=== PATIENT | male | born 1960 ===

== ENCOUNTER 2018-04-07 08:14 | Inpatient (IN) | payer OTHER ==
--- NOTE | 2018-04-07 08:30 | Emergency Department Report ---
ED CPR HPI - General Chief Complaint: Cardiac Arrest/CPR Stated Complaint: CARDIAC Time Seen by Provider: 04/07/18 08:14 Source: family, EMS Mode of arrival: Stretcher Limitations: Altered Mental Status, Other (clinical situation) - History of Present Illness Initial Comments: History per family and EMS: per ems, EMS was called for complaint of chest pain and decreased responsiveness. Patient was found to have a blood sugar of 40 on scene and was given oral glucose and D50. Patient was then transported to the hospital in route to the hospital patient became unresponsive And vomiting. EMS states that the patient went unresponsive approximately 30 seconds from hospital. patient was given asa on scene. See code note. Per , patient complained of chest pressure this morning and states that the patient was less responsive than usual. states patient is a diabetic and has not eaten since yesterday. MD Complaint: stopped breathing Place: home Bystander CPR Performed: No AED Applied by Bystander/Throw Out Clerk: No Shock Advised: No Initial Findings in the Field: lethargic ROSC in the Field: No Associated Injuries: No Associated Symptoms: chest pain. denies: abdominal pain, back pain, shortness of breath, headache, dizziness/weakness, sweating, palpitations, trauma Treatments Prior to Arrival: BMV, chest compressions - Related Data Home Medications Medication Instructions Recorded Confirmed Last Taken Ascorbic Acid [Vitamin C with Matilde 500 mg PO BID 04/07/18 04/07/18 Unknown Hips] Ferrous Sulfate [Iron] 325 mg PO PC 04/07/18 04/07/18 Unknown Lisinopril [Zestril] 5 mg PO QDAY 04/07/18 04/07/18 Unknown glipiZIDE [Glipizide] 5 mg PO BID 04/07/18 04/07/18 Unknown metFORMIN [Glucophage] 500 mg PO BID 04/07/18 04/07/18 Unknown Allergies Allergy/AdvReac Type Severity Reaction Status Date / Time No Known Allergies Allergy Unverified 04/07/18 08:27 ED Review of Systems ROS: Stated complaint: CARDIAC Other details as noted in HPI Comment: Unobtainable due to pts medical conditions ED Past Medical Hx - Past Medical History Previous Medical History?: Yes Hx Hypertension: Yes Hx Diabetes: Yes - Surgical History Past Surgical History?: No - Family History Family history: no significant - Social History Smoking Status: Unknown if ever smoked Substance Use Type: None - Medications Home Medications: Home Medications Medication Instructions Recorded Confirmed Last Taken Type Ascorbic Acid [Vitamin C with Matilde 500 mg PO BID 04/07/18 04/07/18 Unknown History Hips] Ferrous Sulfate [Iron] 325 mg PO PC 04/07/18 04/07/18 Unknown History Lisinopril [Zestril] 5 mg PO QDAY 04/07/18 04/07/18 Unknown History glipiZIDE [Glipizide] 5 mg PO BID 04/07/18 04/07/18 Unknown History metFORMIN [Glucophage] 500 mg PO BID 04/07/18 04/07/18 Unknown History ED Physical Exam - General Limitations: Altered Mental Status, Other (medical situation) General appearance: obtunded - Head Head exam: Present: atraumatic, normocephalic - Eye Eye exam: Present: normal appearance, PERRL Pupils: Present: normal accommodation - ENT ENT exam: Present: mucous membranes dry - Neck Neck exam: Present: normal inspection - Respiratory Respiratory exam: Present: other (no respiratory activity noted initially. Patient was intubated immediately) - Cardiovascular Cardiovascular Exam: Present: other (no cardiac activity initially) - Rectal Rectal exam: Present: deferred - Extremities Exam Extremities exam: Present: other (large open wound noted on left foot. with discharge and odor/) - Neurological Exam Neurological exam: Present: altered - Skin Skin exam: Present: warm, dry, other (open wound on left foot. ) ED Course Vital Signs 04/07/18 04/07/18 04/07/18 08:12 08:16 08:29 Temperature Pulse Rate 71 Respiratory Rate Blood Pressure O2 Sat by Pulse 43 L 100 100 Oximetry 04/07/18 04/07/18 04/07/18 08:30 08:46 09:03 Temperature Pulse Rate 122 H 106 H Respiratory 23 22 Rate Blood Pressure 143/71 O2 Sat by Pulse 100 100 100 Oximetry 04/07/18 04/07/18 04/07/18 09:04 09:06 09:08 Temperature Pulse Rate 106 H 106 H 107 H Respiratory 23 22 22 Rate Blood Pressure 87/48 O2 Sat by Pulse 100 100 100 Oximetry 04/07/18 04/07/18 04/07/18 09:15 09:29 09:30 Temperature 98.6 F Pulse Rate 105 H 96 H Respiratory 22 17 Rate Blood Pressure 91/49 77/40 O2 Sat by Pulse 97 Oximetry 04/07/18 04/07/18 04/07/18 09:40 09:50 10:00 Temperature Pulse Rate 96 H 99 H 102 H Respiratory 19 19 16 Rate Blood Pressure 87/48 92/52 92/54 O2 Sat by Pulse 96 95 96 Oximetry 04/07/18 04/07/18 04/07/18 10:15 10:30 10:45 Temperature Pulse Rate 111 H 112 H 114 H Respiratory 15 27 H 23 Rate Blood Pressure 105/61 102/61 96/66 O2 Sat by Pulse 97 95 95 Oximetry 04/07/18 04/07/18 04/07/18 11:14 11:16 11:30 Temperature Pulse Rate 117 H 118 H 114 H Respiratory 37 H 31 H 24 Rate Blood Pressure 96/66 96/66 90/46 O2 Sat by Pulse 94 100 94 Oximetry 04/07/18 04/07/18 04/07/18 11:45 12:00 12:15 Temperature Pulse Rate 108 H 111 H 109 H Respiratory 24 34 H 41 H Rate Blood Pressure 92/46 87/45 82/46 O2 Sat by Pulse 94 96 96 Oximetry 04/07/18 04/07/18 04/07/18 12:29 12:30 13:00 Temperature Pulse Rate 116 H 111 H 114 H Respiratory 40 H 26 H Rate Blood Pressure 82/46 97/41 O2 Sat by Pulse 94 96 93 Oximetry 04/07/18 04/07/18 04/07/18 13:16 13:30 13:46 Temperature Pulse Rate 114 H 114 H 115 H Respiratory 37 H 32 H 32 H Rate Blood Pressure 91/44 91/42 103/48 O2 Sat by Pulse 90 97 93 Oximetry 04/07/18 04/07/18 04/07/18 14:00 14:10 14:16 Temperature Pulse Rate 115 H 110 H 115 H Respiratory 28 H 17 28 H Rate Blood Pressure 96/55 113/52 O2 Sat by Pulse 92 95 93 Oximetry 04/07/18 04/07/18 04/07/18 14:30 14:45 15:00 Temperature Pulse Rate 108 H 99 H 97 H Respiratory 24 24 19 Rate Blood Pressure 90/44 81/46 92/40 O2 Sat by Pulse 91 92 93 Oximetry 04/07/18 04/07/18 04/07/18 15:16 15:30 15:45 Temperature Pulse Rate 102 H 97 H 96 H Respiratory 24 23 25 H Rate Blood Pressure 95/40 98/52 94/50 O2 Sat by Pulse 95 96 95 Oximetry 04/07/18 16:00 Temperature Pulse Rate 94 H Respiratory 23 Rate Blood Pressure 95/50 O2 Sat by Pulse 97 Oximetry - Reevaluation(s) Reevaluation #1: Patient arrived via EMS. Patient was more awake prior to arrival. Patient went unresponsive in route to hospital. Patient noted to be in full arrest. Code ran consistent with ACLS protocol and guidelines. Patient was intubated and given one dose of epi. Patient's pulse returned. See code note 04/07/18 08:11 Reevaluation #2: Discussed this case and status with family member. is at bedside. 04/07/18 08:27 Reevaluation #3: Patient becoming hypotensive. We will decrease propofol rate and give patient a bolus of saline. We will monitor pressure. If blood pressure resistant to saline bolus, we will start a drip 04/07/18 09:05 Blood pressure is better after saline bolus. Patient resting comfortably. We' ll continue to monitor patient 04/07/18 11:32 Blood pressure is improving. Versed drip pending. Patient is still on propofol drip and currently on 2 mics of norepinephrine. Patient awake and following commands when propofol stopped 04/07/18 12:56 Reevaluation #4: Discussed plan of care with family. Family agrees with plan of care. Discussed all results with family member. Family at bedside 04/07/18 13:04 Reevaluation #5: CPAP trial with patient for possible extubation. However patient became hypoxic during the trial. Patient will remain intubated. Patient also continues to be hypotensive with a low map. Will place central line for better IV access. See procedure note. Discussed plan of care with family and family agrees 04/07/18 14:56 - Consultations Consultation #1: Hospitalist consulted for admission. Hospitalist to admit patient. Hospitalist , Dr silva to assume care 04/07/18 12:05 - Central Line Placement Right IJ Consent Obtained: verbal consent, written consent, emergent situation Time Out Performed: Yes Patient Placed on Monitor/Pulse Ox: Yes Prep: mask, gown, gloves Central Line Prep: Chlorhexidine scrub, sterile drapes applied Local Anesthesia Used: Lidocaine 1% Ultrasound Used for Placement: Yes Central Line Lumen Inserted: triple Bloods Obtained for Lab: Yes Central Line Position: good blood return, all ports aspirated, flus, sutured in place with 2-0 Dressing Applied: Tegaderm Post Procedure X-Ray: tip of catheter in good p Patient Tolerated Procedure: well Complications: none - Intubation Time Out Performed: Yes Sedative: none Laryngoscope: fiberoptic video scope Size: 4 Assist Device Used: fiberoptic device ET Tube Size: 7.5 Tube Secured Depth (cm): 24 Tube Secured Location: lips Tube Placement Confirmation: visualized tube passing t, equal breath sounds bilat, no breath sounds over epi, confirmation by capnometr Patient Tolerated Procedure: well Intubation Complications: none ED Medical Decision Making - Lab Data Result diagrams: 04/07/18 08:15 04/07/18 08:15 - EKG Data -: EKG Interpreted by Me EKG shows normal: sinus rhythm, axis, intervals, QRS complexes, ST-T waves Rate: tachycardia - Radiology Data Radiology results: image reviewed interpreted by me: et tube in good placement. post cvl film: no pneumo. line in place. CT scan of head IV contrast: History: AMS. Findings: Ventricles are normal in size and midline in location. Mild cortical atrophy. Focal area of low attenuation right basal ganglia measuring 4 mm in diameter suggesting chronic lacunar infarct. No evidence of acute ischemia. No hemorrhage or mass. No extra-axial fluid collection. Normal visualized sinuses and mastoid air cells. Impression: Chronic lacunar infarct right basal ganglia. No acute intracranial abnormality. Transcribed By: PTP Dictated By: LEAH WOLFF MD Electronically Authenticated By: LEAH WOLFF MD Signed Date/Time: 04/07/18 1117 cta - no pe./ EXAM: XR CHEST 1V AP HISTORY: confirm central line placement COMPARISON: None. TECHNIQUE: Single frontal view of the chest FINDINGS: Endotracheal tube with tip in the midtrachea. Right central venous catheter with tip in the upper superior vena cava, just below the brachiocephalic junction. The cardiomediastinal silhouette is normal in appearance. Patchy airspace opacities throughout the right lung. Patchy opacity at the left lower lobe. No acute bony or soft tissue abnormality. IMPRESSION: Right central venous catheter with tip in the upper superior vena cava, just below the brachiocephalic junction. Patchy airspace opacities throughout the right lung and at the left lower lobe. Transcribed By: JADE Dictated By: VESTA CARRANZA MD Electronically Authenticated By: VESTA CARRANZA MD Signed Date/Time: 04/07/18 1630 - Medical Decision Making Patient is 57 y/o male that presented to the emergency room with cardiac arrest after initial complaints to EMS of chest pain. Patient was found by EMS to be hypoglycemic and given D50. Patient interested in route to the hospital. Code ran and patient successfully resuscitated. Patient was intubated. Patient found to be septic. Found to have bilateral pneumonia and infected foot ulcer. Patient also found to have lactic acidosis. Head CT negative and CTA negative for PE. Patient was started on pressors for hypotension after saline boluses. Sedation was also changed due to hypotension. He continues to the hospitalist service for further evaluation and treatment. Patient to be admitted into the ICU. - Differential Diagnosis cardiac arrest. Hypoglycemia. Sepsis. Septic shock. Hypotension. pna Critical Care Time: Yes Critical care attestation.: If time is entered above; I have spent that time in minutes in the direct care of this critically ill patient, excluding procedure time. Critical Care Time: 75 minutes for cc time. ED Disposition Clinical Impression: Cardiac arrest, Hypoglycemia, Foot infection, Lactic acidosis, Septic shock Foot ulcer, left Qualifiers: Non-pressure ulcer stage: unspecified non-pressure ulcer stage Qualified Code(s ): L97.529 - Non-pressure chronic ulcer of other part of left foot with unspecified severity Sepsis Qualifiers: Sepsis type: sepsis due to unspecified organism Qualified Code(s): A41.9 - Sepsis, unspecified organism Bilateral pneumonia Qualifiers: Pneumonia type: due to unspecified organism Lung location: unspecified part of lung Qualified Code(s): J18.9 - Pneumonia, unspecified organism Anemia Qualifiers: Anemia type: unspecified type Qualified Code(s): D64.9 - Anemia, unspecified Disposition: OP ADMIT IP TO THIS HOSP Is pt being admited?: Yes Does the pt Need Aspirin: No Condition: Critical Time of Disposition: 12:01
[2018-04-07] MEDS ORDERED: DIPRIVAN 10 MG/ML 1,000 MG/100 ML BOTTLE IV ONE (08:34)
[2018-04-07] MEDS ORDERED: ARTIFICIAL TEARS OPHTH OINT OU PRN (08:48)
[2018-04-07] MEDS ORDERED: VASELINE LIP THERAPY TP PRN (08:48)
[2018-04-07] MEDS ORDERED: NACL 0.9% 1000 ML 1,000 ML IV ONE ×4 (08:50→13:05)
[2018-04-07] MEDS ORDERED: NACL 0.9% 500 ML IV SCH (09:00)
[2018-04-07] MEDS ORDERED: DIPRIVAN 10 MG/ML 1,000 MG/100 ML BOTTLE IV SCH (09:00)
[2018-04-07 09:01] LABS: Hematocrit 22.4 % (35.5-45.6); Hemoglobin 7.2 gm/dl (11.8-15.2); Mean Corpuscular HGB Conc 32 % (32-34); Mean Corpuscular Hemoglobin 25 pg (28-32); Mean Corpuscular Volume 78 fl (84-94); Platelet Count 453 K/mm3 (140-440); Red Blood Count 2.89 M/mm3 (3.65-5.03)
[2018-04-07 09:20] LABS: Alanine Aminotransferase 43 units/L (7-56); Albumin 2.4 g/dL (3.9-5); BUN/Creatinine Ratio 15; Blood Urea Nitrogen 21 mg/dL (9-20); Calcium 8.2 mg/dL (8.4-10.2); Hemolysis Index 1
[2018-04-07 09:23] LABS: Creatine Kinase MB < 1.0 ng/mL (0.0-4.0)
--- NOTE | 2018-04-07 09:32 | XRay Report ---
Single view chest: History: ET tube placement. Findings: Normal cardiomediastinal silhouette. Trachea is midline. Tip of endotracheal tube in normal position. No consolidation no pleural effusion or pneumothorax. Impression: No acute cardiopulmonary findings.
[2018-04-07] MEDS ORDERED: ZOSYN/NS 3.375GM/50ML 3.375 GM/50 ML BAG IV ONE (09:43)
[2018-04-07 09:47] LABS: Bilirubin,Urine NEG (Negative); Blood,Urine NEG (Negative); Color,Urine Yellow (Yellow); Mucus,Urine FEW /HPF; Sperm,Urine 3+ /HPF (NP); Urobilinogen,Urine < 2.0 mg/dL (<2.0)
[2018-04-07 09:54] LABS: Amphetamine Screen,Urine PRESUMPTIVE NEGATIVE; Benzodiazepines Screen,Urine PRESUMPTIVE NEGATIVE; Cannabinoid Screen,Urine PRESUMPTIVE NEGATIVE; Cocaine Screen,Urine PRESUMPTIVE NEGATIVE; Methadone Screen,Urine PRESUMPTIVE NEGATIVE; Opiate Screen,Urine PRESUMPTIVE NEGATIVE
[2018-04-07] MEDS ORDERED: VANCOMYCIN/NS 1 GM/250 ML 1 GM/250 ML BAG IV SCH (10:00)
[2018-04-07] MEDS ORDERED: VANCOMYCIN 1,500 MG in NACL 0.9% 500 ML 500 ML IV ONE (10:15)
[2018-04-07 10:36] LABS: Basophils % (Manual) 0 % (0.0-1.8); Eosinophils % (Manual) 0 % (0.0-4.3); Total Cells Counted 100
[2018-04-07 10:37] LABS: RBC Morphology Normal
[2018-04-07] MEDS ORDERED: ATIVAN ONE ×4 (10:39→10:47)
--- NOTE | 2018-04-07 11:35 | Cat Scan Report ---
CT scan of head IV contrast: History: AMS. Findings: Ventricles are normal in size and midline in location. Mild cortical atrophy. Focal area of low attenuation right basal ganglia measuring 4 mm in diameter suggesting chronic lacunar infarct. No evidence of acute ischemia. No hemorrhage or mass. No extra-axial fluid collection. Normal visualized sinuses and mastoid air cells. Impression: Chronic lacunar infarct right basal ganglia. No acute intracranial abnormality.
--- NOTE | 2018-04-07 11:38 | Cat Scan Report ---
CTA chest: History: Elevated d-dimer. Findings: Tip of endotracheal tube in normal position. No evidence of aortic aneurysm or pulmonary embolism. Airspace opacities in right lower lobe. Pleural thickening or minimal consolidation left lower lobe paravertebral region. Scattered airspace opacities left lower lobe. Impression: No evidence of pulmonary embolism. Bibasilar airspace opacities probably related to bilateral pneumonia or pulmonary edema.
[2018-04-07] MEDS ORDERED: ADRENALIN 8 MG in NACL 0.9% 250ML 242 ML IV ONE (11:58)
[2018-04-07] MEDS ORDERED: LEVOPHED DRIP 4 MG/NS 250 ML 4 MG/250 ML BAG IV ONE ×2 (12:04→20:14)
[2018-04-07] MEDS ORDERED: LEVOPHED DRIP 4 MG/NS 250 ML 4 MG/250 ML BAG IV SCH (12:15)
[2018-04-07] MEDS ORDERED: MIDAZOLAM 100 MG in NACL 0.9% 80 ML IV SCH (13:00)
[2018-04-07 14:05] LABS: Creatine Kinase MB 2.5 ng/mL (0.0-4.0)
[2018-04-07] MEDS ORDERED: SUBLIMAZE IV ONE (15:05)
[2018-04-07] MEDS: fentaNYL DRIP Premix 2,000 MCG/100 ML BAG IV SCH (15:56)
[2018-04-07] MEDS ORDERED: SODIUM CHLORIDE FLUSH SYRINGE 10 ML IV PRN (16:08)
[2018-04-07] MEDS ORDERED: ZOFRAN IV PRN (16:08)
--- NOTE | 2018-04-07 16:08 | History and Physical Report ---
History of Present Illness Date of examination: 04/07/18 Date of admission: 04/07/18 Chief complaint: CC Decreased responsiveness and Low BG 1 hour prior to arrival. History of present illness: History of Present Illness: 57 y/o male with pmh of T2DM and HTN complained of chest pain.EMS was called.EMS found him with BG of 40 and decreased responsiveness.D50w was given.Enroute to the hospital .Enroute to the hospital patient became unresponsive and also vomited once.ASLS was initiated and patient brought into the ER with BMV and chest compressions.Patient intubated in ED by Dr Pendleton for airway protection.Return of spontaneous circulation and BP came back.NOfever or chills.No recent travel. Past Medical History Previous Medical History?: Yes Hx Hypertension: Yes Hx Diabetes: Yes--poorly controlled per Surgical History Past Surgical History?: No Family History Family history: no significant Social History Smoking Status: Unknown if ever smoked Substance Use Type: None Medications Home Medications: Home Medications Medication Instructions Recorded Confirmed Last Taken Type Ascorbic Acid [Vitamin C with Matilde 500 mg PO BID 04/07/18 04/07/18 Unknown History Hips] Ferrous Sulfate [Iron] 325 mg PO PC 04/07/18 04/07/18 Unknown History Lisinopril [Zestril] 5 mg PO QDAY 04/07/18 04/07/18 Unknown History glipiZIDE [Glipizide] 5 mg PO BID 04/07/18 04/07/18 Unknown History metFORMIN [Glucophage] 500 mg PO BID 04/07/18 04/07/18 Unknown History Review of Systems ROS: Stated complaint: CARDIAC Other details as noted in HPI Medications and Allergies Allergies Allergy/AdvReac Type Severity Reaction Status Date / Time No Known Allergies Allergy Unverified 04/07/18 08:27 Home Medications Medication Instructions Recorded Confirmed Last Taken Type Ascorbic Acid [Vitamin C with Matilde 500 mg PO BID 04/07/18 04/07/18 Unknown History Hips] Ferrous Sulfate [Iron] 325 mg PO PC 04/07/18 04/07/18 Unknown History Lisinopril [Zestril] 5 mg PO QDAY 04/07/18 04/07/18 Unknown History glipiZIDE [Glipizide] 5 mg PO BID 04/07/18 04/07/18 Unknown History metFORMIN [Glucophage] 500 mg PO BID 04/07/18 04/07/18 Unknown History Active Meds: Active Medications Hydrophilic Ointment (Vaseline Lip Therapy) 1 applic TP Q2HR PRN PRN Reason: Dry Lips Propofol (Diprivan 10 Mg/Ml) 1,000 mg in 100 mls @ 2.177 mls/hr IV TITR JODY; Protocol Last Titration: 04/07/18 13:29 Dose: 0 mcg/kg/min, 0 mls/hr Norepinephrine (Levophed Drip 4 Mg/Ns 250 Ml) 4 mg in 250 mls @ 7.5 mls/hr IV TITR JODY; Protocol Last Titration: 04/07/18 15:39 Dose: 10 mcg/min, 37.5 mls/hr Midazolam HCl 100 mg/ Sodium (Chloride) 100 mls @ 2 mls/hr IV TITR JODY; Protocol Last Titration: 04/07/18 14:52 Dose: 5 mg/hr, 5 mls/hr Fentanyl Citrate (Fentanyl Drip Premix) 2,000 mcg in 100 mls @ 3.629 mls/hr IV TITR JODY; Protocol Last Admin: 04/07/18 15:56 Dose: 1 mcg/kg/hr, 3.629 mls/hr Multi-Ingred Cream/Lotion/Oil/Oint (Artificial Tears Ophth Oint) 1 applic OU Q4HR PRN PRN Reason: Dry Eye(s) Sodium Chloride (Nacl 0.9% 500 Ml) 1 ml IV DIRECT JODY Exam - Constitutional Vitals: Temp Pulse Resp BP Pulse Ox 98.6 F 110 H 17 91/42 95 04/07/18 09:29 04/07/18 14:10 04/07/18 14:10 04/07/18 13:30 04/07/18 14:10 General appearance: Present: mild distress, well-nourished - EENT Eyes: Present: PERRL ENT: hearing intact, clear oral mucosa - Neck Neck: Present: supple, normal ROM - Respiratory Respiratory effort: normal Respiratory: bilateral: CTA - Cardiovascular Heart rate: 80 Rhythm: regular Heart Sounds: Present: S1 & S2. Absent: rub, click - Extremities Extremities: no ischemia, pulses intact, pulses symmetrical, No edema Peripheral Pulses: within normal limits - Abdominal General gastrointestinal: Present: soft, non-tender, non-distended, normal bowel sounds Male genitourinary: Present: normal - Integumentary Integumentary: Present: clear, warm, dry - Musculoskeletal Musculoskeletal: generalized weakness - Psychiatric Psychiatric: intact judgment & insight, other (Intubated and sedated) - Neurologic Neurologic: moves all extremities - Allied Health Allied health notes reviewed: nursing, case management Results - Labs CBC & Chem 7: 04/07/18 08:15 04/07/18 08:15 Labs: Laboratory Last Values WBC 23.9 K/mm3 (4.5-11.0) H 04/07/18 08:15 RBC 2.89 M/mm3 (3.65-5.03) L 04/07/18 08:15 Hgb 7.2 gm/dl (11.8-15.2) L 04/07/18 08:15 Hct 22.4 % (35.5-45.6) L 04/07/18 08:15 MCV 78 fl (84-94) L 04/07/18 08:15 MCH 25 pg (28-32) L 04/07/18 08:15 MCHC 32 % (32-34) 04/07/18 08:15 RDW 13.0 % (13.2-15.2) L 04/07/18 08:15 Plt Count 453 K/mm3 (140-440) H 04/07/18 08:15 Add Manual Diff Complete 04/07/18 08:15 Total Counted 100 04/07/18 08:15 Seg Neuts % (Manual) 84.0 % (40.0-70.0) H 04/07/18 08:15 Band Neutrophils % 0 % 04/07/18 08:15 Lymphocytes % (Manual) 8.0 % (13.4-35.0) L 04/07/18 08:15 Reactive Lymphs % (Man) 0 % 04/07/18 08:15 Monocytes % (Manual) 8.0 % (0.0-7.3) H 04/07/18 08:15 Eosinophils % (Manual) 0 % (0.0-4.3) 04/07/18 08:15 Basophils % (Manual) 0 % (0.0-1.8) 04/07/18 08:15 Metamyelocytes % 0 % 04/07/18 08:15 Myelocytes % 0 % 04/07/18 08:15 Promyelocytes % 0 % 04/07/18 08:15 Blast Cells % 0 % 04/07/18 08:15 Nucleated RBC % Not Reportable 04/07/18 08:15 Seg Neutrophils # Man 20.1 K/mm3 (1.8-7.7) H 04/07/18 08:15 Band Neutrophils # 0.0 K/mm3 04/07/18 08:15 Lymphocytes # (Manual) 1.9 K/mm3 (1.2-5.4) 04/07/18 08:15 Abs React Lymphs (Man) 0.0 K/mm3 04/07/18 08:15 Monocytes # (Manual) 1.9 K/mm3 (0.0-0.8) H 04/07/18 08:15 Eosinophils # (Manual) 0.0 K/mm3 (0.0-0.4) 04/07/18 08:15 Basophils # (Manual) 0.0 K/mm3 (0.0-0.1) 04/07/18 08:15 Metamyelocytes # 0.0 K/mm3 04/07/18 08:15 Myelocytes # 0.0 K/mm3 04/07/18 08:15 Promyelocytes # 0.0 K/mm3 04/07/18 08:15 Blast Cells # 0.0 K/mm3 04/07/18 08:15 WBC Morphology Not Reportable 04/07/18 08:15 Hypersegmented Neuts Not Reportable 04/07/18 08:15 Hyposegmented Neuts Not Reportable 04/07/18 08:15 Hypogranular Neuts Not Reportable 04/07/18 08:15 Smudge Cells Not Reportable 04/07/18 08:15 Toxic Granulation Not Reportable 04/07/18 08:15 Toxic Vacuolation Not Reportable 04/07/18 08:15 Dohle Bodies Not Reportable 04/07/18 08:15 Pelger-Huet Anomaly Not Reportable 04/07/18 08:15 Matt Rods Not Reportable 04/07/18 08:15 Platelet Estimate Appears normal 04/07/18 08:15 Clumped Platelets Not Reportable 04/07/18 08:15 Plt Clumps, EDTA Not Reportable 04/07/18 08:15 Large Platelets Not Reportable 04/07/18 08:15 Giant Platelets Not Reportable 04/07/18 08:15 Platelet Satelliting Not Reportable 04/07/18 08:15 Plt Morphology Comment Not Reportable 04/07/18 08:15 RBC Morphology Normal 04/07/18 08:15 Dimorphic RBCs Not Reportable 04/07/18 08:15 Polychromasia Not Reportable 04/07/18 08:15 Hypochromasia Not Reportable 04/07/18 08:15 Poikilocytosis Not Reportable 04/07/18 08:15 Anisocytosis Not Reportable 04/07/18 08:15 Microcytosis Not Reportable 04/07/18 08:15 Macrocytosis Not Reportable 04/07/18 08:15 Spherocytes Not Reportable 04/07/18 08:15 Pappenheimer Bodies Not Reportable 04/07/18 08:15 Sickle Cells Not Reportable 04/07/18 08:15 Target Cells Not Reportable 04/07/18 08:15 Tear Drop Cells Not Reportable 04/07/18 08:15 Ovalocytes Not Reportable 04/07/18 08:15 Helmet Cells Not Reportable 04/07/18 08:15 [place] Bodies Not Reportable 04/07/18 08:15 [place] Rings Not Reportable 04/07/18 08:15 Matthias Cells Not Reportable 04/07/18 08:15 Bite Cells Not Reportable 04/07/18 08:15 Crenated Cell Not Reportable 04/07/18 08:15 Elliptocytes Not Reportable 04/07/18 08:15 Acanthocytes (Spur) Not Reportable 04/07/18 08:15 Rouleaux Not Reportable 04/07/18 08:15 Hemoglobin C Crystals Not Reportable 04/07/18 08:15 Schistocytes Not Reportable 04/07/18 08:15 Malaria parasites Not Reportable 04/07/18 08:15 [place] Bodies Not Reportable 04/07/18 08:15 Hem Pathologist Commnt No 04/07/18 08:15 D-Dimer 933.08 ng/mlDDU (0-234) H 04/07/18 08:15 VBG pH 7.231 (7.320-7.420) L 04/07/18 13:25 Sodium 127 mmol/L (137-145) L 04/07/18 08:15 Potassium 4.3 mmol/L (3.6-5.0) 04/07/18 08:15 Chloride 90.7 mmol/L (98-107) L 04/07/18 08:15 Carbon Dioxide 21 mmol/L (22-30) L 04/07/18 08:15 Anion Gap 20 mmol/L 04/07/18 08:15 BUN 21 mg/dL (9-20) H 04/07/18 08:15 Creatinine 1.4 mg/dL (0.8-1.5) 04/07/18 08:15 Estimated GFR 52 ml/min 04/07/18 08:15 BUN/Creatinine Ratio 15 % 04/07/18 08:15 Glucose 191 mg/dL (75-100) H 04/07/18 08:15 POC Glucose 225 (70-105) H 04/07/18 08:11 Lactic Acid 4.50 mmol/L (0.7-2.0) H* 04/07/18 12:27 Calcium 8.2 mg/dL (8.4-10.2) L 04/07/18 08:15 Total Bilirubin 0.60 mg/dL (0.1-1.2) 04/07/18 08:15 AST 36 units/L (5-40) 04/07/18 08:15 ALT 43 units/L (7-56) 04/07/18 08:15 Alkaline Phosphatase 287 units/L (35-129) H 04/07/18 08:15 Total Creatine Kinase 83 units/L (55-170) 04/07/18 13:25 CK-MB (CK-2) 2.5 ng/mL (0.0-4.0) 04/07/18 13:25 CK-MB (CK-2) Rel Index 3.0 (0-4) 04/07/18 13:25 Troponin T 0.025 ng/mL (0.00-0.029) 04/07/18 13:25 Total Protein 7.6 g/dL (6.3-8.2) 04/07/18 08:15 Albumin 2.4 g/dL (3.9-5) L 04/07/18 08:15 Albumin/Globulin Ratio 0.5 % 04/07/18 08:15 Urine Color Yellow (Yellow) 04/07/18 08:52 Urine Turbidity Clear (Clear) 04/07/18 08:52 Urine pH 8.0 (5.0-7.0) H 04/07/18 08:52 Ur Specific [place] 1.009 (1.003-1.030) 04/07/18 08:52 Urine Protein 100 mg/dl mg/dL (Negative) 04/07/18 08:52 Urine Glucose (UA) Neg mg/dL (Negative) 04/07/18 08:52 Urine Ketones Neg mg/dL (Negative) 04/07/18 08:52 Urine Blood Neg (Negative) 04/07/18 08:52 Urine Nitrite Neg (Negative) 04/07/18 08:52 Urine Bilirubin Neg (Negative) 04/07/18 08:52 Urine Urobilinogen < 2.0 mg/dL (<2.0) 04/07/18 08:52 Ur Leukocyte Esterase Neg (Negative) 04/07/18 08:52 Urine WBC (Auto) 1.0 /HPF (0.0-6.0) 04/07/18 08:52 Urine RBC (Auto) 3.0 /HPF (0.0-6.0) 04/07/18 08:52 U Epithel Cells (Auto) 2.0 /HPF (0-13.0) 04/07/18 08:52 Urine Mucus Few /HPF 04/07/18 08:52 Urine Sperm 3+ /HPF ([place] [address] [place]) 04/07/18 08:52 Urine Opiates Screen Presumptive negative 04/07/18 08:52 Urine Methadone Screen Presumptive negative 04/07/18 08:52 Ur Barbiturates Screen Presumptive negative 04/07/18 08:52 Ur Phencyclidine Scrn Presumptive negative 04/07/18 08:52 Ur Amphetamines Screen Presumptive negative 04/07/18 08:52 U Benzodiazepines Scrn Presumptive negative 04/07/18 08:52 Urine Cocaine Screen Presumptive negative 04/07/18 08:52 U Marijuana (THC) Screen Presumptive negative 04/07/18 08:52 Drugs of Abuse Note Disclamer 04/07/18 08:52 - Imaging and Cardiology EKG: report reviewed (Sinus Tachycardia 117/min) CT scan - chest: report reviewed (Bibasilar airspace abnormalities possible bilateral PNA,No PE) CT Scan - head: report reviewed (Chronic Lacunar infarct basal ganglia.) Assessment and Plan Assessment and plan: Critical care Statement: The high probability of a clinically significant, sudden or life threatening deterioration of the [Pulmonary, cadiac, renal] system(s) required my full and direct attention, intervention and personal management. The aggregate critical care time was [45] minutes. This time is in addition to time spent performing reported procedures but includes the following: [x] Data Review and interpretation [x] Patient assessment and monitoring of vital signs [x] Documentation [x] Medication orders and management Advance Directives: Yes (Full code) VTE prophylaxis?: Chemical Plan of care discussed with patient/family: Yes - Patient Problems (1) Acute respiratory failure Current Visit: Yes Status: Acute Qualifiers: Respiratory failure complication: hypoxia Qualified Code(s): J96.01 - Acute respiratory failure with hypoxia Plan to address problem: Sec to Bilateral pneumonia.Nt a smoked Vent support for next 24 hours. Extubaition was attempted but was unsuccessful as the patient became more alert and oriented (2) Sepsis Current Visit: Yes Status: Acute Qualifiers: Sepsis type: sepsis due to unspecified organism Qualified Code(s): A41.9 - Sepsis, unspecified organism Plan to address problem: Sec to Bilateral PNA Aspiration??? IV abx in the form of Zosyn and Vancomycin ID consult requested (3) Bilateral pneumonia Current Visit: Yes Status: Acute Qualifiers: Pneumonia type: aspiration pneumonia Lung location: unspecified part of lung Qualified Code(s): J18.9 - Pneumonia, unspecified organism Plan to address problem: Possible aspiration PNA IV Zosyn and IV Vanco (4) Anemia Current Visit: Yes Status: Acute Qualifiers: Anemia type: unspecified type Qualified Code(s): D64.9 - Anemia, unspecified Plan to address problem: Chronic GI bleed versus nutritional Iron studies orderewd Transfuse 1 to 2 units of PRBC (5) Cardiac arrest Current Visit: Yes Status: Acute Plan to address problem: Revived Etio unclear-sepsis versus Acute PR (6) Hypoglycemia Current Visit: Yes Status: Acute Plan to address problem: Corrected (7) T2DM (type 2 diabetes mellitus) Current Visit: Yes Status: Chronic Qualifiers: Diabetes mellitus assisted insulin use: without machine long goods helper use Plan to address problem: Coverage for now (8) Acute hyponatremia Current Visit: Yes Status: Acute Plan to address problem: IV NS and correction of BG (9) HTN (hypertension) Current Visit: Yes Status: Chronic Qualifiers: Hypertension type: essential hypertension Qualified Code(s): I10 - Essential (primary) hypertension Plan to address problem: Cont antihypertensives as necessary (10) DVT prophylaxis Current Visit: Yes Status: Acute Plan to address problem: On Lovenox GI prophyulaxis initiated
--- NOTE | 2018-04-07 16:31 | XRay Report ---
FINAL REPORT EXAM: XR CHEST 1V AP HISTORY: confirm central line placement COMPARISON: None. TECHNIQUE: Single frontal view of the chest FINDINGS: Endotracheal tube with tip in the midtrachea. Right central venous catheter with tip in the upper superior vena cava, just below the brachiocephalic junction. The cardiomediastinal silhouette is normal in appearance. Patchy airspace opacities throughout the right lung. Patchy opacity at the left lower lobe. No acute bony or soft tissue abnormality. IMPRESSION: Right central venous catheter with tip in the upper superior vena cava, just below the brachiocephalic junction. Patchy airspace opacities throughout the right lung and at the left lower lobe.
[2018-04-07] MEDS ORDERED: D5NS 1,000 ML IV SCH (17:00)
[2018-04-07] MEDS ORDERED: TYLENOL PR PRN (17:16)
[2018-04-07] MEDS ORDERED: TYLENOL PR ONE (17:21)
[2018-04-07] MEDS: LOVENOX SUB-Q SCH (17:42)
[2018-04-07] MEDS: ZOSYN/NS 4.5GM/100ML 4.5 GM/100 ML VIAL IV SCH (17:43)
[2018-04-07] MEDS: DUONEB *Not for PRN Use IH SCH ×2 (18:49→20:24)
[2018-04-07] MEDS ORDERED: NACL 0.9% 1000 ML 0 ML ONE (21:43)
[2018-04-07] MEDS: SODIUM CHLORIDE FLUSH SYRINGE 10 ML IV SCH (22:20)
--- NOTE | 2018-04-08 03:34 | XRay Report ---
FINAL REPORT PROCEDURE: XR CHEST 1V AP TECHNIQUE: Chest radiograph anteroposterior view. CPT 26711 HISTORY: follow up respiratory failure COMPARISON: 04/07/2018 FINDINGS: Heart: The heart size is enlarged but stable. Mediastinum/Vessels: Normal. Lungs/Pleural space: Mild vascular congestion with slight atelectasis/infiltrate right lower lung. No effusion or pneumothorax. Bony thorax: No acute osseous abnormality. Life support devices: The endotracheal tube ends 3 centimeters above the jada. A right central catheter ends in the SVC. IMPRESSION: No acute cardiopulmonary abnormality.
[2018-04-08] MEDS ORDERED: NACL 0.9% 500 ML 500 ML IV ONE (06:02)
[2018-04-08] MEDS ORDERED: DUONEB *Not for PRN Use IH (06:05)
[2018-04-08] MEDS ORDERED: PROVENTIL IH PRN (06:19)
[2018-04-08] MEDS ORDERED: VANCOMYCIN PHARMACY TO DOSE IV SCH (07:00)
[2018-04-08] MEDS: ZOSYN/NS 4.5GM/100ML 4.5 GM/100 ML VIAL IV SCH ×4 (07:43→19:49)
[2018-04-08 07:54] LABS: Calcium 7.5 mg/dL (8.4-10.2)
[2018-04-08 08:00] LABS: % Iron Saturation 14.15 %
--- NOTE | 2018-04-08 08:15 | Consultation ---
Medications and Allergies Allergies Allergy/AdvReac Type Severity Reaction Status Date / Time No Known Allergies Allergy Unverified 04/07/18 08:27 Home Medications Medication Instructions Recorded Confirmed Last Taken Type Ascorbic Acid [Vitamin C with Matilde 500 mg PO BID 04/07/18 04/07/18 Unknown History Hips] Ferrous Sulfate [Iron] 325 mg PO PC 04/07/18 04/07/18 Unknown History Lisinopril [Zestril] 5 mg PO QDAY 04/07/18 04/07/18 Unknown History glipiZIDE [Glipizide] 5 mg PO BID 04/07/18 04/07/18 Unknown History metFORMIN [Glucophage] 500 mg PO BID 04/07/18 04/07/18 Unknown History Active Meds: Active Medications Acetaminophen (Tylenol) 650 mg PO Q4H PRN PRN Reason: Pain MILD(1-3)/Fever >100.5/[place] Acetaminophen (Tylenol) 650 mg PA Q4H PRN PRN Reason: Pain, Mild (1-3) Albuterol (Proventil) 2.5 mg IH Q3HRT PRN PRN Reason: Wheezing Albuterol/Ipratropium (Duoneb *Not For Prn Use*) 1 ampul IH Q4HRT [facility] Last Admin: 04/07/18 20:24 Dose: 1 ampul Enoxaparin Sodium (Lovenox) 40 mg SUB-Q QDAY [facility] Last Admin: 04/07/18 17:42 Dose: 40 mg Hydrophilic Ointment (Vaseline Lip Therapy) 1 applic TP Q2HR PRN PRN Reason: Dry Lips Propofol (Diprivan 10 Mg/Ml) 1,000 mg in 100 mls @ 2.177 mls/hr IV TITR JODY; Protocol Last Titration: 04/07/18 13:29 Dose: 0 mcg/kg/min, 0 mls/hr Norepinephrine (Levophed Drip 4 Mg/Ns 250 Ml) 4 mg in 250 mls @ 7.5 mls/hr IV TITR JODY; Protocol Last Titration: 04/08/18 04:25 Dose: Infused Midazolam HCl 100 mg/ Sodium (Chloride) 100 mls @ 2 mls/hr IV TITR JODY; Protocol Last Titration: 04/07/18 14:52 Dose: 5 mg/hr, 5 mls/hr Fentanyl Citrate (Fentanyl Drip Premix) 2,000 mcg in 100 mls @ 3.629 mls/hr IV TITR JODY; Protocol Last Admin: 04/07/18 15:56 Dose: 1 mcg/kg/hr, 3.629 mls/hr Piperacillin Sod/Tazobactam Sod (Zosyn/Ns 4.5gm/100ml) 4.5 gm in 100 mls @ 200 mls/hr IV Q8HR JODY; Protocol Last Admin: 04/08/18 07:43 Dose: 200 mls/hr Sodium Chloride (Nacl 0.9% 1000 Ml) 1,000 mls @ 75 mls/hr IV DIRECT JODY Vancomycin HCl (Vancomycin/Ns 1 Gm/250 Ml) 1 gm in 250 mls @ 166.667 mls/hr IV Q24H JODY Insulin Human Lispro (Humalog) 0 unit SUB-Q Q6HR JODY; Protocol Morphine Sulfate (Morphine) 2 mg IV Q4H PRN PRN Reason: Pain, Moderate (4-6) Multi-Ingred Cream/Lotion/Oil/Oint (Artificial Tears Ophth Oint) 1 applic OU Q4HR PRN PRN Reason: Dry Eye(s) Ondansetron HCl (Zofran) 4 mg IV Q8H PRN PRN Reason: Nausea And Vomiting Sodium Chloride (Nacl 0.9% 500 Ml) 1 ml IV DIRECT JODY Sodium Chloride (Sodium Chloride Flush Syringe 10 Ml) 10 ml IV BID JODY Sodium Chloride (Sodium Chloride Flush Syringe 10 Ml) 10 ml IV PRN PRN PRN Reason: LINE FLUSH Physical Examination Vital signs: Vital Signs Pulse Ox 43 L 04/07/18 08:12 Results - Laboratory Findings CBC and BMP: 04/07/18 08:15 04/08/18 07:34 ABG POC ABG pH 7.345 (7.35-7.45) L 04/08/18 06:15 POC ABG pCO2 33.8 (35-45) L 04/08/18 06:15 POC ABG pO2 138 (80-105) H 04/08/18 06:15 POC ABG HCO3 18.5 04/08/18 06:15 POC ABG Total CO2 19 04/08/18 06:15 POC ABG O2 Sat 99 04/08/18 06:15 PT/INR, D-dimer D-Dimer 933.08 ng/mlDDU (0-234) H 04/07/18 08:15 Abnormal lab findings: Abnormal Labs 04/07/18 04/07/18 04/07/18 08:11 08:15 08:15 WBC 23.9 H RBC 2.89 L Hgb 7.2 L Hct 22.4 L MCV 78 L MCH 25 L RDW 13.0 L Plt Count 453 H Seg Neuts % (Manual) 84.0 H Lymphocytes % (Manual) 8.0 L Monocytes % (Manual) 8.0 H Seg Neutrophils # Man 20.1 H Monocytes # (Manual) 1.9 H D-Dimer 933.08 H POC ABG pH POC ABG pCO2 POC ABG pO2 VBG pH Sodium Chloride Carbon Dioxide BUN Glucose POC Glucose 225 H Hemoglobin A1c Lactic Acid Calcium Iron TIBC Transferrin Alkaline Phosphatase Total Creatine Kinase Albumin Urine pH Crossmatch 04/07/18 04/07/18 04/07/18 08:15 08:15 08:52 WBC RBC Hgb Hct MCV MCH RDW Plt Count Seg Neuts % (Manual) Lymphocytes % (Manual) Monocytes % (Manual) Seg Neutrophils # Man Monocytes # (Manual) D-Dimer POC ABG pH POC ABG pCO2 POC ABG pO2 VBG pH Sodium 127 L Chloride 90.7 L Carbon Dioxide 21 L BUN 21 H Glucose 191 H POC Glucose Hemoglobin A1c Lactic Acid 3.80 H* Calcium 8.2 L Iron TIBC Transferrin Alkaline Phosphatase 287 H Total Creatine Kinase 31 L Albumin 2.4 L Urine pH 8.0 H Crossmatch 04/07/18 04/07/18 04/07/18 09:51 12:27 13:25 WBC RBC Hgb Hct MCV MCH RDW Plt Count Seg Neuts % (Manual) Lymphocytes % (Manual) Monocytes % (Manual) Seg Neutrophils # Man Monocytes # (Manual) D-Dimer POC ABG pH POC ABG pCO2 POC ABG pO2 VBG pH 7.231 L Sodium Chloride Carbon Dioxide BUN Glucose POC Glucose Hemoglobin A1c Lactic Acid 3.10 H* 4.50 H* Calcium Iron TIBC Transferrin Alkaline Phosphatase Total Creatine Kinase Albumin Urine pH Crossmatch 04/07/18 04/07/18 04/07/18 15:24 16:35 16:43 WBC RBC Hgb Hct MCV MCH RDW Plt Count Seg Neuts % (Manual) Lymphocytes % (Manual) Monocytes % (Manual) Seg Neutrophils # Man Monocytes # (Manual) D-Dimer POC ABG pH POC ABG pCO2 POC ABG pO2 VBG pH Sodium Chloride Carbon Dioxide BUN Glucose POC Glucose 137 H Hemoglobin A1c 9.9 H Lactic Acid 2.20 H* Calcium Iron TIBC Transferrin Alkaline Phosphatase Total Creatine Kinase Albumin Urine pH Crossmatch 04/07/18 04/07/18 04/08/18 16:43 16:46 06:15 WBC RBC Hgb Hct MCV MCH RDW Plt Count Seg Neuts % (Manual) Lymphocytes % (Manual) Monocytes % (Manual) Seg Neutrophils # Man Monocytes # (Manual) D-Dimer POC ABG pH 7.345 L POC ABG pCO2 28.0 L 33.8 L POC ABG pO2 76 L 138 H VBG pH Sodium Chloride Carbon Dioxide BUN Glucose POC Glucose Hemoglobin A1c Lactic Acid Calcium Iron TIBC Transferrin Alkaline Phosphatase Total Creatine Kinase Albumin Urine pH Crossmatch See Detail 04/08/18 04/08/18 07:34 07:34 WBC RBC Hgb Hct MCV MCH RDW Plt Count Seg Neuts % (Manual) Lymphocytes % (Manual) Monocytes % (Manual) Seg Neutrophils # Man Monocytes # (Manual) D-Dimer POC ABG pH POC ABG pCO2 POC ABG pO2 VBG pH Sodium 131 L Chloride Carbon Dioxide 20 L BUN 24 H Glucose 167 H POC Glucose Hemoglobin A1c Lactic Acid Calcium 7.5 L Iron 15 L TIBC 106 L Transferrin 76 L Alkaline Phosphatase Total Creatine Kinase Albumin Urine pH Crossmatch
[2018-04-08 08:38] LABS: Hematocrit 49.2 % (35.5-45.6); Hemoglobin 15.6 gm/dl (11.8-15.2); Mean Corpuscular HGB Conc 32 % (32-34); Mean Corpuscular Volume 78 fl (84-94); Platelet Count 202 K/mm3 (140-440); Red Cell Distribution Width 13.5 % (13.2-15.2)
[2018-04-08 08:40] LABS: Mean Corpuscular Hemoglobin 25 pg (28-32)
[2018-04-08] MEDS: DUONEB *Not for PRN Use IH SCH ×6 (09:04→20:30)
[2018-04-08] MEDS: HumaLOG SUB-Q SCH ×3 (09:55→18:31)
[2018-04-08] MEDS ORDERED: VANCOMYCIN/NS 1 GM/250 ML 1 GM/250 ML BAG IV SCH (10:00)
[2018-04-08] MEDS: SODIUM CHLORIDE FLUSH SYRINGE 10 ML IV SCH ×2 (10:22→22:15)
[2018-04-08] MEDS: LEVOPHED DRIP 4 MG/NS 250 ML 4 MG/250 ML BAG IV SCH (12:19)
[2018-04-08] MEDS: VANCOMYCIN/NS 1 GM/250 ML 1 GM/250 ML BAG IV SCH (12:40)
[2018-04-08] MEDS: LOVENOX SUB-Q SCH (13:30)
[2018-04-08] MEDS ORDERED: SIMPLE SYRUP FEEDTUBE PRN ×2 (15:57)
[2018-04-08] MEDS ORDERED: SODIUM BICARBONATE FEEDTUBE PRN (15:57)
[2018-04-08] MEDS ORDERED: PANCREAZE DR 10,500 UNIT FEEDTUBE PRN (15:57)
--- NOTE | 2018-04-08 16:06 | Progress Note ---
Assessment and Plan Assessment and plan: Acute hypoxic respiratory failure -Status post intubation -Monitor with ABG -Pulmonology following Severe sepsis with shock probably secondary to pneumonia -On IV pressor and IV antibiotics with vancomycin and Zosyn -Blood and sputum cultures pending Bilateral pneumonia -On IV antibiotics -Blood and sputum cultures pending Questionable cardiac arrest -serial troponin levels normal -will order echo DM2 with hyperglycemia -On Lantus and SSI -A1C:9.9 Hyponatremia -improved, will monitor Iron def anemia -s/p blood tranf with 1u of PRBC -will monitor H/H Transaminitis, probably sec to the sepsis -will monitor Prophylaxis -Protonix and Lovenox Nutrition: NGT feeding Disposition: pt's condition remain critical, cont tx. History Interval history: Patient is intubated and on mechanical ventilator. No reported issues since admission. Hospitalist Physical - Constitutional Vitals: Temp Pulse Resp BP Pulse Ox 98.4 F 84 18 129/68 97 04/08/18 12:35 04/08/18 13:20 04/08/18 13:20 04/08/18 12:45 04/08/18 12:45 General appearance: Present: other (patient is intubated and sedated.) - EENT Eyes: Present: PERRL ENT: other (intubated.) - Neck Neck: Present: supple - Respiratory Respiratory effort: normal Respiratory: bilateral: diminished - Cardiovascular Rhythm: regular Heart Sounds: Present: S1 & S2 - Extremities Extremities: No edema - Abdominal General gastrointestinal: soft, non-tender, non-distended, normal bowel sounds - Neurologic Neurologic: other (patient is intubated and sedated) Results - Labs CBC & Chem 7: 04/08/18 07:34 04/08/18 07:34 Labs: Laboratory Last Values WBC 15.7 K/mm3 (4.5-11.0) H 04/08/18 07:34 RBC 6.30 M/mm3 (3.65-5.03) H 04/08/18 07:34 Hgb 15.6 gm/dl (11.8-15.2) H D 04/08/18 07:34 Hct 49.2 % (35.5-45.6) H D 04/08/18 07:34 MCV 78 fl (84-94) L 04/08/18 07:34 MCH 25 pg (28-32) L 04/08/18 07:34 MCHC 32 % (32-34) 04/08/18 07:34 RDW 13.5 % (13.2-15.2) 04/08/18 07:34 Plt Count 202 K/mm3 (140-440) 04/08/18 07:34 Lymph % (Auto) Endbander 04/08/18 07:34 Coffey % (Auto) Endbander 04/08/18 07:34 Eos % (Auto) Endbander 04/08/18 07:34 Baso % (Auto) Endbander 04/08/18 07:34 Lymph # Endbander 04/08/18 07:34 Coffey # Endbander 04/08/18 07:34 Eos # Endbander 04/08/18 07:34 Baso # Endbander 04/08/18 07:34 Add Manual Diff Complete 04/07/18 08:15 Total Counted 100 04/07/18 08:15 Seg Neutrophils % Endbander 04/08/18 07:34 Seg Neuts % (Manual) 84.0 % (40.0-70.0) H 04/07/18 08:15 Band Neutrophils % 0 % 04/07/18 08:15 Lymphocytes % (Manual) 8.0 % (13.4-35.0) L 04/07/18 08:15 Reactive Lymphs % (Man) 0 % 04/07/18 08:15 Monocytes % (Manual) 8.0 % (0.0-7.3) H 04/07/18 08:15 Eosinophils % (Manual) 0 % (0.0-4.3) 04/07/18 08:15 Basophils % (Manual) 0 % (0.0-1.8) 04/07/18 08:15 Metamyelocytes % 0 % 04/07/18 08:15 Myelocytes % 0 % 04/07/18 08:15 Promyelocytes % 0 % 04/07/18 08:15 Blast Cells % 0 % 04/07/18 08:15 Nucleated RBC % Not Reportable 04/07/18 08:15 Seg Neutrophils # Endbander 04/08/18 07:34 Seg Neutrophils # Man 20.1 K/mm3 (1.8-7.7) H 04/07/18 08:15 Band Neutrophils # 0.0 K/mm3 04/07/18 08:15 Lymphocytes # (Manual) 1.9 K/mm3 (1.2-5.4) 04/07/18 08:15 Abs React Lymphs (Man) 0.0 K/mm3 04/07/18 08:15 Monocytes # (Manual) 1.9 K/mm3 (0.0-0.8) H 04/07/18 08:15 Eosinophils # (Manual) 0.0 K/mm3 (0.0-0.4) 04/07/18 08:15 Basophils # (Manual) 0.0 K/mm3 (0.0-0.1) 04/07/18 08:15 Metamyelocytes # 0.0 K/mm3 04/07/18 08:15 Myelocytes # 0.0 K/mm3 04/07/18 08:15 Promyelocytes # 0.0 K/mm3 04/07/18 08:15 Blast Cells # 0.0 K/mm3 04/07/18 08:15 WBC Morphology Not Reportable 04/07/18 08:15 Hypersegmented Neuts Not Reportable 04/07/18 08:15 Hyposegmented Neuts Not Reportable 04/07/18 08:15 Hypogranular Neuts Not Reportable 04/07/18 08:15 Smudge Cells Not Reportable 04/07/18 08:15 Toxic Granulation Not Reportable 04/07/18 08:15 Toxic Vacuolation Not Reportable 04/07/18 08:15 Dohle Bodies Not Reportable 04/07/18 08:15 Pelger-Huet Anomaly Not Reportable 04/07/18 08:15 Matt Rods Not Reportable 04/07/18 08:15 Platelet Estimate Appears normal 04/07/18 08:15 Clumped Platelets Not Reportable 04/07/18 08:15 Plt Clumps, EDTA Not Reportable 04/07/18 08:15 Large Platelets Not Reportable 04/07/18 08:15 Giant Platelets Not Reportable 04/07/18 08:15 Platelet Satelliting Not Reportable 04/07/18 08:15 Plt Morphology Comment Not Reportable 04/07/18 08:15 RBC Morphology Normal 04/07/18 08:15 Dimorphic RBCs Not Reportable 04/07/18 08:15 Polychromasia Not Reportable 04/07/18 08:15 Hypochromasia Not Reportable 04/07/18 08:15 Poikilocytosis Not Reportable 04/07/18 08:15 Anisocytosis Not Reportable 04/07/18 08:15 Microcytosis Not Reportable 04/07/18 08:15 Macrocytosis Not Reportable 04/07/18 08:15 Spherocytes Not Reportable 04/07/18 08:15 Pappenheimer Bodies Not Reportable 04/07/18 08:15 Sickle Cells Not Reportable 04/07/18 08:15 Target Cells Not Reportable 04/07/18 08:15 Tear Drop Cells Not Reportable 04/07/18 08:15 Ovalocytes Not Reportable 04/07/18 08:15 Helmet Cells Not Reportable 04/07/18 08:15 Davis-Eek Bodies Not Reportable 04/07/18 08:15 [place] Rings Not Reportable 04/07/18 08:15 Henrietta Cells Not Reportable 04/07/18 08:15 Bite Cells Not Reportable 04/07/18 08:15 Crenated Cell Not Reportable 04/07/18 08:15 Elliptocytes Not Reportable 04/07/18 08:15 Acanthocytes (Spur) Not Reportable 04/07/18 08:15 Rouleaux Not Reportable 04/07/18 08:15 Hemoglobin C Crystals Not Reportable 04/07/18 08:15 Schistocytes Not Reportable 04/07/18 08:15 Malaria parasites Not Reportable 04/07/18 08:15 [place] Bodies Not Reportable 04/07/18 08:15 Hem Pathologist Commnt No 04/07/18 08:15 D-Dimer 933.08 ng/mlDDU (0-234) H 04/07/18 08:15 POC ABG pH 7.345 (7.35-7.45) L 04/08/18 06:15 POC ABG pCO2 33.8 (35-45) L 04/08/18 06:15 POC ABG pO2 138 (80-105) H 04/08/18 06:15 POC ABG HCO3 18.5 04/08/18 06:15 POC ABG Total CO2 19 04/08/18 06:15 POC ABG O2 Sat 99 04/08/18 06:15 POC ABG Base Excess -7 04/08/18 06:15 VBG pH 7.231 (7.320-7.420) L 04/07/18 13:25 FiO2 45 % 04/08/18 06:15 Sodium 131 mmol/L (137-145) L 04/08/18 07:34 Potassium 4.8 mmol/L (3.6-5.0) 04/08/18 07:34 Chloride 100.4 mmol/L (98-107) 04/08/18 07:34 Carbon Dioxide 20 mmol/L (22-30) L 04/08/18 07:34 Anion Gap 15 mmol/L 04/08/18 07:34 BUN 24 mg/dL (9-20) H 04/08/18 07:34 Creatinine 1.3 mg/dL (0.8-1.5) 04/08/18 07:34 Estimated GFR 57 ml/min 04/08/18 07:34 BUN/Creatinine Ratio 18 % 04/08/18 07:34 Glucose 167 mg/dL (75-100) H 04/08/18 07:34 POC Glucose 175 (70-105) H 04/08/18 12:43 Hemoglobin A1c 9.9 % (4-6) H 04/07/18 16:43 Lactic Acid 1.80 mmol/L (0.7-2.0) 04/07/18 16:43 Calcium 7.5 mg/dL (8.4-10.2) L 04/08/18 07:34 Iron 15 ug/dL (49-181) L 04/08/18 07:34 TIBC 106 mcg/dL (250-450) L 04/08/18 07:34 % Saturation 14.15 % 04/08/18 07:34 Transferrin 76 mg/dl (180-329) L 04/08/18 07:34 Total Bilirubin 0.60 mg/dL (0.1-1.2) 04/07/18 08:15 AST 36 units/L (5-40) 04/07/18 08:15 ALT 43 units/L (7-56) 04/07/18 08:15 Alkaline Phosphatase 287 units/L (35-129) H 04/07/18 08:15 Total Creatine Kinase 83 units/L (55-170) 04/07/18 13:25 CK-MB (CK-2) 2.5 ng/mL (0.0-4.0) 04/07/18 13:25 CK-MB (CK-2) Rel Index 3.0 (0-4) 04/07/18 13:25 Troponin T 0.025 ng/mL (0.00-0.029) 04/07/18 13:25 Total Protein 7.6 g/dL (6.3-8.2) 04/07/18 08:15 Albumin 2.4 g/dL (3.9-5) L 04/07/18 08:15 Albumin/Globulin Ratio 0.5 % 04/07/18 08:15 Vitamin B12 1405 pg/mL (211-911) H 04/08/18 07:34 Urine Color Yellow (Yellow) 04/07/18 08:52 Urine Turbidity Clear (Clear) 04/07/18 08:52 Urine pH 8.0 (5.0-7.0) H 04/07/18 08:52 Ur Specific [place] 1.009 (1.003-1.030) 04/07/18 08:52 Urine Protein 100 mg/dl mg/dL (Negative) 04/07/18 08:52 Urine Glucose (UA) Neg mg/dL (Negative) 04/07/18 08:52 Urine Ketones Neg mg/dL (Negative) 04/07/18 08:52 Urine Blood Neg (Negative) 04/07/18 08:52 Urine Nitrite Neg (Negative) 04/07/18 08:52 Urine Bilirubin Neg (Negative) 04/07/18 08:52 Urine Urobilinogen < 2.0 mg/dL (<2.0) 04/07/18 08:52 Ur Leukocyte Esterase Neg (Negative) 04/07/18 08:52 Urine WBC (Auto) 1.0 /HPF (0.0-6.0) 04/07/18 08:52 Urine RBC (Auto) 3.0 /HPF (0.0-6.0) 04/07/18 08:52 U Epithel Cells (Auto) 2.0 /HPF (0-13.0) 04/07/18 08:52 Urine Mucus Few /HPF 04/07/18 08:52 Urine Sperm 3+ /HPF (FOUNDRY SUPERINTENDANT) 04/07/18 08:52 Urine Opiates Screen Presumptive negative 04/07/18 08:52 Urine Methadone Screen Presumptive negative 04/07/18 08:52 Ur Barbiturates Screen Presumptive negative 04/07/18 08:52 Ur Phencyclidine Scrn Presumptive negative 04/07/18 08:52 Ur Amphetamines Screen Presumptive negative 04/07/18 08:52 U Benzodiazepines Scrn Presumptive negative 04/07/18 08:52 Urine Cocaine Screen Presumptive negative 04/07/18 08:52 U Marijuana (THC) Screen Presumptive negative 04/07/18 08:52 Drugs of Abuse Note Disclamer 04/07/18 08:52 Blood Type O POSITIVE 04/07/18 16:43 Antibody Screen Negative 04/07/18 16:43 Crossmatch See Detail 04/07/18 16:43
[2018-04-08 16:47] LABS: Hemoglobin 7.3 gm/dl (11.8-15.2); Mean Corpuscular HGB Conc 35 % (32-34); Mean Corpuscular Hemoglobin 27 pg (28-32); Mean Corpuscular Volume 79 fl (84-94); Platelet Count 362 K/mm3 (140-440); Red Blood Count 2.67 M/mm3 (3.65-5.03); Red Cell Distribution Width 13.9 % (13.2-15.2)
[2018-04-08 17:42] LABS: Band Neutrophils # (Manual) 4.8 K/mm3; Basophils % (Manual) 0 % (0.0-1.8); Eosinophils % (Manual) 0 % (0.0-4.3); Total Cells Counted 100
[2018-04-08 17:43] LABS: Anisocytosis 1+; Platelet Estimate Consistent w Auto
--- NOTE | 2018-04-08 17:50 | XRay Report ---
FINAL REPORT EXAM: XR ABDOMEN 1V AP HISTORY: dobbhoff placement TECHNIQUE: KUB(s) view of upper abdomen. PRIORS: None. FINDINGS: Enteric tube not visualized over chest or abdomen and may be partially visualized coiled over the neck. ET tube and right IJ central venous catheter incidentally noted. Bowel gas pattern grossly unremarkable. No apparent pneumoperitoneum. Polygonal density projects over left upper quadrant suggestive of tooth or dentition, but nonspecific. Osseous structures grossly unremarkable. IMPRESSION: 1. Enteric tube not confidently visualized. Correlate clinically. 2. Questionable artifact versus foreign body projected over left upper quadrant may represent tooth. 3. Nonobstructive bowel gas pattern.
--- NOTE | 2018-04-08 18:17 | XRay Report ---
FINAL REPORT EXAM: XR ABDOMEN 1V AP HISTORY: ng tube TECHNIQUE: KUB view(s) of abdomen. PRIORS: Earlier on same date at 1833 hours. FINDINGS: Enteric tube not visualized on radiograph. Bowel gas pattern grossly unremarkable. No apparent pneumoperitoneum. Polygonal density again projects over left upper quadrant, nonspecific. Osseous structures grossly unremarkable. IMPRESSION: 1. Nonvisualization of enteric tube. Correlate clinically. 2. Nonobstructive bowel gas pattern.
[2018-04-08] MEDS: NACL 0.9% 1000 ML 1,000 ML IV SCH (18:47)
[2018-04-08] MEDS: PROTONIX IV SCH (18:48)
--- NOTE | 2018-04-08 20:03 | XRay Report ---
FINAL REPORT EXAM: XR ABDOMEN 1V AP HISTORY: verify dobhoff placement TECHNIQUE: KUB(s) view of abdomen. PRIORS: Earlier on same date at 1901 hours. FINDINGS: Enteric tube extends below the diaphragm, with tip projected over epigastric and probable gastric antrum region. Bowel gas pattern grossly unremarkable. No apparent pneumoperitoneum. Osseous structures grossly unremarkable. IMPRESSION: 1. Enteric tube position as reported. 2. Nonobstructive bowel gas pattern.
[2018-04-09] MEDS: DUONEB *Not for PRN Use IH SCH ×7 (00:24→23:18)
[2018-04-09] MEDS: ZOSYN/NS 4.5GM/100ML 4.5 GM/100 ML VIAL IV SCH ×4 (01:01→22:29)
[2018-04-09] MEDS: VANCOMYCIN/NS 1 GM/250 ML 1 GM/250 ML BAG IV SCH ×2 (01:33→10:55)
[2018-04-09] MEDS: HumaLOG SUB-Q SCH ×4 (01:44→18:55)
[2018-04-09] MEDS: LANTUS SUB-Q SCH ×2 (02:30→22:29)
--- NOTE | 2018-04-09 03:24 | XRay Report ---
FINAL REPORT PROCEDURE: XR CHEST 1V AP TECHNIQUE: Chest radiograph anteroposterior view. CPT 55686 HISTORY: follow up respiratory failure COMPARISON: 04/08/2018 FINDINGS: Heart: Normal. Mediastinum/Vessels: Normal. Lungs/Pleural space: Slight atelectasis both lower lungs. Bony thorax: No acute osseous abnormality. Life support devices: The endotracheal tube ends 3 centimeters above the jada. A nasogastric tube ends below the hemidiaphragms. Right central catheter ends in the SVC. IMPRESSION: Slight bilateral lower lung atelectasis tubes and lines are properly positioned..
[2018-04-09 06:48] LABS: Hematocrit 21.6 % (35.5-45.6); Mean Corpuscular HGB Conc 33 % (32-34); Mean Corpuscular Volume 79 fl (84-94); Platelet Count 372 K/mm3 (140-440); Red Blood Count 2.72 M/mm3 (3.65-5.03); Red Cell Distribution Width 13.5 % (13.2-15.2)
[2018-04-09 06:56] LABS: Alanine Aminotransferase 39 units/L (7-56); Albumin 2.1 g/dL (3.9-5); BUN/Creatinine Ratio 30; Blood Urea Nitrogen 24 mg/dL (9-20); Calcium 7.4 mg/dL (8.4-10.2); Hemolysis Index 6
[2018-04-09 07:33] LABS: Mean Corpuscular Hemoglobin 26 pg (28-32)
[2018-04-09] MEDS: NACL 0.9% 1000 ML 1,000 ML IV SCH ×2 (09:03→22:28)
[2018-04-09] MEDS: SODIUM CHLORIDE FLUSH SYRINGE 10 ML IV SCH (09:52)
[2018-04-09] MEDS: LOVENOX SUB-Q SCH (10:35)
[2018-04-09] MEDS: PROTONIX IV SCH (10:36)
--- NOTE | 2018-04-09 11:20 | Progress Note ---
Assessment and Plan - Patient Problems (1) Diabetes mellitus Current Visit: Yes Status: Acute Qualifiers: Diabetes mellitus type: type 2 (2) Acute respiratory failure Current Visit: Yes Status: Acute Qualifiers: Respiratory failure complication: hypoxia Qualified Code(s): J96.01 - Acute respiratory failure with hypoxia (3) Anemia Current Visit: Yes Status: Acute Qualifiers: Anemia type: unspecified type Qualified Code(s): D64.9 - Anemia, unspecified (4) Cardiac arrest Current Visit: Yes Status: Acute (5) Hypoglycemia Current Visit: Yes Status: Acute (6) Lactic acidosis Current Visit: Yes Status: Acute (7) Sepsis Current Visit: Yes Status: Acute Qualifiers: Sepsis type: sepsis due to unspecified organism Qualified Code(s): A41.9 - Sepsis, unspecified organism (8) HTN (hypertension) Current Visit: Yes Status: Chronic Qualifiers: Hypertension type: essential hypertension Qualified Code(s): I10 - Essential (primary) hypertension (9) T2DM (type 2 diabetes mellitus) Current Visit: Yes Status: Chronic Qualifiers: 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 Spoke w her via american sign language interpreter on Levophed, fentanyl and versed Objective Vital Signs - 12hr 04/08/18 04/08/18 04/08/18 23:26 23:30 23:33 Temperature Pulse Rate 80 78 79 Pulse Rate [ Anterior Bilateral Throughout] Respiratory 17 12 16 Rate Respiratory Rate [Anterior Bilateral Throughout] Blood Pressure 99/59 107/62 107/62 O2 Sat by Pulse 96 96 Oximetry 04/08/18 04/08/18 04/09/18 23:45 23:55 00:00 Temperature Pulse Rate 78 77 Pulse Rate [ Anterior Bilateral Throughout] Respiratory 13 12 13 Rate Respiratory Rate [Anterior Bilateral Throughout] Blood Pressure 107/63 107/63 O2 Sat by Pulse 96 97 96 Oximetry 04/09/18 04/09/18 04/09/18 00:15 00:30 00:45 Temperature Pulse Rate 77 77 77 Pulse Rate [ Anterior Bilateral Throughout] Respiratory 13 11 L 13 Rate Respiratory Rate [Anterior Bilateral Throughout] Blood Pressure 107/61 107/62 101/60 O2 Sat by Pulse 97 97 99 Oximetry 04/09/18 04/09/18 04/09/18 01:00 01:15 01:30 Temperature 98.9 F Pulse Rate 78 78 78 Pulse Rate [ Anterior Bilateral Throughout] Respiratory 17 13 12 Rate Respiratory Rate [Anterior Bilateral Throughout] Blood Pressure 101/60 100/60 107/61 O2 Sat by Pulse 97 97 Oximetry 04/09/18 04/09/18 04/09/18 01:45 02:00 02:15 Temperature Pulse Rate 78 81 80 Pulse Rate [ Anterior Bilateral Throughout] Respiratory 11 L 12 11 L Rate Respiratory Rate [Anterior Bilateral Throughout] Blood Pressure 103/62 111/62 109/62 O2 Sat by Pulse 97 Oximetry 04/09/18 04/09/18 04/09/18 02:30 02:45 03:00 Temperature Pulse Rate 81 79 79 Pulse Rate [ Anterior Bilateral Throughout] Respiratory 12 11 L 12 Rate Respiratory Rate [Anterior Bilateral Throughout] Blood Pressure 114/65 108/63 114/65 O2 Sat by Pulse 98 97 Oximetry 04/09/18 04/09/18 04/09/18 03:15 03:30 03:45 Temperature Pulse Rate 79 79 79 Pulse Rate [ Anterior Bilateral Throughout] Respiratory 11 L 12 14 Rate Respiratory Rate [Anterior Bilateral Throughout] Blood Pressure 109/61 110/65 109/65 O2 Sat by Pulse 97 Oximetry 04/09/18 04/09/18 04/09/18 04:00 04:15 04:30 Temperature Pulse Rate 79 78 79 Pulse Rate [ Anterior Bilateral Throughout] Respiratory 12 11 L 12 Rate Respiratory Rate [Anterior Bilateral Throughout] Blood Pressure 103/64 113/64 118/68 O2 Sat by Pulse 97 97 97 Oximetry 04/09/18 04/09/18 04/09/18 04:45 05:00 05:11 Temperature Pulse Rate 78 80 Pulse Rate [ 79 Anterior Bilateral Throughout] Respiratory 13 14 Rate Respiratory 17 Rate [Anterior Bilateral Throughout] Blood Pressure 117/65 103/64 O2 Sat by Pulse 98 99 Oximetry 04/09/18 04/09/18 04/09/18 05:15 05:30 05:45 Temperature Pulse Rate 79 77 79 Pulse Rate [ Anterior Bilateral Throughout] Respiratory 14 11 L 12 Rate Respiratory Rate [Anterior Bilateral Throughout] Blood Pressure 113/64 110/61 113/66 O2 Sat by Pulse 98 98 Oximetry 04/09/18 04/09/18 04/09/18 06:00 06:15 06:30 Temperature Pulse Rate 79 81 80 Pulse Rate [ Anterior Bilateral Throughout] Respiratory 13 16 14 Rate Respiratory Rate [Anterior Bilateral Throughout] Blood Pressure 91/51 107/60 112/64 O2 Sat by Pulse 96 99 Oximetry 04/09/18 04/09/18 04/09/18 06:45 07:00 07:30 Temperature Pulse Rate 78 78 79 Pulse Rate [ Anterior Bilateral Throughout] Respiratory 14 14 14 Rate Respiratory Rate [Anterior Bilateral Throughout] Blood Pressure 106/64 111/61 110/62 O2 Sat by Pulse 97 96 Oximetry 04/09/18 04/09/18 04/09/18 08:00 08:30 08:48 Temperature Pulse Rate 79 78 77 Pulse Rate [ Anterior Bilateral Throughout] Respiratory 15 14 Rate Respiratory Rate [Anterior Bilateral Throughout] Blood Pressure 116/64 111/64 110/64 O2 Sat by Pulse 97 97 Oximetry 04/09/18 04/09/18 04/09/18 08:53 09:00 09:31 Temperature Pulse Rate 87 Pulse Rate [ 79 Anterior Bilateral Throughout] Respiratory 15 18 Rate Respiratory 14 Rate [Anterior Bilateral Throughout] Blood Pressure 103/62 125/71 O2 Sat by Pulse 97 95 Oximetry 04/09/18 04/09/18 10:30 11:12 Temperature Pulse Rate 86 Pulse Rate [ 86 Anterior Bilateral Throughout] Respiratory 15 Rate Respiratory 14 Rate [Anterior Bilateral Throughout] Blood Pressure 130/68 O2 Sat by Pulse 98 Oximetry Constitutional: no acute distress, other (intubated) Eyes: non-icteric ENT: oropharynx moist Neck: supple Effort: normal Ascultation: Bilateral: clear Cardiovascular: regular rate and rhythm Gastrointestinal: normoactive bowel sounds, soft, non-distended Integumentary: normal Extremities: no cyanosis CBC and BMP: 04/09/18 05:42 04/09/18 05:42 ABG, PT/INR, D-dimer: ABG POC ABG pH 7.356 (7.35-7.45) 04/09/18 05:13 POC ABG pCO2 34.4 (35-45) L 04/09/18 05:13 POC ABG pO2 83 (80-105) 04/09/18 05:13 POC ABG HCO3 19.3 04/09/18 05:13 POC ABG Total CO2 20 04/09/18 05:13 POC ABG O2 Sat 96 04/09/18 05:13 PT/INR, D-dimer D-Dimer 933.08 ng/mlDDU (0-234) H 04/07/18 08:15 Abnormal lab findings: Abnormal Labs 04/07/18 04/07/18 04/07/18 08:11 08:15 08:15 WBC 23.9 H RBC 2.89 L Hgb 7.2 L Hct 22.4 L MCV 78 L MCH 25 L MCHC RDW 13.0 L Plt Count 453 H Seg Neuts % (Manual) 84.0 H Lymphocytes % (Manual) 8.0 L Monocytes % (Manual) 8.0 H Seg Neutrophils # Man 20.1 H Lymphocytes # (Manual) Monocytes # (Manual) 1.9 H D-Dimer 933.08 H POC ABG pH POC ABG pCO2 POC ABG pO2 VBG pH Sodium Chloride Carbon Dioxide BUN Glucose POC Glucose 225 H Hemoglobin A1c Lactic Acid Calcium Iron TIBC Transferrin Alkaline Phosphatase Total Creatine Kinase Albumin Vitamin B12 Urine pH Crossmatch 04/07/18 04/07/18 04/07/18 08:15 08:15 08:52 WBC RBC Hgb Hct MCV MCH MCHC RDW Plt Count Seg Neuts % (Manual) Lymphocytes % (Manual) Monocytes % (Manual) Seg Neutrophils # Man Lymphocytes # (Manual) Monocytes # (Manual) D-Dimer POC ABG pH POC ABG pCO2 POC ABG pO2 VBG pH Sodium 127 L Chloride 90.7 L Carbon Dioxide 21 L BUN 21 H Glucose 191 H POC Glucose Hemoglobin A1c Lactic Acid 3.80 H* Calcium 8.2 L Iron TIBC Transferrin Alkaline Phosphatase 287 H Total Creatine Kinase 31 L Albumin 2.4 L Vitamin B12 Urine pH 8.0 H Crossmatch 04/07/18 04/07/18 04/07/18 09:51 12:27 13:25 WBC RBC Hgb Hct MCV MCH MCHC RDW Plt Count Seg Neuts % (Manual) Lymphocytes % (Manual) Monocytes % (Manual) Seg Neutrophils # Man Lymphocytes # (Manual) Monocytes # (Manual) D-Dimer POC ABG pH POC ABG pCO2 POC ABG pO2 VBG pH 7.231 L Sodium Chloride Carbon Dioxide BUN Glucose POC Glucose Hemoglobin A1c Lactic Acid 3.10 H* 4.50 H* Calcium Iron TIBC Transferrin Alkaline Phosphatase Total Creatine Kinase Albumin Vitamin B12 Urine pH Crossmatch 04/07/18 04/07/18 04/07/18 15:24 16:35 16:43 WBC RBC Hgb Hct MCV MCH MCHC RDW Plt Count Seg Neuts % (Manual) Lymphocytes % (Manual) Monocytes % (Manual) Seg Neutrophils # Man Lymphocytes # (Manual) Monocytes # (Manual) D-Dimer POC ABG pH POC ABG pCO2 POC ABG pO2 VBG pH Sodium Chloride Carbon Dioxide BUN Glucose POC Glucose 137 H Hemoglobin A1c 9.9 H Lactic Acid 2.20 H* Calcium Iron TIBC Transferrin Alkaline Phosphatase Total Creatine Kinase Albumin Vitamin B12 Urine pH Crossmatch 04/07/18 04/07/18 04/08/18 16:43 16:46 06:15 WBC RBC Hgb Hct MCV MCH MCHC RDW Plt Count Seg Neuts % (Manual) Lymphocytes % (Manual) Monocytes % (Manual) Seg Neutrophils # Man Lymphocytes # (Manual) Monocytes # (Manual) D-Dimer POC ABG pH 7.345 L POC ABG pCO2 28.0 L 33.8 L POC ABG pO2 76 L 138 H VBG pH Sodium Chloride Carbon Dioxide BUN Glucose POC Glucose Hemoglobin A1c Lactic Acid Calcium Iron TIBC Transferrin Alkaline Phosphatase Total Creatine Kinase Albumin Vitamin B12 Urine pH Crossmatch See Detail 04/08/18 04/08/18 04/08/18 07:34 07:34 07:34 WBC 15.7 H RBC 6.30 H Hgb 15.6 H D Hct 49.2 H D MCV 78 L MCH 25 L MCHC RDW Plt Count Seg Neuts % (Manual) Lymphocytes % (Manual) Monocytes % (Manual) Seg Neutrophils # Man Lymphocytes # (Manual) Monocytes # (Manual) D-Dimer POC ABG pH POC ABG pCO2 POC ABG pO2 VBG pH Sodium Chloride Carbon Dioxide BUN Glucose POC Glucose Hemoglobin A1c Lactic Acid Calcium Iron 15 L TIBC 106 L Transferrin 76 L Alkaline Phosphatase Total Creatine Kinase Albumin Vitamin B12 1405 H Urine pH Crossmatch 04/08/18 04/08/18 04/08/18 07:34 09:54 12:43 WBC RBC Hgb Hct MCV MCH MCHC RDW Plt Count Seg Neuts % (Manual) Lymphocytes % (Manual) Monocytes % (Manual) Seg Neutrophils # Man Lymphocytes # (Manual) Monocytes # (Manual) D-Dimer POC ABG pH POC ABG pCO2 POC ABG pO2 VBG pH Sodium 131 L Chloride Carbon Dioxide 20 L BUN 24 H Glucose 167 H POC Glucose 162 H 175 H Hemoglobin A1c Lactic Acid Calcium 7.5 L Iron TIBC Transferrin Alkaline Phosphatase Total Creatine Kinase Albumin Vitamin B12 Urine pH Crossmatch 04/08/18 04/08/18 04/09/18 16:36 16:40 01:15 WBC 28.2 H RBC 2.67 L Hgb 7.3 L D Hct 21.0 L D MCV 79 L MCH 27 L MCHC 35 H RDW Plt Count Seg Neuts % (Manual) 74.0 H Lymphocytes % (Manual) 3.0 L Monocytes % (Manual) Seg Neutrophils # Man 20.9 H Lymphocytes # (Manual) 0.8 L Monocytes # (Manual) 1.7 H D-Dimer POC ABG pH POC ABG pCO2 POC ABG pO2 VBG pH Sodium Chloride Carbon Dioxide BUN Glucose POC Glucose 150 H 171 H Hemoglobin A1c Lactic Acid Calcium Iron TIBC Transferrin Alkaline Phosphatase Total Creatine Kinase Albumin Vitamin B12 Urine pH Crossmatch 04/09/18 04/09/18 04/09/18 05:13 05:42 05:42 WBC 23.2 H RBC 2.72 L Hgb 7.0 L Hct 21.6 L MCV 79 L MCH 26 L MCHC RDW Plt Count Seg Neuts % (Manual) Lymphocytes % (Manual) Monocytes % (Manual) Seg Neutrophils # Man Lymphocytes # (Manual) Monocytes # (Manual) D-Dimer POC ABG pH POC ABG pCO2 34.4 L POC ABG pO2 VBG pH Sodium 134 L Chloride Carbon Dioxide 21 L BUN 24 H Glucose 192 H POC Glucose Hemoglobin A1c Lactic Acid Calcium 7.4 L Iron TIBC Transferrin Alkaline Phosphatase 211 H Total Creatine Kinase Albumin 2.1 L Vitamin B12 Urine pH Crossmatch Chest x-ray: report reviewed, image reviewed
[2018-04-09] MEDS ORDERED: SIMPLE SYRUP FEEDTUBE PRN ×2 (11:53)
[2018-04-09] MEDS ORDERED: PANCREAZE DR 10,500 UNIT FEEDTUBE PRN (11:53)
[2018-04-09] MEDS ORDERED: SODIUM BICARBONATE FEEDTUBE PRN (11:53)
[2018-04-09] MEDS ORDERED: NACL 0.9% 500 ML 500 ML IV ONE (11:58)
[2018-04-09 12:09] LABS: Anisocytosis 1+; Band Neutrophils # (Manual) 0.1 K/mm3; Basophils % (Manual) 0 % (0.0-1.8); Eosinophils % (Manual) 0 % (0.0-4.3); Hypochromasia 1+; Platelet Estimate Consistent w Auto; Total Cells Counted 200
[2018-04-09] MEDS ORDERED: NACL 0.9% 500 ML IR ONE (12:31)
--- NOTE | 2018-04-09 13:13 | Progress Note ---
Assessment and Plan Assessment and plan: Acute hypoxic respiratory failure -Status post intubation and sedated -ABG improved -Pulmonology following Severe sepsis with shock probably secondary to pneumonia and LT foot cellulitis -On IV pressor and IV antibiotics with vancomycin and Zosyn -Blood and sputum cultures neg so far Bilateral pneumonia -On IV antibiotics -Blood and sputum cultures neg so far LT foot cellulitis -on iv antibiotics -will do venous doppler uss to assess for DVT -will consult wound care Questionable cardiac arrest -serial troponin levels normal -echo report pending Elevated D-dimer -CTA neg for PE DM2 with hyperglycemia -cont Lantus and SSI, adjust as needed -A1C:9.9 Hyponatremia -improving, will monitor Iron def anemia -s/p blood tranf with 1u of PRBC -H/H still low at 7, will transfuse another 1u of PRBC -will monitor H/H -will check stool for occult blood Transaminitis, probably sec to the sepsis -improved Prophylaxis -Protonix and Lovenox Nutrition: tube feeding Disposition: pt's condition remains critical, cont tx History Interval history: The patient is intubated. Per nurse's report, his stool appears darker. Hospitalist Physical - Constitutional Vitals: Temp Pulse Resp BP Pulse Ox 98.9 F 80 14 128/67 98 04/09/18 01:00 04/09/18 12:36 04/09/18 12:36 04/09/18 12:31 04/09/18 12:31 General appearance: Present: no acute distress, other (patient is intubated and sedated.) - EENT Eyes: Present: PERRL ENT: other (patient is intubated. Dubhoff tube in place) - Neck Neck: Present: supple - Respiratory Respiratory effort: normal Respiratory: bilateral: CTA - Cardiovascular Rhythm: regular Heart Sounds: Present: S1 & S2 - Extremities Extremity abnormal: edema (LLE edema with foul smelling wound in LT foot ) - Abdominal General gastrointestinal: soft, non-tender, normal bowel sounds - Integumentary Integumentary: Present: erythema (left foot) - Neurologic Neurologic: other (patient is intubated and sedated) Results - Labs CBC & Chem 7: 04/09/18 05:42 04/09/18 05:42 Labs: Laboratory Last Values WBC 23.2 K/mm3 (4.5-11.0) H 04/09/18 05:42 RBC 2.72 M/mm3 (3.65-5.03) L 04/09/18 05:42 Hgb 7.0 gm/dl (11.8-15.2) L 04/09/18 05:42 Hct 21.6 % (35.5-45.6) L 04/09/18 05:42 MCV 79 fl (84-94) L 04/09/18 05:42 MCH 26 pg (28-32) L 04/09/18 05:42 MCHC 33 % (32-34) 04/09/18 05:42 RDW 13.5 % (13.2-15.2) 04/09/18 05:42 Plt Count 372 K/mm3 (140-440) 04/09/18 05:42 Lymph % (Auto) Communications Editor 04/09/18 05:42 [place] % (Auto) Communications Editor 04/09/18 05:42 Eos % (Auto) Communications Editor 04/09/18 05:42 Baso % (Auto) Communications Editor 04/09/18 05:42 Lymph # Communications Editor 04/09/18 05:42 [place] # Communications Editor 04/09/18 05:42 Eos # Communications Editor 04/09/18 05:42 Baso # Communications Editor 04/09/18 05:42 Add Manual Diff Complete 04/09/18 05:42 Total Counted 200 04/09/18 05:42 Seg Neutrophils % Communications Editor 04/09/18 05:42 Seg Neuts % (Manual) 87.5 % (40.0-70.0) H 04/09/18 05:42 Band Neutrophils % 0.5 % 04/09/18 05:42 Lymphocytes % (Manual) 8.0 % (13.4-35.0) L 04/09/18 05:42 Reactive Lymphs % (Man) 0 % 04/09/18 05:42 Monocytes % (Manual) 4.0 % (0.0-7.3) 04/09/18 05:42 Eosinophils % (Manual) 0 % (0.0-4.3) 04/09/18 05:42 Basophils % (Manual) 0 % (0.0-1.8) 04/09/18 05:42 Metamyelocytes % 0 % 04/09/18 05:42 Myelocytes % 0 % 04/09/18 05:42 Promyelocytes % 0 % 04/09/18 05:42 Blast Cells % 0 % 04/09/18 05:42 Nucleated RBC % Not Reportable 04/09/18 05:42 Seg Neutrophils # Communications Editor 04/09/18 05:42 Seg Neutrophils # Man 20.3 K/mm3 (1.8-7.7) H 04/09/18 05:42 Band Neutrophils # 0.1 K/mm3 04/09/18 05:42 Lymphocytes # (Manual) 1.9 K/mm3 (1.2-5.4) 04/09/18 05:42 Abs React Lymphs (Man) 0.0 K/mm3 04/09/18 05:42 Monocytes # (Manual) 0.9 K/mm3 (0.0-0.8) H 04/09/18 05:42 Eosinophils # (Manual) 0.0 K/mm3 (0.0-0.4) 04/09/18 05:42 Basophils # (Manual) 0.0 K/mm3 (0.0-0.1) 04/09/18 05:42 Metamyelocytes # 0.0 K/mm3 04/09/18 05:42 Myelocytes # 0.0 K/mm3 04/09/18 05:42 Promyelocytes # 0.0 K/mm3 04/09/18 05:42 Blast Cells # 0.0 K/mm3 04/09/18 05:42 WBC Morphology Not Reportable 04/09/18 05:42 Hypersegmented Neuts Not Reportable 04/09/18 05:42 Hyposegmented Neuts Not Reportable 04/09/18 05:42 Hypogranular Neuts Not Reportable 04/09/18 05:42 Smudge Cells Not Reportable 04/09/18 05:42 Toxic Granulation Not Reportable 04/09/18 05:42 Toxic Vacuolation Not Reportable 04/09/18 05:42 Dohle Bodies Not Reportable 04/09/18 05:42 Pelger-Huet Anomaly Not Reportable 04/09/18 05:42 Matt Rods Not Reportable 04/09/18 05:42 Platelet Estimate Consistent w auto 04/09/18 05:42 Clumped Platelets Not Reportable 04/09/18 05:42 Plt Clumps, EDTA Not Reportable 04/09/18 05:42 Large Platelets Not Reportable 04/09/18 05:42 Giant Platelets Not Reportable 04/09/18 05:42 Platelet Satelliting Not Reportable 04/09/18 05:42 Plt Morphology Comment Not Reportable 04/09/18 05:42 RBC Morphology Not Reportable 04/09/18 05:42 Dimorphic RBCs Not Reportable 04/09/18 05:42 Polychromasia Not Reportable 04/09/18 05:42 Hypochromasia 1+ 04/09/18 05:42 Poikilocytosis Not Reportable 04/09/18 05:42 Anisocytosis 1+ 04/09/18 05:42 Microcytosis Not Reportable 04/09/18 05:42 Macrocytosis Not Reportable 04/09/18 05:42 Spherocytes Not Reportable 04/09/18 05:42 Pappenheimer Bodies Not Reportable 04/09/18 05:42 Sickle Cells Not Reportable 04/09/18 05:42 Target Cells Not Reportable 04/09/18 05:42 Tear Drop Cells Not Reportable 04/09/18 05:42 Ovalocytes Not Reportable 04/09/18 05:42 Helmet Cells Not Reportable 04/09/18 05:42 [place] Bodies Not Reportable 04/09/18 05:42 [place] Rings Not Reportable 04/09/18 05:42 Matthias Cells Not Reportable 04/09/18 05:42 Bite Cells Not Reportable 04/09/18 05:42 Crenated Cell Not Reportable 04/09/18 05:42 Elliptocytes Not Reportable 04/09/18 05:42 Acanthocytes (Spur) Not Reportable 04/09/18 05:42 Rouleaux Not Reportable 04/09/18 05:42 Hemoglobin C Crystals Not Reportable 04/09/18 05:42 Schistocytes Not Reportable 04/09/18 05:42 Malaria parasites Not Reportable 04/09/18 05:42 [place] Bodies Not Reportable 04/09/18 05:42 Hem Pathologist Commnt No 04/09/18 05:42 D-Dimer 933.08 ng/mlDDU (0-234) H 04/07/18 08:15 POC ABG pH 7.356 (7.35-7.45) 04/09/18 05:13 POC ABG pCO2 34.4 (35-45) L 04/09/18 05:13 POC ABG pO2 83 (80-105) 04/09/18 05:13 POC ABG HCO3 19.3 04/09/18 05:13 POC ABG Total CO2 20 04/09/18 05:13 POC ABG O2 Sat 96 04/09/18 05:13 POC ABG Base Excess -6 04/09/18 05:13 VBG pH 7.231 (7.320-7.420) L 04/07/18 13:25 FiO2 25 % 04/09/18 05:13 Sodium 134 mmol/L (137-145) L 04/09/18 05:42 Potassium 4.9 mmol/L (3.6-5.0) 04/09/18 05:42 Chloride 104.9 mmol/L (98-107) 04/09/18 05:42 Carbon Dioxide 21 mmol/L (22-30) L 04/09/18 05:42 Anion Gap 13 mmol/L 04/09/18 05:42 BUN 24 mg/dL (9-20) H 04/09/18 05:42 Creatinine 0.8 mg/dL (0.8-1.5) 04/09/18 05:42 Estimated GFR > 60 ml/min 04/09/18 05:42 BUN/Creatinine Ratio 30 % 04/09/18 05:42 Glucose 192 mg/dL (75-100) H 04/09/18 05:42 POC Glucose 206 (70-105) H 04/09/18 12:52 Hemoglobin A1c 9.9 % (4-6) H 04/07/18 16:43 Lactic Acid 1.80 mmol/L (0.7-2.0) 04/07/18 16:43 Calcium 7.4 mg/dL (8.4-10.2) L 04/09/18 05:42 Iron 15 ug/dL (49-181) L 04/08/18 07:34 TIBC 106 mcg/dL (250-450) L 04/08/18 07:34 % Saturation 14.15 % 04/08/18 07:34 Transferrin 76 mg/dl (180-329) L 04/08/18 07:34 Total Bilirubin 0.90 mg/dL (0.1-1.2) 04/09/18 05:42 AST 28 units/L (5-40) 04/09/18 05:42 ALT 39 units/L (7-56) 04/09/18 05:42 Alkaline Phosphatase 211 units/L (35-129) H 04/09/18 05:42 Total Creatine Kinase 83 units/L (55-170) 04/07/18 13:25 CK-MB (CK-2) 2.5 ng/mL (0.0-4.0) 04/07/18 13:25 CK-MB (CK-2) Rel Index 3.0 (0-4) 04/07/18 13:25 Troponin T 0.025 ng/mL (0.00-0.029) 04/07/18 13:25 Total Protein 6.6 g/dL (6.3-8.2) 04/09/18 05:42 Albumin 2.1 g/dL (3.9-5) L 04/09/18 05:42 Albumin/Globulin Ratio 0.5 % 04/09/18 05:42 Vitamin B12 1405 pg/mL (211-911) H 04/08/18 07:34 Urine Color Yellow (Yellow) 04/07/18 08:52 Urine Turbidity Clear (Clear) 04/07/18 08:52 Urine pH 8.0 (5.0-7.0) H 04/07/18 08:52 Ur Specific [place] 1.009 (1.003-1.030) 04/07/18 08:52 Urine Protein 100 mg/dl mg/dL (Negative) 04/07/18 08:52 Urine Glucose (UA) Neg mg/dL (Negative) 04/07/18 08:52 Urine Ketones Neg mg/dL (Negative) 04/07/18 08:52 Urine Blood Neg (Negative) 04/07/18 08:52 Urine Nitrite Neg (Negative) 04/07/18 08:52 Urine Bilirubin Neg (Negative) 04/07/18 08:52 Urine Urobilinogen < 2.0 mg/dL (<2.0) 04/07/18 08:52 Ur Leukocyte Esterase Neg (Negative) 04/07/18 08:52 Urine WBC (Auto) 1.0 /HPF (0.0-6.0) 04/07/18 08:52 Urine RBC (Auto) 3.0 /HPF (0.0-6.0) 04/07/18 08:52 U Epithel Cells (Auto) 2.0 /HPF (0-13.0) 04/07/18 08:52 Urine Mucus Few /HPF 04/07/18 08:52 Urine Sperm 3+ /HPF (CABLE SYSTEMS INSTALLER) 04/07/18 08:52 Urine Opiates Screen Presumptive negative 04/07/18 08:52 Urine Methadone Screen Presumptive negative 04/07/18 08:52 Ur Barbiturates Screen Presumptive negative 04/07/18 08:52 Ur Phencyclidine Scrn Presumptive negative 04/07/18 08:52 Ur Amphetamines Screen Presumptive negative 04/07/18 08:52 U Benzodiazepines Scrn Presumptive negative 04/07/18 08:52 Urine Cocaine Screen Presumptive negative 04/07/18 08:52 U Marijuana (THC) Screen Presumptive negative 04/07/18 08:52 Drugs of Abuse Note Disclamer 04/07/18 08:52 Blood Type O POSITIVE 04/07/18 16:43 Antibody Screen Negative 04/07/18 16:43 Crossmatch See Detail 04/07/18 16:43
--- NOTE | 2018-04-09 14:03 | Consultation ---
HISTORY OF PRESENT ILLNESS: This is a 57-year-old gentleman with a known history of diabetes, poorly controlled; hypertension, who comes in with complaints of chest pain. EMS was called and the patient was found to have a blood glucose of 40 and decrease in mental status. The patient received D50 and en route to the hospital, the patient reportedly became unresponsive and vomited. The patient was reportedly brought to the Emergency Room. Chest compression ____. The patient is intubated into the ER and reports responsive. After code, the patient presently sedated on Ventolin and Versed. PAST MEDICAL HISTORY: Hypertension, diabetes. SOCIAL HISTORY: Lives at home. He is . No tobacco history reported. MEDICATIONS: Noted. REVIEW OF SYSTEMS: Unable. PHYSICAL EXAMINATION: VITAL SIGNS: Blood pressure 129/68, pulse 88, respiratory rate 80, 12/18, on vent. Vent settings, AC, rate of 12, FiO2 of 25, tidal volume 500, MV of 8.12. GENERAL: male, sedated on vent, orally intubated. HEENT: Orally intubated. CARDIOVASCULAR: S1, S2 normal. LUNGS: Distant, clear. ABDOMEN: Positive bowel sounds, soft. EXTREMITIES: Fail to reveal cyanosis, clubbing, or edema. RADIOLOGICAL DATA: Chest x-ray, which was done on admission shows no acute process. LABORATORY DATA: White count of 15.7, hemoglobin of 15.6, platelet count of 202. Arterial blood gas done this morning, 7.35, 33, 138. Creatinine of 1.3, sodium of 131, potassium of 4.8. IMPRESSION: This is a gentleman with acute respiratory failure, status post cardiopulmonary resuscitate with hypoglycemia, history of poorly-controlled diabetes, possible aspiration after an episode of emesis. We will monitor chest x-ray and temperature curve closely, start patient on nebulizer treatments. Deep venous thrombosis prophylaxis. Monitor blood glucose closely. Agree with antibiotics for possible aspiration. Continue supportive care. We will attempt to wean as tolerated of vent. Wean sedation as tolerated, sedation holiday. Continue supportive care. Await culture results and adjust accordingly. Total critical care time was 33 minutes. The patient has a possibility of having clinical worsening of his status and careful attention was done with this patient during the time of evaluation. JOB# [id number] JAIME/VANE
--- NOTE | 2018-04-09 14:18 | XRay Report ---
FINAL REPORT PROCEDURE: XR FOOT 2V LT TECHNIQUE: Left foot, two views HISTORY: Wound COMPARISON: No prior studies are available for comparison. FINDINGS: There is lateral soft tissue air. No fracture is seen. No joint dislocation. No focal osseous lesions. At the plantar aspect of the foot at the level of the midfoot there is punctate 3 millimeter density, possibly foreign body. IMPRESSION: Soft tissue air. Possible 3 millimeter foreign body at the plantar aspect of the foot. No acute osseous abnormality is seen
[2018-04-10] MEDS: SODIUM CHLORIDE FLUSH SYRINGE 10 ML IV SCH ×3 (00:01→22:52)
[2018-04-10] MEDS: LEVOPHED DRIP 4 MG/NS 250 ML 4 MG/250 ML BAG IV SCH (00:56)
[2018-04-10] MEDS: HumaLOG SUB-Q SCH ×5 (00:57→23:59)
--- NOTE | 2018-04-10 03:40 | XRay Report ---
FINAL REPORT EXAM: XR CHEST 1V AP HISTORY: follow up respiratory failure TECHNIQUE: A portable view the chest was obtained and compared to the study of 04/09/2018. FINDINGS: The heart size is normal. The lungs remain diffusely congested. Underlying effusions cannot be excluded. The tip of the right-sided central venous catheter remains in good position in the mid superior vena cava. The tip of the ET tube is 1 cm above the jada. The NG tube is in good position in the stomach. Skeletal structures otherwise are unchanged. IMPRESSION: Stable pulmonary vascular congestion. Small effusions cannot be excluded. Satisfactory position of tubes and lines.
[2018-04-10 04:50] LABS: Hemoglobin 8.4 gm/dl (11.8-15.2); Mean Corpuscular HGB Conc 32 % (32-34); Mean Corpuscular Volume 80 fl (84-94); Platelet Count 436 K/mm3 (140-440); Red Blood Count 3.27 M/mm3 (3.65-5.03); Red Cell Distribution Width 13.9 % (13.2-15.2)
[2018-04-10 04:54] LABS: Mean Corpuscular Hemoglobin 26 pg (28-32)
[2018-04-10 05:04] LABS: BUN/Creatinine Ratio 26; Blood Urea Nitrogen 23 mg/dL (9-20); Calcium 7.6 mg/dL (8.4-10.2); Hemolysis Index 0
[2018-04-10 05:53] LABS: Band Neutrophils # (Manual) 0.2 K/mm3; Basophils % (Manual) 0 % (0.0-1.8); Hypochromasia 1+; Myelocytes # (Manual) 0.2 K/mm3; Platelet Estimate Consistent w Auto; Stomatocytes Rare; Total Cells Counted 100
[2018-04-10] MEDS: ZOSYN/NS 4.5GM/100ML 4.5 GM/100 ML VIAL IV SCH ×3 (06:36→22:53)
[2018-04-10] MEDS: DUONEB *Not for PRN Use IH SCH ×3 (08:29→19:40)
[2018-04-10] MEDS: LOVENOX SUB-Q SCH (10:20)
[2018-04-10] MEDS: PROTONIX IV SCH (10:20)
[2018-04-10] MEDS: VANCOMYCIN/NS 1 GM/250 ML 1 GM/250 ML BAG IV SCH ×3 (10:29→22:52)
--- NOTE | 2018-04-10 12:33 | Progress Note ---
Assessment and Plan Assessment and plan: Acute hypoxic respiratory failure -Status post intubation and sedated -ABG improved -Pulmonology following Severe sepsis with shock probably secondary to pneumonia and LT foot cellulitis -On IV pressor and IV antibiotics with vancomycin and Zosyn -WBC level improving and pt is afebrile -Blood and sputum cultures neg so far -ID consulted Bilateral pneumonia -On IV antibiotics -Blood and sputum cultures neg so far LT foot cellulitis -on iv antibiotics snd wound care -venous doppler uss neg for DVT -foot x-ray showed soft tissue air and possible 3mm foreign body, will do CT scan for further eval Questionable cardiac arrest -serial troponin levels normal -echo showed EF of 55-60% without regional wall motion abnormalities Elevated D-dimer -CTA neg for PE DM2 with hyperglycemia -Lantus dose increased, cont SSI, adjust as needed -A1C:9.9 Hyponatremia -improving, will monitor Iron def anemia with acute loss, probably sec to sepsis -s/p blood tranf with 2u of PRBC -Hb:8.4, will monitor -stool for occult blood pending Transaminitis, probably sec to the sepsis -improved Prophylaxis -Protonix and Lovenox Nutrition: tube feeding Disposition: pt's condition remains critical, cont tx History Interval history: The patient is intubated and sedated. No reported overnight issues. Hospitalist Physical - Constitutional Vitals: Temp Pulse Resp BP Pulse Ox 98.5 F 78 11 L 102/55 94 04/10/18 12:00 04/10/18 12:15 04/10/18 12:15 04/10/18 12:15 04/10/18 12:15 General appearance: Present: no acute distress, other (patient is intubated and sedated.) - EENT Eyes: Present: PERRL ENT: other (patient is intubated. Dubhoff tube noted) - Neck Neck: Present: supple - Respiratory Respiratory effort: normal Respiratory: bilateral: rales - Cardiovascular Rhythm: regular Heart Sounds: Present: S1 & S2 - Extremities Extremity abnormal: edema (LLE with dressing over left foot) - Abdominal General gastrointestinal: soft, non-tender, non-distended, normal bowel sounds - Neurologic Neurologic: other (patient is intubated and sedated) Results - Labs CBC & Chem 7: 04/10/18 04:06 04/10/18 04:06 Labs: Laboratory Last Values WBC 18.9 K/mm3 (4.5-11.0) H 04/10/18 04:06 RBC 3.27 M/mm3 (3.65-5.03) L 04/10/18 04:06 Hgb 8.4 gm/dl (11.8-15.2) L 04/10/18 04:06 Hct 26.0 % (35.5-45.6) L 04/10/18 04:06 MCV 80 fl (84-94) L 04/10/18 04:06 MCH 26 pg (28-32) L 04/10/18 04:06 MCHC 32 % (32-34) 04/10/18 04:06 RDW 13.9 % (13.2-15.2) 04/10/18 04:06 Plt Count 436 K/mm3 (140-440) 04/10/18 04:06 Lymph % (Auto) Tool Grinder Operator External 04/09/18 05:42 [place] % (Auto) Tool Grinder Operator External 04/09/18 05:42 Eos % (Auto) Tool Grinder Operator External 04/09/18 05:42 Baso % (Auto) Tool Grinder Operator External 04/09/18 05:42 Lymph # Tool Grinder Operator External 04/09/18 05:42 [place] # Tool Grinder Operator External 04/09/18 05:42 Eos # Tool Grinder Operator External 04/09/18 05:42 Baso # Tool Grinder Operator External 04/09/18 05:42 Add Manual Diff Complete 04/10/18 04:06 Total Counted 100 04/10/18 04:06 Seg Neutrophils % Tool Grinder Operator External 04/09/18 05:42 Seg Neuts % (Manual) 86.0 % (40.0-70.0) H 04/10/18 04:06 Band Neutrophils % 1.0 % 04/10/18 04:06 Lymphocytes % (Manual) 2.0 % (13.4-35.0) L 04/10/18 04:06 Reactive Lymphs % (Man) 2.0 % 04/10/18 04:06 Monocytes % (Manual) 2.0 % (0.0-7.3) 04/10/18 04:06 Eosinophils % (Manual) 4.0 % (0.0-4.3) 04/10/18 04:06 Basophils % (Manual) 0 % (0.0-1.8) 04/10/18 04:06 Metamyelocytes % 2.0 % 04/10/18 04:06 Myelocytes % 1.0 % 04/10/18 04:06 Promyelocytes % 0 % 04/10/18 04:06 Blast Cells % 0 % 04/10/18 04:06 Nucleated RBC % Not Reportable 04/10/18 04:06 Seg Neutrophils # Tool Grinder Operator External 04/09/18 05:42 Seg Neutrophils # Man 16.3 K/mm3 (1.8-7.7) H 04/10/18 04:06 Band Neutrophils # 0.2 K/mm3 04/10/18 04:06 Lymphocytes # (Manual) 0.4 K/mm3 (1.2-5.4) L 04/10/18 04:06 Abs React Lymphs (Man) 0.4 K/mm3 04/10/18 04:06 Monocytes # (Manual) 0.4 K/mm3 (0.0-0.8) 04/10/18 04:06 Eosinophils # (Manual) 0.8 K/mm3 (0.0-0.4) H 04/10/18 04:06 Basophils # (Manual) 0.0 K/mm3 (0.0-0.1) 04/10/18 04:06 Metamyelocytes # 0.4 K/mm3 04/10/18 04:06 Myelocytes # 0.2 K/mm3 04/10/18 04:06 Promyelocytes # 0.0 K/mm3 04/10/18 04:06 Blast Cells # 0.0 K/mm3 04/10/18 04:06 WBC Morphology Not Reportable 04/10/18 04:06 Hypersegmented Neuts Not Reportable 04/10/18 04:06 Hyposegmented Neuts Not Reportable 04/10/18 04:06 Hypogranular Neuts Not Reportable 04/10/18 04:06 Smudge Cells Not Reportable 04/10/18 04:06 Toxic Granulation Not Reportable 04/10/18 04:06 Toxic Vacuolation Not Reportable 04/10/18 04:06 Dohle Bodies Not Reportable 04/10/18 04:06 Pelger-Huet Anomaly Not Reportable 04/10/18 04:06 Matt Rods Not Reportable 04/10/18 04:06 Platelet Estimate Consistent w auto 04/10/18 04:06 Clumped Platelets Not Reportable 04/10/18 04:06 Plt Clumps, EDTA Not Reportable 04/10/18 04:06 Large Platelets Not Reportable 04/10/18 04:06 Giant Platelets Not Reportable 04/10/18 04:06 Platelet Satelliting Not Reportable 04/10/18 04:06 Plt Morphology Comment Not Reportable 04/10/18 04:06 RBC Morphology Not Reportable 04/10/18 04:06 Dimorphic RBCs Not Reportable 04/10/18 04:06 Polychromasia Not Reportable 04/10/18 04:06 Hypochromasia 1+ 04/10/18 04:06 Poikilocytosis Not Reportable 04/10/18 04:06 Anisocytosis Not Reportable 04/10/18 04:06 Microcytosis 1+ 04/10/18 04:06 Macrocytosis Not Reportable 04/10/18 04:06 Spherocytes Not Reportable 04/10/18 04:06 Pappenheimer Bodies Not Reportable 04/10/18 04:06 Sickle Cells Not Reportable 04/10/18 04:06 Target Cells Not Reportable 04/10/18 04:06 Tear Drop Cells Not Reportable 04/10/18 04:06 Ovalocytes Not Reportable 04/10/18 04:06 Stomatocytes Rare 04/10/18 04:06 Helmet Cells Not Reportable 04/10/18 04:06 [place] Bodies Not Reportable 04/10/18 04:06 [place] Rings Not Reportable 04/10/18 04:06 [place] Cells Not Reportable 04/10/18 04:06 Bite Cells Not Reportable 04/10/18 04:06 Crenated Cell Not Reportable 04/10/18 04:06 Elliptocytes Not Reportable 04/10/18 04:06 Acanthocytes (Spur) Not Reportable 04/10/18 04:06 Rouleaux Not Reportable 04/10/18 04:06 Hemoglobin C Crystals Not Reportable 04/10/18 04:06 Schistocytes Not Reportable 04/10/18 04:06 Malaria parasites Not Reportable 04/10/18 04:06 [place] Bodies Not Reportable 04/10/18 04:06 Hem Pathologist Commnt No 04/10/18 04:06 D-Dimer 933.08 ng/mlDDU (0-234) H 04/07/18 08:15 POC ABG pH 7.392 (7.35-7.45) 04/10/18 04:04 POC ABG pCO2 34.4 (35-45) L 04/10/18 04:04 POC ABG pO2 90 (80-105) 04/10/18 04:04 POC ABG HCO3 20.9 04/10/18 04:04 POC ABG Total CO2 22 04/10/18 04:04 POC ABG O2 Sat 97 04/10/18 04:04 POC ABG Base Excess -4 04/10/18 04:04 VBG pH 7.231 (7.320-7.420) L 04/07/18 13:25 FiO2 25 % 04/10/18 04:04 Sodium 136 mmol/L (137-145) L 04/10/18 04:06 Potassium 4.7 mmol/L (3.6-5.0) 04/10/18 04:06 Chloride 105.7 mmol/L (98-107) 04/10/18 04:06 Carbon Dioxide 20 mmol/L (22-30) L 04/10/18 04:06 Anion Gap 15 mmol/L 04/10/18 04:06 BUN 23 mg/dL (9-20) H 04/10/18 04:06 Creatinine 0.9 mg/dL (0.8-1.5) 04/10/18 04:06 Estimated GFR > 60 ml/min 04/10/18 04:06 BUN/Creatinine Ratio 26 % 04/10/18 04:06 Glucose 213 mg/dL (75-100) H 04/10/18 04:06 POC Glucose 246 (70-105) H 04/10/18 06:10 Hemoglobin A1c 9.9 % (4-6) H 04/07/18 16:43 Lactic Acid 1.80 mmol/L (0.7-2.0) 04/07/18 16:43 Calcium 7.6 mg/dL (8.4-10.2) L 04/10/18 04:06 Iron 15 ug/dL (49-181) L 04/08/18 07:34 TIBC 106 mcg/dL (250-450) L 04/08/18 07:34 % Saturation 14.15 % 04/08/18 07:34 Transferrin 76 mg/dl (180-329) L 04/08/18 07:34 Total Bilirubin 0.90 mg/dL (0.1-1.2) 04/09/18 05:42 AST 28 units/L (5-40) 04/09/18 05:42 ALT 39 units/L (7-56) 04/09/18 05:42 Alkaline Phosphatase 211 units/L (35-129) H 04/09/18 05:42 Total Creatine Kinase 83 units/L (55-170) 04/07/18 13:25 CK-MB (CK-2) 2.5 ng/mL (0.0-4.0) 04/07/18 13:25 CK-MB (CK-2) Rel Index 3.0 (0-4) 04/07/18 13:25 Troponin T 0.025 ng/mL (0.00-0.029) 04/07/18 13:25 Total Protein 6.6 g/dL (6.3-8.2) 04/09/18 05:42 Albumin 2.1 g/dL (3.9-5) L 04/09/18 05:42 Albumin/Globulin Ratio 0.5 % 04/09/18 05:42 Vitamin B12 1405 pg/mL (211-911) H 04/08/18 07:34 Urine Color Yellow (Yellow) 04/07/18 08:52 Urine Turbidity Clear (Clear) 04/07/18 08:52 Urine pH 8.0 (5.0-7.0) H 04/07/18 08:52 Ur Specific [place] 1.009 (1.003-1.030) 04/07/18 08:52 Urine Protein 100 mg/dl mg/dL (Negative) 04/07/18 08:52 Urine Glucose (UA) Neg mg/dL (Negative) 04/07/18 08:52 Urine Ketones Neg mg/dL (Negative) 04/07/18 08:52 Urine Blood Neg (Negative) 04/07/18 08:52 Urine Nitrite Neg (Negative) 04/07/18 08:52 Urine Bilirubin Neg (Negative) 04/07/18 08:52 Urine Urobilinogen < 2.0 mg/dL (<2.0) 04/07/18 08:52 Ur Leukocyte Esterase Neg (Negative) 04/07/18 08:52 Urine WBC (Auto) 1.0 /HPF (0.0-6.0) 04/07/18 08:52 Urine RBC (Auto) 3.0 /HPF (0.0-6.0) 04/07/18 08:52 U Epithel Cells (Auto) 2.0 /HPF (0-13.0) 04/07/18 08:52 Urine Mucus Few /HPF 04/07/18 08:52 Urine Sperm 3+ /HPF (GELATIN MAKER UTILITY) 04/07/18 08:52 Urine Opiates Screen Presumptive negative 04/07/18 08:52 Urine Methadone Screen Presumptive negative 04/07/18 08:52 Ur Barbiturates Screen Presumptive negative 04/07/18 08:52 Ur Phencyclidine Scrn Presumptive negative 04/07/18 08:52 Ur Amphetamines Screen Presumptive negative 04/07/18 08:52 U Benzodiazepines Scrn Presumptive negative 04/07/18 08:52 Urine Cocaine Screen Presumptive negative 04/07/18 08:52 U Marijuana (THC) Screen Presumptive negative 04/07/18 08:52 Drugs of Abuse Note Disclamer 04/07/18 08:52 Blood Type O POSITIVE 04/07/18 16:43 Antibody Screen Negative 04/07/18 16:43 Crossmatch See Detail 04/07/18 16:43
[2018-04-10] MEDS: LANTUS SUB-Q SCH ×2 (12:43→22:51)
[2018-04-10] MEDS: fentaNYL DRIP Premix 2,000 MCG/100 ML BAG IV SCH (12:54)
[2018-04-10] MEDS ORDERED: DULCOLAX PO PRN (13:14)
--- NOTE | 2018-04-10 15:45 | Progress Note ---
Assessment and Plan Imp: 1. Cellulitis 2. Aspiration pneumonia 3. Sepsis 4. Hypoglycemia initially 2/2 above 5. s/p CP arrest 6. Acute respiratory failure, hypoxia Rec: 1. Cont. current ABX; ID eval. pending 2. Wound RN jone. 3. Plan SBT and SAT QAM 4. Wean Levophed to keep MAP > 65 5. DVT and GI PPx, TFs 6. Prognosis guarded CCT 31 minutes Plan of care reviewed w/ family, she understands/agrees Subjective Date of service: 04/10/18 Principal diagnosis: Acute respiratory failure Interval history: No events. On ACVC, sedated. Unable to give hx. Will try to open eyes to command in [place]. On Levophed 1 mcg. Active Medications Acetaminophen (Tylenol) 650 mg PO Q4H PRN PRN Reason: Pain MILD(1-3)/Fever >100.5/[place] Acetaminophen (Tylenol) 650 mg CO Q4H PRN PRN Reason: Pain, Mild (1-3) Last Admin: 04/07/18 17:25 Dose: 650 mg Albuterol (Proventil) 2.5 mg IH Q3HRT PRN PRN Reason: Wheezing Albuterol/Ipratropium (Duoneb *Not For Prn Use*) 1 ampul IH TIDRT [facility] Last Admin: 04/10/18 14:00 Dose: 1 ampul Lipase/Protease/Amylase (Pancreaze Dr 10,500 Unit) 1 each FEEDTUBE PRN PRN PRN Reason: For Clogged Feeding Tube Bisacodyl (Dulcolax) 10 mg PO QDAY PRN PRN Reason: Constipation Enoxaparin Sodium (Lovenox) 40 mg SUB-Q QDAY JODY Last Admin: 04/10/18 10:20 Dose: 40 mg Hydrophilic Ointment (Vaseline Lip Therapy) 1 applic TP Q2HR PRN PRN Reason: Dry Lips Last Admin: 04/08/18 18:47 Dose: 1 applic Propofol (Diprivan 10 Mg/Ml) 1,000 mg in 100 mls @ 2.177 mls/hr IV TITR JODY; Protocol Last Titration: 04/07/18 13:29 Dose: 0 mcg/kg/min, 0 mls/hr Midazolam HCl 100 mg/ Sodium (Chloride) 100 mls @ 2 mls/hr IV TITR JODY; Protocol Last Titration: 04/10/18 10:43 Dose: Infused Fentanyl Citrate (Fentanyl Drip Premix) 2,000 mcg in 100 mls @ 3.629 mls/hr IV TITR JODY; Protocol Last Admin: 04/10/18 12:54 Dose: 1 mcg/kg/hr, 3.629 mls/hr Piperacillin Sod/Tazobactam Sod (Zosyn/Ns 4.5gm/100ml) 4.5 gm in 100 mls @ 200 mls/hr IV Q8HR JODY; Protocol Last Admin: 04/10/18 15:07 Dose: 200 mls/hr Sodium Chloride (Nacl 0.9% 1000 Ml) 1,000 mls @ 75 mls/hr IV DIRECT JODY Last Admin: 04/09/18 22:28 Dose: 75 mls/hr Vancomycin HCl (Vancomycin/Ns 1 Gm/250 Ml) 1 gm in 250 mls @ 166.667 mls/hr IV Q12HR JODY Last Admin: 04/10/18 10:29 Dose: 166.667 mls/hr Norepinephrine (Levophed Drip 4 Mg/Ns 250 Ml) 4 mg in 250 mls @ 7.5 mls/hr IV TITR JODY; Protocol Last Titration: 04/10/18 10:40 Dose: 1 mcg/min, 3.75 mls/hr Insulin Glargine (Lantus) 10 units SUB-Q BID JODY Last Admin: 04/10/18 12:43 Dose: 10 units Insulin Human Lispro (Humalog) 0 unit SUB-Q Q6HR JODY; Protocol Last Admin: 04/10/18 12:43 Dose: 4 unit Morphine Sulfate (Morphine) 2 mg IV Q4H PRN PRN Reason: Pain, Moderate (4-6) Multi-Ingred Cream/Lotion/Oil/Oint (Artificial Tears Ophth Oint) 1 applic OU Q4HR PRN PRN Reason: Dry Eye(s) Ondansetron HCl (Zofran) 4 mg IV Q8H PRN PRN Reason: Nausea And Vomiting Pantoprazole Sodium (Protonix) 40 mg IV QDAY [facility] Last Admin: 04/10/18 10:20 Dose: 40 mg Senna (Senokot) 17.6 mg FEEDTUBE Q12HR JODY Simple Syrup (Simple Syrup) 15 ml FEEDTUBE PRN PRN PRN Reason: Hypoglycemia Simple Syrup (Simple Syrup) 30 ml FEEDTUBE PRN PRN PRN Reason: Hypoglycemia Sodium Bicarbonate (Sodium Bicarbonate) 325 mg FEEDTUBE PRN PRN PRN Reason: For Clogged Feeding Tube Sodium Chloride (Nacl 0.9% 500 Ml) 1 ml IV DIRECT JODY Sodium Chloride (Sodium Chloride Flush Syringe 10 Ml) 10 ml IV BID JODY Last Admin: 04/10/18 10:22 Dose: 10 ml Sodium Chloride (Sodium Chloride Flush Syringe 10 Ml) 10 ml IV PRN PRN PRN Reason: LINE FLUSH Objective Vital Signs - 12hr 04/10/18 04/10/18 04/10/18 03:42 03:45 04:00 Temperature Pulse Rate 78 78 79 Pulse Rate [ Anterior Bilateral Throughout] Respiratory 10 L 11 L Rate Respiratory Rate [Anterior Bilateral Throughout] Blood Pressure 105/60 101/56 105/60 O2 Sat by Pulse 95 95 95 Oximetry 04/10/18 04/10/18 04/10/18 04:15 04:30 04:31 Temperature 98.9 F Pulse Rate 79 82 Pulse Rate [ Anterior Bilateral Throughout] Respiratory 11 L 12 Rate Respiratory Rate [Anterior Bilateral Throughout] Blood Pressure 101/59 111/62 O2 Sat by Pulse 95 95 Oximetry 04/10/18 04/10/18 04/10/18 04:32 04:45 05:00 Temperature Pulse Rate 83 83 Pulse Rate [ Anterior Bilateral Throughout] Respiratory 15 13 10 L Rate Respiratory Rate [Anterior Bilateral Throughout] Blood Pressure 112/59 110/60 O2 Sat by Pulse 97 95 95 Oximetry 04/10/18 04/10/18 04/10/18 05:15 05:31 05:45 Temperature Pulse Rate 82 82 82 Pulse Rate [ Anterior Bilateral Throughout] Respiratory 11 L 10 L 11 L Rate Respiratory Rate [Anterior Bilateral Throughout] Blood Pressure 116/61 110/60 111/58 O2 Sat by Pulse 95 95 94 Oximetry 04/10/18 04/10/18 04/10/18 06:00 06:15 06:31 Temperature Pulse Rate 82 81 80 Pulse Rate [ Anterior Bilateral Throughout] Respiratory 11 L 11 L 10 L Rate Respiratory Rate [Anterior Bilateral Throughout] Blood Pressure 109/57 114/61 109/59 O2 Sat by Pulse 94 94 94 Oximetry 04/10/18 04/10/18 04/10/18 06:45 07:01 07:15 Temperature Pulse Rate 80 79 79 Pulse Rate [ Anterior Bilateral Throughout] Respiratory 11 L 11 L 9 L Rate Respiratory Rate [Anterior Bilateral Throughout] Blood Pressure 109/57 106/56 102/55 O2 Sat by Pulse 93 94 94 Oximetry 04/10/18 04/10/18 04/10/18 07:31 07:45 08:00 Temperature 98.9 F Pulse Rate 78 78 79 Pulse Rate [ Anterior Bilateral Throughout] Respiratory 10 L 11 L 11 L Rate Respiratory Rate [Anterior Bilateral Throughout] Blood Pressure 99/55 101/54 104/56 O2 Sat by Pulse 95 94 94 Oximetry 04/10/18 04/10/18 04/10/18 08:15 08:29 08:31 Temperature Pulse Rate 81 77 77 Pulse Rate [ 77 Anterior Bilateral Throughout] Respiratory 10 L 10 L Rate Respiratory 17 Rate [Anterior Bilateral Throughout] Blood Pressure 103/59 105/54 105/54 O2 Sat by Pulse 95 94 95 Oximetry 04/10/18 04/10/18 04/10/18 08:40 08:45 09:01 Temperature Pulse Rate 81 81 Pulse Rate [ 79 Anterior Bilateral Throughout] Respiratory 22 13 Rate Respiratory 16 Rate [Anterior Bilateral Throughout] Blood Pressure 113/58 117/59 O2 Sat by Pulse 94 93 Oximetry 04/10/18 04/10/18 04/10/18 09:15 09:31 09:45 Temperature Pulse Rate 82 82 83 Pulse Rate [ Anterior Bilateral Throughout] Respiratory 14 11 L 11 L Rate Respiratory Rate [Anterior Bilateral Throughout] Blood Pressure 116/59 117/60 120/61 O2 Sat by Pulse 94 94 94 Oximetry 04/10/18 04/10/18 04/10/18 10:00 10:01 10:15 Temperature Pulse Rate 83 84 83 Pulse Rate [ Anterior Bilateral Throughout] Respiratory 13 14 Rate Respiratory Rate [Anterior Bilateral Throughout] Blood Pressure 121/64 120/58 O2 Sat by Pulse 94 93 Oximetry 04/10/18 04/10/18 04/10/18 10:31 10:45 11:01 Temperature Pulse Rate 81 82 82 Pulse Rate [ Anterior Bilateral Throughout] Respiratory 15 12 12 Rate Respiratory Rate [Anterior Bilateral Throughout] Blood Pressure 103/53 105/55 105/53 O2 Sat by Pulse 94 94 94 Oximetry 04/10/18 04/10/18 04/10/18 11:15 11:30 11:45 Temperature Pulse Rate 81 80 79 Pulse Rate [ Anterior Bilateral Throughout] Respiratory 14 12 11 L Rate Respiratory Rate [Anterior Bilateral Throughout] Blood Pressure 97/58 102/54 108/55 O2 Sat by Pulse 94 94 94 Oximetry 04/10/18 04/10/18 04/10/18 12:00 12:15 12:30 Temperature 98.5 F Pulse Rate 79 78 79 Pulse Rate [ Anterior Bilateral Throughout] Respiratory 11 L 11 L 11 L Rate Respiratory Rate [Anterior Bilateral Throughout] Blood Pressure 108/56 102/55 110/57 O2 Sat by Pulse 95 94 94 Oximetry 04/10/18 04/10/18 04/10/18 12:45 13:01 13:15 Temperature Pulse Rate 79 78 78 Pulse Rate [ Anterior Bilateral Throughout] Respiratory 12 12 12 Rate Respiratory Rate [Anterior Bilateral Throughout] Blood Pressure 114/57 107/55 109/55 O2 Sat by Pulse 94 95 96 Oximetry 04/10/18 04/10/18 04/10/18 13:30 13:45 14:00 Temperature Pulse Rate 77 78 79 Pulse Rate [ 71 Anterior Bilateral Throughout] Respiratory 11 L 11 L 11 L Rate Respiratory 14 Rate [Anterior Bilateral Throughout] Blood Pressure 107/56 99/54 106/55 O2 Sat by Pulse 94 95 95 Oximetry 04/10/18 04/10/18 04/10/18 14:10 14:15 14:30 Temperature Pulse Rate 79 84 Pulse Rate [ 88 Anterior Bilateral Throughout] Respiratory 12 11 L Rate Respiratory 16 Rate [Anterior Bilateral Throughout] Blood Pressure 104/54 112/59 O2 Sat by Pulse 94 94 Oximetry 04/10/18 04/10/18 04/10/18 14:45 15:00 15:15 Temperature Pulse Rate 87 87 91 H Pulse Rate [ Anterior Bilateral Throughout] Respiratory 14 11 L 11 L Rate Respiratory Rate [Anterior Bilateral Throughout] Blood Pressure 114/57 112/57 102/63 O2 Sat by Pulse 94 94 93 Oximetry 04/10/18 15:30 Temperature Pulse Rate 93 H Pulse Rate [ Anterior Bilateral Throughout] Respiratory 11 L Rate Respiratory Rate [Anterior Bilateral Throughout] Blood Pressure 119/59 O2 Sat by Pulse 93 Oximetry Constitutional: other (intubated, critically ill on vent) Eyes: non-icteric ENT: oropharynx moist Neck: supple Effort: normal Ascultation: Bilateral: other (coarse BS bilaterally) Cardiovascular: regular rate and rhythm (no mrg) Gastrointestinal: normoactive bowel sounds, soft, non-tender, other (obese) Integumentary: other (foul smelling L foot wound, bandaged) Extremities: no cyanosis Neurologic: other (sedated) Psychiatric: other (unable to assess) CBC and BMP: 04/10/18 04:06 04/10/18 04:06 ABG, PT/INR, D-dimer: ABG POC ABG pH 7.392 (7.35-7.45) 04/10/18 04:04 POC ABG pCO2 34.4 (35-45) L 04/10/18 04:04 POC ABG pO2 90 (80-105) 04/10/18 04:04 POC ABG HCO3 20.9 04/10/18 04:04 POC ABG Total CO2 22 04/10/18 04:04 POC ABG O2 Sat 97 04/10/18 04:04 PT/INR, D-dimer D-Dimer 933.08 ng/mlDDU (0-234) H 04/07/18 08:15 Abnormal lab findings: Abnormal Labs 04/07/18 04/07/18 04/07/18 08:11 08:15 08:15 WBC 23.9 H RBC 2.89 L Hgb 7.2 L Hct 22.4 L MCV 78 L MCH 25 L MCHC RDW 13.0 L Plt Count 453 H Seg Neuts % (Manual) 84.0 H Lymphocytes % (Manual) 8.0 L Monocytes % (Manual) 8.0 H Seg Neutrophils # Man 20.1 H Lymphocytes # (Manual) Monocytes # (Manual) 1.9 H Eosinophils # (Manual) D-Dimer 933.08 H POC ABG pH POC ABG pCO2 POC ABG pO2 VBG pH Sodium Chloride Carbon Dioxide BUN Glucose POC Glucose 225 H Hemoglobin A1c Lactic Acid Calcium Iron TIBC Transferrin Alkaline Phosphatase Total Creatine Kinase Albumin Vitamin B12 Urine pH Crossmatch 04/07/18 04/07/18 04/07/18 08:15 08:15 08:52 WBC RBC Hgb Hct MCV MCH MCHC RDW Plt Count Seg Neuts % (Manual) Lymphocytes % (Manual) Monocytes % (Manual) Seg Neutrophils # Man Lymphocytes # (Manual) Monocytes # (Manual) Eosinophils # (Manual) D-Dimer POC ABG pH POC ABG pCO2 POC ABG pO2 VBG pH Sodium 127 L Chloride 90.7 L Carbon Dioxide 21 L BUN 21 H Glucose 191 H POC Glucose Hemoglobin A1c Lactic Acid 3.80 H* Calcium 8.2 L Iron TIBC Transferrin Alkaline Phosphatase 287 H Total Creatine Kinase 31 L Albumin 2.4 L Vitamin B12 Urine pH 8.0 H Crossmatch 04/07/18 04/07/18 04/07/18 09:51 12:27 13:25 WBC RBC Hgb Hct MCV MCH MCHC RDW Plt Count Seg Neuts % (Manual) Lymphocytes % (Manual) Monocytes % (Manual) Seg Neutrophils # Man Lymphocytes # (Manual) Monocytes # (Manual) Eosinophils # (Manual) D-Dimer POC ABG pH POC ABG pCO2 POC ABG pO2 VBG pH 7.231 L Sodium Chloride Carbon Dioxide BUN Glucose POC Glucose Hemoglobin A1c Lactic Acid 3.10 H* 4.50 H* Calcium Iron TIBC Transferrin Alkaline Phosphatase Total Creatine Kinase Albumin Vitamin B12 Urine pH Crossmatch 04/07/18 04/07/18 04/07/18 15:24 16:35 16:43 WBC RBC Hgb Hct MCV MCH MCHC RDW Plt Count Seg Neuts % (Manual) Lymphocytes % (Manual) Monocytes % (Manual) Seg Neutrophils # Man Lymphocytes # (Manual) Monocytes # (Manual) Eosinophils # (Manual) D-Dimer POC ABG pH POC ABG pCO2 POC ABG pO2 VBG pH Sodium Chloride Carbon Dioxide BUN Glucose POC Glucose 137 H Hemoglobin A1c 9.9 H Lactic Acid 2.20 H* Calcium Iron TIBC Transferrin Alkaline Phosphatase Total Creatine Kinase Albumin Vitamin B12 Urine pH Crossmatch 04/07/18 04/07/18 04/08/18 16:43 16:46 06:15 WBC RBC Hgb Hct MCV MCH MCHC RDW Plt Count Seg Neuts % (Manual) Lymphocytes % (Manual) Monocytes % (Manual) Seg Neutrophils # Man Lymphocytes # (Manual) Monocytes # (Manual) Eosinophils # (Manual) D-Dimer POC ABG pH 7.345 L POC ABG pCO2 28.0 L 33.8 L POC ABG pO2 76 L 138 H VBG pH Sodium Chloride Carbon Dioxide BUN Glucose POC Glucose Hemoglobin A1c Lactic Acid Calcium Iron TIBC Transferrin Alkaline Phosphatase Total Creatine Kinase Albumin Vitamin B12 Urine pH Crossmatch See Detail 04/08/18 04/08/18 04/08/18 07:34 07:34 07:34 WBC 15.7 H RBC 6.30 H Hgb 15.6 H D Hct 49.2 H D MCV 78 L MCH 25 L MCHC RDW Plt Count Seg Neuts % (Manual) Lymphocytes % (Manual) Monocytes % (Manual) Seg Neutrophils # Man Lymphocytes # (Manual) Monocytes # (Manual) Eosinophils # (Manual) D-Dimer POC ABG pH POC ABG pCO2 POC ABG pO2 VBG pH Sodium Chloride Carbon Dioxide BUN Glucose POC Glucose Hemoglobin A1c Lactic Acid Calcium Iron 15 L TIBC 106 L Transferrin 76 L Alkaline Phosphatase Total Creatine Kinase Albumin Vitamin B12 1405 H Urine pH Crossmatch 04/08/18 04/08/18 04/08/18 07:34 09:54 12:43 WBC RBC Hgb Hct MCV MCH MCHC RDW Plt Count Seg Neuts % (Manual) Lymphocytes % (Manual) Monocytes % (Manual) Seg Neutrophils # Man Lymphocytes # (Manual) Monocytes # (Manual) Eosinophils # (Manual) D-Dimer POC ABG pH POC ABG pCO2 POC ABG pO2 VBG pH Sodium 131 L Chloride Carbon Dioxide 20 L BUN 24 H Glucose 167 H POC Glucose 162 H 175 H Hemoglobin A1c Lactic Acid Calcium 7.5 L Iron TIBC Transferrin Alkaline Phosphatase Total Creatine Kinase Albumin Vitamin B12 Urine pH Crossmatch 04/08/18 04/08/18 04/09/18 16:36 16:40 01:15 WBC 28.2 H RBC 2.67 L Hgb 7.3 L D Hct 21.0 L D MCV 79 L MCH 27 L MCHC 35 H RDW Plt Count Seg Neuts % (Manual) 74.0 H Lymphocytes % (Manual) 3.0 L Monocytes % (Manual) Seg Neutrophils # Man 20.9 H Lymphocytes # (Manual) 0.8 L Monocytes # (Manual) 1.7 H Eosinophils # (Manual) D-Dimer POC ABG pH POC ABG pCO2 POC ABG pO2 VBG pH Sodium Chloride Carbon Dioxide BUN Glucose POC Glucose 150 H 171 H Hemoglobin A1c Lactic Acid Calcium Iron TIBC Transferrin Alkaline Phosphatase Total Creatine Kinase Albumin Vitamin B12 Urine pH Crossmatch 04/09/18 04/09/18 04/09/18 05:13 05:42 05:42 WBC 23.2 H RBC 2.72 L Hgb 7.0 L Hct 21.6 L MCV 79 L MCH 26 L MCHC RDW Plt Count Seg Neuts % (Manual) 87.5 H Lymphocytes % (Manual) 8.0 L Monocytes % (Manual) Seg Neutrophils # Man 20.3 H Lymphocytes # (Manual) Monocytes # (Manual) 0.9 H Eosinophils # (Manual) D-Dimer POC ABG pH POC ABG pCO2 34.4 L POC ABG pO2 VBG pH Sodium 134 L Chloride Carbon Dioxide 21 L BUN 24 H Glucose 192 H POC Glucose Hemoglobin A1c Lactic Acid Calcium 7.4 L Iron TIBC Transferrin Alkaline Phosphatase 211 H Total Creatine Kinase Albumin 2.1 L Vitamin B12 Urine pH Crossmatch 04/09/18 04/09/18 04/10/18 12:52 18:43 00:13 WBC RBC Hgb Hct MCV MCH MCHC RDW Plt Count Seg Neuts % (Manual) Lymphocytes % (Manual) Monocytes % (Manual) Seg Neutrophils # Man Lymphocytes # (Manual) Monocytes # (Manual) Eosinophils # (Manual) D-Dimer POC ABG pH POC ABG pCO2 POC ABG pO2 VBG pH Sodium Chloride Carbon Dioxide BUN Glucose POC Glucose 206 H 223 H 233 H Hemoglobin A1c Lactic Acid Calcium Iron TIBC Transferrin Alkaline Phosphatase Total Creatine Kinase Albumin Vitamin B12 Urine pH Crossmatch 04/10/18 04/10/18 04/10/18 04:04 04:06 04:06 WBC 18.9 H RBC 3.27 L Hgb 8.4 L Hct 26.0 L MCV 80 L MCH 26 L MCHC RDW Plt Count Seg Neuts % (Manual) 86.0 H Lymphocytes % (Manual) 2.0 L Monocytes % (Manual) Seg Neutrophils # Man 16.3 H Lymphocytes # (Manual) 0.4 L Monocytes # (Manual) Eosinophils # (Manual) 0.8 H D-Dimer POC ABG pH POC ABG pCO2 34.4 L POC ABG pO2 VBG pH Sodium 136 L Chloride Carbon Dioxide 20 L BUN 23 H Glucose 213 H POC Glucose Hemoglobin A1c Lactic Acid Calcium 7.6 L Iron TIBC Transferrin Alkaline Phosphatase Total Creatine Kinase Albumin Vitamin B12 Urine pH Crossmatch 04/10/18 04/10/18 06:10 12:30 WBC RBC Hgb Hct MCV MCH MCHC RDW Plt Count Seg Neuts % (Manual) Lymphocytes % (Manual) Monocytes % (Manual) Seg Neutrophils # Man Lymphocytes # (Manual) Monocytes # (Manual) Eosinophils # (Manual) D-Dimer POC ABG pH POC ABG pCO2 POC ABG pO2 VBG pH Sodium Chloride Carbon Dioxide BUN Glucose POC Glucose 246 H 266 H Hemoglobin A1c Lactic Acid Calcium Iron TIBC Transferrin Alkaline Phosphatase Total Creatine Kinase Albumin Vitamin B12 Urine pH Crossmatch Chest x-ray: report reviewed, image reviewed CT scan - chest: report reviewed, image reviewed (severe consolidation RLL)
[2018-04-10] MEDS: NACL 0.9% 1000 ML 1,000 ML IV SCH (18:13)
[2018-04-10] MEDS: SENOKOT FEEDTUBE SCH ×2 (18:13→22:52)
--- NOTE | 2018-04-11 03:58 | XRay Report ---
FINAL REPORT EXAM: XR CHEST 1V AP HISTORY: follow up respiratory failure TECHNIQUE: Single, portable chest x-ray. PRIORS: One day previous. FINDINGS: ET and enteric tubes and right IJ central venous catheter again noted in similar position. Cardiac silhouette stable. Lungs without significant interval change. No apparent pneumothorax. IMPRESSION: 1. No significant interval change.
[2018-04-11 04:41] LABS: Hematocrit 24.6 % (35.5-45.6); Mean Corpuscular HGB Conc 33 % (32-34); Mean Corpuscular Hemoglobin 26 pg (28-32); Mean Corpuscular Volume 80 fl (84-94); Platelet Count 421 K/mm3 (140-440); Red Blood Count 3.07 M/mm3 (3.65-5.03); Red Cell Distribution Width 14.3 % (13.2-15.2)
[2018-04-11 04:58] LABS: Alanine Aminotransferase 45 units/L (7-56); Albumin 1.9 g/dL (3.9-5); BUN/Creatinine Ratio 25; Blood Urea Nitrogen 25 mg/dL (9-20); Calcium 7.3 mg/dL (8.4-10.2); Hemolysis Index 1
[2018-04-11] MEDS: HumaLOG SUB-Q SCH ×3 (05:35→14:44)
[2018-04-11] MEDS: ZOSYN/NS 4.5GM/100ML 4.5 GM/100 ML VIAL IV SCH ×3 (06:29→22:08)
[2018-04-11 06:49] LABS: Band Neutrophils # (Manual) 0.6 K/mm3; Total Cells Counted 100
[2018-04-11 06:50] LABS: Hypochromasia 1+; Platelet Estimate Consistent w Auto
[2018-04-11] MEDS: DUONEB *Not for PRN Use IH SCH ×3 (07:22→19:10)
[2018-04-11] MEDS: LOVENOX SUB-Q SCH (10:07)
[2018-04-11] MEDS: VANCOMYCIN/NS 1 GM/250 ML 1 GM/250 ML BAG IV SCH ×2 (10:08→22:07)
[2018-04-11] MEDS: PROTONIX FEEDTUBE SCH (10:09)
[2018-04-11] MEDS: SODIUM CHLORIDE FLUSH SYRINGE 10 ML IV SCH ×2 (10:10→22:12)
[2018-04-11] MEDS: SENOKOT FEEDTUBE SCH ×2 (10:10→22:08)
[2018-04-11] MEDS: LANTUS SUB-Q SCH ×2 (10:11→22:11)
--- NOTE | 2018-04-11 10:39 | Consultation ---
History of Present Illness - Reason for Consult Consult date: 04/11/18 sepsis Requesting physician: ALBERT MIRAMONTES - History of Present Illness 57 y/o male with history of DM and HTN; admitted on 04/07 due to chest pain. Pt is unable to provide history, currently intubated. There are no family members at bedside. Per review of records, EMS found him with BG of 40 and decreased responsiveness. D50w was given enroute to the hospital. Enroute to the hospital patient became unresponsive and also vomited once. ASLS was initiated and patient brought into the ER with BMV and chest compressions. Patient intubated in ED by Dr Pendleton for airway protection. Return of spontaneous circulation and BP came back. Upon arrival, initial temperature 90.8, went to 104. Heart rate 122, respirations 23, O2 sat 43%, blood pressure 143/71 went to 87/48. Initial white count 23.9. Hemoglobin 7.2. Platelets 453. Creatinine 1.4. Lactate 3.8. Chest x-ray was unremarkable. CTA of the chest show bilateral basilar opacities. 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 Foot x-ray shows soft tissue and on the millimeter foreign body. Patient was placed on levofed drip. Left foot noted with maggot, and necrotic tissue to wound. Microbiology: Blood cultures: 04/07 ngtd Urine cultures: 04/07 neg Respiratory cultures: TA 04/07 ngtd Left foot wound: pending Current Antimicrobials: Zosyn 04/07 Vancomycin 04/07 Previous Antimicrobials: Past History Past Medical History: diabetes Past Surgical History: Other (unknown) Social history: other (unknown ) Medications and Allergies Allergies Allergy/AdvReac Type Severity Reaction Status Date / Time No Known Allergies Allergy Unverified 04/07/18 08:27 Home Medications Medication Instructions Recorded Confirmed Last Taken Type Ascorbic Acid [Vitamin C with Matilde 500 mg PO BID 04/07/18 04/07/18 Unknown History Hips] Ferrous Sulfate [Iron] 325 mg PO PC 04/07/18 04/07/18 Unknown History Lisinopril [Zestril] 5 mg PO QDAY 04/07/18 04/07/18 Unknown History glipiZIDE [Glipizide] 5 mg PO BID 04/07/18 04/07/18 Unknown History metFORMIN [Glucophage] 500 mg PO BID 04/07/18 04/07/18 Unknown History Active Meds: Active Medications Acetaminophen (Tylenol) 650 mg PO Q4H PRN PRN Reason: Pain MILD(1-3)/Fever >100.5/[place] Acetaminophen (Tylenol) 650 mg [place] Q4H PRN PRN Reason: Pain, Mild (1-3) Last Admin: 04/07/18 17:25 Dose: 650 mg Albuterol (Proventil) 2.5 mg IH Q3HRT PRN PRN Reason: Wheezing Albuterol/Ipratropium (Duoneb *Not For Prn Use*) 1 ampul IH TIDRT [facility] Last Admin: 04/11/18 07:22 Dose: 1 ampul Lipase/Protease/Amylase (Pancreaze Dr 10,500 Unit) 1 each FEEDTUBE PRN PRN PRN Reason: For Clogged Feeding Tube Bisacodyl (Dulcolax) 10 mg PO QDAY PRN PRN Reason: Constipation Enoxaparin Sodium (Lovenox) 40 mg SUB-Q QDAY [facility] Last Admin: 04/11/18 10:07 Dose: 40 mg Hydrophilic Ointment (Vaseline Lip Therapy) 1 applic TP Q2HR PRN PRN Reason: Dry Lips Last Admin: 04/08/18 18:47 Dose: 1 applic Propofol (Diprivan 10 Mg/Ml) 1,000 mg in 100 mls @ 2.177 mls/hr IV TITR [facility]; Protocol Last Titration: 04/07/18 13:29 Dose: 0 mcg/kg/min, 0 mls/hr Midazolam HCl 100 mg/ Sodium (Chloride) 100 mls @ 2 mls/hr IV TITR [facility]; Protocol Last Titration: 04/10/18 10:43 Dose: Infused Fentanyl Citrate (Fentanyl Drip Premix) 2,000 mcg in 100 mls @ 3.629 mls/hr IV TITR [facility]; Protocol Last Titration: 04/11/18 08:33 Dose: 0 mcg/kg/hr, 0 mls/hr Piperacillin Sod/Tazobactam Sod (Zosyn/Ns 4.5gm/100ml) 4.5 gm in 100 mls @ 200 mls/hr IV Q8HR [facility]; Protocol Last Admin: 04/11/18 06:29 Dose: 200 mls/hr Sodium Chloride (Nacl 0.9% 1000 Ml) 1,000 mls @ 75 mls/hr IV DIRECT [facility] Last Admin: 04/10/18 18:13 Dose: 75 mls/hr Vancomycin HCl (Vancomycin/Ns 1 Gm/250 Ml) 1 gm in 250 mls @ 166.667 mls/hr IV Q12HR [facility] Last Admin: 04/11/18 10:08 Dose: 166.667 mls/hr Norepinephrine (Levophed Drip 4 Mg/Ns 250 Ml) 4 mg in 250 mls @ 7.5 mls/hr IV TITR [facility]; Protocol Last Titration: 04/11/18 00:23 Dose: 0 mcg/min, 0 mls/hr Insulin Glargine (Lantus) 10 units SUB-Q BID [facility] Last Admin: 04/11/18 10:11 Dose: 10 units Insulin Human Lispro (Humalog) 0 unit SUB-Q Q6HR [facility]; Protocol Last Admin: 04/11/18 05:35 Dose: Not Given Morphine Sulfate (Morphine) 2 mg IV Q4H PRN PRN Reason: Pain, Moderate (4-6) Multi-Ingred Cream/Lotion/Oil/Oint (Artificial Tears Ophth Oint) 1 applic OU Q4HR PRN PRN Reason: Dry Eye(s) Ondansetron HCl (Zofran) 4 mg IV Q8H PRN PRN Reason: Nausea And Vomiting Pantoprazole (Protonix) 40 mg FEEDTUBE DAILY [facility] Last Admin: 04/11/18 10:09 Dose: Not Given Senna (Senokot) 17.6 mg FEEDTUBE Q12HR [facility] Last Admin: 04/11/18 10:10 Dose: Not Given Simple Syrup (Simple Syrup) 15 ml FEEDTUBE PRN PRN PRN Reason: Hypoglycemia Simple Syrup (Simple Syrup) 30 ml FEEDTUBE PRN PRN PRN Reason: Hypoglycemia Sodium Bicarbonate (Sodium Bicarbonate) 325 mg FEEDTUBE PRN PRN PRN Reason: For Clogged Feeding Tube Sodium Chloride (Nacl 0.9% 500 Ml) 1 ml IV DIRECT [facility] Sodium Chloride (Sodium Chloride Flush Syringe 10 Ml) 10 ml IV BID [facility] Last Admin: 04/11/18 10:10 Dose: 10 ml Sodium Chloride (Sodium Chloride Flush Syringe 10 Ml) 10 ml IV PRN PRN PRN Reason: LINE FLUSH Physical Examination - Physical Exam Narrative exam: General appearance: sedated on the vent Eyes: anicteric sclerae, moist conjunctivae; no lid-lag; PERRLA HENT: Atraumatic; oropharynx clear +ETT. Neck: Trachea midline; supple, no thyromegaly or lymphadenopathy Lungs: kalyan rhonchi CV: RRR, Abdomen: Soft, non-tender; no masses or hepatosplenomegaly Extremities: left foot lateral wound with devitalized tissue and foul smelling drainage, marked foot and ankle edema. Kalyan leg edema Skin: Normal temperature, turgor and texture; no rash, ulcers or subcutaneous nodules Psych: sedated. Neuro: sedated Lines: IJ TLC - Constitutional Vitals: Vital Signs Temp Pulse Resp BP Pulse Ox 101.2 F H 85 15 127/66 94 04/11/18 08:00 04/11/18 10:15 04/11/18 10:15 04/11/18 10:15 04/11/18 10:15 Temperature -Last 24 Hours Temperature 101.2 F Temperature 98.8 F Temperature 98.8 F Temperature 99.0 F Temperature 98.6 F Temperature 98.6 F Temperature 98.5 F Temperature 98.5 F Results - Labs CBC & Chem 7: 04/11/18 04:14 04/11/18 04:14 Labs: Abnormal lab results 04/10/18 04/10/18 04/10/18 Range/Units 12:30 17:43 23:50 WBC (4.5-11.0) K/mm3 RBC (3.65-5.03) M/mm3 Hgb (11.8-15.2) gm/dl Hct (35.5-45.6) % MCV (84-94) fl MCH (28-32) pg Seg Neuts % (Manual) (40.0-70.0) % Lymphocytes % (Manual) (13.4-35.0) % Seg Neutrophils # Man (1.8-7.7) K/mm3 POC ABG pH (7.35-7.45) POC ABG pCO2 (35-45) Chloride (98-107) mmol/L Carbon Dioxide (22-30) mmol/L BUN (9-20) mg/dL Glucose (75-100) mg/dL POC Glucose 266 H 246 H 247 H (70-105) Calcium (8.4-10.2) mg/dL Total Bilirubin (0.1-1.2) mg/dL Alkaline Phosphatase (35-129) units/L Total Protein (6.3-8.2) g/dL Albumin (3.9-5) g/dL 04/11/18 04/11/18 04/11/18 Range/Units 04:14 04:14 04:43 WBC 14.9 H (4.5-11.0) K/mm3 RBC 3.07 L (3.65-5.03) M/mm3 Hgb 8.0 L (11.8-15.2) gm/dl Hct 24.6 L (35.5-45.6) % MCV 80 L (84-94) fl MCH 26 L (28-32) pg Seg Neuts % (Manual) 79.0 H (40.0-70.0) % Lymphocytes % (Manual) 10.0 L (13.4-35.0) % Seg Neutrophils # Man 11.8 H (1.8-7.7) K/mm3 POC ABG pH 7.479 H (7.35-7.45) POC ABG pCO2 34.8 L (35-45) Chloride 107.9 H (98-107) mmol/L Carbon Dioxide 20 L (22-30) mmol/L BUN 25 H (9-20) mg/dL Glucose 184 H (75-100) mg/dL POC Glucose (70-105) Calcium 7.3 L (8.4-10.2) mg/dL Total Bilirubin 1.40 H (0.1-1.2) mg/dL Alkaline Phosphatase 225 H (35-129) units/L Total Protein 5.9 L (6.3-8.2) g/dL Albumin 1.9 L (3.9-5) g/dL 04/11/18 Range/Units 10:04 WBC (4.5-11.0) K/mm3 RBC (3.65-5.03) M/mm3 Hgb (11.8-15.2) gm/dl Hct (35.5-45.6) % MCV (84-94) fl MCH (28-32) pg Seg Neuts % (Manual) (40.0-70.0) % Lymphocytes % (Manual) (13.4-35.0) % Seg Neutrophils # Man (1.8-7.7) K/mm3 POC ABG pH (7.35-7.45) POC ABG pCO2 (35-45) Chloride (98-107) mmol/L Carbon Dioxide (22-30) mmol/L BUN (9-20) mg/dL Glucose (75-100) mg/dL POC Glucose 147 H (70-105) Calcium (8.4-10.2) mg/dL Total Bilirubin (0.1-1.2) mg/dL Alkaline Phosphatase (35-129) units/L Total Protein (6.3-8.2) g/dL Albumin (3.9-5) g/dL Assessment and Plan Assessment: 1) Sepsis with septic shock: Present on admission, manifested by fever, tachycardia, hypotension, leukocytosis, increased lactate. Etiology most likely multifactorial - left foot gangrene +/- bilateral pneumonia. 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 3) DM - uncontrolled came with hypoglycemia 4) HTN 5) Acute encephalopathy -CT head showed chronic lacunar infarct on the right nasal ganglia. 6) Cardiac arrest enroute s/p CPR 7) Acute respiratory failure 8) Presumed bilateral pneumonia -CTA of the chest show bilateral basilar opacities. -Tracheal asp 04/07 normal resp kate 9) [place] Plan: -follow-up blood cultures -obtain C-reactive protein (CRP) -Wound doctor consult Dr Johnson - may need debridement vs amputation -obtain arterial doppler -consider foot MRI when stable -continue vancomycin and zosyn for now - renally dosed -left foot wound cultures Thank you for your consultation, will follow up with you. Sara Pandey MD Infectious Diseases Specialist [facility] M [phone] O [phone]
--- NOTE | 2018-04-11 13:47 | Consultation ---
History of Present Illness Consult date: 04/11/18 Reason for consult: other (left foot ulcer/infection) - History of present illness History of present illness: 57 yo diabetic male admitted with AMS and sepsis Past History Past Medical History: diabetes Past Surgical History: Other (unknown) Social history: other (unknown ) Medications and Allergies Allergies Allergy/AdvReac Type Severity Reaction Status Date / Time No Known Allergies Allergy Unverified 04/07/18 08:27 Home Medications Medication Instructions Recorded Confirmed Last Taken Type Ascorbic Acid [Vitamin C with Matilde 500 mg PO BID 04/07/18 04/07/18 Unknown History Hips] Ferrous Sulfate [Iron] 325 mg PO PC 04/07/18 04/07/18 Unknown History Lisinopril [Zestril] 5 mg PO QDAY 04/07/18 04/07/18 Unknown History glipiZIDE [Glipizide] 5 mg PO BID 04/07/18 04/07/18 Unknown History metFORMIN [Glucophage] 500 mg PO BID 04/07/18 04/07/18 Unknown History Active Meds: Active Medications Acetaminophen (Tylenol) 650 mg PO Q4H PRN PRN Reason: Pain MILD(1-3)/Fever >100.5/[place] Acetaminophen (Tylenol) [address] Q4H PRN PRN Reason: Pain, Mild (1-3) Last Admin: 04/07/18 17:25 Dose: 650 mg Albuterol (Proventil) 2.5 mg IH Q3HRT PRN PRN Reason: Wheezing Albuterol/Ipratropium (Duoneb *Not For Prn Use*) 1 ampul IH TIDRT [facility] Last Admin: 04/11/18 07:22 Dose: 1 ampul Lipase/Protease/Amylase (Pancreaze Dr 10,500 Unit) 1 each FEEDTUBE PRN PRN PRN Reason: For Clogged Feeding Tube Bisacodyl (Dulcolax) 10 mg PO QDAY PRN PRN Reason: Constipation Enoxaparin Sodium (Lovenox) 40 mg SUB-Q QDAY [facility] Last Admin: 04/11/18 10:07 Dose: 40 mg Hydrophilic Ointment (Vaseline Lip Therapy) 1 applic TP Q2HR PRN PRN Reason: Dry Lips Last Admin: 04/08/18 18:47 Dose: 1 applic Propofol (Diprivan 10 Mg/Ml) 1,000 mg in 100 mls @ 2.177 mls/hr IV TITR [facility]; Protocol Last Titration: 04/07/18 13:29 Dose: 0 mcg/kg/min, 0 mls/hr Midazolam HCl 100 mg/ Sodium (Chloride) 100 mls @ 2 mls/hr IV TITR [facility]; Protocol Last Titration: 04/10/18 10:43 Dose: Infused Fentanyl Citrate (Fentanyl Drip Premix) 2,000 mcg in 100 mls @ 3.629 mls/hr IV TITR [facility]; Protocol Last Titration: 04/11/18 08:33 Dose: 0 mcg/kg/hr, 0 mls/hr Piperacillin Sod/Tazobactam Sod (Zosyn/Ns 4.5gm/100ml) 4.5 gm in 100 mls @ 200 mls/hr IV Q8HR [facility]; Protocol Last Admin: 04/11/18 06:29 Dose: 200 mls/hr Vancomycin HCl (Vancomycin/Ns 1 Gm/250 Ml) 1 gm in 250 mls @ 166.667 mls/hr IV Q12HR [facility] Last Admin: 04/11/18 10:08 Dose: 166.667 mls/hr Norepinephrine (Levophed Drip 4 Mg/Ns 250 Ml) 4 mg in 250 mls @ 7.5 mls/hr IV TITR [facility]; Protocol Last Titration: 04/11/18 00:23 Dose: 0 mcg/min, 0 mls/hr Insulin Glargine (Lantus) 10 units SUB-Q BID [facility] Last Admin: 04/11/18 10:11 Dose: 10 units Insulin Human Lispro (Humalog) 0 unit SUB-Q Q6HR [facility]; Protocol Last Admin: 04/11/18 05:35 Dose: Not Given Morphine Sulfate (Morphine) 2 mg IV Q4H PRN PRN Reason: Pain, Moderate (4-6) Multi-Ingred Cream/Lotion/Oil/Oint (Artificial Tears Ophth Oint) 1 applic OU Q4HR PRN PRN Reason: Dry Eye(s) Ondansetron HCl (Zofran) 4 mg IV Q8H PRN PRN Reason: Nausea And Vomiting Pantoprazole (Protonix) 40 mg FEEDTUBE DAILY [facility] Last Admin: 04/11/18 10:09 Dose: Not Given Senna (Senokot) 17.6 mg FEEDTUBE Q12HR [facility] Last Admin: 04/11/18 10:10 Dose: Not Given Simple Syrup (Simple Syrup) 15 ml FEEDTUBE PRN PRN PRN Reason: Hypoglycemia Simple Syrup (Simple Syrup) 30 ml FEEDTUBE PRN PRN PRN Reason: Hypoglycemia Sodium Bicarbonate (Sodium Bicarbonate) 325 mg FEEDTUBE PRN PRN PRN Reason: For Clogged Feeding Tube Sodium Chloride (Nacl 0.9% 500 Ml) 1 ml IV DIRECT [facility] Sodium Chloride (Sodium Chloride Flush Syringe 10 Ml) 10 ml IV BID [facility] Last Admin: 04/11/18 10:10 Dose: 10 ml Sodium Chloride (Sodium Chloride Flush Syringe 10 Ml) 10 ml IV PRN PRN PRN Reason: LINE FLUSH Review of Systems ROS unobtainable: due to endotracheal tube Exam Vital Signs Pulse Ox 43 L 04/07/18 08:12 - General physical appearance Positive: well developed, well nourished, no distress - Eyes Positive: PERRL, normal occular movement - ENT Positive: normal pinna, normal nares, normal mucosa, no hearing loss, no congestion - Neck Positive: no masses, no bruits, trachea midline, no venous distension - Respiratory Positive: normal expansion, normal respiratory effort, clear to auscultation - Cardiovascular Rhythm: regular Heart Sounds: Present: S1 & S2. Absent: rub, click - Extremities Extremity abnormal: other (There is a 3 X 6 cm ulcer along the lateral proximal aspect of his left foot with necrotic SQ tissue which is draining pus. DP and PT pulses on the left are non-palpable.) - Breasts Breasts: deferred - Abdomen Abdomen: Present: soft, bowel sounds normal. Absent: tender, distended Hernia: none - Genitourinary Male Genitourinary: deferred Results - Labs 04/11/18 04:14 04/11/18 04:14 Abnormal lab results 04/10/18 04/10/18 04/11/18 Range/Units 17:43 23:50 04:14 WBC 14.9 H (4.5-11.0) K/mm3 RBC 3.07 L (3.65-5.03) M/mm3 Hgb 8.0 L (11.8-15.2) gm/dl Hct 24.6 L (35.5-45.6) % MCV 80 L (84-94) fl MCH 26 L (28-32) pg Seg Neuts % (Manual) 79.0 H (40.0-70.0) % Lymphocytes % (Manual) 10.0 L (13.4-35.0) % Seg Neutrophils # Man 11.8 H (1.8-7.7) K/mm3 POC ABG pH (7.35-7.45) POC ABG pCO2 (35-45) Chloride (98-107) mmol/L Carbon Dioxide (22-30) mmol/L BUN (9-20) mg/dL Glucose (75-100) mg/dL POC Glucose 246 H 247 H (70-105) Calcium (8.4-10.2) mg/dL Total Bilirubin (0.1-1.2) mg/dL Alkaline Phosphatase (35-129) units/L C-Reactive Protein (0.00-1.30) mg/dL Total Protein (6.3-8.2) g/dL Albumin (3.9-5) g/dL 04/11/18 04/11/18 04/11/18 Range/Units 04:14 04:43 10:04 WBC (4.5-11.0) K/mm3 RBC (3.65-5.03) M/mm3 Hgb (11.8-15.2) gm/dl Hct (35.5-45.6) % MCV (84-94) fl MCH (28-32) pg Seg Neuts % (Manual) (40.0-70.0) % Lymphocytes % (Manual) (13.4-35.0) % Seg Neutrophils # Man (1.8-7.7) K/mm3 POC ABG pH 7.479 H (7.35-7.45) POC ABG pCO2 34.8 L (35-45) Chloride 107.9 H (98-107) mmol/L Carbon Dioxide 20 L (22-30) mmol/L BUN 25 H (9-20) mg/dL Glucose 184 H (75-100) mg/dL POC Glucose 147 H (70-105) Calcium 7.3 L (8.4-10.2) mg/dL Total Bilirubin 1.40 H (0.1-1.2) mg/dL Alkaline Phosphatase 225 H (35-129) units/L C-Reactive Protein (0.00-1.30) mg/dL Total Protein 5.9 L (6.3-8.2) g/dL Albumin 1.9 L (3.9-5) g/dL 04/11/18 04/11/18 Range/Units 12:02 12:22 WBC (4.5-11.0) K/mm3 RBC (3.65-5.03) M/mm3 Hgb (11.8-15.2) gm/dl Hct (35.5-45.6) % MCV (84-94) fl MCH (28-32) pg Seg Neuts % (Manual) (40.0-70.0) % Lymphocytes % (Manual) (13.4-35.0) % Seg Neutrophils # Man (1.8-7.7) K/mm3 POC ABG pH (7.35-7.45) POC ABG pCO2 (35-45) Chloride (98-107) mmol/L Carbon Dioxide (22-30) mmol/L BUN (9-20) mg/dL Glucose (75-100) mg/dL POC Glucose 148 H (70-105) Calcium (8.4-10.2) mg/dL Total Bilirubin (0.1-1.2) mg/dL Alkaline Phosphatase (35-129) units/L C-Reactive Protein 13.00 H (0.00-1.30) mg/dL Total Protein (6.3-8.2) g/dL Albumin (3.9-5) g/dL Diabetes panel 04/11/18 Range/Units 04:14 Sodium 139 (137-145) mmol/L Potassium 4.7 (3.6-5.0) mmol/L Chloride 107.9 H (98-107) mmol/L Carbon Dioxide 20 L (22-30) mmol/L BUN 25 H (9-20) mg/dL Creatinine 1.0 (0.8-1.5) mg/dL Glucose 184 H (75-100) mg/dL Calcium 7.3 L (8.4-10.2) mg/dL AST 40 (5-40) units/L ALT 45 (7-56) units/L Alkaline Phosphatase 225 H (35-129) units/L Total Protein 5.9 L (6.3-8.2) g/dL Albumin 1.9 L (3.9-5) g/dL Calcium panel 04/11/18 Range/Units 04:14 Calcium 7.3 L (8.4-10.2) mg/dL Albumin 1.9 L (3.9-5) g/dL Pituitary panel 04/11/18 Range/Units 04:14 Sodium 139 (137-145) mmol/L Potassium 4.7 (3.6-5.0) mmol/L Chloride 107.9 H (98-107) mmol/L Carbon Dioxide 20 L (22-30) mmol/L BUN 25 H (9-20) mg/dL Creatinine 1.0 (0.8-1.5) mg/dL Glucose 184 H (75-100) mg/dL Calcium 7.3 L (8.4-10.2) mg/dL Adrenal panel 04/11/18 Range/Units 04:14 Sodium 139 (137-145) mmol/L Potassium 4.7 (3.6-5.0) mmol/L Chloride 107.9 H (98-107) mmol/L Carbon Dioxide 20 L (22-30) mmol/L BUN 25 H (9-20) mg/dL Creatinine 1.0 (0.8-1.5) mg/dL Glucose 184 H (75-100) mg/dL Calcium 7.3 L (8.4-10.2) mg/dL Total Bilirubin 1.40 H (0.1-1.2) mg/dL AST 40 (5-40) units/L ALT 45 (7-56) units/L Alkaline Phosphatase 225 H (35-129) units/L Total Protein 5.9 L (6.3-8.2) g/dL Albumin 1.9 L (3.9-5) g/dL Assessment and Plan - Patient Problems (1) Foot infection Current Visit: Yes Status: Acute Plan to address problem: 1) I&D/debridement in the OR tomorrow at 7:30 am 2) MRI, left foot 3) Strict DM control 4) Recommend Vascular surgery consult due to monophasic flow at the left ankle. 5) NPO after MN
--- NOTE | 2018-04-11 15:23 | Progress Note ---
Assessment and Plan Imp: 1. Cellulitis 2. Aspiration pneumonia 3. Sepsis 4. Hypoglycemia initially 2/2 above 5. s/p CP arrest 6. Acute respiratory failure, hypoxia Rec: 1. Cont. current ABX; f/u cultures 2. Surgery on board for debridement 3. Pulm mechanics are adequate for extubation but mentation is poor; hold all sedation to see if he will wake up and follow commands (plus he is going to OR for surgery) 4. Off pressors; stop IVFs 5. DVT and GI PPx, TFs 6. Prognosis guarded CCT 31 minutes Plan of care reviewed w/ family on 04/10/18, she understands/agrees; no family present on 04/11/18 Subjective Date of service: 04/11/18 Principal diagnosis: Acute respiratory failure Interval history: No events. Off sedation. On PSV and tolerating well. Unable to give hx. Off pressors. Opens eyes to voice. Does not follow commands. Active Medications Acetaminophen (Tylenol) 650 mg PO Q4H PRN PRN Reason: Pain MILD(1-3)/Fever >100.5/[place] Acetaminophen (Tylenol) 650 mg VT Q4H PRN PRN Reason: Pain, Mild (1-3) Last Admin: 04/07/18 17:25 Dose: 650 mg Albuterol (Proventil) 2.5 mg IH Q3HRT PRN PRN Reason: Wheezing Albuterol/Ipratropium (Duoneb *Not For Prn Use*) 1 ampul IH TIDRT [facility] Last Admin: 04/11/18 13:30 Dose: 1 ampul Lipase/Protease/Amylase (Jason Garces 10,500 Unit) 1 each FEEDTUBE PRN PRN PRN Reason: For Clogged Feeding Tube Bisacodyl (Dulcolax) 10 mg PO QDAY PRN PRN Reason: Constipation Enoxaparin Sodium (Lovenox) 40 mg SUB-Q QDAY [facility] Last Admin: 04/11/18 10:07 Dose: 40 mg Hydrophilic Ointment (Vaseline Lip Therapy) 1 applic TP Q2HR PRN PRN Reason: Dry Lips Last Admin: 04/08/18 18:47 Dose: 1 applic Propofol (Diprivan 10 Mg/Ml) 1,000 mg in 100 mls @ 2.177 mls/hr IV TITR JODY; Protocol Last Titration: 04/07/18 13:29 Dose: 0 mcg/kg/min, 0 mls/hr Midazolam HCl 100 mg/ Sodium (Chloride) 100 mls @ 2 mls/hr IV TITR JODY; Protocol Last Titration: 04/10/18 10:43 Dose: Infused Fentanyl Citrate (Fentanyl Drip Premix) 2,000 mcg in 100 mls @ 3.629 mls/hr IV TITR JODY; Protocol Last Titration: 04/11/18 08:33 Dose: 0 mcg/kg/hr, 0 mls/hr Piperacillin Sod/Tazobactam Sod (Zosyn/Ns 4.5gm/100ml) 4.5 gm in 100 mls @ 200 mls/hr IV Q8HR JODY; Protocol Last Admin: 04/11/18 14:43 Dose: 200 mls/hr Vancomycin HCl (Vancomycin/Ns 1 Gm/250 Ml) 1 gm in 250 mls @ 166.667 mls/hr IV Q12HR JODY Last Admin: 04/11/18 10:08 Dose: 166.667 mls/hr Norepinephrine (Levophed Drip 4 Mg/Ns 250 Ml) 4 mg in 250 mls @ 7.5 mls/hr IV TITR JODY; Protocol Last Titration: 04/11/18 00:23 Dose: 0 mcg/min, 0 mls/hr Insulin Glargine (Lantus) 10 units SUB-Q BID JODY Last Admin: 04/11/18 10:11 Dose: 10 units Insulin Human Lispro (Humalog) 0 unit SUB-Q Q6HR JODY; Protocol Last Admin: 04/11/18 14:44 Dose: Not Given Morphine Sulfate (Morphine) 2 mg IV Q4H PRN PRN Reason: Pain, Moderate (4-6) Multi-Ingred Cream/Lotion/Oil/Oint (Artificial Tears Ophth Oint) 1 applic OU Q4HR PRN PRN Reason: Dry Eye(s) Ondansetron HCl (Zofran) 4 mg IV Q8H PRN PRN Reason: Nausea And Vomiting Pantoprazole (Protonix) 40 mg FEEDTUBE DAILY JODY Last Admin: 04/11/18 10:09 Dose: Not Given Senna (Senokot) 17.6 mg FEEDTUBE Q12HR JODY Last Admin: 04/11/18 10:10 Dose: Not Given Simple Syrup (Simple Syrup) 15 ml FEEDTUBE PRN PRN PRN Reason: Hypoglycemia Simple Syrup (Simple Syrup) 30 ml FEEDTUBE PRN PRN PRN Reason: Hypoglycemia Sodium Bicarbonate (Sodium Bicarbonate) 325 mg FEEDTUBE PRN PRN PRN Reason: For Clogged Feeding Tube Sodium Chloride (Nacl 0.9% 500 Ml) 1 ml IV DIRECT JODY Sodium Chloride (Sodium Chloride Flush Syringe 10 Ml) 10 ml IV BID JODY Last Admin: 04/11/18 10:10 Dose: 10 ml Sodium Chloride (Sodium Chloride Flush Syringe 10 Ml) 10 ml IV PRN PRN PRN Reason: LINE FLUSH Objective Vital Signs - 12hr 04/11/18 04/11/18 04/11/18 03:24 03:31 03:45 Temperature Pulse Rate 89 89 89 Pulse Rate [ Anterior Bilateral Throughout] Respiratory 14 13 Rate Respiratory Rate [Anterior Bilateral Throughout] Blood Pressure 125/63 118/56 122/59 O2 Sat by Pulse 93 93 93 Oximetry 04/11/18 04/11/18 04/11/18 04:00 04:01 04:15 Temperature 98.8 F Pulse Rate 88 89 Pulse Rate [ Anterior Bilateral Throughout] Respiratory 13 15 Rate Respiratory Rate [Anterior Bilateral Throughout] Blood Pressure 119/54 119/54 O2 Sat by Pulse 96 93 93 Oximetry 04/11/18 04/11/18 04/11/18 04:31 04:45 05:01 Temperature Pulse Rate 90 88 88 Pulse Rate [ Anterior Bilateral Throughout] Respiratory 13 13 13 Rate Respiratory Rate [Anterior Bilateral Throughout] Blood Pressure 129/61 124/60 121/59 O2 Sat by Pulse 93 94 93 Oximetry 04/11/18 04/11/18 04/11/18 05:15 05:31 05:45 Temperature Pulse Rate 89 87 87 Pulse Rate [ Anterior Bilateral Throughout] Respiratory 14 15 14 Rate Respiratory Rate [Anterior Bilateral Throughout] Blood Pressure 125/61 123/60 119/60 O2 Sat by Pulse 93 92 93 Oximetry 04/11/18 04/11/18 04/11/18 06:01 06:15 06:31 Temperature Pulse Rate 87 87 86 Pulse Rate [ Anterior Bilateral Throughout] Respiratory 12 12 13 Rate Respiratory Rate [Anterior Bilateral Throughout] Blood Pressure 121/61 116/57 119/58 O2 Sat by Pulse 94 92 93 Oximetry 09/0404/11/18 04/11/18 06:45 07:00 07:08 Temperature Pulse Rate 86 86 88 Pulse Rate [ Anterior Bilateral Throughout] Respiratory 13 13 Rate Respiratory Rate [Anterior Bilateral Throughout] Blood Pressure 109/52 110/57 116/56 O2 Sat by Pulse 92 93 94 Oximetry 04/11/18 04/11/18 04/11/18 07:15 07:22 07:31 Temperature Pulse Rate 88 87 Pulse Rate [ 89 Anterior Bilateral Throughout] Respiratory 11 L 10 L Rate Respiratory 12 Rate [Anterior Bilateral Throughout] Blood Pressure 116/56 117/56 O2 Sat by Pulse 92 93 Oximetry 04/11/18 04/11/18 04/11/18 07:45 07:57 08:00 Temperature 101.2 F H Pulse Rate 87 Pulse Rate [ 87 Anterior Bilateral Throughout] Respiratory 11 L Rate Respiratory 11 L Rate [Anterior Bilateral Throughout] Blood Pressure 119/57 O2 Sat by Pulse 95 95 Oximetry 04/11/18 04/11/18 04/11/18 08:01 08:15 08:31 Temperature Pulse Rate 87 87 88 Pulse Rate [ Anterior Bilateral Throughout] Respiratory 12 11 L 13 Rate Respiratory Rate [Anterior Bilateral Throughout] Blood Pressure 117/56 121/55 126/65 O2 Sat by Pulse 94 94 95 Oximetry 04/11/18 04/11/18 04/11/18 08:45 09:00 09:15 Temperature Pulse Rate 86 86 87 Pulse Rate [ Anterior Bilateral Throughout] Respiratory 13 11 L 15 Rate Respiratory Rate [Anterior Bilateral Throughout] Blood Pressure 123/57 125/61 134/63 O2 Sat by Pulse 94 95 94 Oximetry 04/11/18 04/11/18 04/11/18 09:31 09:45 10:00 Temperature Pulse Rate 87 84 85 Pulse Rate [ Anterior Bilateral Throughout] Respiratory 17 17 Rate Respiratory Rate [Anterior Bilateral Throughout] Blood Pressure 131/60 126/61 O2 Sat by Pulse 94 92 Oximetry 04/11/18 04/11/18 04/11/18 10:01 10:15 10:31 Temperature Pulse Rate 87 85 85 Pulse Rate [ Anterior Bilateral Throughout] Respiratory 17 15 18 Rate Respiratory Rate [Anterior Bilateral Throughout] Blood Pressure 127/66 127/66 126/60 O2 Sat by Pulse 92 94 93 Oximetry 04/11/18 04/11/18 04/11/18 10:45 11:01 11:15 Temperature Pulse Rate 86 84 88 Pulse Rate [ Anterior Bilateral Throughout] Respiratory 19 16 23 Rate Respiratory Rate [Anterior Bilateral Throughout] Blood Pressure 137/66 128/61 128/61 O2 Sat by Pulse 94 94 93 Oximetry 04/11/18 04/11/18 04/11/18 11:16 11:31 11:46 Temperature Pulse Rate 86 86 84 Pulse Rate [ Anterior Bilateral Throughout] Respiratory 22 18 Rate Respiratory Rate [Anterior Bilateral Throughout] Blood Pressure 136/68 133/67 133/67 O2 Sat by Pulse 94 93 93 Oximetry 04/11/18 04/11/18 04/11/18 12:00 12:01 12:15 Temperature 98.8 F Pulse Rate 84 84 Pulse Rate [ Anterior Bilateral Throughout] Respiratory 20 19 Rate Respiratory Rate [Anterior Bilateral Throughout] Blood Pressure 133/61 130/63 O2 Sat by Pulse 94 94 Oximetry 04/11/18 04/11/18 04/11/18 12:31 12:45 13:01 Temperature Pulse Rate 83 82 81 Pulse Rate [ Anterior Bilateral Throughout] Respiratory 19 19 17 Rate Respiratory Rate [Anterior Bilateral Throughout] Blood Pressure 131/66 131/66 135/68 O2 Sat by Pulse 93 94 Oximetry 04/11/18 04/11/18 04/11/18 13:15 13:30 13:31 Temperature Pulse Rate 82 83 Pulse Rate [ 83 Anterior Bilateral Throughout] Respiratory 19 24 Rate Respiratory 22 Rate [Anterior Bilateral Throughout] Blood Pressure 138/68 138/68 O2 Sat by Pulse 99 Oximetry 04/11/18 04/11/18 04/11/18 13:45 13:57 14:01 Temperature Pulse Rate 84 85 Pulse Rate [ 85 Anterior Bilateral Throughout] Respiratory 19 20 Rate Respiratory 18 Rate [Anterior Bilateral Throughout] Blood Pressure 145/69 136/66 O2 Sat by Pulse 94 94 Oximetry 04/11/18 04/11/18 04/11/18 14:15 14:30 14:45 Temperature Pulse Rate 85 87 85 Pulse Rate [ Anterior Bilateral Throughout] Respiratory 19 21 18 Rate Respiratory Rate [Anterior Bilateral Throughout] Blood Pressure 136/66 144/68 144/70 O2 Sat by Pulse 94 Oximetry 04/11/18 15:04 Temperature Pulse Rate 85 Pulse Rate [ Anterior Bilateral Throughout] Respiratory Rate Respiratory Rate [Anterior Bilateral Throughout] Blood Pressure 144/70 O2 Sat by Pulse 94 Oximetry Constitutional: other (intubated, critically ill on vent) Eyes: non-icteric ENT: oropharynx moist Neck: supple Effort: normal Ascultation: Bilateral: other (coarse BS bilaterally) Cardiovascular: regular rate and rhythm (no mrg) Gastrointestinal: normoactive bowel sounds, soft, non-tender, other (obese) Integumentary: other (foul smelling L foot wound, bandaged) Extremities: no cyanosis Neurologic: other (sedated) Psychiatric: other (unable to assess) CBC and BMP: 04/11/18 04:14 04/11/18 04:14 ABG, PT/INR, D-dimer: ABG POC ABG pH 7.479 (7.35-7.45) H 04/11/18 04:43 POC ABG pCO2 34.8 (35-45) L 04/11/18 04:43 POC ABG pO2 89 (80-105) 04/11/18 04:43 POC ABG HCO3 25.9 04/11/18 04:43 POC ABG Total CO2 27 04/11/18 04:43 POC ABG O2 Sat 98 04/11/18 04:43 PT/INR, D-dimer D-Dimer 933.08 ng/mlDDU (0-234) H 04/07/18 08:15 Abnormal lab findings: Abnormal Labs 04/07/18 04/07/18 04/07/18 08:11 08:15 08:15 WBC 23.9 H RBC 2.89 L Hgb 7.2 L Hct 22.4 L MCV 78 L MCH 25 L MCHC RDW 13.0 L Plt Count 453 H Seg Neuts % (Manual) 84.0 H Lymphocytes % (Manual) 8.0 L Monocytes % (Manual) 8.0 H Seg Neutrophils # Man 20.1 H Lymphocytes # (Manual) Monocytes # (Manual) 1.9 H Eosinophils # (Manual) D-Dimer 933.08 H POC ABG pH POC ABG pCO2 POC ABG pO2 VBG pH Sodium Chloride Carbon Dioxide BUN Glucose POC Glucose 225 H Hemoglobin A1c Lactic Acid Calcium Iron TIBC Transferrin Total Bilirubin Alkaline Phosphatase Total Creatine Kinase C-Reactive Protein Total Protein Albumin Vitamin B12 Urine pH Crossmatch 04/07/18 04/07/18 04/07/18 08:15 08:15 08:52 WBC RBC Hgb Hct MCV MCH MCHC RDW Plt Count Seg Neuts % (Manual) Lymphocytes % (Manual) Monocytes % (Manual) Seg Neutrophils # Man Lymphocytes # (Manual) Monocytes # (Manual) Eosinophils # (Manual) D-Dimer POC ABG pH POC ABG pCO2 POC ABG pO2 VBG pH Sodium 127 L Chloride 90.7 L Carbon Dioxide 21 L BUN 21 H Glucose 191 H POC Glucose Hemoglobin A1c Lactic Acid 3.80 H* Calcium 8.2 L Iron TIBC Transferrin Total Bilirubin Alkaline Phosphatase 287 H Total Creatine Kinase 31 L C-Reactive Protein Total Protein Albumin 2.4 L Vitamin B12 Urine pH 8.0 H Crossmatch 04/07/18 04/07/18 04/07/18 09:51 12:27 13:25 WBC RBC Hgb Hct MCV MCH MCHC RDW Plt Count Seg Neuts % (Manual) Lymphocytes % (Manual) Monocytes % (Manual) Seg Neutrophils # Man Lymphocytes # (Manual) Monocytes # (Manual) Eosinophils # (Manual) D-Dimer POC ABG pH POC ABG pCO2 POC ABG pO2 VBG pH 7.231 L Sodium Chloride Carbon Dioxide BUN Glucose POC Glucose Hemoglobin A1c Lactic Acid 3.10 H* 4.50 H* Calcium Iron TIBC Transferrin Total Bilirubin Alkaline Phosphatase Total Creatine Kinase C-Reactive Protein Total Protein Albumin Vitamin B12 Urine pH Crossmatch 04/07/18 04/07/18 04/07/18 15:24 16:35 16:43 WBC RBC Hgb Hct MCV MCH MCHC RDW Plt Count Seg Neuts % (Manual) Lymphocytes % (Manual) Monocytes % (Manual) Seg Neutrophils # Man Lymphocytes # (Manual) Monocytes # (Manual) Eosinophils # (Manual) D-Dimer POC ABG pH POC ABG pCO2 POC ABG pO2 VBG pH Sodium Chloride Carbon Dioxide BUN Glucose POC Glucose 137 H Hemoglobin A1c 9.9 H Lactic Acid 2.20 H* Calcium Iron TIBC Transferrin Total Bilirubin Alkaline Phosphatase Total Creatine Kinase C-Reactive Protein Total Protein Albumin Vitamin B12 Urine pH Crossmatch 04/07/18 04/07/18 04/08/18 16:43 16:46 06:15 WBC RBC Hgb Hct MCV MCH MCHC RDW Plt Count Seg Neuts % (Manual) Lymphocytes % (Manual) Monocytes % (Manual) Seg Neutrophils # Man Lymphocytes # (Manual) Monocytes # (Manual) Eosinophils # (Manual) D-Dimer POC ABG pH 7.345 L POC ABG pCO2 28.0 L 33.8 L POC ABG pO2 76 L 138 H VBG pH Sodium Chloride Carbon Dioxide BUN Glucose POC Glucose Hemoglobin A1c Lactic Acid Calcium Iron TIBC Transferrin Total Bilirubin Alkaline Phosphatase Total Creatine Kinase C-Reactive Protein Total Protein Albumin Vitamin B12 Urine pH Crossmatch See Detail 04/08/18 04/08/18 04/08/18 07:34 07:34 07:34 WBC 15.7 H RBC 6.30 H Hgb 15.6 H D Hct 49.2 H D MCV 78 L MCH 25 L MCHC RDW Plt Count Seg Neuts % (Manual) Lymphocytes % (Manual) Monocytes % (Manual) Seg Neutrophils # Man Lymphocytes # (Manual) Monocytes # (Manual) Eosinophils # (Manual) D-Dimer POC ABG pH POC ABG pCO2 POC ABG pO2 VBG pH Sodium Chloride Carbon Dioxide BUN Glucose POC Glucose Hemoglobin A1c Lactic Acid Calcium Iron 15 L TIBC 106 L Transferrin 76 L Total Bilirubin Alkaline Phosphatase Total Creatine Kinase C-Reactive Protein Total Protein Albumin Vitamin B12 1405 H Urine pH Crossmatch 04/08/18 04/08/18 04/08/18 07:34 09:54 12:43 WBC RBC Hgb Hct MCV MCH MCHC RDW Plt Count Seg Neuts % (Manual) Lymphocytes % (Manual) Monocytes % (Manual) Seg Neutrophils # Man Lymphocytes # (Manual) Monocytes # (Manual) Eosinophils # (Manual) D-Dimer POC ABG pH POC ABG pCO2 POC ABG pO2 VBG pH Sodium 131 L Chloride Carbon Dioxide 20 L BUN 24 H Glucose 167 H POC Glucose 162 H 175 H Hemoglobin A1c Lactic Acid Calcium 7.5 L Iron TIBC Transferrin Total Bilirubin Alkaline Phosphatase Total Creatine Kinase C-Reactive Protein Total Protein Albumin Vitamin B12 Urine pH Crossmatch 04/08/18 04/08/18 04/09/18 16:36 16:40 01:15 WBC 28.2 H RBC 2.67 L Hgb 7.3 L D Hct 21.0 L D MCV 79 L MCH 27 L MCHC 35 H RDW Plt Count Seg Neuts % (Manual) 74.0 H Lymphocytes % (Manual) 3.0 L Monocytes % (Manual) Seg Neutrophils # Man 20.9 H Lymphocytes # (Manual) 0.8 L Monocytes # (Manual) 1.7 H Eosinophils # (Manual) D-Dimer POC ABG pH POC ABG pCO2 POC ABG pO2 VBG pH Sodium Chloride Carbon Dioxide BUN Glucose POC Glucose 150 H 171 H Hemoglobin A1c Lactic Acid Calcium Iron TIBC Transferrin Total Bilirubin Alkaline Phosphatase Total Creatine Kinase C-Reactive Protein Total Protein Albumin Vitamin B12 Urine pH Crossmatch 04/09/18 04/09/18 04/09/18 05:13 05:42 05:42 WBC 23.2 H RBC 2.72 L Hgb 7.0 L Hct 21.6 L MCV 79 L MCH 26 L MCHC RDW Plt Count Seg Neuts % (Manual) 87.5 H Lymphocytes % (Manual) 8.0 L Monocytes % (Manual) Seg Neutrophils # Man 20.3 H Lymphocytes # (Manual) Monocytes # (Manual) 0.9 H Eosinophils # (Manual) D-Dimer POC ABG pH POC ABG pCO2 34.4 L POC ABG pO2 VBG pH Sodium 134 L Chloride Carbon Dioxide 21 L BUN 24 H Glucose 192 H POC Glucose Hemoglobin A1c Lactic Acid Calcium 7.4 L Iron TIBC Transferrin Total Bilirubin Alkaline Phosphatase 211 H Total Creatine Kinase C-Reactive Protein Total Protein Albumin 2.1 L Vitamin B12 Urine pH Crossmatch 04/09/18 04/09/18 04/10/18 12:52 18:43 00:13 WBC RBC Hgb Hct MCV MCH MCHC RDW Plt Count Seg Neuts % (Manual) Lymphocytes % (Manual) Monocytes % (Manual) Seg Neutrophils # Man Lymphocytes # (Manual) Monocytes # (Manual) Eosinophils # (Manual) D-Dimer POC ABG pH POC ABG pCO2 POC ABG pO2 VBG pH Sodium Chloride Carbon Dioxide BUN Glucose POC Glucose 206 H 223 H 233 H Hemoglobin A1c Lactic Acid Calcium Iron TIBC Transferrin Total Bilirubin Alkaline Phosphatase Total Creatine Kinase C-Reactive Protein Total Protein Albumin Vitamin B12 Urine pH Crossmatch 04/10/18 04/10/18 04/10/18 04:04 04:06 04:06 WBC 18.9 H RBC 3.27 L Hgb 8.4 L Hct 26.0 L MCV 80 L MCH 26 L MCHC RDW Plt Count Seg Neuts % (Manual) 86.0 H Lymphocytes % (Manual) 2.0 L Monocytes % (Manual) Seg Neutrophils # Man 16.3 H Lymphocytes # (Manual) 0.4 L Monocytes # (Manual) Eosinophils # (Manual) 0.8 H D-Dimer POC ABG pH POC ABG pCO2 34.4 L POC ABG pO2 VBG pH Sodium 136 L Chloride Carbon Dioxide 20 L BUN 23 H Glucose 213 H POC Glucose Hemoglobin A1c Lactic Acid Calcium 7.6 L Iron TIBC Transferrin Total Bilirubin Alkaline Phosphatase Total Creatine Kinase C-Reactive Protein Total Protein Albumin Vitamin B12 Urine pH Crossmatch 04/10/18 04/10/18 04/10/18 06:10 12:30 17:43 WBC RBC Hgb Hct MCV MCH MCHC RDW Plt Count Seg Neuts % (Manual) Lymphocytes % (Manual) Monocytes % (Manual) Seg Neutrophils # Man Lymphocytes # (Manual) Monocytes # (Manual) Eosinophils # (Manual) D-Dimer POC ABG pH POC ABG pCO2 POC ABG pO2 VBG pH Sodium Chloride Carbon Dioxide BUN Glucose POC Glucose 246 H 266 H 246 H Hemoglobin A1c Lactic Acid Calcium Iron TIBC Transferrin Total Bilirubin Alkaline Phosphatase Total Creatine Kinase C-Reactive Protein Total Protein Albumin Vitamin B12 Urine pH Crossmatch 04/10/18 04/11/18 04/11/18 23:50 04:14 04:14 WBC 14.9 H RBC 3.07 L Hgb 8.0 L Hct 24.6 L MCV 80 L MCH 26 L MCHC RDW Plt Count Seg Neuts % (Manual) 79.0 H Lymphocytes % (Manual) 10.0 L Monocytes % (Manual) Seg Neutrophils # Man 11.8 H Lymphocytes # (Manual) Monocytes # (Manual) Eosinophils # (Manual) D-Dimer POC ABG pH POC ABG pCO2 POC ABG pO2 VBG pH Sodium Chloride 107.9 H Carbon Dioxide 20 L BUN 25 H Glucose 184 H POC Glucose 247 H Hemoglobin A1c Lactic Acid Calcium 7.3 L Iron TIBC Transferrin Total Bilirubin 1.40 H Alkaline Phosphatase 225 H Total Creatine Kinase C-Reactive Protein Total Protein 5.9 L Albumin 1.9 L Vitamin B12 Urine pH Crossmatch 04/11/18 04/11/18 04/11/18 04:43 10:04 12:02 WBC RBC Hgb Hct MCV MCH MCHC RDW Plt Count Seg Neuts % (Manual) Lymphocytes % (Manual) Monocytes % (Manual) Seg Neutrophils # Man Lymphocytes # (Manual) Monocytes # (Manual) Eosinophils # (Manual) D-Dimer POC ABG pH 7.479 H POC ABG pCO2 34.8 L POC ABG pO2 VBG pH Sodium Chloride Carbon Dioxide BUN Glucose POC Glucose 147 H 148 H Hemoglobin A1c Lactic Acid Calcium Iron TIBC Transferrin Total Bilirubin Alkaline Phosphatase Total Creatine Kinase C-Reactive Protein Total Protein Albumin Vitamin B12 Urine pH Crossmatch 04/11/18 12:22 WBC RBC Hgb Hct MCV MCH MCHC RDW Plt Count Seg Neuts % (Manual) Lymphocytes % (Manual) Monocytes % (Manual) Seg Neutrophils # Man Lymphocytes # (Manual) Monocytes # (Manual) Eosinophils # (Manual) D-Dimer POC ABG pH POC ABG pCO2 POC ABG pO2 VBG pH Sodium Chloride Carbon Dioxide BUN Glucose POC Glucose Hemoglobin A1c Lactic Acid Calcium Iron TIBC Transferrin Total Bilirubin Alkaline Phosphatase Total Creatine Kinase C-Reactive Protein 13.00 H Total Protein Albumin Vitamin B12 Urine pH Crossmatch Chest x-ray: report reviewed, image reviewed
--- NOTE | 2018-04-11 15:41 | Anesthesia Consultation ---
Anesthesia Consult and Med Hx Date of service: 04/11/18 - Pre-Operative Health Status ASA Pre-Surgery Classification: ASA4 Proposed Anesthetic Plan: General - Pre-Anesthesia Comment Pre-Anesthesia Comments: admitted with hypoglycemia and unresponsiveness. intubated/vented. unable to assess airway. Acute encephalopathy. EF 55-60% Sepsis, left foot diabetic ulcer. tristanian speaking only, pending consent - Pulmonary Hx Pneumonia: Yes (Aspiration Pneumonia) - Cardiovascular System Hx Hypertension: Yes Hx Cardia Arrhythmia: Yes (s/p Cardiac Arrest ) - Endocrine Hx Non-Insulin Dependent Diabetes: Yes - Hematic Hx Anemia: Yes (blood transfusions)
--- NOTE | 2018-04-11 17:34 | Cat Scan Report ---
FINAL REPORT EXAM: CT LOWER EXTREMITY LT W CON HISTORY: LT FOOT CELLULITIS TECHNIQUE: Spiral CT scanning of the left ankle and foot after the uneventful administration of IV contrast. Multiplanar reformations. 100 mL Omnipaque IV. PRIORS: Left foot radiographs, 09 April 2018. FINDINGS: Diffuse subcutaneous edema noted about the ankle and foot. Soft tissue defect or ulceration in the plantar-lateral aspect of hindfoot, with gas locules or soft tissue emphysema noted along the plantar-lateral hind and midfoot extending to metatarsal base level. No discrete, ring-enhancing or loculated fluid collection. No acute fracture, dislocation or obvious osseous destruction. Mild posterior calcaneal spurring. IMPRESSION: 1. Findings which may represent nonspecific postinflammatory change or cellulitis in the plantar-lateral aspect of left hind and midfoot, as reported. No discrete abscess. 2. No acute osseous abnormality.
[2018-04-11] MEDS: TYLENOL PO PRN (23:59)
[2018-04-12] MEDS: HumaLOG SUB-Q SCH ×5 (00:32→18:40)
--- NOTE | 2018-04-12 02:53 | XRay Report ---
FINAL REPORT EXAM: XR CHEST 1V AP HISTORY: follow up respiratory failure COMPARISON: April 11, 2018 FINDINGS: Frontal view(s) of the chest obtained. Heart mildly enlarged. Right IJ line, ET tube and feeding tube are grossly stable in position. Nonspecific patchy airspace opacities at the lung bases similar prior study. There may be a trace right-sided pleural effusion. No pneumothorax. IMPRESSION: Stable patchy airspace opacities at the lung bases and possible trace right-sided pleural effusion. Lines and tubes are grossly unchanged.
[2018-04-12 05:20] LABS: Red Blood Count 3.16 M/mm3 (3.65-5.03)
[2018-04-12 05:21] LABS: Basophils # (Auto) 0.1 K/mm3 (0.0-0.1); Basophils % (Auto) 0.8 % (0.0-1.8); Eosinophils % (Auto) 0.3 % (0.0-4.3); Hematocrit 25.4 % (35.5-45.6); Hemoglobin 8.4 gm/dl (11.8-15.2); Lymphocytes # (Auto) 1.6 K/mm3 (1.2-5.4); Lymphocytes % (Auto) 9.1 % (13.4-35.0); Mean Corpuscular HGB Conc 33 % (32-34); Mean Corpuscular Hemoglobin 27 pg (28-32); Mean Corpuscular Volume 81 fl (84-94); Mean Platelet Volume 6.5 fl (6-12); Monocytes % (Auto) 11.7 % (0.0-7.3); Platelet Count 453 K/mm3 (140-440); Red Cell Distribution Width 14.6 % (13.2-15.2)
[2018-04-12 05:36] LABS: BUN/Creatinine Ratio 25; Blood Urea Nitrogen 25 mg/dL (9-20); Calcium 7.6 mg/dL (8.4-10.2); Hemolysis Index 5
[2018-04-12] MEDS: ZOSYN/NS 4.5GM/100ML 4.5 GM/100 ML VIAL IV SCH ×3 (06:08→21:20)
[2018-04-12] MEDS ORDERED: SUBLIMAZE ONE (07:17)
[2018-04-12] MEDS ORDERED: ZEMURON IV ONE (07:17)
[2018-04-12] MEDS ORDERED: XYLOCAINE MPF 2% ONE (07:17)
[2018-04-12] MEDS ORDERED: DIPRIVAN 10 MG/ML IV ONE (07:20)
[2018-04-12] MEDS ORDERED: MARCAINE-EPI 0.5%-1:200,000 INFILTRATI ONE (07:34)
[2018-04-12] MEDS: DUONEB *Not for PRN Use IH SCH ×3 (07:55→19:41)
[2018-04-12] MEDS ORDERED: NACL 0.9% IR ONE (08:40)
--- NOTE | 2018-04-12 08:56 | Post Anesthesia Evaluation ---
- Post Anesthesia Evaluation Patient Participated: Yes Airway Patent: Yes Stable Respiratory Function: Yes (on vent) Nausea/Vomiting: No Temp > 96.8F: No Pain Manageable: Yes Adequeate Hydration: Yes Anesthesia Complications: No
--- NOTE | 2018-04-12 09:21 | Progress Note ---
Assessment and Plan Assessment and plan: 57M who is diabetic, had not eaten in two days, c.o chest pain, family called EMS who found his glc to be <40, he received dextrose, on way to ER, he had vomiting, then syncope, and was pulseless, he received CPR and was intubated and required pressors. -Active issues include -resp failure on vent >96 hours -Left foot infection -Generalized weakness Acute hypoxic respiratory failure on MV >96 hours -Status post intubation and sedated -ABG improved -Pulmonology following Severe sepsis with shock probably secondary to pneumonia and LT foot cellulitis pressors and IV abx, ID consulted Bilateral pneumonia -On IV antibiotics Anoxic encephalopathy neuro consulted LT foot cellulitis -on iv antibiotics snd wound care -venous doppler uss neg for DVT -foot x-ray showed soft tissue air and possible 3mm foreign body, will do CT scan for further eval Questionable cardiac arrest -serial troponin levels normal -echo showed EF of 55-60% without regional wall motion abnormalities Elevated D-dimer -CTA neg for PE DM2 with hyperglycemia -Lantus dose increased, cont SSI, adjust as needed -A1C:9.9 Hyponatremia -improving, will monitor Iron def anemia with acute loss, probably sec to sepsis -s/p blood tranf with 2u of PRBC -Hb:8.4, will monitor -stool for occult blood pending Transaminitis, probably sec to the sepsis -improved Prophylaxis -Protonix and Lovenox Nutrition: tube feeding Disposition: pt's condition remains critical, cont tx CCT 35 minutes History Interval history: remains intubated, opens eyes but not able to cooperate with exam Hospitalist Physical - Physical exam Narrative exam: General.: intubated HEENT: Moist mucous membranes, extraocular muscles intact, no lymphadenopathy Neck: supple Cardiac: S1-S2 heard Lungs: clear to auscultation bilaterally Abdomen: soft , nontender, nondistended, bowel sounds positive Extremities: Left leg redness, malodor, edema Skin: no rash or lesions Neurologic: intubuated Psych: intubated - Constitutional Vitals: Temp Pulse Resp BP Pulse Ox 99.5 F 80 22 131/62 95 04/12/18 03:37 04/12/18 07:15 04/12/18 07:00 04/12/18 07:15 04/12/18 07:15 General appearance: Present: no acute distress, other (patient is intubated and sedated.) Results - Labs CBC & Chem 7: 04/12/18 04:14 04/12/18 04:14 Labs: Laboratory Last Values WBC 17.2 K/mm3 (4.5-11.0) H 04/12/18 04:14 RBC 3.16 M/mm3 (3.65-5.03) L 04/12/18 04:14 Hgb 8.4 gm/dl (11.8-15.2) L 04/12/18 04:14 Hct 25.4 % (35.5-45.6) L 04/12/18 04:14 MCV 81 fl (84-94) L 04/12/18 04:14 MCH 27 pg (28-32) L 04/12/18 04:14 MCHC 33 % (32-34) 04/12/18 04:14 RDW 14.6 % (13.2-15.2) 04/12/18 04:14 Plt Count 453 K/mm3 (140-440) H 04/12/18 04:14 Lymph % (Auto) 9.1 % (13.4-35.0) L 04/12/18 04:14 [place] % (Auto) 11.7 % (0.0-7.3) H 04/12/18 04:14 Eos % (Auto) 0.3 % (0.0-4.3) 04/12/18 04:14 Baso % (Auto) 0.8 % (0.0-1.8) 04/12/18 04:14 Lymph # 1.6 K/mm3 (1.2-5.4) 04/12/18 04:14 [place] # 2.0 K/mm3 (0.0-0.8) H 04/12/18 04:14 Eos # 0.0 K/mm3 (0.0-0.4) 04/12/18 04:14 Baso # 0.1 K/mm3 (0.0-0.1) 04/12/18 04:14 Add Manual Diff Complete 04/11/18 04:14 Total Counted 100 04/11/18 04:14 Seg Neutrophils % 78.1 % (40.0-70.0) H 04/12/18 04:14 Seg Neuts % (Manual) 79.0 % (40.0-70.0) H 04/11/18 04:14 Band Neutrophils % 4.0 % 04/11/18 04:14 Lymphocytes % (Manual) 10.0 % (13.4-35.0) L 04/11/18 04:14 Reactive Lymphs % (Man) 0 % 04/11/18 04:14 Monocytes % (Manual) 5.0 % (0.0-7.3) 04/11/18 04:14 Eosinophils % (Manual) 1.0 % (0.0-4.3) 04/11/18 04:14 Basophils % (Manual) 1.0 % (0.0-1.8) 04/11/18 04:14 Metamyelocytes % 0 % 04/11/18 04:14 Myelocytes % 0 % 04/11/18 04:14 Promyelocytes % 0 % 04/11/18 04:14 Blast Cells % 0 % 04/11/18 04:14 Nucleated RBC % Not Reportable 04/11/18 04:14 Seg Neutrophils # 13.4 K/mm3 (1.8-7.7) H 04/12/18 04:14 Seg Neutrophils # Man 11.8 K/mm3 (1.8-7.7) H 04/11/18 04:14 Band Neutrophils # 0.6 K/mm3 04/11/18 04:14 Lymphocytes # (Manual) 1.5 K/mm3 (1.2-5.4) 04/11/18 04:14 Abs React Lymphs (Man) 0.0 K/mm3 04/11/18 04:14 Monocytes # (Manual) 0.7 K/mm3 (0.0-0.8) 04/11/18 04:14 Eosinophils # (Manual) 0.1 K/mm3 (0.0-0.4) 04/11/18 04:14 Basophils # (Manual) 0.1 K/mm3 (0.0-0.1) 04/11/18 04:14 Metamyelocytes # 0.0 K/mm3 04/11/18 04:14 Myelocytes # 0.0 K/mm3 04/11/18 04:14 Promyelocytes # 0.0 K/mm3 04/11/18 04:14 Blast Cells # 0.0 K/mm3 04/11/18 04:14 WBC Morphology Not Reportable 04/11/18 04:14 Hypersegmented Neuts Not Reportable 04/11/18 04:14 Hyposegmented Neuts Not Reportable 04/11/18 04:14 Hypogranular Neuts Not Reportable 04/11/18 04:14 Smudge Cells Not Reportable 04/11/18 04:14 Toxic Granulation Not Reportable 04/11/18 04:14 Toxic Vacuolation Not Reportable 04/11/18 04:14 Dohle Bodies Not Reportable 04/11/18 04:14 Pelger-Huet Anomaly Not Reportable 04/11/18 04:14 Matt Rods Not Reportable 04/11/18 04:14 Platelet Estimate Consistent w auto 04/11/18 04:14 Clumped Platelets Not Reportable 04/11/18 04:14 Plt Clumps, EDTA Not Reportable 04/11/18 04:14 Large Platelets Not Reportable 04/11/18 04:14 Giant Platelets Not Reportable 04/11/18 04:14 Platelet Satelliting Not Reportable 04/11/18 04:14 Plt Morphology Comment Not Reportable 04/11/18 04:14 RBC Morphology Not Reportable 04/11/18 04:14 Dimorphic RBCs Not Reportable 04/11/18 04:14 Polychromasia Not Reportable 04/11/18 04:14 Hypochromasia 1+ 04/11/18 04:14 Poikilocytosis Not Reportable 04/11/18 04:14 Anisocytosis Not Reportable 04/11/18 04:14 Microcytosis Not Reportable 04/11/18 04:14 Macrocytosis Not Reportable 04/11/18 04:14 Spherocytes Not Reportable 04/11/18 04:14 Pappenheimer Bodies Not Reportable 04/11/18 04:14 Sickle Cells Not Reportable 04/11/18 04:14 Target Cells Not Reportable 04/11/18 04:14 Tear Drop Cells Not Reportable 04/11/18 04:14 Ovalocytes Not Reportable 04/11/18 04:14 Stomatocytes Rare 04/10/18 04:06 Helmet Cells Not Reportable 04/11/18 04:14 [place] Bodies Not Reportable 04/11/18 04:14 Crapo Rings Not Reportable 04/11/18 04:14 Matthias Cells Not Reportable 04/11/18 04:14 Bite Cells Not Reportable 04/11/18 04:14 Crenated Cell Not Reportable 04/11/18 04:14 Elliptocytes Not Reportable 04/11/18 04:14 Acanthocytes (Spur) Not Reportable 04/11/18 04:14 Rouleaux Not Reportable 04/11/18 04:14 Hemoglobin C Crystals Not Reportable 04/11/18 04:14 Schistocytes Not Reportable 04/11/18 04:14 Malaria parasites Not Reportable 04/11/18 04:14 [place] Bodies Not Reportable 04/11/18 04:14 Hem Pathologist Commnt No 04/11/18 04:14 D-Dimer 933.08 ng/mlDDU (0-234) H 04/07/18 08:15 POC ABG pH 7.452 (7.35-7.45) H 04/12/18 04:56 POC ABG pCO2 28.6 (35-45) L 04/12/18 04:56 POC ABG pO2 99 (80-105) 04/12/18 04:56 POC ABG HCO3 19.9 04/12/18 04:56 POC ABG Total CO2 21 04/12/18 04:56 POC ABG O2 Sat 98 04/12/18 04:56 POC ABG Base Excess -4 04/12/18 04:56 VBG pH 7.231 (7.320-7.420) L 04/07/18 13:25 FiO2 28 % 04/12/18 04:56 Sodium 143 mmol/L (137-145) 04/12/18 04:14 Potassium 4.2 mmol/L (3.6-5.0) 04/12/18 04:14 Chloride 110.4 mmol/L (98-107) H 04/12/18 04:14 Carbon Dioxide 20 mmol/L (22-30) L 04/12/18 04:14 Anion Gap 17 mmol/L 04/12/18 04:14 BUN 25 mg/dL (9-20) H 04/12/18 04:14 Creatinine 1.0 mg/dL (0.8-1.5) 04/12/18 04:14 Estimated GFR > 60 ml/min 04/12/18 04:14 BUN/Creatinine Ratio 25 % 04/12/18 04:14 Glucose 164 mg/dL (75-100) H 04/12/18 04:14 POC Glucose 192 (70-105) H 04/11/18 23:39 Hemoglobin A1c 9.9 % (4-6) H 04/07/18 16:43 Lactic Acid 1.80 mmol/L (0.7-2.0) 04/07/18 16:43 Calcium 7.6 mg/dL (8.4-10.2) L 04/12/18 04:14 Iron 15 ug/dL (49-181) L 04/08/18 07:34 TIBC 106 mcg/dL (250-450) L 04/08/18 07:34 % Saturation 14.15 % 04/08/18 07:34 Transferrin 76 mg/dl (180-329) L 04/08/18 07:34 Total Bilirubin 1.40 mg/dL (0.1-1.2) H 04/11/18 04:14 AST 40 units/L (5-40) 04/11/18 04:14 ALT 45 units/L (7-56) 04/11/18 04:14 Alkaline Phosphatase 225 units/L (35-129) H 04/11/18 04:14 Total Creatine Kinase 83 units/L (55-170) 04/07/18 13:25 CK-MB (CK-2) 2.5 ng/mL (0.0-4.0) 04/07/18 13:25 CK-MB (CK-2) Rel Index 3.0 (0-4) 04/07/18 13:25 Troponin T 0.025 ng/mL (0.00-0.029) 04/07/18 13:25 C-Reactive Protein 13.00 mg/dL (0.00-1.30) H 04/11/18 12:22 Total Protein 5.9 g/dL (6.3-8.2) L 04/11/18 04:14 Albumin 1.9 g/dL (3.9-5) L 04/11/18 04:14 Albumin/Globulin Ratio 0.5 % 04/11/18 04:14 Vitamin B12 1405 pg/mL (211-911) H 04/08/18 07:34 Urine Color Yellow (Yellow) 04/07/18 08:52 Urine Turbidity Clear (Clear) 04/07/18 08:52 Urine pH 8.0 (5.0-7.0) H 04/07/18 08:52 Ur Specific [place] 1.009 (1.003-1.030) 04/07/18 08:52 Urine Protein 100 mg/dl mg/dL (Negative) 04/07/18 08:52 Urine Glucose (UA) Neg mg/dL (Negative) 04/07/18 08:52 Urine Ketones Neg mg/dL (Negative) 04/07/18 08:52 Urine Blood Neg (Negative) 04/07/18 08:52 Urine Nitrite Neg (Negative) 04/07/18 08:52 Urine Bilirubin Neg (Negative) 04/07/18 08:52 Urine Urobilinogen < 2.0 mg/dL (<2.0) 04/07/18 08:52 Ur Leukocyte Esterase Neg (Negative) 04/07/18 08:52 Urine WBC (Auto) 1.0 /HPF (0.0-6.0) 04/07/18 08:52 Urine RBC (Auto) 3.0 /HPF (0.0-6.0) 04/07/18 08:52 U Epithel Cells (Auto) 2.0 /HPF (0-13.0) 04/07/18 08:52 Urine Mucus Few /HPF 04/07/18 08:52 Urine Sperm 3+ /HPF (SMT OPERATOR) 04/07/18 08:52 Urine Opiates Screen Presumptive negative 04/07/18 08:52 Urine Methadone Screen Presumptive negative 04/07/18 08:52 Ur Barbiturates Screen Presumptive negative 04/07/18 08:52 Ur Phencyclidine Scrn Presumptive negative 04/07/18 08:52 Ur Amphetamines Screen Presumptive negative 04/07/18 08:52 U Benzodiazepines Scrn Presumptive negative 04/07/18 08:52 Urine Cocaine Screen Presumptive negative 04/07/18 08:52 U Marijuana (THC) Screen Presumptive negative 04/07/18 08:52 Drugs of Abuse Note Disclamer 04/07/18 08:52 Blood Type O POSITIVE 04/07/18 16:43 Antibody Screen Negative 04/07/18 16:43 Crossmatch See Detail 04/07/18 16:43
--- NOTE | 2018-04-12 09:32 | Post Operative Note ---
Pre-op diagnosis: Left foot abscess Post-op diagnosis: same Findings: Infection extended all the way down to bone. Procedure: I&D, left foot abscess Anesthesia: BRAYANA Surgeon: OLGA CHUA Estimated blood loss: minimal Pathology: list (C&S) Specimen disposition: to lab Condition: stable Disposition: ICU
[2018-04-12] MEDS: PROTONIX FEEDTUBE SCH (10:53)
[2018-04-12] MEDS: LANTUS SUB-Q SCH ×2 (10:54→21:16)
[2018-04-12] MEDS: LOVENOX SUB-Q SCH (10:54)
[2018-04-12] MEDS: SENOKOT FEEDTUBE SCH (10:54)
--- NOTE | 2018-04-12 13:08 | Consultation ---
History of Present Illness Consult date: 04/12/18 Requesting physician: STEFAN RYAN Reason for Consult: anoxic encephalopathy Chief complaint: cardiac arrest, less responsive History of present illness: This 57-year-old left-handed male was admitted Tuesday after cardiac or respiratory arrest at home preceded by chest pain. With his nephew in law interpreting, his significant other says that he had no confusion prior to being in the hospital. Glucose was apparently found to be 40 by EMS. He underwent surgery today for incision and drainage of left foot abscess. His significant other says he has had problems with the left foot for 1-1/2 months first noticed when he lost a sandal while working outside without any injury that she knows of. Since he is intubated, I cannot attempt a detailed history from him. CT shows old left superior caudate lacune and right subinsular lacune versus vascular space and left medulla lacune versus artifact. Echo with bubbles was normal but the bubble portion was suboptimal. Past History Past Medical History: diabetes (first diagnosed 20 days ago for which she was placed on his current medications) Past Surgical History: Other (left foot abscess surgery today) Social history: (but his lives in [place]), lives with family, other (finished middle school in [place], has lived in this country for 20 years. 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 He is but has been away from his for many years who lives in [place], has 4 children and 4 grandchildren by his , alive and well as far as anyone knows). denies: smoking, alcohol abuse, prescription drug abuse, IV drug use ( never illicit drugs) Family history: diabetes (brothers and mother), other (no history of epilepsy). denies: hypertension (unknown), stroke (unknown) Medications and Allergies Allergies Allergy/AdvReac Type Severity Reaction Status Date / Time No Known Allergies Allergy Unverified 04/07/18 08:27 Home Medications Medication Instructions Recorded Confirmed Last Taken Type Ascorbic Acid [Vitamin C with Matilde 500 mg PO BID 04/07/18 04/07/18 Unknown History Hips] Ferrous Sulfate [Iron] 325 mg PO PC 04/07/18 04/07/18 Unknown History Lisinopril [Zestril] 5 mg PO QDAY 04/07/18 04/07/18 Unknown History glipiZIDE [Glipizide] 5 mg PO BID 04/07/18 04/07/18 Unknown History metFORMIN [Glucophage] 500 mg PO BID 04/07/18 04/07/18 Unknown History Active Meds: Active Medications Acetaminophen (Tylenol) 650 mg PO Q4H PRN PRN Reason: Pain MILD(1-3)/Fever >100.5/CHEATHAM Last Admin: 04/11/18 23:59 Dose: 650 mg Acetaminophen (Tylenol) 650 mg OR Q4H PRN PRN Reason: Pain, Mild (1-3) Last Admin: 04/07/18 17:25 Dose: 650 mg Albuterol (Proventil) 2.5 mg IH Q3HRT PRN PRN Reason: Wheezing Albuterol/Ipratropium (Duoneb *Not For Prn Use*) 1 ampul IH TIDRT JODY Last Admin: 04/12/18 07:55 Dose: Not Given Lipase/Protease/Amylase (Pancreaze Dr 10,500 Unit) 1 each FEEDTUBE PRN PRN PRN Reason: For Clogged Feeding Tube Bisacodyl (Dulcolax) 10 mg PO QDAY PRN PRN Reason: Constipation Enoxaparin Sodium (Lovenox) 40 mg SUB-Q QDAY JODY Last Admin: 04/12/18 10:54 Dose: 40 mg Hydrophilic Ointment (Vaseline Lip Therapy) 1 applic TP Q2HR PRN PRN Reason: Dry Lips Last Admin: 04/08/18 18:47 Dose: 1 applic Propofol (Diprivan 10 Mg/Ml) 1,000 mg in 100 mls @ 2.177 mls/hr IV TITR JODY; Protocol Last Titration: 04/07/18 13:29 Dose: 0 mcg/kg/min, 0 mls/hr Midazolam HCl 100 mg/ Sodium (Chloride) 100 mls @ 2 mls/hr IV TITR JODY; Protocol Last Titration: 04/10/18 10:43 Dose: Infused Fentanyl Citrate (Fentanyl Drip Premix) 2,000 mcg in 100 mls @ 3.629 mls/hr IV TITR JODY; Protocol Last Titration: 04/11/18 08:33 Dose: 0 mcg/kg/hr, 0 mls/hr Piperacillin Sod/Tazobactam Sod (Zosyn/Ns 4.5gm/100ml) 4.5 gm in 100 mls @ 200 mls/hr IV Q8HR [facility]; Protocol Last Admin: 04/12/18 06:08 Dose: 200 mls/hr Vancomycin HCl (Vancomycin/Ns 1 Gm/250 Ml) 1 gm in 250 mls @ 166.667 mls/hr IV Q12HR [facility] Last Admin: 04/11/18 22:07 Dose: 166.667 mls/hr Norepinephrine (Levophed Drip 4 Mg/Ns 250 Ml) 4 mg in 250 mls @ 7.5 mls/hr IV TITR [facility]; Protocol Last Titration: 04/11/18 00:23 Dose: 0 mcg/min, 0 mls/hr Insulin Glargine (Lantus) 10 units SUB-Q BID [facility] Last Admin: 04/12/18 10:54 Dose: 10 units Insulin Human Lispro (Humalog) 0 unit SUB-Q Q6HR [facility]; Protocol Last Admin: 04/12/18 08:02 Dose: Not Given Morphine Sulfate (Morphine) 2 mg IV Q4H PRN PRN Reason: Pain, Moderate (4-6) Multi-Ingred Cream/Lotion/Oil/Oint (Artificial Tears Ophth Oint) 1 applic OU Q4HR PRN PRN Reason: Dry Eye(s) Ondansetron HCl (Zofran) 4 mg IV Q8H PRN PRN Reason: Nausea And Vomiting Pantoprazole (Protonix) 40 mg FEEDTUBE DAILY [facility] Last Admin: 04/12/18 10:53 Dose: 40 mg Senna (Senokot) 17.6 mg FEEDTUBE Q12HR [facility] Last Admin: 04/12/18 10:54 Dose: 17.6 mg Simple Syrup (Simple Syrup) 15 ml FEEDTUBE PRN PRN PRN Reason: Hypoglycemia Simple Syrup (Simple Syrup) 30 ml FEEDTUBE PRN PRN PRN Reason: Hypoglycemia Sodium Bicarbonate (Sodium Bicarbonate) 325 mg FEEDTUBE PRN PRN PRN Reason: For Clogged Feeding Tube Sodium Chloride (Nacl 0.9% 500 Ml) 1 ml IV DIRECT [facility] Sodium Chloride (Sodium Chloride Flush Syringe 10 Ml) 10 ml IV BID [facility] Last Admin: 04/11/18 22:12 Dose: 10 ml Sodium Chloride (Sodium Chloride Flush Syringe 10 Ml) 10 ml IV PRN PRN PRN Reason: LINE FLUSH Review of Systems All systems: negative (occipital headaches without nausea but with photophobia and also chronic right scapular pain. Lightheadedness at times, has passed out twice in the past month (a month ago and 20 days ago) with loss of consciousness only for a few seconds then back to normal (did not seek medical attention). Loud snoring with pauses for 10-15 seconds, for 30 minutes but may doze off for an hour, gets 5 hours sleep at night, not sleepy driving but may get dizzy driving and once lost control of the steering wheel because of the dizziness. No memory problems.) Physical Examination - Vital Signs Vital Signs: Vital Signs Pulse Ox 43 L 04/07/18 08:12 - Physical Exam Narrative exam: General Appearance: well developed well nourished (per BMI) mid 50s suspended male in NAD, orally intubated, seen with his significant other and his brother- in-law and nephew in law. His [id number] interprets well for me. HEENT: atraumatic, normocephalic; no bruits, 2+ Jagdeep without soreness or induration or enlargement, sclerae nonicteric. Oropharynx pink and moist. Neck: supple, no bruits. Heart: no murmur or extra sounds. Extremities: no clubbing or cyanosis, trace right and 2+ left edema. 2+ right posterior tibial pulse but cannot feel a posterior tibial pulse on the left and dorsalis pedis area on the left is inaccessible due to surgical bandage. Neurologic Exam: Mental Status: Awake, alert, to hospital and year by multiple choice but not to month. Cannot give president or gas line servicer with multiple choice and in fact shakes his head no to the name of all presidents offered including the current one. Nods his head correctly for pen instead of spoon when I show him a pen. Cannot do the rest of mental status testing due to intubation. Cranial Nerves: hernandez full grossly to threat, no papilledema, SVPs present, PERRL, EOMs full to tracking with a little gaze evoked nystagmus to left lateral gaze but no diplopia, facial sensation intact to pinprick and light touch, mild left facial weakness on grimacing, Rivero is midline, gags are positive and cough is positive with tracheal suctioning, shoulder shrug is 5 X 2 , tongue protrudes to the right though perhaps not reliable since intubated. Cerebellar: finger to nose cannot be done on the right due to weakness, attempts on the left without tremor but only gets 50% of the way to his nose. Cannot attempt heel to [place] due to bilateral leg weakness. Sensory: pinprick is decreased in the feet, absent vibrations in ankles and toes. Double simultaneous stimulation is intact. Motor Exam Upper Extremities: cannot lift right arm off the bed though websphere commerce consultant is 4 - . Lifts left upper extremity to about 40 from horizontal which is about 2 feet off the bed with websphere commerce consultant 4. Rapid alternating movements are slow bilaterally. Tone is normal. No atrophy or fasciculations are noted visually. Motor Exam Lower Extremities: Cannot lift either leg off the bed even with knees supported, iliopsoas is 3- on the right and 2+ on the left, quadriceps is 0 bilaterally, anterior tibials are 5- right and 4+ left and gastrocnemius are 4 + right and 5 left. Chencho are slow bilaterally. Tone is normal. No atrophy or fasciculations are noted visually. Reflexes: Palmomental is negative, snout and jaw jerk are positive. Ttriceps are trace to 1, biceps and brachioradialis are trace bilaterally. Elen's is negative bilaterally. Knee jerks and ankle jerks are 0 bilaterally without clonus. Toes are downgoing bilaterally to Babinski testing. Results - Laboratory Findings CBC and BMP: 04/12/18 04:14 04/12/18 04:14 Abnormal Lab Findings: Abnormal Labs 04/07/18 04/07/18 04/07/18 08:11 08:15 08:15 WBC 23.9 H RBC 2.89 L Hgb 7.2 L Hct 22.4 L MCV 78 L MCH 25 L MCHC RDW 13.0 L Plt Count 453 H Lymph % (Auto) Coffey % (Auto) Coffey # Seg Neutrophils % Seg Neuts % (Manual) 84.0 H Lymphocytes % (Manual) 8.0 L Monocytes % (Manual) 8.0 H Seg Neutrophils # Seg Neutrophils # Man 20.1 H Lymphocytes # (Manual) Monocytes # (Manual) 1.9 H Eosinophils # (Manual) D-Dimer 933.08 H POC ABG pH POC ABG pCO2 POC ABG pO2 VBG pH Sodium Chloride Carbon Dioxide BUN Glucose POC Glucose 225 H Hemoglobin A1c Lactic Acid Calcium Iron TIBC Transferrin Total Bilirubin Alkaline Phosphatase Total Creatine Kinase C-Reactive Protein Total Protein Albumin Vitamin B12 Urine pH Crossmatch 04/07/18 04/07/18 04/07/18 08:15 08:15 08:52 WBC RBC Hgb Hct MCV MCH MCHC RDW Plt Count Lymph % (Auto) Coffey % (Auto) Coffey # Seg Neutrophils % Seg Neuts % (Manual) Lymphocytes % (Manual) Monocytes % (Manual) Seg Neutrophils # Seg Neutrophils # Man Lymphocytes # (Manual) Monocytes # (Manual) Eosinophils # (Manual) D-Dimer POC ABG pH POC ABG pCO2 POC ABG pO2 VBG pH Sodium 127 L Chloride 90.7 L Carbon Dioxide 21 L BUN 21 H Glucose 191 H POC Glucose Hemoglobin A1c Lactic Acid 3.80 H* Calcium 8.2 L Iron TIBC Transferrin Total Bilirubin Alkaline Phosphatase 287 H Total Creatine Kinase 31 L C-Reactive Protein Total Protein Albumin 2.4 L Vitamin B12 Urine pH 8.0 H Crossmatch 04/07/18 04/07/18 04/07/18 09:51 12:27 13:25 WBC RBC Hgb Hct MCV MCH MCHC RDW Plt Count Lymph % (Auto) Coffey % (Auto) Coffey # Seg Neutrophils % Seg Neuts % (Manual) Lymphocytes % (Manual) Monocytes % (Manual) Seg Neutrophils # Seg Neutrophils # Man Lymphocytes # (Manual) Monocytes # (Manual) Eosinophils # (Manual) D-Dimer POC ABG pH POC ABG pCO2 POC ABG pO2 VBG pH 7.231 L Sodium Chloride Carbon Dioxide BUN Glucose POC Glucose Hemoglobin A1c Lactic Acid 3.10 H* 4.50 H* Calcium Iron TIBC Transferrin Total Bilirubin Alkaline Phosphatase Total Creatine Kinase C-Reactive Protein Total Protein Albumin Vitamin B12 Urine pH Crossmatch 04/07/18 04/07/18 04/07/18 15:24 16:35 16:43 WBC RBC Hgb Hct MCV MCH MCHC RDW Plt Count Lymph % (Auto) Coffey % (Auto) Coffey # Seg Neutrophils % Seg Neuts % (Manual) Lymphocytes % (Manual) Monocytes % (Manual) Seg Neutrophils # Seg Neutrophils # Man Lymphocytes # (Manual) Monocytes # (Manual) Eosinophils # (Manual) D-Dimer POC ABG pH POC ABG pCO2 POC ABG pO2 VBG pH Sodium Chloride Carbon Dioxide BUN Glucose POC Glucose 137 H Hemoglobin A1c 9.9 H Lactic Acid 2.20 H* Calcium Iron TIBC Transferrin Total Bilirubin Alkaline Phosphatase Total Creatine Kinase C-Reactive Protein Total Protein Albumin Vitamin B12 Urine pH Crossmatch 04/07/18 04/07/18 04/08/18 16:43 16:46 06:15 WBC RBC Hgb Hct MCV MCH MCHC RDW Plt Count Lymph % (Auto) Coffey % (Auto) Coffey # Seg Neutrophils % Seg Neuts % (Manual) Lymphocytes % (Manual) Monocytes % (Manual) Seg Neutrophils # Seg Neutrophils # Man Lymphocytes # (Manual) Monocytes # (Manual) Eosinophils # (Manual) D-Dimer POC ABG pH 7.345 L POC ABG pCO2 28.0 L 33.8 L POC ABG pO2 76 L 138 H VBG pH Sodium Chloride Carbon Dioxide BUN Glucose POC Glucose Hemoglobin A1c Lactic Acid Calcium Iron TIBC Transferrin Total Bilirubin Alkaline Phosphatase Total Creatine Kinase C-Reactive Protein Total Protein Albumin Vitamin B12 Urine pH Crossmatch See Detail 04/08/18 04/08/18 04/08/18 07:34 07:34 07:34 WBC 15.7 H RBC 6.30 H Hgb 15.6 H D Hct 49.2 H D MCV 78 L MCH 25 L MCHC RDW Plt Count Lymph % (Auto) Coffey % (Auto) Coffey # Seg Neutrophils % Seg Neuts % (Manual) Lymphocytes % (Manual) Monocytes % (Manual) Seg Neutrophils # Seg Neutrophils # Man Lymphocytes # (Manual) Monocytes # (Manual) Eosinophils # (Manual) D-Dimer POC ABG pH POC ABG pCO2 POC ABG pO2 VBG pH Sodium Chloride Carbon Dioxide BUN Glucose POC Glucose Hemoglobin A1c Lactic Acid Calcium Iron 15 L TIBC 106 L Transferrin 76 L Total Bilirubin Alkaline Phosphatase Total Creatine Kinase C-Reactive Protein Total Protein Albumin Vitamin B12 1405 H Urine pH Crossmatch 04/08/18 04/08/18 04/08/18 07:34 09:54 12:43 WBC RBC Hgb Hct MCV MCH MCHC RDW Plt Count Lymph % (Auto) Coffey % (Auto) Coffey # Seg Neutrophils % Seg Neuts % (Manual) Lymphocytes % (Manual) Monocytes % (Manual) Seg Neutrophils # Seg Neutrophils # Man Lymphocytes # (Manual) Monocytes # (Manual) Eosinophils # (Manual) D-Dimer POC ABG pH POC ABG pCO2 POC ABG pO2 VBG pH Sodium 131 L Chloride Carbon Dioxide 20 L BUN 24 H Glucose 167 H POC Glucose 162 H 175 H Hemoglobin A1c Lactic Acid Calcium 7.5 L Iron TIBC Transferrin Total Bilirubin Alkaline Phosphatase Total Creatine Kinase C-Reactive Protein Total Protein Albumin Vitamin B12 Urine pH Crossmatch 04/08/18 04/08/18 04/09/18 16:36 16:40 01:15 WBC 28.2 H RBC 2.67 L Hgb 7.3 L D Hct 21.0 L D MCV 79 L MCH 27 L MCHC 35 H RDW Plt Count Lymph % (Auto) Coffey % (Auto) Coffey # Seg Neutrophils % Seg Neuts % (Manual) 74.0 H Lymphocytes % (Manual) 3.0 L Monocytes % (Manual) Seg Neutrophils # Seg Neutrophils # Man 20.9 H Lymphocytes # (Manual) 0.8 L Monocytes # (Manual) 1.7 H Eosinophils # (Manual) D-Dimer POC ABG pH POC ABG pCO2 POC ABG pO2 VBG pH Sodium Chloride Carbon Dioxide BUN Glucose POC Glucose 150 H 171 H Hemoglobin A1c Lactic Acid Calcium Iron TIBC Transferrin Total Bilirubin Alkaline Phosphatase Total Creatine Kinase C-Reactive Protein Total Protein Albumin Vitamin B12 Urine pH Crossmatch 04/09/18 04/09/18 04/09/18 05:13 05:42 05:42 WBC 23.2 H RBC 2.72 L Hgb 7.0 L Hct 21.6 L MCV 79 L MCH 26 L MCHC RDW Plt Count Lymph % (Auto) Coffey % (Auto) Coffey # Seg Neutrophils % Seg Neuts % (Manual) 87.5 H Lymphocytes % (Manual) 8.0 L Monocytes % (Manual) Seg Neutrophils # Seg Neutrophils # Man 20.3 H Lymphocytes # (Manual) Monocytes # (Manual) 0.9 H Eosinophils # (Manual) D-Dimer POC ABG pH POC ABG pCO2 34.4 L POC ABG pO2 VBG pH Sodium 134 L Chloride Carbon Dioxide 21 L BUN 24 H Glucose 192 H POC Glucose Hemoglobin A1c Lactic Acid Calcium 7.4 L Iron TIBC Transferrin Total Bilirubin Alkaline Phosphatase 211 H Total Creatine Kinase C-Reactive Protein Total Protein Albumin 2.1 L Vitamin B12 Urine pH Crossmatch 04/09/18 04/09/18 04/10/18 12:52 18:43 00:13 WBC RBC Hgb Hct MCV MCH MCHC RDW Plt Count Lymph % (Auto) Coffey % (Auto) Coffey # Seg Neutrophils % Seg Neuts % (Manual) Lymphocytes % (Manual) Monocytes % (Manual) Seg Neutrophils # Seg Neutrophils # Man Lymphocytes # (Manual) Monocytes # (Manual) Eosinophils # (Manual) D-Dimer POC ABG pH POC ABG pCO2 POC ABG pO2 VBG pH Sodium Chloride Carbon Dioxide BUN Glucose POC Glucose 206 H 223 H 233 H Hemoglobin A1c Lactic Acid Calcium Iron TIBC Transferrin Total Bilirubin Alkaline Phosphatase Total Creatine Kinase C-Reactive Protein Total Protein Albumin Vitamin B12 Urine pH Crossmatch 04/10/18 04/10/18 04/10/18 04:04 04:06 04:06 WBC 18.9 H RBC 3.27 L Hgb 8.4 L Hct 26.0 L MCV 80 L MCH 26 L MCHC RDW Plt Count Lymph % (Auto) Coffey % (Auto) Coffey # Seg Neutrophils % Seg Neuts % (Manual) 86.0 H Lymphocytes % (Manual) 2.0 L Monocytes % (Manual) Seg Neutrophils # Seg Neutrophils # Man 16.3 H Lymphocytes # (Manual) 0.4 L Monocytes # (Manual) Eosinophils # (Manual) 0.8 H D-Dimer POC ABG pH POC ABG pCO2 34.4 L POC ABG pO2 VBG pH Sodium 136 L Chloride Carbon Dioxide 20 L BUN 23 H Glucose 213 H POC Glucose Hemoglobin A1c Lactic Acid Calcium 7.6 L Iron TIBC Transferrin Total Bilirubin Alkaline Phosphatase Total Creatine Kinase C-Reactive Protein Total Protein Albumin Vitamin B12 Urine pH Crossmatch 04/10/18 04/10/18 04/10/18 06:10 12:30 17:43 WBC RBC Hgb Hct MCV MCH MCHC RDW Plt Count Lymph % (Auto) Coffey % (Auto) Coffey # Seg Neutrophils % Seg Neuts % (Manual) Lymphocytes % (Manual) Monocytes % (Manual) Seg Neutrophils # Seg Neutrophils # Man Lymphocytes # (Manual) Monocytes # (Manual) Eosinophils # (Manual) D-Dimer POC ABG pH POC ABG pCO2 POC ABG pO2 VBG pH Sodium Chloride Carbon Dioxide BUN Glucose POC Glucose 246 H 266 H 246 H Hemoglobin A1c Lactic Acid Calcium Iron TIBC Transferrin Total Bilirubin Alkaline Phosphatase Total Creatine Kinase C-Reactive Protein Total Protein Albumin Vitamin B12 Urine pH Crossmatch 04/10/18 04/11/18 04/11/18 23:50 04:14 04:14 WBC 14.9 H RBC 3.07 L Hgb 8.0 L Hct 24.6 L MCV 80 L MCH 26 L MCHC RDW Plt Count Lymph % (Auto) Coffey % (Auto) Coffey # Seg Neutrophils % Seg Neuts % (Manual) 79.0 H Lymphocytes % (Manual) 10.0 L Monocytes % (Manual) Seg Neutrophils # Seg Neutrophils # Man 11.8 H Lymphocytes # (Manual) Monocytes # (Manual) Eosinophils # (Manual) D-Dimer POC ABG pH POC ABG pCO2 POC ABG pO2 VBG pH Sodium Chloride 107.9 H Carbon Dioxide 20 L BUN 25 H Glucose 184 H POC Glucose 247 H Hemoglobin A1c Lactic Acid Calcium 7.3 L Iron TIBC Transferrin Total Bilirubin 1.40 H Alkaline Phosphatase 225 H Total Creatine Kinase C-Reactive Protein Total Protein 5.9 L Albumin 1.9 L Vitamin B12 Urine pH Crossmatch 04/11/18 04/11/18 04/11/18 04:43 10:04 12:02 WBC RBC Hgb Hct MCV MCH MCHC RDW Plt Count Lymph % (Auto) Coffey % (Auto) Coffey # Seg Neutrophils % Seg Neuts % (Manual) Lymphocytes % (Manual) Monocytes % (Manual) Seg Neutrophils # Seg Neutrophils # Man Lymphocytes # (Manual) Monocytes # (Manual) Eosinophils # (Manual) D-Dimer POC ABG pH 7.479 H POC ABG pCO2 34.8 L POC ABG pO2 VBG pH Sodium Chloride Carbon Dioxide BUN Glucose POC Glucose 147 H 148 H Hemoglobin A1c Lactic Acid Calcium Iron TIBC Transferrin Total Bilirubin Alkaline Phosphatase Total Creatine Kinase C-Reactive Protein Total Protein Albumin Vitamin B12 Urine pH Crossmatch 04/11/18 04/11/18 04/11/18 12:22 17:34 23:39 WBC RBC Hgb Hct MCV MCH MCHC RDW Plt Count Lymph % (Auto) Coffey % (Auto) Coffey # Seg Neutrophils % Seg Neuts % (Manual) Lymphocytes % (Manual) Monocytes % (Manual) Seg Neutrophils # Seg Neutrophils # Man Lymphocytes # (Manual) Monocytes # (Manual) Eosinophils # (Manual) D-Dimer POC ABG pH POC ABG pCO2 POC ABG pO2 VBG pH Sodium Chloride Carbon Dioxide BUN Glucose POC Glucose 118 H 192 H Hemoglobin A1c Lactic Acid Calcium Iron TIBC Transferrin Total Bilirubin Alkaline Phosphatase Total Creatine Kinase C-Reactive Protein 13.00 H Total Protein Albumin Vitamin B12 Urine pH Crossmatch 04/12/18 04/12/18 04/12/18 04:14 04:14 04:56 WBC 17.2 H RBC 3.16 L Hgb 8.4 L Hct 25.4 L MCV 81 L MCH 27 L MCHC RDW Plt Count 453 H Lymph % (Auto) 9.1 L Coffey % (Auto) 11.7 H Coffey # 2.0 H Seg Neutrophils % 78.1 H Seg Neuts % (Manual) Lymphocytes % (Manual) Monocytes % (Manual) Seg Neutrophils # 13.4 H Seg Neutrophils # Man Lymphocytes # (Manual) Monocytes # (Manual) Eosinophils # (Manual) D-Dimer POC ABG pH 7.452 H POC ABG pCO2 28.6 L POC ABG pO2 VBG pH Sodium Chloride 110.4 H Carbon Dioxide 20 L BUN 25 H Glucose 164 H POC Glucose Hemoglobin A1c Lactic Acid Calcium 7.6 L Iron TIBC Transferrin Total Bilirubin Alkaline Phosphatase Total Creatine Kinase C-Reactive Protein Total Protein Albumin Vitamin B12 Urine pH Crossmatch 04/12/18 09:20 WBC RBC Hgb Hct MCV MCH MCHC RDW Plt Count Lymph % (Auto) Coffey % (Auto) Coffey # Seg Neutrophils % Seg Neuts % (Manual) Lymphocytes % (Manual) Monocytes % (Manual) Seg Neutrophils # Seg Neutrophils # Man Lymphocytes # (Manual) Monocytes # (Manual) Eosinophils # (Manual) D-Dimer POC ABG pH POC ABG pCO2 POC ABG pO2 VBG pH Sodium Chloride Carbon Dioxide BUN Glucose POC Glucose 148 H Hemoglobin A1c Lactic Acid Calcium Iron TIBC Transferrin Total Bilirubin Alkaline Phosphatase Total Creatine Kinase C-Reactive Protein Total Protein Albumin Vitamin B12 Urine pH Crossmatch Assessment and Plan Impression: 1. Anoxic encephalopathy 2. Right arm weakness 3. Bilateral leg weakness 4. Diabetic neuropathy Plan: 1. MRI brain without contrast. 2. Check fasting lipids (ordered). 3. Repeat bubble study if need indicated by MRI. 4. May need 30 day event monitoring as an outpatient depending on MRI result and even if MRI is negative, to address the blackouts. These do not sound like seizures since he is back to normal within a few seconds. 5. May need memory labs depending on his mental status once extubated. 6. Probably should have an overnight sleep study as an outpatient for possible sleep apnea which contributes a risk for strokes as well as hypertension and memory problems. 45 minutes critical care time spent today with this patient including review of multiple CT scan images. Thank you for an interesting consultation on this unfortunate mid 50s man.
[2018-04-12] MEDS: VANCOMYCIN/NS 1 GM/250 ML 1 GM/250 ML BAG IV SCH ×2 (14:37→21:20)
[2018-04-12] MEDS: SODIUM CHLORIDE FLUSH SYRINGE 10 ML IV SCH ×2 (14:37→21:21)
--- NOTE | 2018-04-12 16:14 | Progress Note ---
Assessment and Plan Imp: 1. Cellulitis 2. Aspiration pneumonia 3. Sepsis 4. Hypoglycemia initially 2/2 above 5. s/p CP arrest 6. Acute respiratory failure, hypoxia Rec: 1. Cont. current ABX; f/u cultures 2. Surgery on board 3. Pulm mechanics are adequate for extubation but scheduled for MRI LLE and brain 4. Off pressors; stop IVFs 5. DVT and GI PPx, TFs 6. Prognosis guarded 7. Complex decision-making Plan of care reviewed w/ patient's , she understands/agrees Subjective Date of service: 04/12/18 Principal diagnosis: Acute respiratory failure Interval history: Had debridement per surgery. Off sedation. Awake now and following commands. Off pressors. Active Medications Acetaminophen (Tylenol) 650 mg PO Q4H PRN PRN Reason: Pain MILD(1-3)/Fever >100.5/[place] Last Admin: 04/11/18 23:59 Dose: 650 mg Acetaminophen (Tylenol) 650 mg [place] Q4H PRN PRN Reason: Pain, Mild (1-3) Last Admin: 04/07/18 17:25 Dose: 650 mg Albuterol (Proventil) 2.5 mg IH Q3HRT PRN PRN Reason: Wheezing Albuterol/Ipratropium (Duoneb *Not For Prn Use*) 1 ampul IH TIDRT [facility] Last Admin: 04/12/18 13:30 Dose: 1 ampul Lipase/Protease/Amylase (Pancreaze Dr 10,500 Unit) 1 each FEEDTUBE PRN PRN PRN Reason: For Clogged Feeding Tube Bisacodyl (Dulcolax) 10 mg PO QDAY PRN PRN Reason: Constipation Enoxaparin Sodium (Lovenox) 40 mg SUB-Q QDAY [facility] Last Admin: 04/12/18 10:54 Dose: 40 mg Hydrophilic Ointment (Vaseline Lip Therapy) 1 applic TP Q2HR PRN PRN Reason: Dry Lips Last Admin: 04/08/18 18:47 Dose: 1 applic Propofol (Diprivan 10 Mg/Ml) 1,000 mg in 100 mls @ 2.177 mls/hr IV TITR [facility]; Protocol Last Titration: 04/07/18 13:29 Dose: 0 mcg/kg/min, 0 mls/hr Midazolam HCl 100 mg/ Sodium (Chloride) 100 mls @ 2 mls/hr IV TITR JODY; Protocol Last Titration: 04/10/18 10:43 Dose: Infused Fentanyl Citrate (Fentanyl Drip Premix) 2,000 mcg in 100 mls @ 3.629 mls/hr IV TITR JODY; Protocol Last Titration: 04/11/18 08:33 Dose: 0 mcg/kg/hr, 0 mls/hr Piperacillin Sod/Tazobactam Sod (Zosyn/Ns 4.5gm/100ml) 4.5 gm in 100 mls @ 200 mls/hr IV Q8HR JODY; Protocol Last Admin: 04/12/18 14:40 Dose: 200 mls/hr Vancomycin HCl (Vancomycin/Ns 1 Gm/250 Ml) 1 gm in 250 mls @ 166.667 mls/hr IV Q12HR JODY Last Admin: 04/12/18 14:37 Dose: 166.667 mls/hr Norepinephrine (Levophed Drip 4 Mg/Ns 250 Ml) 4 mg in 250 mls @ 7.5 mls/hr IV TITR JODY; Protocol Last Titration: 04/11/18 00:23 Dose: 0 mcg/min, 0 mls/hr Insulin Glargine (Lantus) 10 units SUB-Q BID [facility]ODY Last Admin: 04/12/18 10:54 Dose: 10 units Insulin Human Lispro (Humalog) 0 unit SUB-Q Q6HR JODY; Protocol Last Admin: 04/12/18 15:16 Dose: 2 unit Morphine Sulfate (Morphine) 2 mg IV Q4H PRN PRN Reason: Pain, Moderate (4-6) Multi-Ingred Cream/Lotion/Oil/Oint (Artificial Tears Ophth Oint) 1 applic OU Q4HR PRN PRN Reason: Dry Eye(s) Ondansetron HCl (Zofran) 4 mg IV Q8H PRN PRN Reason: Nausea And Vomiting Pantoprazole (Protonix) 40 mg FEEDTUBE DAILY [facility] Last Admin: 04/12/18 10:53 Dose: 40 mg Senna (Senokot) 17.6 mg FEEDTUBE Q12HR JODY Last Admin: 04/12/18 10:54 Dose: 17.6 mg Simple Syrup (Simple Syrup) 15 ml FEEDTUBE PRN PRN PRN Reason: Hypoglycemia Simple Syrup (Simple Syrup) 30 ml FEEDTUBE PRN PRN PRN Reason: Hypoglycemia Sodium Bicarbonate (Sodium Bicarbonate) 325 mg FEEDTUBE PRN PRN PRN Reason: For Clogged Feeding Tube Sodium Chloride (Nacl 0.9% 500 Ml) 1 ml IV DIRECT JODY Sodium Chloride (Sodium Chloride Flush Syringe 10 Ml) 10 ml IV BID JODY Last Admin: 04/12/18 14:37 Dose: 10 ml Sodium Chloride (Sodium Chloride Flush Syringe 10 Ml) 10 ml IV PRN PRN PRN Reason: LINE FLUSH Objective Vital Signs - 12hr 04/12/18 04/12/18 04/12/18 04:31 04:44 05:01 Temperature Pulse Rate 75 75 75 Pulse Rate [ Anterior Bilateral Upper Lobe] Respiratory 22 21 Rate Respiratory Rate [Anterior Bilateral Upper Lobe] Blood Pressure 132/57 125/65 133/63 O2 Sat by Pulse 97 97 97 Oximetry 04/12/18 04/12/18 04/12/18 05:31 06:01 06:31 Temperature Pulse Rate 74 73 77 Pulse Rate [ Anterior Bilateral Upper Lobe] Respiratory 21 20 22 Rate Respiratory Rate [Anterior Bilateral Upper Lobe] Blood Pressure 135/65 131/62 134/60 O2 Sat by Pulse 97 96 96 Oximetry 04/12/18 04/12/18 04/12/18 07:00 07:15 08:00 Temperature 98.5 F Pulse Rate 75 80 Pulse Rate [ Anterior Bilateral Upper Lobe] Respiratory 22 21 Rate Respiratory Rate [Anterior Bilateral Upper Lobe] Blood Pressure 139/55 131/62 O2 Sat by Pulse 97 95 96 Oximetry 04/12/18 04/12/18 04/12/18 09:00 09:01 09:05 Temperature 98.1 F Pulse Rate 82 85 78 Pulse Rate [ Anterior Bilateral Upper Lobe] Respiratory 25 H 27 H 23 Rate Respiratory Rate [Anterior Bilateral Upper Lobe] Blood Pressure 140/69 137/68 137/68 O2 Sat by Pulse 99 95 96 Oximetry 04/12/18 04/12/18 04/12/18 09:10 09:15 09:20 Temperature Pulse Rate 84 80 83 Pulse Rate [ Anterior Bilateral Upper Lobe] Respiratory 24 22 24 Rate Respiratory Rate [Anterior Bilateral Upper Lobe] Blood Pressure 133/69 139/70 142/71 O2 Sat by Pulse 98 97 99 Oximetry 04/12/18 04/12/18 04/12/18 09:25 09:31 10:00 Temperature Pulse Rate 78 85 89 Pulse Rate [ Anterior Bilateral Upper Lobe] Respiratory 24 21 Rate Respiratory Rate [Anterior Bilateral Upper Lobe] Blood Pressure 138/71 137/68 O2 Sat by Pulse 99 Oximetry 04/12/18 04/12/18 04/12/18 10:01 10:31 11:01 Temperature Pulse Rate 77 83 79 Pulse Rate [ Anterior Bilateral Upper Lobe] Respiratory 20 18 21 Rate Respiratory Rate [Anterior Bilateral Upper Lobe] Blood Pressure 140/70 124/69 136/61 O2 Sat by Pulse 95 96 97 Oximetry 04/12/18 04/12/18 04/12/18 11:31 12:00 13:30 Temperature Pulse Rate 81 74 Pulse Rate [ 75 Anterior Bilateral Upper Lobe] Respiratory 23 Rate Respiratory 20 Rate [Anterior Bilateral Upper Lobe] Blood Pressure 137/69 130/64 O2 Sat by Pulse 97 97 Oximetry 04/12/18 04/12/18 13:57 15:44 Temperature Pulse Rate 80 Pulse Rate [ 83 Anterior Bilateral Upper Lobe] Respiratory Rate Respiratory 23 Rate [Anterior Bilateral Upper Lobe] Blood Pressure 121/58 O2 Sat by Pulse 100 Oximetry Constitutional: other (intubated, critically ill on vent) Eyes: non-icteric ENT: oropharynx moist Neck: supple Effort: normal Ascultation: Bilateral: other (coarse BS bilaterally) Cardiovascular: regular rate and rhythm (no mrg) Gastrointestinal: normoactive bowel sounds, soft, non-tender, other (obese) Integumentary: other (foul smelling L foot wound, bandaged) Extremities: no cyanosis, edema (1+ bilateral LE edema, L > R) Neurologic: normal mental status, non-focal exam Psychiatric: other (unable to assess) CBC and BMP: 04/12/18 04:14 04/12/18 04:14 ABG, PT/INR, D-dimer: ABG POC ABG pH 7.452 (7.35-7.45) H 04/12/18 04:56 POC ABG pCO2 28.6 (35-45) L 04/12/18 04:56 POC ABG pO2 99 (80-105) 04/12/18 04:56 POC ABG HCO3 19.9 04/12/18 04:56 POC ABG Total CO2 21 04/12/18 04:56 POC ABG O2 Sat 98 04/12/18 04:56 PT/INR, D-dimer D-Dimer 933.08 ng/mlDDU (0-234) H 04/07/18 08:15 Abnormal lab findings: Abnormal Labs 04/07/18 04/07/18 04/07/18 08:11 08:15 08:15 WBC 23.9 H RBC 2.89 L Hgb 7.2 L Hct 22.4 L MCV 78 L MCH 25 L MCHC RDW 13.0 L Plt Count 453 H Lymph % (Auto) [place] % (Auto) [place] # Seg Neutrophils % Seg Neuts % (Manual) 84.0 H Lymphocytes % (Manual) 8.0 L Monocytes % (Manual) 8.0 H Seg Neutrophils # Seg Neutrophils # Man 20.1 H Lymphocytes # (Manual) Monocytes # (Manual) 1.9 H Eosinophils # (Manual) D-Dimer 933.08 H POC ABG pH POC ABG pCO2 POC ABG pO2 VBG pH Sodium Chloride Carbon Dioxide BUN Glucose POC Glucose 225 H Hemoglobin A1c Lactic Acid Calcium Iron TIBC Transferrin Total Bilirubin Alkaline Phosphatase Total Creatine Kinase C-Reactive Protein Total Protein Albumin Vitamin B12 Urine pH Crossmatch 04/07/18 04/07/18 04/07/18 08:15 08:15 08:52 WBC RBC Hgb Hct MCV MCH MCHC RDW Plt Count Lymph % (Auto) [place] % (Auto) [place] # Seg Neutrophils % Seg Neuts % (Manual) Lymphocytes % (Manual) Monocytes % (Manual) Seg Neutrophils # Seg Neutrophils # Man Lymphocytes # (Manual) Monocytes # (Manual) Eosinophils # (Manual) D-Dimer POC ABG pH POC ABG pCO2 POC ABG pO2 VBG pH Sodium 127 L Chloride 90.7 L Carbon Dioxide 21 L BUN 21 H Glucose 191 H POC Glucose Hemoglobin A1c Lactic Acid 3.80 H* Calcium 8.2 L Iron TIBC Transferrin Total Bilirubin Alkaline Phosphatase 287 H Total Creatine Kinase 31 L C-Reactive Protein Total Protein Albumin 2.4 L Vitamin B12 Urine pH 8.0 H Crossmatch 04/07/18 04/07/18 04/07/18 09:51 12:27 13:25 WBC RBC Hgb Hct MCV MCH MCHC RDW Plt Count Lymph % (Auto) [place] % (Auto) [place] # Seg Neutrophils % Seg Neuts % (Manual) Lymphocytes % (Manual) Monocytes % (Manual) Seg Neutrophils # Seg Neutrophils # Man Lymphocytes # (Manual) Monocytes # (Manual) Eosinophils # (Manual) D-Dimer POC ABG pH POC ABG pCO2 POC ABG pO2 VBG pH 7.231 L Sodium Chloride Carbon Dioxide BUN Glucose POC Glucose Hemoglobin A1c Lactic Acid 3.10 H* 4.50 H* Calcium Iron TIBC Transferrin Total Bilirubin Alkaline Phosphatase Total Creatine Kinase C-Reactive Protein Total Protein Albumin Vitamin B12 Urine pH Crossmatch 04/07/18 04/07/18 04/07/18 15:24 16:35 16:43 WBC RBC Hgb Hct MCV MCH MCHC RDW Plt Count Lymph % (Auto) [place] % (Auto) [place] # Seg Neutrophils % Seg Neuts % (Manual) Lymphocytes % (Manual) Monocytes % (Manual) Seg Neutrophils # Seg Neutrophils # Man Lymphocytes # (Manual) Monocytes # (Manual) Eosinophils # (Manual) D-Dimer POC ABG pH POC ABG pCO2 POC ABG pO2 VBG pH Sodium Chloride Carbon Dioxide BUN Glucose POC Glucose 137 H Hemoglobin A1c 9.9 H Lactic Acid 2.20 H* Calcium Iron TIBC Transferrin Total Bilirubin Alkaline Phosphatase Total Creatine Kinase C-Reactive Protein Total Protein Albumin Vitamin B12 Urine pH Crossmatch 04/07/18 04/07/18 04/08/18 16:43 16:46 06:15 WBC RBC Hgb Hct MCV MCH MCHC RDW Plt Count Lymph % (Auto) [place] % (Auto) [place] # Seg Neutrophils % Seg Neuts % (Manual) Lymphocytes % (Manual) Monocytes % (Manual) Seg Neutrophils # Seg Neutrophils # Man Lymphocytes # (Manual) Monocytes # (Manual) Eosinophils # (Manual) D-Dimer POC ABG pH 7.345 L POC ABG pCO2 28.0 L 33.8 L POC ABG pO2 76 L 138 H VBG pH Sodium Chloride Carbon Dioxide BUN Glucose POC Glucose Hemoglobin A1c Lactic Acid Calcium Iron TIBC Transferrin Total Bilirubin Alkaline Phosphatase Total Creatine Kinase C-Reactive Protein Total Protein Albumin Vitamin B12 Urine pH Crossmatch See Detail 04/08/18 04/08/18 04/08/18 07:34 07:34 07:34 WBC 15.7 H RBC 6.30 H Hgb 15.6 H D Hct 49.2 H D MCV 78 L MCH 25 L MCHC RDW Plt Count Lymph % (Auto) [place] % (Auto) [place] # Seg Neutrophils % Seg Neuts % (Manual) Lymphocytes % (Manual) Monocytes % (Manual) Seg Neutrophils # Seg Neutrophils # Man Lymphocytes # (Manual) Monocytes # (Manual) Eosinophils # (Manual) D-Dimer POC ABG pH POC ABG pCO2 POC ABG pO2 VBG pH Sodium Chloride Carbon Dioxide BUN Glucose POC Glucose Hemoglobin A1c Lactic Acid Calcium Iron 15 L TIBC 106 L Transferrin 76 L Total Bilirubin Alkaline Phosphatase Total Creatine Kinase C-Reactive Protein Total Protein Albumin Vitamin B12 1405 H Urine pH Crossmatch 04/08/18 04/08/18 04/08/18 07:34 09:54 12:43 WBC RBC Hgb Hct MCV MCH MCHC RDW Plt Count Lymph % (Auto) [place] % (Auto) [place] # Seg Neutrophils % Seg Neuts % (Manual) Lymphocytes % (Manual) Monocytes % (Manual) Seg Neutrophils # Seg Neutrophils # Man Lymphocytes # (Manual) Monocytes # (Manual) Eosinophils # (Manual) D-Dimer POC ABG pH POC ABG pCO2 POC ABG pO2 VBG pH Sodium 131 L Chloride Carbon Dioxide 20 L BUN 24 H Glucose 167 H POC Glucose 162 H 175 H Hemoglobin A1c Lactic Acid Calcium 7.5 L Iron TIBC Transferrin Total Bilirubin Alkaline Phosphatase Total Creatine Kinase C-Reactive Protein Total Protein Albumin Vitamin B12 Urine pH Crossmatch 04/08/18 04/08/18 04/09/18 16:36 16:40 01:15 WBC 28.2 H RBC 2.67 L Hgb 7.3 L D Hct 21.0 L D MCV 79 L MCH 27 L MCHC 35 H RDW Plt Count Lymph % (Auto) [place] % (Auto) [place] # Seg Neutrophils % Seg Neuts % (Manual) 74.0 H Lymphocytes % (Manual) 3.0 L Monocytes % (Manual) Seg Neutrophils # Seg Neutrophils # Man 20.9 H Lymphocytes # (Manual) 0.8 L Monocytes # (Manual) 1.7 H Eosinophils # (Manual) D-Dimer POC ABG pH POC ABG pCO2 POC ABG pO2 VBG pH Sodium Chloride Carbon Dioxide BUN Glucose POC Glucose 150 H 171 H Hemoglobin A1c Lactic Acid Calcium Iron TIBC Transferrin Total Bilirubin Alkaline Phosphatase Total Creatine Kinase C-Reactive Protein Total Protein Albumin Vitamin B12 Urine pH Crossmatch 04/09/18 04/09/18 04/09/18 05:13 05:42 05:42 WBC 23.2 H RBC 2.72 L Hgb 7.0 L Hct 21.6 L MCV 79 L MCH 26 L MCHC RDW Plt Count Lymph % (Auto) [place] % (Auto) [place] # Seg Neutrophils % Seg Neuts % (Manual) 87.5 H Lymphocytes % (Manual) 8.0 L Monocytes % (Manual) Seg Neutrophils # Seg Neutrophils # Man 20.3 H Lymphocytes # (Manual) Monocytes # (Manual) 0.9 H Eosinophils # (Manual) D-Dimer POC ABG pH POC ABG pCO2 34.4 L POC ABG pO2 VBG pH Sodium 134 L Chloride Carbon Dioxide 21 L BUN 24 H Glucose 192 H POC Glucose Hemoglobin A1c Lactic Acid Calcium 7.4 L Iron TIBC Transferrin Total Bilirubin Alkaline Phosphatase 211 H Total Creatine Kinase C-Reactive Protein Total Protein Albumin 2.1 L Vitamin B12 Urine pH Crossmatch 04/09/18 04/09/18 04/10/18 12:52 18:43 00:13 WBC RBC Hgb Hct MCV MCH MCHC RDW Plt Count Lymph % (Auto) [place] % (Auto) [place] # Seg Neutrophils % Seg Neuts % (Manual) Lymphocytes % (Manual) Monocytes % (Manual) Seg Neutrophils # Seg Neutrophils # Man Lymphocytes # (Manual) Monocytes # (Manual) Eosinophils # (Manual) D-Dimer POC ABG pH POC ABG pCO2 POC ABG pO2 VBG pH Sodium Chloride Carbon Dioxide BUN Glucose POC Glucose 206 H 223 H 233 H Hemoglobin A1c Lactic Acid Calcium Iron TIBC Transferrin Total Bilirubin Alkaline Phosphatase Total Creatine Kinase C-Reactive Protein Total Protein Albumin Vitamin B12 Urine pH Crossmatch 04/10/18 04/10/18 04/10/18 04:04 04:06 04:06 WBC 18.9 H RBC 3.27 L Hgb 8.4 L Hct 26.0 L MCV 80 L MCH 26 L MCHC RDW Plt Count Lymph % (Auto) [place] % (Auto) [place] # Seg Neutrophils % Seg Neuts % (Manual) 86.0 H Lymphocytes % (Manual) 2.0 L Monocytes % (Manual) Seg Neutrophils # Seg Neutrophils # Man 16.3 H Lymphocytes # (Manual) 0.4 L Monocytes # (Manual) Eosinophils # (Manual) 0.8 H D-Dimer POC ABG pH POC ABG pCO2 34.4 L POC ABG pO2 VBG pH Sodium 136 L Chloride Carbon Dioxide 20 L BUN 23 H Glucose 213 H POC Glucose Hemoglobin A1c Lactic Acid Calcium 7.6 L Iron TIBC Transferrin Total Bilirubin Alkaline Phosphatase Total Creatine Kinase C-Reactive Protein Total Protein Albumin Vitamin B12 Urine pH Crossmatch 04/10/18 04/10/18 04/10/18 06:10 12:30 17:43 WBC RBC Hgb Hct MCV MCH MCHC RDW Plt Count Lymph % (Auto) [place] % (Auto) [place] # Seg Neutrophils % Seg Neuts % (Manual) Lymphocytes % (Manual) Monocytes % (Manual) Seg Neutrophils # Seg Neutrophils # Man Lymphocytes # (Manual) Monocytes # (Manual) Eosinophils # (Manual) D-Dimer POC ABG pH POC ABG pCO2 POC ABG pO2 VBG pH Sodium Chloride Carbon Dioxide BUN Glucose POC Glucose 246 H 266 H 246 H Hemoglobin A1c Lactic Acid Calcium Iron TIBC Transferrin Total Bilirubin Alkaline Phosphatase Total Creatine Kinase C-Reactive Protein Total Protein Albumin Vitamin B12 Urine pH Crossmatch 04/10/18 04/11/18 04/11/18 23:50 04:14 04:14 WBC 14.9 H RBC 3.07 L Hgb 8.0 L Hct 24.6 L MCV 80 L MCH 26 L MCHC RDW Plt Count Lymph % (Auto) [place] % (Auto) [place] # Seg Neutrophils % Seg Neuts % (Manual) 79.0 H Lymphocytes % (Manual) 10.0 L Monocytes % (Manual) Seg Neutrophils # Seg Neutrophils # Man 11.8 H Lymphocytes # (Manual) Monocytes # (Manual) Eosinophils # (Manual) D-Dimer POC ABG pH POC ABG pCO2 POC ABG pO2 VBG pH Sodium Chloride 107.9 H Carbon Dioxide 20 L BUN 25 H Glucose 184 H POC Glucose 247 H Hemoglobin A1c Lactic Acid Calcium 7.3 L Iron TIBC Transferrin Total Bilirubin 1.40 H Alkaline Phosphatase 225 H Total Creatine Kinase C-Reactive Protein Total Protein 5.9 L Albumin 1.9 L Vitamin B12 Urine pH Crossmatch 04/11/18 04/11/18 04/11/18 04:43 10:04 12:02 WBC RBC Hgb Hct MCV MCH MCHC RDW Plt Count Lymph % (Auto) [place] % (Auto) [place] # Seg Neutrophils % Seg Neuts % (Manual) Lymphocytes % (Manual) Monocytes % (Manual) Seg Neutrophils # Seg Neutrophils # Man Lymphocytes # (Manual) Monocytes # (Manual) Eosinophils # (Manual) D-Dimer POC ABG pH 7.479 H POC ABG pCO2 34.8 L POC ABG pO2 VBG pH Sodium Chloride Carbon Dioxide BUN Glucose POC Glucose 147 H 148 H Hemoglobin A1c Lactic Acid Calcium Iron TIBC Transferrin Total Bilirubin Alkaline Phosphatase Total Creatine Kinase C-Reactive Protein Total Protein Albumin Vitamin B12 Urine pH Crossmatch 04/11/18 04/11/18 04/11/18 12:22 17:34 23:39 WBC RBC Hgb Hct MCV MCH MCHC RDW Plt Count Lymph % (Auto) [place] % (Auto) [place] # Seg Neutrophils % Seg Neuts % (Manual) Lymphocytes % (Manual) Monocytes % (Manual) Seg Neutrophils # Seg Neutrophils # Man Lymphocytes # (Manual) Monocytes # (Manual) Eosinophils # (Manual) D-Dimer POC ABG pH POC ABG pCO2 POC ABG pO2 VBG pH Sodium Chloride Carbon Dioxide BUN Glucose POC Glucose 118 H 192 H Hemoglobin A1c Lactic Acid Calcium Iron TIBC Transferrin Total Bilirubin Alkaline Phosphatase Total Creatine Kinase C-Reactive Protein 13.00 H Total Protein Albumin Vitamin B12 Urine pH Crossmatch 04/12/18 04/12/18 04/12/18 04:14 04:14 04:56 WBC 17.2 H RBC 3.16 L Hgb 8.4 L Hct 25.4 L MCV 81 L MCH 27 L MCHC RDW Plt Count 453 H Lymph % (Auto) 9.1 L [place] % (Auto) 11.7 H [place] # 2.0 H Seg Neutrophils % 78.1 H Seg Neuts % (Manual) Lymphocytes % (Manual) Monocytes % (Manual) Seg Neutrophils # 13.4 H Seg Neutrophils # Man Lymphocytes # (Manual) Monocytes # (Manual) Eosinophils # (Manual) D-Dimer POC ABG pH 7.452 H POC ABG pCO2 28.6 L POC ABG pO2 VBG pH Sodium Chloride 110.4 H Carbon Dioxide 20 L BUN 25 H Glucose 164 H POC Glucose Hemoglobin A1c Lactic Acid Calcium 7.6 L Iron TIBC Transferrin Total Bilirubin Alkaline Phosphatase Total Creatine Kinase C-Reactive Protein Total Protein Albumin Vitamin B12 Urine pH Crossmatch 04/12/18 04/12/18 09:20 15:01 WBC RBC Hgb Hct MCV MCH MCHC RDW Plt Count Lymph % (Auto) [place] % (Auto) [place] # Seg Neutrophils % Seg Neuts % (Manual) Lymphocytes % (Manual) Monocytes % (Manual) Seg Neutrophils # Seg Neutrophils # Man Lymphocytes # (Manual) Monocytes # (Manual) Eosinophils # (Manual) D-Dimer POC ABG pH POC ABG pCO2 POC ABG pO2 VBG pH Sodium Chloride Carbon Dioxide BUN Glucose POC Glucose 148 H 170 H Hemoglobin A1c Lactic Acid Calcium Iron TIBC Transferrin Total Bilirubin Alkaline Phosphatase Total Creatine Kinase C-Reactive Protein Total Protein Albumin Vitamin B12 Urine pH Crossmatch Chest x-ray: report reviewed, image reviewed (no significant change)
--- NOTE | 2018-04-12 16:39 | Progress Note ---
Assessment and Plan Assessment: 1) Sepsis with septic shock: better off pressors. Etiology most likely multifactorial - left foot gangrene +/- bilateral pneumonia. 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 6) Cardiac arrest enroute s/p CPR 7) Acute respiratory failure 8) Presumed bilateral pneumonia -CTA of the chest show bilateral basilar opacities. -Tracheal asp 04/07 normal resp kate 9) [place] 10) PVD - art US monophasic flow at the left ankle. Plan: -follow-up blood cultures -f/u OR cultures -continue vancomycin and zosyn for now - renally dosed -left foot wound cultures Thank you for your consultation, will follow up with you. Sara Pandey MD Infectious Diseases Specialist [facility], [place], [facility] ([facility]) M [phone] O [phone] Subjective Date of service: 04/12/18 Principal diagnosis: Acute respiratory failure Interval history: Remains on the vent, more alert, fever 101.8, off pressors. Microbiology: Blood cultures: 04/07 ngtd Urine cultures: 04/07 neg Respiratory cultures: TA 04/07 ngtd Left foot wound: 9/3 GNR and Diphtheroids Current Antimicrobials: Zosyn 04/07 Vancomycin 04/07 Previous Antimicrobials: Objective - Exam Narrative Exam: General appearance: sedated on the vent Eyes: anicteric sclerae, moist conjunctivae; no lid-lag; PERRLA HENT: Atraumatic; oropharynx clear +ETT. Neck: Trachea midline; supple, no thyromegaly or lymphadenopathy Lungs: kalyan rhonchi CV: RRR, Abdomen: Soft, non-tender; no masses or hepatosplenomegaly Extremities: left foot lateral wound with devitalized tissue and foul smelling drainage, marked foot and ankle edema. Kalyan leg edema Skin: Normal temperature, turgor and texture; no rash, ulcers or subcutaneous nodules Psych: sedated. Neuro: sedated Lines: IJ TLC - Constitutional Vitals: Vital Signs Temp Pulse Resp BP Pulse Ox 98.1 F 80 23 121/58 100 04/12/18 09:00 04/12/18 15:44 04/12/18 13:57 04/12/18 15:44 04/12/18 15:44 Temperature -Last 24 Hours Temperature 98.1 F Temperature 98.5 F Temperature 99.5 F Temperature 101.8 F Temperature 97.4 F - Labs CBC & Chem 7: 04/12/18 04:14 04/12/18 04:14 Labs: Abnormal lab results 04/11/18 04/11/18 04/12/18 Range/Units 17:34 23:39 04:14 WBC 17.2 H (4.5-11.0) K/mm3 RBC 3.16 L (3.65-5.03) M/mm3 Hgb 8.4 L (11.8-15.2) gm/dl Hct 25.4 L (35.5-45.6) % MCV 81 L (84-94) fl MCH 27 L (28-32) pg Plt Count 453 H (140-440) K/mm3 Lymph % (Auto) 9.1 L (13.4-35.0) % [place] % (Auto) 11.7 H (0.0-7.3) % [place] # 2.0 H (0.0-0.8) K/mm3 Seg Neutrophils % 78.1 H (40.0-70.0) % Seg Neutrophils # 13.4 H (1.8-7.7) K/mm3 POC ABG pH (7.35-7.45) POC ABG pCO2 (35-45) Chloride (98-107) mmol/L Carbon Dioxide (22-30) mmol/L BUN (9-20) mg/dL Glucose (75-100) mg/dL POC Glucose 118 H 192 H (70-105) Calcium (8.4-10.2) mg/dL 04/12/18 04/12/18 04/12/18 Range/Units 04:14 04:56 09:20 WBC (4.5-11.0) K/mm3 RBC (3.65-5.03) M/mm3 Hgb (11.8-15.2) gm/dl Hct (35.5-45.6) % MCV (84-94) fl MCH (28-32) pg Plt Count (140-440) K/mm3 Lymph % (Auto) (13.4-35.0) % [place] % (Auto) (0.0-7.3) % [place] # (0.0-0.8) K/mm3 Seg Neutrophils % (40.0-70.0) % Seg Neutrophils # (1.8-7.7) K/mm3 POC ABG pH 7.452 H (7.35-7.45) POC ABG pCO2 28.6 L (35-45) Chloride 110.4 H (98-107) mmol/L Carbon Dioxide 20 L (22-30) mmol/L BUN 25 H (9-20) mg/dL Glucose 164 H (75-100) mg/dL POC Glucose 148 H (70-105) Calcium 7.6 L (8.4-10.2) mg/dL 04/12/18 Range/Units 15:01 WBC (4.5-11.0) K/mm3 RBC (3.65-5.03) M/mm3 Hgb (11.8-15.2) gm/dl Hct (35.5-45.6) % MCV (84-94) fl MCH (28-32) pg Plt Count (140-440) K/mm3 Lymph % (Auto) (13.4-35.0) % [place] % (Auto) (0.0-7.3) % [place] # (0.0-0.8) K/mm3 Seg Neutrophils % (40.0-70.0) % Seg Neutrophils # (1.8-7.7) K/mm3 POC ABG pH (7.35-7.45) POC ABG pCO2 (35-45) Chloride (98-107) mmol/L Carbon Dioxide (22-30) mmol/L BUN (9-20) mg/dL Glucose (75-100) mg/dL POC Glucose 170 H (70-105) Calcium (8.4-10.2) mg/dL
--- NOTE | 2018-04-12 17:47 | Magnetic Resonance Report ---
FINAL REPORT EXAM: MR BRAIN WO CON HISTORY: possible strokes, anoxic damage TECHNIQUE: Multiplanar multisequence brain MR imaging without IV contrast. PRIORS: None. FINDINGS: Mucosal thickening bilateral mastoid air cells with scattered air-fluid levels. There may be slight mucosal thickening in the middle ear cavities. Moderate mucosal thickening bilateral sphenoid sinuses with small bilateral fluid levels. Scattered mucosal thickening ethmoid sinuses. Slight mucosal thickening maxillary sinuses. Slight mucosal thickening bilateral frontal sinuses and frontoethmoidal recess bilaterally. Small right anterior choroidal fissure cyst inferior to the right basal ganglia, developmental variation. There is ventricular and sulcal prominence compatible with global symmetric cerebrocortical atrophy. The brain is without mass, mass effect, hemorrhage, or acute infarct. There are no areas of brain restricted diffusion to suggest an acute ischemic infarct. There is no midline shift or brain edema. IMPRESSION: No acute CVA or brain mass Multifocal paranasal sinus disease bilaterally, with fluid levels possibly reflecting acute sinusitis Mucosal thickening and multifocal bilateral fluid levels in both mastoid sinuses may reflect eustachian tube dysfunction. Differential includes bilateral mastoiditis. There may be mucosal thickening in the middle ear cavities as well
[2018-04-13] MEDS: HumaLOG SUB-Q SCH ×4 (00:14→17:30)
[2018-04-13] MEDS: SENOKOT FEEDTUBE SCH ×2 (00:15→09:08)
--- NOTE | 2018-04-13 03:30 | XRay Report ---
FINAL REPORT EXAM: XR CHEST 1V AP HISTORY: follow up respiratory failure TECHNIQUE: AP portable view of the chest. PRIORS: 04/11/2018 FINDINGS: There is an endotracheal tube in place which appears adequately positioned in the mid to distal trachea. There is a feeding tube in place which courses below the diaphragm and below the lower margin of the film. There is a right-sided central venous catheter with the tip in the superior vena cava. The cardiomediastinal silhouette appears normal. There are stable bibasilar opacities most consistent with subsegmental atelectasis or infiltrates larger on the right than the left. The bones and soft tissues are unremarkable. IMPRESSION: Stable bibasilar opacities consistent with atelectasis or infiltrates.
[2018-04-13] MEDS: ZOSYN/NS 4.5GM/100ML 4.5 GM/100 ML VIAL IV SCH ×3 (06:01→21:34)
[2018-04-13] MEDS: DUONEB *Not for PRN Use IH SCH ×3 (07:50→19:33)
--- NOTE | 2018-04-13 08:39 | Vascular Lab Report ---
LOWER EXTREMITY ARTERIAL DUPLEX: REASON FOR EXAM: Peripheral arterial disease. COMMENTS ON THE RIGHT: Triphasic waveforms are seen proximally. Triphasic waveforms are seen in the superficial femoral artery and popliteal artery with biphasic waveform seen in the profunda femoral artery. Monophasic waveforms are seen distally. There is a near doubling of velocity is from the popliteal to posterior tibial artery and there is a sharp decline in velocities from the popliteal artery to anterior tibial artery. Findings are consistent with abnormal infrapopliteal perfusion. Findings are compatible with compromise in the ability to heal distal wounds. COMMENTS ON THE LEFT: Triphasic waveforms are seen proximally. Triphasic waveforms are seen in the superficial femoral artery and popliteal artery with biphasic waveform seen in the profunda femoral artery. Monophasic waveforms are seen distally. No significant velocity gradients are identified. No focal significant plaque is identified. Findings are consistent with abnormal infrapopliteal perfusion. Findings are compatible with compromise in the ability to heal distal wounds. IMPRESSION: RIGHT: Distal monophasic flow compatible with abnormal infrapopliteal perfusion. Consider correlation with LOTTIE study. LEFT:Distal monophasic flow compatible with abnormal infrapopliteal perfusion. Consider correlation with LOTTIE study.
[2018-04-13 08:51] LABS: Chol/HDL Ratio 10.55 %
[2018-04-13] MEDS: MORPHINE IV PRN ×2 (09:04→22:55)
[2018-04-13] MEDS: LANTUS SUB-Q SCH ×2 (09:07→21:35)
[2018-04-13] MEDS: LOVENOX SUB-Q SCH (09:07)
[2018-04-13] MEDS: PROTONIX FEEDTUBE SCH (09:07)
[2018-04-13] MEDS: SODIUM CHLORIDE FLUSH SYRINGE 10 ML IV SCH (09:08)
[2018-04-13] MEDS: VANCOMYCIN/NS 1 GM/250 ML 1 GM/250 ML BAG IV SCH (09:10)
[2018-04-13] MEDS ORDERED: VANCOMYCIN 1,500 MG in NACL 0.9% 500 ML 500 ML IV SCH (10:00)
--- NOTE | 2018-04-13 10:17 | Progress Note ---
Assessment and Plan - Patient Problems (1) Foot infection Current Visit: Yes Status: Acute Plan to address problem: 1) Begin wound vac to left foot. 2) Strict DM control 3) Antibiotics per ID 4) I discussed the need for amputation with the pt via an bread room hand. He is not agreeable to proceeding with amputation. We will provide local wound care but the prognosis for limb salvage is poor. 5) Vascular consultation is recommended b/o abnormal LLE arterial dopplers. Subjective Date of service: 04/13/18 Patient Reports: Positive: no new complaints (Intubated but awake and alert) Objective Vital Signs - 12hr 04/12/18 04/12/18 04/12/18 22:30 23:01 23:31 Temperature Pulse Rate 86 86 86 Pulse Rate [ Anterior Bilateral Upper Lobe] Respiratory 23 23 22 Rate Respiratory Rate [Anterior Bilateral Upper Lobe] Blood Pressure 138/70 138/68 147/71 O2 Sat by Pulse 98 98 98 Oximetry 04/12/18 04/13/18 04/13/18 23:47 00:00 00:01 Temperature 98 F Pulse Rate 87 89 90 Pulse Rate [ Anterior Bilateral Upper Lobe] Respiratory 24 28 H Rate Respiratory Rate [Anterior Bilateral Upper Lobe] Blood Pressure 147/71 150/77 O2 Sat by Pulse 99 97 98 Oximetry 04/13/18 04/13/18 04/13/18 00:02 00:31 00:58 Temperature Pulse Rate 89 86 88 Pulse Rate [ Anterior Bilateral Upper Lobe] Respiratory 24 25 H Rate Respiratory Rate [Anterior Bilateral Upper Lobe] Blood Pressure 147/71 143/73 147/76 O2 Sat by Pulse 99 98 99 Oximetry 04/13/18 04/13/18 04/13/18 01:00 01:31 02:00 Temperature Pulse Rate 89 87 85 Pulse Rate [ Anterior Bilateral Upper Lobe] Respiratory 25 H 24 24 Rate Respiratory Rate [Anterior Bilateral Upper Lobe] Blood Pressure 143/73 151/74 151/74 O2 Sat by Pulse 99 98 99 Oximetry 04/13/18 04/13/18 04/13/18 02:31 03:01 03:31 Temperature Pulse Rate 87 85 89 Pulse Rate [ Anterior Bilateral Upper Lobe] Respiratory 27 H 21 24 Rate Respiratory Rate [Anterior Bilateral Upper Lobe] Blood Pressure 151/75 140/67 150/76 O2 Sat by Pulse 99 98 99 Oximetry 04/13/18 04/13/18 04/13/18 04:00 04:01 04:31 Temperature 98.8 F Pulse Rate 89 89 Pulse Rate [ Anterior Bilateral Upper Lobe] Respiratory 28 H 27 H Rate Respiratory Rate [Anterior Bilateral Upper Lobe] Blood Pressure 159/78 157/75 O2 Sat by Pulse 97 99 98 Oximetry 04/13/18 04/13/18 04/13/18 05:01 05:31 06:01 Temperature Pulse Rate 91 H 96 H 90 Pulse Rate [ Anterior Bilateral Upper Lobe] Respiratory 27 H 26 H 27 H Rate Respiratory Rate [Anterior Bilateral Upper Lobe] Blood Pressure 161/79 165/82 162/77 O2 Sat by Pulse 98 98 98 Oximetry 04/13/18 04/13/18 04/13/18 06:31 07:01 07:31 Temperature Pulse Rate 91 H 89 93 H Pulse Rate [ Anterior Bilateral Upper Lobe] Respiratory 28 H 28 H 30 H Rate Respiratory Rate [Anterior Bilateral Upper Lobe] Blood Pressure 163/77 159/75 165/82 O2 Sat by Pulse 98 98 98 Oximetry 04/13/18 04/13/18 04/13/18 07:50 07:52 08:00 Temperature Pulse Rate 90 89 Pulse Rate [ 91 H Anterior Bilateral Upper Lobe] Respiratory 27 H Rate Respiratory 27 H Rate [Anterior Bilateral Upper Lobe] Blood Pressure 165/82 165/82 O2 Sat by Pulse 99 Oximetry 04/13/18 04/13/18 04/13/18 08:31 09:01 09:31 Temperature Pulse Rate 96 H 101 H 92 H Pulse Rate [ Anterior Bilateral Upper Lobe] Respiratory 18 25 H 23 Rate Respiratory Rate [Anterior Bilateral Upper Lobe] Blood Pressure 166/84 169/89 159/77 O2 Sat by Pulse 98 97 96 Oximetry - Musculoskeletal other (Left lateral heel wound is dry. There is some dessicated, necrotic fat within the wound but no evidence of any undrained abscess or continued infection.) - Labs 04/12/18 04:14 04/12/18 04:14 Diabetes panel 04/13/18 Range/Units 08:13 Triglycerides 174 H (2-149) mg/dL HDL Cholesterol 9 L (40-59) mg/dL
--- NOTE | 2018-04-13 10:57 | Event Note ---
Date: 04/13/18 MRI shows no acute lesion, only a few peripheral lacunes. He should be placed on aspirin 81 mg a day once able to swallow if allowable for his foot/leg. He should in the meantime have rectal aspirin 325 mg every 3rd day. Signing off, call if any mental status concerns once intubated. LDL is very low so would not give a statin. Still needs as outpatient a 30 day event monitor for his syncopes.
[2018-04-13] MEDS: DAKIN'S FULL STRENGTH TP SCH (13:05)
--- NOTE | 2018-04-13 13:19 | Progress Note ---
Assessment and Plan Imp: 1. Cellulitis 2. Aspiration pneumonia 3. Sepsis 4. Hypoglycemia initially 2/2 above 5. s/p CP arrest 6. Acute respiratory failure, hypoxia Rec: 1. Cont. current ABX; f/u cultures 2. Surgery on board -> recommending vascular surgery eval. as well, defer to primary 3. PSV trials daily, including today after MRI done; possible trial of extubation soon 4. Off pressors; stopped IVFs 5. DVT and GI PPx, TFs 6. Prognosis guarded 7. Complex decision-making No family present today Subjective Date of service: 04/13/18 Principal diagnosis: Acute respiratory failure Interval history: Had debridement per surgery. Off sedation. Awake now and following commands. Off pressors. MRI of leg done today. Active Medications Acetaminophen (Tylenol) 650 mg PO Q4H PRN PRN Reason: Pain MILD(1-3)/Fever >100.5/[place] Last Admin: 04/11/18 23:59 Dose: 650 mg Acetaminophen (Tylenol) 650 mg [place] Q4H PRN PRN Reason: Pain, Mild (1-3) Last Admin: 04/07/18 17:25 Dose: 650 mg Albuterol (Proventil) 2.5 mg IH Q3HRT PRN PRN Reason: Wheezing Albuterol/Ipratropium (Duoneb *Not For Prn Use*) 1 ampul IH TIDRT [facility] Last Admin: 04/13/18 07:50 Dose: 1 ampul Lipase/Protease/Amylase (Pancreaze Dr 10,500 Unit) 1 each FEEDTUBE PRN PRN PRN Reason: For Clogged Feeding Tube Bisacodyl (Dulcolax) 10 mg PO QDAY PRN PRN Reason: Constipation Enoxaparin Sodium (Lovenox) 40 mg SUB-Q QDAY [facility] Last Admin: 04/13/18 09:07 Dose: 40 mg Hydrophilic Ointment (Vaseline Lip Therapy) 1 applic TP Q2HR PRN PRN Reason: Dry Lips Last Admin: 04/08/18 18:47 Dose: 1 applic Propofol (Diprivan 10 Mg/Ml) 1,000 mg in 100 mls @ 2.177 mls/hr IV TITR JODY; Protocol Last Titration: 04/07/18 13:29 Dose: 0 mcg/kg/min, 0 mls/hr Midazolam HCl 100 mg/ Sodium (Chloride) 100 mls @ 2 mls/hr IV TITR JODY; Protocol Last Titration: 04/10/18 10:43 Dose: Infused Fentanyl Citrate (Fentanyl Drip Premix) 2,000 mcg in 100 mls @ 3.629 mls/hr IV TITR JODY; Protocol Last Titration: 04/11/18 08:33 Dose: 0 mcg/kg/hr, 0 mls/hr Piperacillin Sod/Tazobactam Sod (Zosyn/Ns 4.5gm/100ml) 4.5 gm in 100 mls @ 200 mls/hr IV Q8HR JODY; Protocol Last Admin: 04/13/18 13:15 Dose: 200 mls/hr Norepinephrine (Levophed Drip 4 Mg/Ns 250 Ml) 4 mg in 250 mls @ 7.5 mls/hr IV TITR JODY; Protocol Last Titration: 04/11/18 00:23 Dose: 0 mcg/min, 0 mls/hr Vancomycin HCl 1,500 mg/ (Sodium Chloride) 530 mls @ 333.333 mls/hr IV Q12HR JODY Insulin Glargine (Lantus) 10 units SUB-Q BID JODY Last Admin: 04/13/18 09:07 Dose: 10 units Insulin Human Lispro (Humalog) 0 unit SUB-Q Q6HR JODY; Protocol Last Admin: 04/13/18 13:15 Dose: 3 unit Morphine Sulfate (Morphine) 2 mg IV Q4H PRN PRN Reason: Pain, Moderate (4-6) Last Admin: 04/13/18 09:04 Dose: 2 mg Multi-Ingred Cream/Lotion/Oil/Oint (Artificial Tears Ophth Oint) 1 applic OU Q4HR PRN PRN Reason: Dry Eye(s) Ondansetron HCl (Zofran) 4 mg IV Q8H PRN PRN Reason: Nausea And Vomiting Pantoprazole (Protonix) 40 mg FEEDTUBE DAILY [facility] Last Admin: 04/13/18 09:07 Dose: 40 mg Senna (Senokot) 17.6 mg FEEDTUBE Q12HR JODY Last Admin: 04/13/18 09:08 Dose: Not Given Simple Syrup (Simple Syrup) 15 ml FEEDTUBE PRN PRN PRN Reason: Hypoglycemia Simple Syrup (Simple Syrup) 30 ml FEEDTUBE PRN PRN PRN Reason: Hypoglycemia Sodium Bicarbonate (Sodium Bicarbonate) 325 mg FEEDTUBE PRN PRN PRN Reason: For Clogged Feeding Tube Sodium Chloride (Nacl 0.9% 500 Ml) 1 ml IV DIRECT JODY Sodium Chloride (Sodium Chloride Flush Syringe 10 Ml) 10 ml IV BID JODY Last Admin: 04/13/18 09:08 Dose: 10 ml Sodium Chloride (Sodium Chloride Flush Syringe 10 Ml) 10 ml IV PRN PRN PRN Reason: LINE FLUSH Sodium Hypochlorite (Dakin's Full Strength) 1 applic TP Q12HR [facility] Objective Vital Signs - 12hr 04/13/18 04/13/18 04/13/18 01:31 02:00 02:31 Temperature Pulse Rate 87 85 87 Pulse Rate [ Anterior Bilateral Upper Lobe] Pulse Rate [ From Monitor] Respiratory 24 24 27 H Rate Respiratory Rate [Anterior Bilateral Upper Lobe] Blood Pressure 151/74 151/74 151/75 O2 Sat by Pulse 98 99 99 Oximetry 04/13/18 04/13/18 04/13/18 03:01 03:31 04:00 Temperature 98.8 F Pulse Rate 85 89 Pulse Rate [ Anterior Bilateral Upper Lobe] Pulse Rate [ From Monitor] Respiratory 21 24 Rate Respiratory Rate [Anterior Bilateral Upper Lobe] Blood Pressure 140/67 150/76 O2 Sat by Pulse 98 99 97 Oximetry 04/13/18 04/13/18 04/13/18 04:01 04:31 05:01 Temperature Pulse Rate 89 89 91 H Pulse Rate [ Anterior Bilateral Upper Lobe] Pulse Rate [ From Monitor] Respiratory 28 H 27 H 27 H Rate Respiratory Rate [Anterior Bilateral Upper Lobe] Blood Pressure 159/78 157/75 161/79 O2 Sat by Pulse 99 98 98 Oximetry 04/13/18 04/13/18 04/13/18 05:31 06:01 06:31 Temperature Pulse Rate 96 H 90 91 H Pulse Rate [ Anterior Bilateral Upper Lobe] Pulse Rate [ From Monitor] Respiratory 26 H 27 H 28 H Rate Respiratory Rate [Anterior Bilateral Upper Lobe] Blood Pressure 165/82 162/77 163/77 O2 Sat by Pulse 98 98 98 Oximetry 04/13/18 04/13/18 04/13/18 07:01 07:31 07:50 Temperature Pulse Rate 89 93 H Pulse Rate [ 91 H Anterior Bilateral Upper Lobe] Pulse Rate [ From Monitor] Respiratory 28 H 30 H Rate Respiratory 27 H Rate [Anterior Bilateral Upper Lobe] Blood Pressure 159/75 165/82 O2 Sat by Pulse 98 98 Oximetry 04/13/18 04/13/18 04/13/18 07:52 08:00 08:10 Temperature 98.6 F Pulse Rate 90 89 Pulse Rate [ 92 H Anterior Bilateral Upper Lobe] Pulse Rate [ From Monitor] Respiratory 27 H Rate Respiratory 27 H Rate [Anterior Bilateral Upper Lobe] Blood Pressure 165/82 165/82 O2 Sat by Pulse 99 97 Oximetry 04/13/18 04/13/18 04/13/18 08:31 09:01 09:31 Temperature Pulse Rate 96 H 101 H 92 H Pulse Rate [ Anterior Bilateral Upper Lobe] Pulse Rate [ From Monitor] Respiratory 18 25 H 23 Rate Respiratory Rate [Anterior Bilateral Upper Lobe] Blood Pressure 166/84 169/89 159/77 O2 Sat by Pulse 98 97 96 Oximetry 04/13/18 04/13/18 04/13/18 10:00 10:01 11:53 Temperature Pulse Rate 88 88 92 H Pulse Rate [ Anterior Bilateral Upper Lobe] Pulse Rate [ From Monitor] Respiratory 26 H 25 H Rate Respiratory Rate [Anterior Bilateral Upper Lobe] Blood Pressure 159/74 O2 Sat by Pulse 97 96 Oximetry 04/13/18 04/13/18 04/13/18 12:00 12:01 12:20 Temperature Pulse Rate 89 94 H Pulse Rate [ Anterior Bilateral Upper Lobe] Pulse Rate [ 89 From Monitor] Respiratory 21 21 Rate Respiratory Rate [Anterior Bilateral Upper Lobe] Blood Pressure 142/72 142/42 O2 Sat by Pulse 94 94 95 Oximetry 04/13/18 12:31 Temperature Pulse Rate 84 Pulse Rate [ Anterior Bilateral Upper Lobe] Pulse Rate [ From Monitor] Respiratory 19 Rate Respiratory Rate [Anterior Bilateral Upper Lobe] Blood Pressure 136/65 O2 Sat by Pulse 94 Oximetry Constitutional: other (intubated, critically ill on vent) Eyes: non-icteric ENT: oropharynx moist Neck: supple Effort: normal Ascultation: Bilateral: other (coarse BS bilaterally) Cardiovascular: regular rate and rhythm (no mrg) Gastrointestinal: normoactive bowel sounds, soft, non-tender, other (obese) Integumentary: other (foul smelling L foot wound, bandaged) Extremities: no cyanosis, edema (1+ bilateral LE edema, L > R) Neurologic: normal mental status, non-focal exam Psychiatric: other (unable to assess) CBC and BMP: 04/12/18 04:14 04/12/18 04:14 ABG, PT/INR, D-dimer: ABG POC ABG pH 7.458 (7.35-7.45) H 04/13/18 05:19 POC ABG pCO2 27.7 (35-45) L 04/13/18 05:19 POC ABG pO2 92 (80-105) 04/13/18 05:19 POC ABG HCO3 19.6 04/13/18 05:19 POC ABG Total CO2 20 04/13/18 05:19 POC ABG O2 Sat 98 04/13/18 05:19 PT/INR, D-dimer D-Dimer 933.08 ng/mlDDU (0-234) H 04/07/18 08:15 Abnormal lab findings: Abnormal Labs 04/07/18 04/07/18 04/07/18 08:11 08:15 08:15 WBC 23.9 H RBC 2.89 L Hgb 7.2 L Hct 22.4 L MCV 78 L MCH 25 L MCHC RDW 13.0 L Plt Count 453 H Lymph % (Auto) [place] % (Auto) [place] # Seg Neutrophils % Seg Neuts % (Manual) 84.0 H Lymphocytes % (Manual) 8.0 L Monocytes % (Manual) 8.0 H Seg Neutrophils # Seg Neutrophils # Man 20.1 H Lymphocytes # (Manual) Monocytes # (Manual) 1.9 H Eosinophils # (Manual) D-Dimer 933.08 H POC ABG pH POC ABG pCO2 POC ABG pO2 VBG pH Sodium Chloride Carbon Dioxide BUN Glucose POC Glucose 225 H Hemoglobin A1c Lactic Acid Calcium Iron TIBC Transferrin Total Bilirubin Alkaline Phosphatase Total Creatine Kinase C-Reactive Protein Total Protein Albumin Triglycerides LDL Cholesterol Direct HDL Cholesterol Vitamin B12 Urine pH Crossmatch 04/07/18 04/07/18 04/07/18 08:15 08:15 08:52 WBC RBC Hgb Hct MCV MCH MCHC RDW Plt Count Lymph % (Auto) [place] % (Auto) [place] # Seg Neutrophils % Seg Neuts % (Manual) Lymphocytes % (Manual) Monocytes % (Manual) Seg Neutrophils # Seg Neutrophils # Man Lymphocytes # (Manual) Monocytes # (Manual) Eosinophils # (Manual) D-Dimer POC ABG pH POC ABG pCO2 POC ABG pO2 VBG pH Sodium 127 L Chloride 90.7 L Carbon Dioxide 21 L BUN 21 H Glucose 191 H POC Glucose Hemoglobin A1c Lactic Acid 3.80 H* Calcium 8.2 L Iron TIBC Transferrin Total Bilirubin Alkaline Phosphatase 287 H Total Creatine Kinase 31 L C-Reactive Protein Total Protein Albumin 2.4 L Triglycerides LDL Cholesterol Direct HDL Cholesterol Vitamin B12 Urine pH 8.0 H Crossmatch 04/07/18 04/07/18 04/07/18 09:51 12:27 13:25 WBC RBC Hgb Hct MCV MCH MCHC RDW Plt Count Lymph % (Auto) [place] % (Auto) [place] # Seg Neutrophils % Seg Neuts % (Manual) Lymphocytes % (Manual) Monocytes % (Manual) Seg Neutrophils # Seg Neutrophils # Man Lymphocytes # (Manual) Monocytes # (Manual) Eosinophils # (Manual) D-Dimer POC ABG pH POC ABG pCO2 POC ABG pO2 VBG pH 7.231 L Sodium Chloride Carbon Dioxide BUN Glucose POC Glucose Hemoglobin A1c Lactic Acid 3.10 H* 4.50 H* Calcium Iron TIBC Transferrin Total Bilirubin Alkaline Phosphatase Total Creatine Kinase C-Reactive Protein Total Protein Albumin Triglycerides LDL Cholesterol Direct HDL Cholesterol Vitamin B12 Urine pH Crossmatch 04/07/18 04/07/18 04/07/18 15:24 16:35 16:43 WBC RBC Hgb Hct MCV MCH MCHC RDW Plt Count Lymph % (Auto) [place] % (Auto) [place] # Seg Neutrophils % Seg Neuts % (Manual) Lymphocytes % (Manual) Monocytes % (Manual) Seg Neutrophils # Seg Neutrophils # Man Lymphocytes # (Manual) Monocytes # (Manual) Eosinophils # (Manual) D-Dimer POC ABG pH POC ABG pCO2 POC ABG pO2 VBG pH Sodium Chloride Carbon Dioxide BUN Glucose POC Glucose 137 H Hemoglobin A1c 9.9 H Lactic Acid 2.20 H* Calcium Iron TIBC Transferrin Total Bilirubin Alkaline Phosphatase Total Creatine Kinase C-Reactive Protein Total Protein Albumin Triglycerides LDL Cholesterol Direct HDL Cholesterol Vitamin B12 Urine pH Crossmatch 04/07/18 04/07/18 04/08/18 16:43 16:46 06:15 WBC RBC Hgb Hct MCV MCH MCHC RDW Plt Count Lymph % (Auto) [place] % (Auto) [place] # Seg Neutrophils % Seg Neuts % (Manual) Lymphocytes % (Manual) Monocytes % (Manual) Seg Neutrophils # Seg Neutrophils # Man Lymphocytes # (Manual) Monocytes # (Manual) Eosinophils # (Manual) D-Dimer POC ABG pH 7.345 L POC ABG pCO2 28.0 L 33.8 L POC ABG pO2 76 L 138 H VBG pH Sodium Chloride Carbon Dioxide BUN Glucose POC Glucose Hemoglobin A1c Lactic Acid Calcium Iron TIBC Transferrin Total Bilirubin Alkaline Phosphatase Total Creatine Kinase C-Reactive Protein Total Protein Albumin Triglycerides LDL Cholesterol Direct HDL Cholesterol Vitamin B12 Urine pH Crossmatch See Detail 04/08/18 04/08/18 04/08/18 07:34 07:34 07:34 WBC 15.7 H RBC 6.30 H Hgb 15.6 H D Hct 49.2 H D MCV 78 L MCH 25 L MCHC RDW Plt Count Lymph % (Auto) [place] % (Auto) [place] # Seg Neutrophils % Seg Neuts % (Manual) Lymphocytes % (Manual) Monocytes % (Manual) Seg Neutrophils # Seg Neutrophils # Man Lymphocytes # (Manual) Monocytes # (Manual) Eosinophils # (Manual) D-Dimer POC ABG pH POC ABG pCO2 POC ABG pO2 VBG pH Sodium Chloride Carbon Dioxide BUN Glucose POC Glucose Hemoglobin A1c Lactic Acid Calcium Iron 15 L TIBC 106 L Transferrin 76 L Total Bilirubin Alkaline Phosphatase Total Creatine Kinase C-Reactive Protein Total Protein Albumin Triglycerides LDL Cholesterol Direct HDL Cholesterol Vitamin B12 1405 H Urine pH Crossmatch 04/08/18 04/08/18 04/08/18 07:34 09:54 12:43 WBC RBC Hgb Hct MCV MCH MCHC RDW Plt Count Lymph % (Auto) [place] % (Auto) [place] # Seg Neutrophils % Seg Neuts % (Manual) Lymphocytes % (Manual) Monocytes % (Manual) Seg Neutrophils # Seg Neutrophils # Man Lymphocytes # (Manual) Monocytes # (Manual) Eosinophils # (Manual) D-Dimer POC ABG pH POC ABG pCO2 POC ABG pO2 VBG pH Sodium 131 L Chloride Carbon Dioxide 20 L BUN 24 H Glucose 167 H POC Glucose 162 H 175 H Hemoglobin A1c Lactic Acid Calcium 7.5 L Iron TIBC Transferrin Total Bilirubin Alkaline Phosphatase Total Creatine Kinase C-Reactive Protein Total Protein Albumin Triglycerides LDL Cholesterol Direct HDL Cholesterol Vitamin B12 Urine pH Crossmatch 04/08/18 04/08/18 04/09/18 16:36 16:40 01:15 WBC 28.2 H RBC 2.67 L Hgb 7.3 L D Hct 21.0 L D MCV 79 L MCH 27 L MCHC 35 H RDW Plt Count Lymph % (Auto) [place] % (Auto) [place] # Seg Neutrophils % Seg Neuts % (Manual) 74.0 H Lymphocytes % (Manual) 3.0 L Monocytes % (Manual) Seg Neutrophils # Seg Neutrophils # Man 20.9 H Lymphocytes # (Manual) 0.8 L Monocytes # (Manual) 1.7 H Eosinophils # (Manual) D-Dimer POC ABG pH POC ABG pCO2 POC ABG pO2 VBG pH Sodium Chloride Carbon Dioxide BUN Glucose POC Glucose 150 H 171 H Hemoglobin A1c Lactic Acid Calcium Iron TIBC Transferrin Total Bilirubin Alkaline Phosphatase Total Creatine Kinase C-Reactive Protein Total Protein Albumin Triglycerides LDL Cholesterol Direct HDL Cholesterol Vitamin B12 Urine pH Crossmatch 04/09/18 04/09/18 04/09/18 05:13 05:42 05:42 WBC 23.2 H RBC 2.72 L Hgb 7.0 L Hct 21.6 L MCV 79 L MCH 26 L MCHC RDW Plt Count Lymph % (Auto) [place] % (Auto) [place] # Seg Neutrophils % Seg Neuts % (Manual) 87.5 H Lymphocytes % (Manual) 8.0 L Monocytes % (Manual) Seg Neutrophils # Seg Neutrophils # Man 20.3 H Lymphocytes # (Manual) Monocytes # (Manual) 0.9 H Eosinophils # (Manual) D-Dimer POC ABG pH POC ABG pCO2 34.4 L POC ABG pO2 VBG pH Sodium 134 L Chloride Carbon Dioxide 21 L BUN 24 H Glucose 192 H POC Glucose Hemoglobin A1c Lactic Acid Calcium 7.4 L Iron TIBC Transferrin Total Bilirubin Alkaline Phosphatase 211 H Total Creatine Kinase C-Reactive Protein Total Protein Albumin 2.1 L Triglycerides LDL Cholesterol Direct HDL Cholesterol Vitamin B12 Urine pH Crossmatch 04/09/18 04/09/18 04/10/18 12:52 18:43 00:13 WBC RBC Hgb Hct MCV MCH MCHC RDW Plt Count Lymph % (Auto) [place] % (Auto) [place] # Seg Neutrophils % Seg Neuts % (Manual) Lymphocytes % (Manual) Monocytes % (Manual) Seg Neutrophils # Seg Neutrophils # Man Lymphocytes # (Manual) Monocytes # (Manual) Eosinophils # (Manual) D-Dimer POC ABG pH POC ABG pCO2 POC ABG pO2 VBG pH Sodium Chloride Carbon Dioxide BUN Glucose POC Glucose 206 H 223 H 233 H Hemoglobin A1c Lactic Acid Calcium Iron TIBC Transferrin Total Bilirubin Alkaline Phosphatase Total Creatine Kinase C-Reactive Protein Total Protein Albumin Triglycerides LDL Cholesterol Direct HDL Cholesterol Vitamin B12 Urine pH Crossmatch 04/10/18 04/10/18 04/10/18 04:04 04:06 04:06 WBC 18.9 H RBC 3.27 L Hgb 8.4 L Hct 26.0 L MCV 80 L MCH 26 L MCHC RDW Plt Count Lymph % (Auto) [place] % (Auto) [place] # Seg Neutrophils % Seg Neuts % (Manual) 86.0 H Lymphocytes % (Manual) 2.0 L Monocytes % (Manual) Seg Neutrophils # Seg Neutrophils # Man 16.3 H Lymphocytes # (Manual) 0.4 L Monocytes # (Manual) Eosinophils # (Manual) 0.8 H D-Dimer POC ABG pH POC ABG pCO2 34.4 L POC ABG pO2 VBG pH Sodium 136 L Chloride Carbon Dioxide 20 L BUN 23 H Glucose 213 H POC Glucose Hemoglobin A1c Lactic Acid Calcium 7.6 L Iron TIBC Transferrin Total Bilirubin Alkaline Phosphatase Total Creatine Kinase C-Reactive Protein Total Protein Albumin Triglycerides LDL Cholesterol Direct HDL Cholesterol Vitamin B12 Urine pH Crossmatch 04/10/18 04/10/18 04/10/18 06:10 12:30 17:43 WBC RBC Hgb Hct MCV MCH MCHC RDW Plt Count Lymph % (Auto) [place] % (Auto) [place] # Seg Neutrophils % Seg Neuts % (Manual) Lymphocytes % (Manual) Monocytes % (Manual) Seg Neutrophils # Seg Neutrophils # Man Lymphocytes # (Manual) Monocytes # (Manual) Eosinophils # (Manual) D-Dimer POC ABG pH POC ABG pCO2 POC ABG pO2 VBG pH Sodium Chloride Carbon Dioxide BUN Glucose POC Glucose 246 H 266 H 246 H Hemoglobin A1c Lactic Acid Calcium Iron TIBC Transferrin Total Bilirubin Alkaline Phosphatase Total Creatine Kinase C-Reactive Protein Total Protein Albumin Triglycerides LDL Cholesterol Direct HDL Cholesterol Vitamin B12 Urine pH Crossmatch 04/10/18 04/11/18 04/11/18 23:50 04:14 04:14 WBC 14.9 H RBC 3.07 L Hgb 8.0 L Hct 24.6 L MCV 80 L MCH 26 L MCHC RDW Plt Count Lymph % (Auto) [place] % (Auto) [place] # Seg Neutrophils % Seg Neuts % (Manual) 79.0 H Lymphocytes % (Manual) 10.0 L Monocytes % (Manual) Seg Neutrophils # Seg Neutrophils # Man 11.8 H Lymphocytes # (Manual) Monocytes # (Manual) Eosinophils # (Manual) D-Dimer POC ABG pH POC ABG pCO2 POC ABG pO2 VBG pH Sodium Chloride 107.9 H Carbon Dioxide 20 L BUN 25 H Glucose 184 H POC Glucose 247 H Hemoglobin A1c Lactic Acid Calcium 7.3 L Iron TIBC Transferrin Total Bilirubin 1.40 H Alkaline Phosphatase 225 H Total Creatine Kinase C-Reactive Protein Total Protein 5.9 L Albumin 1.9 L Triglycerides LDL Cholesterol Direct HDL Cholesterol Vitamin B12 Urine pH Crossmatch 04/11/18 04/11/18 04/11/18 04:43 10:04 12:02 WBC RBC Hgb Hct MCV MCH MCHC RDW Plt Count Lymph % (Auto) [place] % (Auto) [place] # Seg Neutrophils % Seg Neuts % (Manual) Lymphocytes % (Manual) Monocytes % (Manual) Seg Neutrophils # Seg Neutrophils # Man Lymphocytes # (Manual) Monocytes # (Manual) Eosinophils # (Manual) D-Dimer POC ABG pH 7.479 H POC ABG pCO2 34.8 L POC ABG pO2 VBG pH Sodium Chloride Carbon Dioxide BUN Glucose POC Glucose 147 H 148 H Hemoglobin A1c Lactic Acid Calcium Iron TIBC Transferrin Total Bilirubin Alkaline Phosphatase Total Creatine Kinase C-Reactive Protein Total Protein Albumin Triglycerides LDL Cholesterol Direct HDL Cholesterol Vitamin B12 Urine pH Crossmatch 04/11/18 04/11/18 04/11/18 12:22 17:34 23:39 WBC RBC Hgb Hct MCV MCH MCHC RDW Plt Count Lymph % (Auto) [place] % (Auto) [place] # Seg Neutrophils % Seg Neuts % (Manual) Lymphocytes % (Manual) Monocytes % (Manual) Seg Neutrophils # Seg Neutrophils # Man Lymphocytes # (Manual) Monocytes # (Manual) Eosinophils # (Manual) D-Dimer POC ABG pH POC ABG pCO2 POC ABG pO2 VBG pH Sodium Chloride Carbon Dioxide BUN Glucose POC Glucose 118 H 192 H Hemoglobin A1c Lactic Acid Calcium Iron TIBC Transferrin Total Bilirubin Alkaline Phosphatase Total Creatine Kinase C-Reactive Protein 13.00 H Total Protein Albumin Triglycerides LDL Cholesterol Direct HDL Cholesterol Vitamin B12 Urine pH Crossmatch 04/12/18 04/12/18 04/12/18 04:14 04:14 04:56 WBC 17.2 H RBC 3.16 L Hgb 8.4 L Hct 25.4 L MCV 81 L MCH 27 L MCHC RDW Plt Count 453 H Lymph % (Auto) 9.1 L [place] % (Auto) 11.7 H [place] # 2.0 H Seg Neutrophils % 78.1 H Seg Neuts % (Manual) Lymphocytes % (Manual) Monocytes % (Manual) Seg Neutrophils # 13.4 H Seg Neutrophils # Man Lymphocytes # (Manual) Monocytes # (Manual) Eosinophils # (Manual) D-Dimer POC ABG pH 7.452 H POC ABG pCO2 28.6 L POC ABG pO2 VBG pH Sodium Chloride 110.4 H Carbon Dioxide 20 L BUN 25 H Glucose 164 H POC Glucose Hemoglobin A1c Lactic Acid Calcium 7.6 L Iron TIBC Transferrin Total Bilirubin Alkaline Phosphatase Total Creatine Kinase C-Reactive Protein Total Protein Albumin Triglycerides LDL Cholesterol Direct HDL Cholesterol Vitamin B12 Urine pH Crossmatch 04/12/18 04/12/18 04/12/18 09:20 15:01 18:19 WBC RBC Hgb Hct MCV MCH MCHC RDW Plt Count Lymph % (Auto) [place] % (Auto) [place] # Seg Neutrophils % Seg Neuts % (Manual) Lymphocytes % (Manual) Monocytes % (Manual) Seg Neutrophils # Seg Neutrophils # Man Lymphocytes # (Manual) Monocytes # (Manual) Eosinophils # (Manual) D-Dimer POC ABG pH POC ABG pCO2 POC ABG pO2 VBG pH Sodium Chloride Carbon Dioxide BUN Glucose POC Glucose 148 H 170 H 140 H Hemoglobin A1c Lactic Acid Calcium Iron TIBC Transferrin Total Bilirubin Alkaline Phosphatase Total Creatine Kinase C-Reactive Protein Total Protein Albumin Triglycerides LDL Cholesterol Direct HDL Cholesterol Vitamin B12 Urine pH Crossmatch 04/12/18 04/12/18 04/13/18 21:20 23:59 05:19 WBC RBC Hgb Hct MCV MCH MCHC RDW Plt Count Lymph % (Auto) [place] % (Auto) [place] # Seg Neutrophils % Seg Neuts % (Manual) Lymphocytes % (Manual) Monocytes % (Manual) Seg Neutrophils # Seg Neutrophils # Man Lymphocytes # (Manual) Monocytes # (Manual) Eosinophils # (Manual) D-Dimer POC ABG pH 7.458 H POC ABG pCO2 27.7 L POC ABG pO2 VBG pH Sodium Chloride Carbon Dioxide BUN Glucose POC Glucose 173 H 199 H Hemoglobin A1c Lactic Acid Calcium Iron TIBC Transferrin Total Bilirubin Alkaline Phosphatase Total Creatine Kinase C-Reactive Protein Total Protein Albumin Triglycerides LDL Cholesterol Direct HDL Cholesterol Vitamin B12 Urine pH Crossmatch 04/13/18 04/13/18 05:37 08:13 WBC RBC Hgb Hct MCV MCH MCHC RDW Plt Count Lymph % (Auto) [place] % (Auto) [place] # Seg Neutrophils % Seg Neuts % (Manual) Lymphocytes % (Manual) Monocytes % (Manual) Seg Neutrophils # Seg Neutrophils # Man Lymphocytes # (Manual) Monocytes # (Manual) Eosinophils # (Manual) D-Dimer POC ABG pH POC ABG pCO2 POC ABG pO2 VBG pH Sodium Chloride Carbon Dioxide BUN Glucose POC Glucose 242 H Hemoglobin A1c Lactic Acid Calcium Iron TIBC Transferrin Total Bilirubin Alkaline Phosphatase Total Creatine Kinase C-Reactive Protein Total Protein Albumin Triglycerides 174 H LDL Cholesterol Direct 25 L HDL Cholesterol 9 L Vitamin B12 Urine pH Crossmatch Chest x-ray: report reviewed, image reviewed
[2018-04-13] MEDS ORDERED: PANCREAZE DR 10,500 UNIT FEEDTUBE PRN (13:33)
[2018-04-13] MEDS ORDERED: SIMPLE SYRUP FEEDTUBE PRN ×2 (13:33)
[2018-04-13] MEDS ORDERED: SODIUM BICARBONATE FEEDTUBE PRN (13:33)
--- NOTE | 2018-04-13 18:36 | Magnetic Resonance Report ---
FINAL REPORT PROCEDURE: MR LE JOINT LT WO/W CON TECHNIQUE: Magnetic resonance imaging of the LEFT foot was performed using standard pulse sequences before and after the IV injection of paramagnetic contrast. HISTORY: Left foot abscess with sepsis COMPARISON: No prior studies are available for comparison. FINDINGS: There is a soft tissue defect at the lateral plantar aspect of the posterior foot. No drainable underlying fluid collection is seen. There is enhancement and fluid signal surrounding the adjacent peroneus longus and brevis tendons, compatible with tenosynovitis. There is high T2 signal and enhancement of the intrinsic musculature of the foot, which may be inflammatory in nature. There is bone marrow edema of the underlying posterior lateral calcaneus, compatible with osteomyelitis. There is also edema and enhancement along the lateral cortical surface of the cuboid as well as the base of the 5th metatarsal, compatible with osteomyelitis. IMPRESSION: Ulcer at the lateral plantar aspect of the posterior foot with underlying osteomyelitis of the calcaneus. There is marrow edema at the lateral cortical surface of the cuboid and base of the 5th metatarsal which could also be related to osteomyelitis. No drainable abscess is seen.
--- NOTE | 2018-04-13 19:38 | Progress Note ---
Assessment and Plan Assessment: 1) Sepsis with septic shock: resolved. Etiology most likely multifactorial - left foot gangrene +/- bilateral pneumonia. 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 6) Cardiac arrest enroute s/p CPR 7) Acute respiratory failure 8) Presumed bilateral pneumonia -CTA of the chest show bilateral basilar opacities. -Tracheal asp 04/07 normal resp kate 9) [place] 10) PVD - art US monophasic flow at the left ankle. Plan: -f/u OR cultures -Vascular consult -Dr Cohen recommended amputation - pt refused -continue vancomycin and zosyn for now - renally dosed Thank you for your consultation, will follow up with you. Sara Pandey MD Infectious Diseases Specialist [facility] ([facility]) M [phone] O [phone] Subjective Date of service: 04/13/18 Principal diagnosis: Acute respiratory failure Interval history: Remains on the vent, no fever no pressors Microbiology: Blood cultures: 04/07 ngtd Urine cultures: 04/07 neg Respiratory cultures: TA 04/07 ngtd Left foot wound: 04/10 Enterococcus, Proteus and GNR Current Antimicrobials: Zosyn 04/07 Vancomycin 04/07 Previous Antimicrobials: Objective - Exam Narrative Exam: General appearance: sedated on the vent Eyes: anicteric sclerae, moist conjunctivae; no lid-lag; PERRLA HENT: Atraumatic; oropharynx clear +ETT. Neck: Trachea midline; supple, no thyromegaly or lymphadenopathy Lungs: kalyan rhonchi CV: RRR, Abdomen: Soft, non-tender; no masses or hepatosplenomegaly Extremities: left foot lateral wound with devitalized tissue and foul smelling drainage, marked foot and ankle edema. Kalyan leg edema Skin: Normal temperature, turgor and texture; no rash, ulcers or subcutaneous nodules Psych: sedated. Neuro: sedated Lines: IJ TLC - Constitutional Vitals: Vital Signs Temp Pulse Resp BP Pulse Ox 98.7 F 87 27 H 161/77 98 04/13/18 16:00 04/13/18 18:01 04/13/18 18:01 04/13/18 18:01 04/13/18 18:01 Temperature -Last 24 Hours Temperature 98.7 F Temperature 97.4 F Temperature 98.6 F Temperature 98.8 F Temperature 98 F Temperature 98.5 F - Labs CBC & Chem 7: 04/12/18 04:14 04/12/18 04:14 Labs: Abnormal lab results 04/12/18 04/12/18 04/13/18 Range/Units 21:20 23:59 05:19 POC ABG pH 7.458 H (7.35-7.45) POC ABG pCO2 27.7 L (35-45) POC Glucose 173 H 199 H (70-105) Triglycerides (2-149) mg/dL LDL Cholesterol Direct (50-130) mg/dL HDL Cholesterol (40-59) mg/dL 04/13/18 04/13/18 04/13/18 Range/Units 05:37 08:13 13:13 POC ABG pH (7.35-7.45) POC ABG pCO2 (35-45) POC Glucose 242 H 233 H (70-105) Triglycerides 174 H (2-149) mg/dL LDL Cholesterol Direct 25 L (50-130) mg/dL HDL Cholesterol 9 L (40-59) mg/dL 04/13/18 Range/Units 17:15 POC ABG pH (7.35-7.45) POC ABG pCO2 (35-45) POC Glucose 241 H (70-105) Triglycerides (2-149) mg/dL LDL Cholesterol Direct (50-130) mg/dL HDL Cholesterol (40-59) mg/dL
[2018-04-14] MEDS: HumaLOG SUB-Q SCH ×5 (00:24→23:41)
[2018-04-14] MEDS: DAKIN'S FULL STRENGTH TP SCH ×3 (00:25→23:43)
[2018-04-14] MEDS: SENOKOT FEEDTUBE SCH ×3 (00:25→22:10)
[2018-04-14] MEDS: ZOSYN/NS 4.5GM/100ML 4.5 GM/100 ML VIAL IV SCH ×3 (05:13→22:09)
[2018-04-14] MEDS: VANCOMYCIN 1,500 MG in NACL 0.9% 500 ML 500 ML IV SCH ×2 (05:54→18:39)
--- NOTE | 2018-04-14 06:48 | XRay Report ---
FINAL REPORT EXAM: XR CHEST 1V AP HISTORY: follow up respiratory failure TECHNIQUE: AP portable view(s) of the chest obtained. PRIORS: 04/13/2018, 04/12/2018 FINDINGS: Endotracheal tube terminates approximately 3 cm from the jada. Enteric tube courses below the diaphragm and off of the inferior field of view. Right IJ line terminates in the region of the mid SVC. Mild patient rotation. No mediastinal shift. Cardiac silhouette is not enlarged. No pneumothorax, effusion, or focal airspace disease. Linear bibasilar opacities are most consistent with atelectasis versus scarring. No acute skeletal findings. IMPRESSION: Satisfactory appearance of patient's support apparatus without pneumothorax or significant change compared to 04/13/2018.
[2018-04-14] MEDS: SODIUM CHLORIDE FLUSH SYRINGE 10 ML IV SCH ×3 (06:54→22:13)
[2018-04-14] MEDS: DUONEB *Not for PRN Use IH SCH ×3 (07:40→20:35)
[2018-04-14] MEDS: LANTUS SUB-Q SCH ×2 (10:07→22:11)
[2018-04-14] MEDS: LOVENOX SUB-Q SCH (10:07)
--- NOTE | 2018-04-14 10:16 | Progress Note ---
Assessment and Plan Assessment: 1) Sepsis with septic shock: resolved. Etiology most likely multifactorial - left foot gangrene +/- bilateral pneumonia. 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 6) Cardiac arrest enroute s/p CPR 7) Acute respiratory failure 8) Presumed bilateral pneumonia -CTA of the chest show bilateral basilar opacities. -Tracheal asp 04/07 normal resp kate 9) [place] - resolved 10) PVD - art US monophasic flow at the left ankle. Plan: -f/u OR cultures -Vascular consult -Dr Johnson recommended amputation - pt refused. I spoke with him today he said he would think about it. -stop vancomycin- no evidence of MRSA -continue zosyn D8 (covers Eneterococcus and GNRs) -discussed w Dr Johnson and patient and his I am rounding on Tuesday Thank you for your consultation, will follow up with you. Sara Pandey MD Infectious Diseases Specialist [facility] ([facility]) M [phone] O [phone] Subjective Date of service: 04/14/18 Principal diagnosis: Acute respiratory failure Interval history: Remains on the vent on CPAP, alert, no fever no pressors Microbiology: Blood cultures: 04/07 ngtd Urine cultures: 04/07 neg Respiratory cultures: TA 04/07 ngtd Left foot wound: 9/ Enterococcus, Proteus and GNR Current Antimicrobials: Zosyn 04/07 Vancomycin 04/07 Previous Antimicrobials: Objective - Exam Narrative Exam: General appearance: alert on the vent Eyes: anicteric sclerae, moist conjunctivae; no lid-lag; PERRLA HENT: Atraumatic; oropharynx clear +ETT. Neck: Trachea midline; supple, no thyromegaly or lymphadenopathy Lungs: kalyan rhonchi CV: RRR, Abdomen: Soft, non-tender; no masses or hepatosplenomegaly Extremities: left foot lateral wound with devitalized tissue and foul smelling drainage, marked foot and ankle edema. Kalyan leg edema Skin: Normal temperature, turgor and texture; no rash, ulcers or subcutaneous nodules Psych: sedated. Neuro: sedated Lines: IJ TLC - Constitutional Vitals: Vital Signs Temp Pulse Resp BP Pulse Ox 98.4 F 91 H 21 168/80 98 04/14/18 08:00 04/14/18 08:17 04/14/18 08:17 04/14/18 07:24 04/14/18 07:24 Temperature -Last 24 Hours Temperature 98.4 F Temperature 98.0 F Temperature 99.3 F Temperature 98.3 F Temperature 98.7 F Temperature 97.4 F - Labs CBC & Chem 7: 04/12/18 04:14 04/12/18 04:14 Labs: Abnormal lab results 04/13/18 04/13/18 04/13/18 Range/Units 13:13 17:15 21:33 POC ABG pH (7.35-7.45) POC ABG pCO2 (35-45) POC Glucose 233 H 241 H 256 H (70-105) 04/14/18 04/14/18 04/14/18 Range/Units 00:02 05:21 09:45 POC ABG pH 7.499 H (7.35-7.45) POC ABG pCO2 30.1 L (35-45) POC Glucose 245 H 182 H (70-105)
[2018-04-14] MEDS: PROTONIX FEEDTUBE SCH (11:30)
[2018-04-14] MEDS ORDERED: LANTUS SUB-Q ONE (12:00)
[2018-04-14] MEDS ORDERED: ZESTRIL PO SCH (12:00)
--- NOTE | 2018-04-14 13:41 | Progress Note ---
Assessment and Plan Imp: 1. Cellulitis 2. Aspiration pneumonia 3. Sepsis 4. Hypoglycemia initially 2/2 above 5. s/p CP arrest 6. Acute respiratory failure, hypoxia Rec: 1. Cont. current ABX; f/u cultures 2. Surgery on board -> recommending vascular surgery eval. as well, ordered 3. Extubated, doing well 4. Off pressors; stopped IVFs 5. DVT and GI PPx, TFs -> ST eval. 6. Resume home ACEI for elevated BP 7. Complex decision-making Subjective Date of service: 04/14/18 Principal diagnosis: Acute respiratory failure Interval history: Off sedation. Awake now and following commands. Off pressors. Tolerated PSV x 4 hours, ABG looked good. Extubated now and doing well thus far. Active Medications Acetaminophen (Tylenol) 650 mg PO Q4H PRN PRN Reason: Pain MILD(1-3)/Fever >100.5/[place] Last Admin: 04/11/18 23:59 Dose: 650 mg Acetaminophen (Tylenol) [address] Q4H PRN PRN Reason: Pain, Mild (1-3) Last Admin: 04/07/18 17:25 Dose: 650 mg Albuterol (Proventil) 2.5 mg IH Q3HRT PRN PRN Reason: Wheezing Albuterol/Ipratropium (Duoneb *Not For Prn Use*) 1 ampul IH TIDRT [facility] Last Admin: 04/14/18 07:40 Dose: 1 ampul Lipase/Protease/Amylase (Pancreaze Dr 10,500 Unit) 1 each FEEDTUBE PRN PRN PRN Reason: For Clogged Feeding Tube Bisacodyl (Dulcolax) 10 mg PO QDAY PRN PRN Reason: Constipation Enoxaparin Sodium (Lovenox) 40 mg SUB-Q QDAY [facility] Last Admin: 04/14/18 10:07 Dose: 40 mg Hydrophilic Ointment (Vaseline Lip Therapy) 1 applic TP Q2HR PRN PRN Reason: Dry Lips Last Admin: 04/08/18 18:47 Dose: 1 applic Propofol (Diprivan 10 Mg/Ml) 1,000 mg in 100 mls @ 2.177 mls/hr IV TITR JODY; Protocol Last Titration: 04/07/18 13:29 Dose: 0 mcg/kg/min, 0 mls/hr Midazolam HCl 100 mg/ Sodium (Chloride) 100 mls @ 2 mls/hr IV TITR JODY; Protocol Last Titration: 04/10/18 10:43 Dose: Infused Fentanyl Citrate (Fentanyl Drip Premix) 2,000 mcg in 100 mls @ 3.629 mls/hr IV TITR JODY; Protocol Last Titration: 04/11/18 08:33 Dose: 0 mcg/kg/hr, 0 mls/hr Piperacillin Sod/Tazobactam Sod (Zosyn/Ns 4.5gm/100ml) 4.5 gm in 100 mls @ 200 mls/hr IV Q8HR JODY; Protocol Last Admin: 04/14/18 13:02 Dose: 200 mls/hr Norepinephrine (Levophed Drip 4 Mg/Ns 250 Ml) 4 mg in 250 mls @ 7.5 mls/hr IV TITR JODY; Protocol Last Titration: 04/11/18 00:23 Dose: 0 mcg/min, 0 mls/hr Vancomycin HCl 1,500 mg/ (Sodium Chloride) 530 mls @ 333.333 mls/hr IV Q12H JODY Last Admin: 04/14/18 05:54 Dose: 333.333 mls/hr Insulin Glargine (Lantus) 15 units SUB-Q BID JODY Insulin Human Lispro (Humalog) 0 unit SUB-Q Q6HR [facility]; Protocol Last Admin: 04/14/18 12:55 Dose: 2 unit Lisinopril (Zestril) 10 mg PO QDAY [facility] Last Admin: 04/14/18 13:00 Dose: 10 mg Morphine Sulfate (Morphine) 2 mg IV Q4H PRN PRN Reason: Pain, Moderate (4-6) Last Admin: 04/13/18 22:55 Dose: 2 mg Multi-Ingred Cream/Lotion/Oil/Oint (Artificial Tears Ophth Oint) 1 applic OU Q4HR PRN PRN Reason: Dry Eye(s) Ondansetron HCl (Zofran) 4 mg IV Q8H PRN PRN Reason: Nausea And Vomiting Pantoprazole (Protonix) 40 mg FEEDTUBE DAILY [facility] Last Admin: 04/14/18 11:30 Dose: 40 mg Senna (Senokot) 17.6 mg FEEDTUBE Q12HR [facility] Last Admin: 04/14/18 11:29 Dose: Not Given Simple Syrup (Simple Syrup) 15 ml FEEDTUBE PRN PRN PRN Reason: Hypoglycemia Simple Syrup (Simple Syrup) 30 ml FEEDTUBE PRN PRN PRN Reason: Hypoglycemia Sodium Bicarbonate (Sodium Bicarbonate) 325 mg FEEDTUBE PRN PRN PRN Reason: For Clogged Feeding Tube Sodium Chloride (Nacl 0.9% 500 Ml) 1 ml IV DIRECT JODY Sodium Chloride (Sodium Chloride Flush Syringe 10 Ml) 10 ml IV BID [facility] Last Admin: 04/14/18 13:02 Dose: 10 ml Sodium Chloride (Sodium Chloride Flush Syringe 10 Ml) 10 ml IV PRN PRN PRN Reason: LINE FLUSH Sodium Hypochlorite (Dakin's Full Strength) 1 applic TP Q12HR [facility] Last Admin: 04/14/18 12:53 Dose: 1 applicatio Objective Vital Signs - 12hr 04/14/18 04/14/18 04/14/18 02:00 03:00 04:00 Temperature 98.0 F Pulse Rate 92 H 89 89 Pulse Rate [ Anterior Bilateral Upper Lobe] Pulse Rate [ 90 From Monitor] Respiratory 25 H 21 22 Rate Respiratory Rate [Anterior Bilateral Upper Lobe] Blood Pressure 165/78 151/75 162/81 O2 Sat by Pulse 97 96 98 Oximetry 04/14/18 04/14/18 04/14/18 05:00 06:00 07:00 Temperature Pulse Rate 88 87 85 Pulse Rate [ Anterior Bilateral Upper Lobe] Pulse Rate [ From Monitor] Respiratory 22 23 24 Rate Respiratory Rate [Anterior Bilateral Upper Lobe] Blood Pressure 159/80 159/77 168/81 O2 Sat by Pulse 98 96 96 Oximetry 04/14/18 04/14/18 04/14/18 07:24 07:40 08:00 Temperature 98.4 F Pulse Rate 87 88 Pulse Rate [ 87 Anterior Bilateral Upper Lobe] Pulse Rate [ From Monitor] Respiratory 25 H Rate Respiratory 25 H Rate [Anterior Bilateral Upper Lobe] Blood Pressure 168/80 164/78 O2 Sat by Pulse 98 97 Oximetry 04/14/18 04/14/18 04/14/18 08:17 09:00 10:00 Temperature Pulse Rate 88 94 H Pulse Rate [ 91 H Anterior Bilateral Upper Lobe] Pulse Rate [ From Monitor] Respiratory 25 H 15 Rate Respiratory 21 Rate [Anterior Bilateral Upper Lobe] Blood Pressure 159/78 167/81 O2 Sat by Pulse 97 99 Oximetry 04/14/18 04/14/18 04/14/18 11:00 12:00 13:00 Temperature 98.5 F Pulse Rate 89 91 H Pulse Rate [ Anterior Bilateral Upper Lobe] Pulse Rate [ From Monitor] Respiratory 27 H Rate Respiratory Rate [Anterior Bilateral Upper Lobe] Blood Pressure 163/81 171/88 O2 Sat by Pulse 99 Oximetry Constitutional: no acute distress, alert Eyes: non-icteric ENT: oropharynx moist Neck: supple Effort: normal Ascultation: Bilateral: clear Cardiovascular: regular rate and rhythm (no mrg) Gastrointestinal: normoactive bowel sounds, soft, non-tender, other (obese) Integumentary: other (foul smelling L foot wound, bandaged) Extremities: no cyanosis, edema (1+ bilateral LE edema, L > R) Neurologic: normal mental status, non-focal exam, pupils equal and round, CN II- XII normal Psychiatric: mood appropriate, affect normal CBC and BMP: 04/12/18 04:14 04/12/18 04:14 ABG, PT/INR, D-dimer: ABG POC ABG pH 7.499 (7.35-7.45) H 04/14/18 09:45 POC ABG pCO2 30.1 (35-45) L 04/14/18 09:45 POC ABG pO2 104 (80-105) 04/14/18 09:45 POC ABG HCO3 23.5 04/14/18 09:45 POC ABG Total CO2 24 04/14/18 09:45 POC ABG O2 Sat 99 04/14/18 09:45 PT/INR, D-dimer D-Dimer 933.08 ng/mlDDU (0-234) H 04/07/18 08:15 Abnormal lab findings: Abnormal Labs 04/07/18 04/07/18 04/07/18 08:11 08:15 08:15 WBC 23.9 H RBC 2.89 L Hgb 7.2 L Hct 22.4 L MCV 78 L MCH 25 L MCHC RDW 13.0 L Plt Count 453 H Lymph % (Auto) Travis % (Auto) Travis # Seg Neutrophils % Seg Neuts % (Manual) 84.0 H Lymphocytes % (Manual) 8.0 L Monocytes % (Manual) 8.0 H Seg Neutrophils # Seg Neutrophils # Man 20.1 H Lymphocytes # (Manual) Monocytes # (Manual) 1.9 H Eosinophils # (Manual) D-Dimer 933.08 H POC ABG pH POC ABG pCO2 POC ABG pO2 VBG pH Sodium Chloride Carbon Dioxide BUN Glucose POC Glucose 225 H Hemoglobin A1c Lactic Acid Calcium Iron TIBC Transferrin Total Bilirubin Alkaline Phosphatase Total Creatine Kinase C-Reactive Protein Total Protein Albumin Triglycerides LDL Cholesterol Direct HDL Cholesterol Vitamin B12 Urine pH Crossmatch 04/07/18 04/07/18 04/07/18 08:15 08:15 08:52 WBC RBC Hgb Hct MCV MCH MCHC RDW Plt Count Lymph % (Auto) Travis % (Auto) Travis # Seg Neutrophils % Seg Neuts % (Manual) Lymphocytes % (Manual) Monocytes % (Manual) Seg Neutrophils # Seg Neutrophils # Man Lymphocytes # (Manual) Monocytes # (Manual) Eosinophils # (Manual) D-Dimer POC ABG pH POC ABG pCO2 POC ABG pO2 VBG pH Sodium 127 L Chloride 90.7 L Carbon Dioxide 21 L BUN 21 H Glucose 191 H POC Glucose Hemoglobin A1c Lactic Acid 3.80 H* Calcium 8.2 L Iron TIBC Transferrin Total Bilirubin Alkaline Phosphatase 287 H Total Creatine Kinase 31 L C-Reactive Protein Total Protein Albumin 2.4 L Triglycerides LDL Cholesterol Direct HDL Cholesterol Vitamin B12 Urine pH 8.0 H Crossmatch 04/07/18 04/07/18 04/07/18 09:51 12:27 13:25 WBC RBC Hgb Hct MCV MCH MCHC RDW Plt Count Lymph % (Auto) Travis % (Auto) Travis # Seg Neutrophils % Seg Neuts % (Manual) Lymphocytes % (Manual) Monocytes % (Manual) Seg Neutrophils # Seg Neutrophils # Man Lymphocytes # (Manual) Monocytes # (Manual) Eosinophils # (Manual) D-Dimer POC ABG pH POC ABG pCO2 POC ABG pO2 VBG pH 7.231 L Sodium Chloride Carbon Dioxide BUN Glucose POC Glucose Hemoglobin A1c Lactic Acid 3.10 H* 4.50 H* Calcium Iron TIBC Transferrin Total Bilirubin Alkaline Phosphatase Total Creatine Kinase C-Reactive Protein Total Protein Albumin Triglycerides LDL Cholesterol Direct HDL Cholesterol Vitamin B12 Urine pH Crossmatch 04/07/18 04/07/18 04/07/18 15:24 16:35 16:43 WBC RBC Hgb Hct MCV MCH MCHC RDW Plt Count Lymph % (Auto) Travis % (Auto) Travis # Seg Neutrophils % Seg Neuts % (Manual) Lymphocytes % (Manual) Monocytes % (Manual) Seg Neutrophils # Seg Neutrophils # Man Lymphocytes # (Manual) Monocytes # (Manual) Eosinophils # (Manual) D-Dimer POC ABG pH POC ABG pCO2 POC ABG pO2 VBG pH Sodium Chloride Carbon Dioxide BUN Glucose POC Glucose 137 H Hemoglobin A1c 9.9 H Lactic Acid 2.20 H* Calcium Iron TIBC Transferrin Total Bilirubin Alkaline Phosphatase Total Creatine Kinase C-Reactive Protein Total Protein Albumin Triglycerides LDL Cholesterol Direct HDL Cholesterol Vitamin B12 Urine pH Crossmatch 04/07/18 04/07/18 04/08/18 16:43 16:46 06:15 WBC RBC Hgb Hct MCV MCH MCHC RDW Plt Count Lymph % (Auto) Travis % (Auto) Travis # Seg Neutrophils % Seg Neuts % (Manual) Lymphocytes % (Manual) Monocytes % (Manual) Seg Neutrophils # Seg Neutrophils # Man Lymphocytes # (Manual) Monocytes # (Manual) Eosinophils # (Manual) D-Dimer POC ABG pH 7.345 L POC ABG pCO2 28.0 L 33.8 L POC ABG pO2 76 L 138 H VBG pH Sodium Chloride Carbon Dioxide BUN Glucose POC Glucose Hemoglobin A1c Lactic Acid Calcium Iron TIBC Transferrin Total Bilirubin Alkaline Phosphatase Total Creatine Kinase C-Reactive Protein Total Protein Albumin Triglycerides LDL Cholesterol Direct HDL Cholesterol Vitamin B12 Urine pH Crossmatch See Detail 04/08/18 04/08/18 04/08/18 07:34 07:34 07:34 WBC 15.7 H RBC 6.30 H Hgb 15.6 H D Hct 49.2 H D MCV 78 L MCH 25 L MCHC RDW Plt Count Lymph % (Auto) Travis % (Auto) Travis # Seg Neutrophils % Seg Neuts % (Manual) Lymphocytes % (Manual) Monocytes % (Manual) Seg Neutrophils # Seg Neutrophils # Man Lymphocytes # (Manual) Monocytes # (Manual) Eosinophils # (Manual) D-Dimer POC ABG pH POC ABG pCO2 POC ABG pO2 VBG pH Sodium Chloride Carbon Dioxide BUN Glucose POC Glucose Hemoglobin A1c Lactic Acid Calcium Iron 15 L TIBC 106 L Transferrin 76 L Total Bilirubin Alkaline Phosphatase Total Creatine Kinase C-Reactive Protein Total Protein Albumin Triglycerides LDL Cholesterol Direct HDL Cholesterol Vitamin B12 1405 H Urine pH Crossmatch 04/08/18 04/08/18 04/08/18 07:34 09:54 12:43 WBC RBC Hgb Hct MCV MCH MCHC RDW Plt Count Lymph % (Auto) Travis % (Auto) Travis # Seg Neutrophils % Seg Neuts % (Manual) Lymphocytes % (Manual) Monocytes % (Manual) Seg Neutrophils # Seg Neutrophils # Man Lymphocytes # (Manual) Monocytes # (Manual) Eosinophils # (Manual) D-Dimer POC ABG pH POC ABG pCO2 POC ABG pO2 VBG pH Sodium 131 L Chloride Carbon Dioxide 20 L BUN 24 H Glucose 167 H POC Glucose 162 H 175 H Hemoglobin A1c Lactic Acid Calcium 7.5 L Iron TIBC Transferrin Total Bilirubin Alkaline Phosphatase Total Creatine Kinase C-Reactive Protein Total Protein Albumin Triglycerides LDL Cholesterol Direct HDL Cholesterol Vitamin B12 Urine pH Crossmatch 04/08/18 04/08/18 04/09/18 16:36 16:40 01:15 WBC 28.2 H RBC 2.67 L Hgb 7.3 L D Hct 21.0 L D MCV 79 L MCH 27 L MCHC 35 H RDW Plt Count Lymph % (Auto) Travis % (Auto) Travis # Seg Neutrophils % Seg Neuts % (Manual) 74.0 H Lymphocytes % (Manual) 3.0 L Monocytes % (Manual) Seg Neutrophils # Seg Neutrophils # Man 20.9 H Lymphocytes # (Manual) 0.8 L Monocytes # (Manual) 1.7 H Eosinophils # (Manual) D-Dimer POC ABG pH POC ABG pCO2 POC ABG pO2 VBG pH Sodium Chloride Carbon Dioxide BUN Glucose POC Glucose 150 H 171 H Hemoglobin A1c Lactic Acid Calcium Iron TIBC Transferrin Total Bilirubin Alkaline Phosphatase Total Creatine Kinase C-Reactive Protein Total Protein Albumin Triglycerides LDL Cholesterol Direct HDL Cholesterol Vitamin B12 Urine pH Crossmatch 04/09/18 04/09/18 04/09/18 05:13 05:42 05:42 WBC 23.2 H RBC 2.72 L Hgb 7.0 L Hct 21.6 L MCV 79 L MCH 26 L MCHC RDW Plt Count Lymph % (Auto) Travis % (Auto) Travis # Seg Neutrophils % Seg Neuts % (Manual) 87.5 H Lymphocytes % (Manual) 8.0 L Monocytes % (Manual) Seg Neutrophils # Seg Neutrophils # Man 20.3 H Lymphocytes # (Manual) Monocytes # (Manual) 0.9 H Eosinophils # (Manual) D-Dimer POC ABG pH POC ABG pCO2 34.4 L POC ABG pO2 VBG pH Sodium 134 L Chloride Carbon Dioxide 21 L BUN 24 H Glucose 192 H POC Glucose Hemoglobin A1c Lactic Acid Calcium 7.4 L Iron TIBC Transferrin Total Bilirubin Alkaline Phosphatase 211 H Total Creatine Kinase C-Reactive Protein Total Protein Albumin 2.1 L Triglycerides LDL Cholesterol Direct HDL Cholesterol Vitamin B12 Urine pH Crossmatch 04/09/18 04/09/18 04/10/18 12:52 18:43 00:13 WBC RBC Hgb Hct MCV MCH MCHC RDW Plt Count Lymph % (Auto) Travis % (Auto) Travis # Seg Neutrophils % Seg Neuts % (Manual) Lymphocytes % (Manual) Monocytes % (Manual) Seg Neutrophils # Seg Neutrophils # Man Lymphocytes # (Manual) Monocytes # (Manual) Eosinophils # (Manual) D-Dimer POC ABG pH POC ABG pCO2 POC ABG pO2 VBG pH Sodium Chloride Carbon Dioxide BUN Glucose POC Glucose 206 H 223 H 233 H Hemoglobin A1c Lactic Acid Calcium Iron TIBC Transferrin Total Bilirubin Alkaline Phosphatase Total Creatine Kinase C-Reactive Protein Total Protein Albumin Triglycerides LDL Cholesterol Direct HDL Cholesterol Vitamin B12 Urine pH Crossmatch 04/10/18 04/10/18 04/10/18 04:04 04:06 04:06 WBC 18.9 H RBC 3.27 L Hgb 8.4 L Hct 26.0 L MCV 80 L MCH 26 L MCHC RDW Plt Count Lymph % (Auto) Travis % (Auto) Travis # Seg Neutrophils % Seg Neuts % (Manual) 86.0 H Lymphocytes % (Manual) 2.0 L Monocytes % (Manual) Seg Neutrophils # Seg Neutrophils # Man 16.3 H Lymphocytes # (Manual) 0.4 L Monocytes # (Manual) Eosinophils # (Manual) 0.8 H D-Dimer POC ABG pH POC ABG pCO2 34.4 L POC ABG pO2 VBG pH Sodium 136 L Chloride Carbon Dioxide 20 L BUN 23 H Glucose 213 H POC Glucose Hemoglobin A1c Lactic Acid Calcium 7.6 L Iron TIBC Transferrin Total Bilirubin Alkaline Phosphatase Total Creatine Kinase C-Reactive Protein Total Protein Albumin Triglycerides LDL Cholesterol Direct HDL Cholesterol Vitamin B12 Urine pH Crossmatch 04/10/18 04/10/18 04/10/18 06:10 12:30 17:43 WBC RBC Hgb Hct MCV MCH MCHC RDW Plt Count Lymph % (Auto) Travis % (Auto) Travis # Seg Neutrophils % Seg Neuts % (Manual) Lymphocytes % (Manual) Monocytes % (Manual) Seg Neutrophils # Seg Neutrophils # Man Lymphocytes # (Manual) Monocytes # (Manual) Eosinophils # (Manual) D-Dimer POC ABG pH POC ABG pCO2 POC ABG pO2 VBG pH Sodium Chloride Carbon Dioxide BUN Glucose POC Glucose 246 H 266 H 246 H Hemoglobin A1c Lactic Acid Calcium Iron TIBC Transferrin Total Bilirubin Alkaline Phosphatase Total Creatine Kinase C-Reactive Protein Total Protein Albumin Triglycerides LDL Cholesterol Direct HDL Cholesterol Vitamin B12 Urine pH Crossmatch 04/10/18 04/11/18 04/11/18 23:50 04:14 04:14 WBC 14.9 H RBC 3.07 L Hgb 8.0 L Hct 24.6 L MCV 80 L MCH 26 L MCHC RDW Plt Count Lymph % (Auto) Travis % (Auto) Travis # Seg Neutrophils % Seg Neuts % (Manual) 79.0 H Lymphocytes % (Manual) 10.0 L Monocytes % (Manual) Seg Neutrophils # Seg Neutrophils # Man 11.8 H Lymphocytes # (Manual) Monocytes # (Manual) Eosinophils # (Manual) D-Dimer POC ABG pH POC ABG pCO2 POC ABG pO2 VBG pH Sodium Chloride 107.9 H Carbon Dioxide 20 L BUN 25 H Glucose 184 H POC Glucose 247 H Hemoglobin A1c Lactic Acid Calcium 7.3 L Iron TIBC Transferrin Total Bilirubin 1.40 H Alkaline Phosphatase 225 H Total Creatine Kinase C-Reactive Protein Total Protein 5.9 L Albumin 1.9 L Triglycerides LDL Cholesterol Direct HDL Cholesterol Vitamin B12 Urine pH Crossmatch 04/11/18 04/11/18 04/11/18 04:43 10:04 12:02 WBC RBC Hgb Hct MCV MCH MCHC RDW Plt Count Lymph % (Auto) Travis % (Auto) Travis # Seg Neutrophils % Seg Neuts % (Manual) Lymphocytes % (Manual) Monocytes % (Manual) Seg Neutrophils # Seg Neutrophils # Man Lymphocytes # (Manual) Monocytes # (Manual) Eosinophils # (Manual) D-Dimer POC ABG pH 7.479 H POC ABG pCO2 34.8 L POC ABG pO2 VBG pH Sodium Chloride Carbon Dioxide BUN Glucose POC Glucose 147 H 148 H Hemoglobin A1c Lactic Acid Calcium Iron TIBC Transferrin Total Bilirubin Alkaline Phosphatase Total Creatine Kinase C-Reactive Protein Total Protein Albumin Triglycerides LDL Cholesterol Direct HDL Cholesterol Vitamin B12 Urine pH Crossmatch 04/11/18 04/11/18 04/11/18 12:22 17:34 23:39 WBC RBC Hgb Hct MCV MCH MCHC RDW Plt Count Lymph % (Auto) Travis % (Auto) Travis # Seg Neutrophils % Seg Neuts % (Manual) Lymphocytes % (Manual) Monocytes % (Manual) Seg Neutrophils # Seg Neutrophils # Man Lymphocytes # (Manual) Monocytes # (Manual) Eosinophils # (Manual) D-Dimer POC ABG pH POC ABG pCO2 POC ABG pO2 VBG pH Sodium Chloride Carbon Dioxide BUN Glucose POC Glucose 118 H 192 H Hemoglobin A1c Lactic Acid Calcium Iron TIBC Transferrin Total Bilirubin Alkaline Phosphatase Total Creatine Kinase C-Reactive Protein 13.00 H Total Protein Albumin Triglycerides LDL Cholesterol Direct HDL Cholesterol Vitamin B12 Urine pH Crossmatch 04/12/18 04/12/18 04/12/18 04:14 04:14 04:56 WBC 17.2 H RBC 3.16 L Hgb 8.4 L Hct 25.4 L MCV 81 L MCH 27 L MCHC RDW Plt Count 453 H Lymph % (Auto) 9.1 L Travis % (Auto) 11.7 H Travis # 2.0 H Seg Neutrophils % 78.1 H Seg Neuts % (Manual) Lymphocytes % (Manual) Monocytes % (Manual) Seg Neutrophils # 13.4 H Seg Neutrophils # Man Lymphocytes # (Manual) Monocytes # (Manual) Eosinophils # (Manual) D-Dimer POC ABG pH 7.452 H POC ABG pCO2 28.6 L POC ABG pO2 VBG pH Sodium Chloride 110.4 H Carbon Dioxide 20 L BUN 25 H Glucose 164 H POC Glucose Hemoglobin A1c Lactic Acid Calcium 7.6 L Iron TIBC Transferrin Total Bilirubin Alkaline Phosphatase Total Creatine Kinase C-Reactive Protein Total Protein Albumin Triglycerides LDL Cholesterol Direct HDL Cholesterol Vitamin B12 Urine pH Crossmatch 04/12/18 04/12/18 04/12/18 09:20 15:01 18:19 WBC RBC Hgb Hct MCV MCH MCHC RDW Plt Count Lymph % (Auto) Travis % (Auto) Travis # Seg Neutrophils % Seg Neuts % (Manual) Lymphocytes % (Manual) Monocytes % (Manual) Seg Neutrophils # Seg Neutrophils # Man Lymphocytes # (Manual) Monocytes # (Manual) Eosinophils # (Manual) D-Dimer POC ABG pH POC ABG pCO2 POC ABG pO2 VBG pH Sodium Chloride Carbon Dioxide BUN Glucose POC Glucose 148 H 170 H 140 H Hemoglobin A1c Lactic Acid Calcium Iron TIBC Transferrin Total Bilirubin Alkaline Phosphatase Total Creatine Kinase C-Reactive Protein Total Protein Albumin Triglycerides LDL Cholesterol Direct HDL Cholesterol Vitamin B12 Urine pH Crossmatch 04/12/18 04/12/1804/13/18 21:20 23:59 05:19 WBC RBC Hgb Hct MCV MCH MCHC RDW Plt Count Lymph % (Auto) Travis % (Auto) Travis # Seg Neutrophils % Seg Neuts % (Manual) Lymphocytes % (Manual) Monocytes % (Manual) Seg Neutrophils # Seg Neutrophils # Man Lymphocytes # (Manual) Monocytes # (Manual) Eosinophils # (Manual) D-Dimer POC ABG pH 7.458 H POC ABG pCO2 27.7 L POC ABG pO2 VBG pH Sodium Chloride Carbon Dioxide BUN Glucose POC Glucose 173 H 199 H Hemoglobin A1c Lactic Acid Calcium Iron TIBC Transferrin Total Bilirubin Alkaline Phosphatase Total Creatine Kinase C-Reactive Protein Total Protein Albumin Triglycerides LDL Cholesterol Direct HDL Cholesterol Vitamin B12 Urine pH Crossmatch 04/13/18 04/13/18 04/13/18 05:37 08:13 13:13 WBC RBC Hgb Hct MCV MCH MCHC RDW Plt Count Lymph % (Auto) Travis % (Auto) Travis # Seg Neutrophils % Seg Neuts % (Manual) Lymphocytes % (Manual) Monocytes % (Manual) Seg Neutrophils # Seg Neutrophils # Man Lymphocytes # (Manual) Monocytes # (Manual) Eosinophils # (Manual) D-Dimer POC ABG pH POC ABG pCO2 POC ABG pO2 VBG pH Sodium Chloride Carbon Dioxide BUN Glucose POC Glucose 242 H 233 H Hemoglobin A1c Lactic Acid Calcium Iron TIBC Transferrin Total Bilirubin Alkaline Phosphatase Total Creatine Kinase C-Reactive Protein Total Protein Albumin Triglycerides 174 H LDL Cholesterol Direct 25 L HDL Cholesterol 9 L Vitamin B12 Urine pH Crossmatch 04/13/18 04/13/18 04/14/18 17:15 21:33 00:02 WBC RBC Hgb Hct MCV MCH MCHC RDW Plt Count Lymph % (Auto) Travis % (Auto) Travis # Seg Neutrophils % Seg Neuts % (Manual) Lymphocytes % (Manual) Monocytes % (Manual) Seg Neutrophils # Seg Neutrophils # Man Lymphocytes # (Manual) Monocytes # (Manual) Eosinophils # (Manual) D-Dimer POC ABG pH POC ABG pCO2 POC ABG pO2 VBG pH Sodium Chloride Carbon Dioxide BUN Glucose POC Glucose 241 H 256 H 245 H Hemoglobin A1c Lactic Acid Calcium Iron TIBC Transferrin Total Bilirubin Alkaline Phosphatase Total Creatine Kinase C-Reactive Protein Total Protein Albumin Triglycerides LDL Cholesterol Direct HDL Cholesterol Vitamin B12 Urine pH Crossmatch 04/14/18 04/14/18 04/14/18 05:21 09:45 12:18 WBC RBC Hgb Hct MCV MCH MCHC RDW Plt Count Lymph % (Auto) Travis % (Auto) Travis # Seg Neutrophils % Seg Neuts % (Manual) Lymphocytes % (Manual) Monocytes % (Manual) Seg Neutrophils # Seg Neutrophils # Man Lymphocytes # (Manual) Monocytes # (Manual) Eosinophils # (Manual) D-Dimer POC ABG pH 7.499 H POC ABG pCO2 30.1 L POC ABG pO2 VBG pH Sodium Chloride Carbon Dioxide BUN Glucose POC Glucose 182 H 182 H Hemoglobin A1c Lactic Acid Calcium Iron TIBC Transferrin Total Bilirubin Alkaline Phosphatase Total Creatine Kinase C-Reactive Protein Total Protein Albumin Triglycerides LDL Cholesterol Direct HDL Cholesterol Vitamin B12 Urine pH Crossmatch Chest x-ray: report reviewed, image reviewed
[2018-04-14] MEDS: FEOSOL PO SCH ×2 (15:00→20:43)
--- NOTE | 2018-04-14 16:23 | Consultation ---
History of Present Illness - Reason for Consult Consult date: 04/14/18 PVD with large ulceration and heel osteomyelitis Requesting physician: MAL HOLDEN - History of Present Illness Patient came in with CPR in route by EMS. He was treated with infected wound debridement and found to have large lateral ankle wound with calcaneal osteomyelitis, ligamentous involvement. He had arterial duplex done showing good flow through popliteal but monophasic flow in the tibials. There was no ABIs. Patient was advised to have left BKA by Dr. Johnson, but he refused at the time. Vascular surgery was consulted for PAD. Past History Past Medical History: diabetes (first diagnosed 20 days ago for which she was placed on his current medications) Past Surgical History: Other (left foot abscess surgery today) Social history: (but his lives in [place]), lives with family, other (finished middle school in [place], has lived in this country for 20 years. 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 He is but has been away from his for many years who lives in [place], has 4 children and 4 grandchildren by his , alive and well as far as anyone knows). denies: smoking, alcohol abuse, prescription drug abuse, IV drug use ( never illicit drugs) Family history: diabetes (brothers and mother), other (no history of epilepsy). denies: hypertension (unknown), stroke (unknown) Medications and Allergies Allergies Allergy/AdvReac Type Severity Reaction Status Date / Time No Known Allergies Allergy Unverified 04/07/18 08:27 Home Medications Medication Instructions Recorded Confirmed Last Taken Type Ascorbic Acid [Vitamin C with Matilde 500 mg PO BID 04/07/18 04/07/18 Unknown History Hips] Ferrous Sulfate [Iron] 325 mg PO TID 04/07/18 04/13/18 Unknown History Lisinopril [Zestril] 5 mg PO QDAY 04/07/18 04/07/18 Unknown History glipiZIDE [Glipizide] 5 mg PO BID 04/07/18 04/07/18 Unknown History metFORMIN [Glucophage] 500 mg PO BID 04/07/18 04/07/18 Unknown History Active Meds: Active Medications Acetaminophen (Tylenol) 650 mg PO Q4H PRN PRN Reason: Pain MILD(1-3)/Fever >100.5/CHEATHAM Last Admin: 04/11/18 23:59 Dose: 650 mg Acetaminophen (Tylenol) 650 mg NE Q4H PRN PRN Reason: Pain, Mild (1-3) Last Admin: 04/07/18 17:25 Dose: 650 mg Albuterol (Proventil) 2.5 mg IH Q3HRT PRN PRN Reason: Wheezing Albuterol/Ipratropium (Duoneb *Not For Prn Use*) 1 ampul IH TIDRT [facility] Last Admin: 04/14/18 14:29 Dose: 1 ampul Lipase/Protease/Amylase (Pancreaze Dr 10,500 Unit) 1 each FEEDTUBE PRN PRN PRN Reason: For Clogged Feeding Tube Ascorbic Acid (Vitamin C) 500 mg PO BID JODY Bisacodyl (Dulcolax) 10 mg PO QDAY PRN PRN Reason: Constipation Enoxaparin Sodium (Lovenox) 40 mg SUB-Q QDAY [facility] Last Admin: 04/14/18 10:07 Dose: 40 mg Ferrous Sulfate (Feosol) 325 mg PO TID [facility] Hydrophilic Ointment (Vaseline Lip Therapy) 1 applic TP Q2HR PRN PRN Reason: Dry Lips Last Admin: 04/08/18 18:47 Dose: 1 applic Piperacillin Sod/Tazobactam Sod (Zosyn/Ns 4.5gm/100ml) 4.5 gm in 100 mls @ 200 mls/hr IV Q8HR [facility]; Protocol Last Admin: 04/14/18 13:02 Dose: 200 mls/hr Vancomycin HCl 1,500 mg/ (Sodium Chloride) 530 mls @ 333.333 mls/hr IV Q12H [facility] Last Admin: 04/14/18 05:54 Dose: 333.333 mls/hr Insulin Glargine (Lantus) 15 units SUB-Q BID [facility] Insulin Human Lispro (Humalog) 0 unit SUB-Q Q6HR [facility]; Protocol Last Admin: 04/14/18 12:55 Dose: 2 unit Lisinopril (Zestril) 10 mg PO QDAY [facility] Morphine Sulfate (Morphine) 2 mg IV Q4H PRN PRN Reason: Pain, Moderate (4-6) Last Admin: 04/13/18 22:55 Dose: 2 mg Multi-Ingred Cream/Lotion/Oil/Oint (Artificial Tears Ophth Oint) 1 applic OU Q4HR PRN PRN Reason: Dry Eye(s) Ondansetron HCl (Zofran) 4 mg IV Q8H PRN PRN Reason: Nausea And Vomiting Pantoprazole (Protonix) 40 mg FEEDTUBE DAILY [facility] Last Admin: 04/14/18 11:30 Dose: 40 mg Senna (Senokot) 17.6 mg FEEDTUBE Q12HR [facility] Last Admin: 04/14/18 11:29 Dose: Not Given Simple Syrup (Simple Syrup) 15 ml FEEDTUBE PRN PRN PRN Reason: Hypoglycemia Simple Syrup (Simple Syrup) 30 ml FEEDTUBE PRN PRN PRN Reason: Hypoglycemia Sodium Bicarbonate (Sodium Bicarbonate) 325 mg FEEDTUBE PRN PRN PRN Reason: For Clogged Feeding Tube Sodium Chloride (Sodium Chloride Flush Syringe 10 Ml) 10 ml IV BID [facility] Last Admin: 04/14/18 13:02 Dose: 10 ml Sodium Chloride (Sodium Chloride Flush Syringe 10 Ml) 10 ml IV PRN PRN PRN Reason: LINE FLUSH Sodium Hypochlorite (Dakin's Full Strength) 1 applic TP Q12HR [facility] Last Admin: 04/14/18 12:53 Dose: 1 applicatio Review of Systems All systems: negative (mentioned in HPI) Exam - Constitutional Vitals: Temp Pulse Resp BP Pulse Ox 98.5 F 102 H 41 H 171/88 99 04/14/18 12:00 04/14/18 14:47 04/14/18 14:47 04/14/18 13:00 04/14/18 11:00 - Extremities Extremities: abnormal (dressing over ulceration in the left lateral ankle) Extremity abnormal: ulceration (foot warm, excellent popliteal pulses bilaterally) - Abdominal General gastrointestinal: Present: soft, non-tender, other - Rectal Rectal Exam: deferred Results - Labs CBC & Chem 7: 04/12/18 04:14 04/12/18 04:14 Labs: Abnormal lab results 04/13/18 04/13/18 04/14/18 Range/Units 17:15 21:33 00:02 POC ABG pH (7.35-7.45) POC ABG pCO2 (35-45) POC Glucose 241 H 256 H 245 H (70-105) 04/14/18 04/14/18 04/14/18 Range/Units 05:21 09:45 12:18 POC ABG pH 7.499 H (7.35-7.45) POC ABG pCO2 30.1 L (35-45) POC Glucose 182 H 182 H (70-105) Assessment and Plan Patient with DM, HTN has extensive infected ulceration of the left lateral ankle. There is bone involvement according to MRI as well as ligamentous infection. Patient was found to have monophasic tibial flow on the arterial duplex. this patient came in very sick with CPR in route to the hospital. Now he has dubhoff tube for feeding. Agree with Dr. Johnson patient would benefit from L BKA for infection control. 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 He has excellent popliteal pulses and should be able to heal amputation from vascular stand point. this was discussed with family at length.
--- NOTE | 2018-04-14 18:23 | Progress Note ---
Assessment and Plan Assessment and plan: 57M who is diabetic, had not eaten in two days, c.o chest pain, family called EMS who found his glc to be <40, he received dextrose, on way to ER, he had vomiting, then syncope, and was pulseless, he received CPR and was intubated and required pressors. -Active issues include -resp failure on vent >96 hours -Left foot infection -Generalized weakness Acute hypoxic respiratory failure on MV >96 hours -Status post intubation and sedated -ABG improved -Pulmonology following Severe sepsis with shock probably secondary to pneumonia and LT foot cellulitis weaned off pressors on 04/11 - IV abx, ID consulted Bilateral pneumonia -On IV antibiotics Anoxic encephalopathy neuro consulted LT foot cellulitis -on iv antibiotics snd wound care -venous doppler uss neg for DVT -foot x-ray showed soft tissue air and possible 3mm foreign body, will do CT scan for further eval Questionable cardiac arrest -serial troponin levels normal -echo showed EF of 55-60% without regional wall motion abnormalities -cardiology on board Elevated D-dimer -CTA neg for PE DM2 with hyperglycemia -Lantus dose increased, cont SSI, adjust as needed -A1C:9.9 Hyponatremia -improving, will monitor Iron def anemia with acute loss, probably sec to sepsis -s/p blood tranf with 2u of PRBC -Hb:8.4, will monitor -stool for occult blood pending Transaminitis, probably sec to the sepsis -improved Prophylaxis -Protonix and Lovenox Nutrition: tube feeding Disposition: pt's condition remains critical, cont tx CCT 35 minutes History Interval history: remains intubated, opens eyes but not able to cooperate with exam Hospitalist Physical - Physical exam Narrative exam: General.: intubated HEENT: Moist mucous membranes, extraocular muscles intact, no lymphadenopathy Neck: supple Cardiac: S1-S2 heard Lungs: clear to auscultation bilaterally Abdomen: soft , nontender, nondistended, bowel sounds positive Extremities: Left leg redness, malodor, edema Skin: no rash or lesions Neurologic: intubuated Psych: intubated - Constitutional Vitals: Temp Pulse Resp BP Pulse Ox 100.6 F H 97 H 25 H 168/86 97 04/14/18 16:00 04/14/18 18:00 04/14/18 18:00 04/14/18 18:00 04/14/18 18:00 General appearance: Present: no acute distress, other (patient is intubated and sedated.) Results - Labs CBC & Chem 7: 04/12/18 04:14 04/12/18 04:14 Labs: Laboratory Last Values WBC 17.2 K/mm3 (4.5-11.0) H 04/12/18 04:14 RBC 3.16 M/mm3 (3.65-5.03) L 04/12/18 04:14 Hgb 8.4 gm/dl (11.8-15.2) L 04/12/18 04:14 Hct 25.4 % (35.5-45.6) L 04/12/18 04:14 MCV 81 fl (84-94) L 04/12/18 04:14 MCH 27 pg (28-32) L 04/12/18 04:14 MCHC 33 % (32-34) 04/12/18 04:14 RDW 14.6 % (13.2-15.2) 04/12/18 04:14 Plt Count 453 K/mm3 (140-440) H 04/12/18 04:14 Lymph % (Auto) 9.1 % (13.4-35.0) L 04/12/18 04:14 [place] % (Auto) 11.7 % (0.0-7.3) H 04/12/18 04:14 Eos % (Auto) 0.3 % (0.0-4.3) 04/12/18 04:14 Baso % (Auto) 0.8 % (0.0-1.8) 04/12/18 04:14 Lymph # 1.6 K/mm3 (1.2-5.4) 04/12/18 04:14 [place] # 2.0 K/mm3 (0.0-0.8) H 04/12/18 04:14 Eos # 0.0 K/mm3 (0.0-0.4) 04/12/18 04:14 Baso # 0.1 K/mm3 (0.0-0.1) 04/12/18 04:14 Add Manual Diff Complete 04/11/18 04:14 Total Counted 100 04/11/18 04:14 Seg Neutrophils % 78.1 % (40.0-70.0) H 04/12/18 04:14 Seg Neuts % (Manual) 79.0 % (40.0-70.0) H 04/11/18 04:14 Band Neutrophils % 4.0 % 04/11/18 04:14 Lymphocytes % (Manual) 10.0 % (13.4-35.0) L 04/11/18 04:14 Reactive Lymphs % (Man) 0 % 04/11/18 04:14 Monocytes % (Manual) 5.0 % (0.0-7.3) 04/11/18 04:14 Eosinophils % (Manual) 1.0 % (0.0-4.3) 04/11/18 04:14 Basophils % (Manual) 1.0 % (0.0-1.8) 04/11/18 04:14 Metamyelocytes % 0 % 04/11/18 04:14 Myelocytes % 0 % 04/11/18 04:14 Promyelocytes % 0 % 04/11/18 04:14 Blast Cells % 0 % 04/11/18 04:14 Nucleated RBC % Not Reportable 04/11/18 04:14 Seg Neutrophils # 13.4 K/mm3 (1.8-7.7) H 04/12/18 04:14 Seg Neutrophils # Man 11.8 K/mm3 (1.8-7.7) H 04/11/18 04:14 Band Neutrophils # 0.6 K/mm3 04/11/18 04:14 Lymphocytes # (Manual) 1.5 K/mm3 (1.2-5.4) 04/11/18 04:14 Abs React Lymphs (Man) 0.0 K/mm3 04/11/18 04:14 Monocytes # (Manual) 0.7 K/mm3 (0.0-0.8) 04/11/18 04:14 Eosinophils # (Manual) 0.1 K/mm3 (0.0-0.4) 04/11/18 04:14 Basophils # (Manual) 0.1 K/mm3 (0.0-0.1) 04/11/18 04:14 Metamyelocytes # 0.0 K/mm3 04/11/18 04:14 Myelocytes # 0.0 K/mm3 04/11/18 04:14 Promyelocytes # 0.0 K/mm3 04/11/18 04:14 Blast Cells # 0.0 K/mm3 04/11/18 04:14 WBC Morphology Not Reportable 04/11/18 04:14 Hypersegmented Neuts Not Reportable 04/11/18 04:14 Hyposegmented Neuts Not Reportable 04/11/18 04:14 Hypogranular Neuts Not Reportable 04/11/18 04:14 Smudge Cells Not Reportable 04/11/18 04:14 Toxic Granulation Not Reportable 04/11/18 04:14 Toxic Vacuolation Not Reportable 04/11/18 04:14 Dohle Bodies Not Reportable 04/11/18 04:14 Pelger-Huet Anomaly Not Reportable 04/11/18 04:14 Matt Rods Not Reportable 04/11/18 04:14 Platelet Estimate Consistent w auto 04/11/18 04:14 Clumped Platelets Not Reportable 04/11/18 04:14 Plt Clumps, EDTA Not Reportable 04/11/18 04:14 Large Platelets Not Reportable 04/11/18 04:14 Giant Platelets Not Reportable 04/11/18 04:14 Platelet Satelliting Not Reportable 04/11/18 04:14 Plt Morphology Comment Not Reportable 04/11/18 04:14 RBC Morphology Not Reportable 04/11/18 04:14 Dimorphic RBCs Not Reportable 04/11/18 04:14 Polychromasia Not Reportable 04/11/18 04:14 Hypochromasia 1+ 04/11/18 04:14 Poikilocytosis Not Reportable 04/11/18 04:14 Anisocytosis Not Reportable 04/11/18 04:14 Microcytosis Not Reportable 04/11/18 04:14 Macrocytosis Not Reportable 04/11/18 04:14 Spherocytes Not Reportable 04/11/18 04:14 Pappenheimer Bodies Not Reportable 04/11/18 04:14 Sickle Cells Not Reportable 04/11/18 04:14 Target Cells Not Reportable 04/11/18 04:14 Tear Drop Cells Not Reportable 04/11/18 04:14 Ovalocytes Not Reportable 04/11/18 04:14 Stomatocytes Rare 04/10/18 04:06 Helmet Cells Not Reportable 04/11/18 04:14 [place] Bodies Not Reportable 04/11/18 04:14 [place] Rings Not Reportable 04/11/18 04:14 [place] Cells Not Reportable 04/11/18 04:14 Bite Cells Not Reportable 04/11/18 04:14 Crenated Cell Not Reportable 04/11/18 04:14 Elliptocytes Not Reportable 04/11/18 04:14 Acanthocytes (Spur) Not Reportable 04/11/18 04:14 Rouleaux Not Reportable 04/11/18 04:14 Hemoglobin C Crystals Not Reportable 04/11/18 04:14 Schistocytes Not Reportable 04/11/18 04:14 Malaria parasites Not Reportable 04/11/18 04:14 [place] Bodies Not Reportable 04/11/18 04:14 Hem Pathologist Commnt No 04/11/18 04:14 D-Dimer 933.08 ng/mlDDU (0-234) H 04/07/18 08:15 POC ABG pH 7.499 (7.35-7.45) H 04/14/18 09:45 POC ABG pCO2 30.1 (35-45) L 04/14/18 09:45 POC ABG pO2 104 (80-105) 04/14/18 09:45 POC ABG HCO3 23.5 04/14/18 09:45 POC ABG Total CO2 24 04/14/18 09:45 POC ABG O2 Sat 99 04/14/18 09:45 POC ABG Base Excess 0 04/14/18 09:45 VBG pH 7.231 (7.320-7.420) L 04/07/18 13:25 FiO2 28 % 04/14/18 09:45 Sodium 143 mmol/L (137-145) 04/12/18 04:14 Potassium 4.2 mmol/L (3.6-5.0) 04/12/18 04:14 Chloride 110.4 mmol/L (98-107) H 04/12/18 04:14 Carbon Dioxide 20 mmol/L (22-30) L 04/12/18 04:14 Anion Gap 17 mmol/L 04/12/18 04:14 BUN 25 mg/dL (9-20) H 04/12/18 04:14 Creatinine 1.0 mg/dL (0.8-1.5) 04/12/18 04:14 Estimated GFR > 60 ml/min 04/12/18 04:14 BUN/Creatinine Ratio 25 % 04/12/18 04:14 Glucose 164 mg/dL (75-100) H 04/12/18 04:14 POC Glucose 202 (70-105) H 04/14/18 18:02 Hemoglobin A1c 9.9 % (4-6) H 04/07/18 16:43 Lactic Acid 1.80 mmol/L (0.7-2.0) 04/07/18 16:43 Calcium 7.6 mg/dL (8.4-10.2) L 04/12/18 04:14 Iron 15 ug/dL (49-181) L 04/08/18 07:34 TIBC 106 mcg/dL (250-450) L 04/08/18 07:34 % Saturation 14.15 % 04/08/18 07:34 Transferrin 76 mg/dl (180-329) L 04/08/18 07:34 Total Bilirubin 1.40 mg/dL (0.1-1.2) H 04/11/18 04:14 AST 40 units/L (5-40) 04/11/18 04:14 ALT 45 units/L (7-56) 04/11/18 04:14 Alkaline Phosphatase 225 units/L (35-129) H 04/11/18 04:14 Total Creatine Kinase 83 units/L (55-170) 04/07/18 13:25 CK-MB (CK-2) 2.5 ng/mL (0.0-4.0) 04/07/18 13:25 CK-MB (CK-2) Rel Index 3.0 (0-4) 04/07/18 13:25 Troponin T 0.025 ng/mL (0.00-0.029) 04/07/18 13:25 C-Reactive Protein 13.00 mg/dL (0.00-1.30) H 04/11/18 12:22 Total Protein 5.9 g/dL (6.3-8.2) L 04/11/18 04:14 Albumin 1.9 g/dL (3.9-5) L 04/11/18 04:14 Albumin/Globulin Ratio 0.5 % 04/11/18 04:14 Triglycerides 174 mg/dL (2-149) H 04/13/18 08:13 Cholesterol 95 mg/dL (50-199) 04/13/18 08:13 LDL Cholesterol Direct 25 mg/dL (50-130) L 04/13/18 08:13 HDL Cholesterol 9 mg/dL (40-59) L 04/13/18 08:13 Cholesterol/HDL Ratio 10.55 % 04/13/18 08:13 Vitamin B12 1405 pg/mL (211-911) H 04/08/18 07:34 RBC Folic Acid >1000 ng/mL (>280) 04/08/18 07:34 Urine Color Yellow (Yellow) 04/07/18 08:52 Urine Turbidity Clear (Clear) 04/07/18 08:52 Urine pH 8.0 (5.0-7.0) H 04/07/18 08:52 Ur Specific [place] 1.009 (1.003-1.030) 04/07/18 08:52 Urine Protein 100 mg/dl mg/dL (Negative) 04/07/18 08:52 Urine Glucose (UA) Neg mg/dL (Negative) 04/07/18 08:52 Urine Ketones Neg mg/dL (Negative) 04/07/18 08:52 Urine Blood Neg (Negative) 04/07/18 08:52 Urine Nitrite Neg (Negative) 04/07/18 08:52 Urine Bilirubin Neg (Negative) 04/07/18 08:52 Urine Urobilinogen < 2.0 mg/dL (<2.0) 04/07/18 08:52 Ur Leukocyte Esterase Neg (Negative) 04/07/18 08:52 Urine WBC (Auto) 1.0 /HPF (0.0-6.0) 04/07/18 08:52 Urine RBC (Auto) 3.0 /HPF (0.0-6.0) 04/07/18 08:52 U Epithel Cells (Auto) 2.0 /HPF (0-13.0) 04/07/18 08:52 Urine Mucus Few /HPF 04/07/18 08:52 Urine Sperm 3+ /HPF (EMBEDDER) 04/07/18 08:52 Vancomycin Trough 12.3 ug/mL (5.0-20.0) 04/12/18 11:20 Urine Opiates Screen Presumptive negative 04/07/18 08:52 Urine Methadone Screen Presumptive negative 04/07/18 08:52 Ur Barbiturates Screen Presumptive negative 04/07/18 08:52 Ur Phencyclidine Scrn Presumptive negative 04/07/18 08:52 Ur Amphetamines Screen Presumptive negative 04/07/18 08:52 U Benzodiazepines Scrn Presumptive negative 04/07/18 08:52 Urine Cocaine Screen Presumptive negative 04/07/18 08:52 U Marijuana (THC) Screen Presumptive negative 04/07/18 08:52 Drugs of Abuse Note Disclamer 04/07/18 08:52 Blood Type O POSITIVE 04/07/18 16:43 Antibody Screen Negative 04/07/18 16:43 Crossmatch See Detail 04/07/18 16:43
--- NOTE | 2018-04-14 18:24 | Progress Note ---
Assessment and Plan Assessment and plan: 57M who is diabetic, had not eaten in two days, c.o chest pain, family called EMS who found his glc to be <40, he received dextrose, on way to ER, he had vomiting, then syncope, and was pulseless, he received CPR and was intubated and required pressors. -Active issues include -resp failure on vent >96 hours -Left foot infection -Generalized weakness Acute hypoxic respiratory failure on MV >96 hours -Status post intubation and sedated -ABG improved -Pulmonology following Severe sepsis with shock probably secondary to pneumonia and LT foot cellulitis weaned off pressors on 04/11 - IV abx, ID consulted Bilateral pneumonia -On IV antibiotics Anoxic encephalopathy neuro consulted LT foot cellulitis/osteomyelitis -on iv antibiotics snd wound care -Status post I&D left lower extremity on 04/12/18, infection is down to the bone Questionable cardiac arrest -serial troponin levels normal -echo showed EF of 55-60% without regional wall motion abnormalities -cardiology on board Elevated D-dimer -CTA neg for PE DM2 with hyperglycemia -Lantus dose increased, cont SSI, adjust as needed -A1C:9.9 Hyponatremia -improving, will monitor Iron def anemia with acute loss, probably sec to sepsis -s/p blood tranf with 2u of PRBC -Hb:8.4, will monitor -stool for occult blood pending Transaminitis, probably sec to the sepsis -improved Prophylaxis -Protonix and Lovenox Nutrition: tube feeding Disposition: pt's condition remains critical, cont tx CCT 35 minutes History Interval history: remains intubated, opens eyes but not able to cooperate with exam Hospitalist Physical - Physical exam Narrative exam: General.: intubated HEENT: Moist mucous membranes, extraocular muscles intact, no lymphadenopathy Neck: supple Cardiac: S1-S2 heard Lungs: clear to auscultation bilaterally Abdomen: soft , nontender, nondistended, bowel sounds positive Extremities: Left leg redness, malodor, edema Skin: no rash or lesions Neurologic: intubuated, PSA moving his left side better than his right, opens eyes to command, is able to move his extremities to command, right-sided weakness Psych: intubated - Constitutional Vitals: Temp Pulse Resp BP Pulse Ox 100.6 F H 97 H 25 H 168/86 97 04/14/18 16:00 04/14/18 18:00 04/14/18 18:00 04/14/18 18:00 04/14/18 18:00 General appearance: Present: no acute distress, other (patient is intubated and sedated.) Results - Labs CBC & Chem 7: 04/12/18 04:14 04/12/18 04:14 Labs: Laboratory Last Values WBC 17.2 K/mm3 (4.5-11.0) H 04/12/18 04:14 RBC 3.16 M/mm3 (3.65-5.03) L 04/12/18 04:14 Hgb 8.4 gm/dl (11.8-15.2) L 04/12/18 04:14 Hct 25.4 % (35.5-45.6) L 04/12/18 04:14 MCV 81 fl (84-94) L 04/12/18 04:14 MCH 27 pg (28-32) L 04/12/18 04:14 MCHC 33 % (32-34) 04/12/18 04:14 RDW 14.6 % (13.2-15.2) 04/12/18 04:14 Plt Count 453 K/mm3 (140-440) H 04/12/18 04:14 Lymph % (Auto) 9.1 % (13.4-35.0) L 04/12/18 04:14 [place] % (Auto) 11.7 % (0.0-7.3) H 04/12/18 04:14 Eos % (Auto) 0.3 % (0.0-4.3) 04/12/18 04:14 Baso % (Auto) 0.8 % (0.0-1.8) 04/12/18 04:14 Lymph # 1.6 K/mm3 (1.2-5.4) 04/12/18 04:14 [place] # 2.0 K/mm3 (0.0-0.8) H 04/12/18 04:14 Eos # 0.0 K/mm3 (0.0-0.4) 04/12/18 04:14 Baso # 0.1 K/mm3 (0.0-0.1) 04/12/18 04:14 Add Manual Diff Complete 04/11/18 04:14 Total Counted 100 04/11/18 04:14 Seg Neutrophils % 78.1 % (40.0-70.0) H 04/12/18 04:14 Seg Neuts % (Manual) 79.0 % (40.0-70.0) H 04/11/18 04:14 Band Neutrophils % 4.0 % 04/11/18 04:14 Lymphocytes % (Manual) 10.0 % (13.4-35.0) L 04/11/18 04:14 Reactive Lymphs % (Man) 0 % 04/11/18 04:14 Monocytes % (Manual) 5.0 % (0.0-7.3) 04/11/18 04:14 Eosinophils % (Manual) 1.0 % (0.0-4.3) 04/11/18 04:14 Basophils % (Manual) 1.0 % (0.0-1.8) 04/11/18 04:14 Metamyelocytes % 0 % 04/11/18 04:14 Myelocytes % 0 % 04/11/18 04:14 Promyelocytes % 0 % 04/11/18 04:14 Blast Cells % 0 % 04/11/18 04:14 Nucleated RBC % Not Reportable 04/11/18 04:14 Seg Neutrophils # 13.4 K/mm3 (1.8-7.7) H 04/12/18 04:14 Seg Neutrophils # Man 11.8 K/mm3 (1.8-7.7) H 04/11/18 04:14 Band Neutrophils # 0.6 K/mm3 04/11/18 04:14 Lymphocytes # (Manual) 1.5 K/mm3 (1.2-5.4) 04/11/18 04:14 Abs React Lymphs (Man) 0.0 K/mm3 04/11/18 04:14 Monocytes # (Manual) 0.7 K/mm3 (0.0-0.8) 04/11/18 04:14 Eosinophils # (Manual) 0.1 K/mm3 (0.0-0.4) 04/11/18 04:14 Basophils # (Manual) 0.1 K/mm3 (0.0-0.1) 04/11/18 04:14 Metamyelocytes # 0.0 K/mm3 04/11/18 04:14 Myelocytes # 0.0 K/mm3 04/11/18 04:14 Promyelocytes # 0.0 K/mm3 04/11/18 04:14 Blast Cells # 0.0 K/mm3 04/11/18 04:14 WBC Morphology Not Reportable 04/11/18 04:14 Hypersegmented Neuts Not Reportable 04/11/18 04:14 Hyposegmented Neuts Not Reportable 04/11/18 04:14 Hypogranular Neuts Not Reportable 04/11/18 04:14 Smudge Cells Not Reportable 04/11/18 04:14 Toxic Granulation Not Reportable 04/11/18 04:14 Toxic Vacuolation Not Reportable 04/11/18 04:14 Dohle Bodies Not Reportable 04/11/18 04:14 Pelger-Huet Anomaly Not Reportable 04/11/18 04:14 Matt Rods Not Reportable 04/11/18 04:14 Platelet Estimate Consistent w auto 04/11/18 04:14 Clumped Platelets Not Reportable 04/11/18 04:14 Plt Clumps, EDTA Not Reportable 04/11/18 04:14 Large Platelets Not Reportable 04/11/18 04:14 Giant Platelets Not Reportable 04/11/18 04:14 Platelet Satelliting Not Reportable 04/11/18 04:14 Plt Morphology Comment Not Reportable 04/11/18 04:14 RBC Morphology Not Reportable 04/11/18 04:14 Dimorphic RBCs Not Reportable 04/11/18 04:14 Polychromasia Not Reportable 04/11/18 04:14 Hypochromasia 1+ 04/11/18 04:14 Poikilocytosis Not Reportable 04/11/18 04:14 Anisocytosis Not Reportable 04/11/18 04:14 Microcytosis Not Reportable 04/11/18 04:14 Macrocytosis Not Reportable 04/11/18 04:14 Spherocytes Not Reportable 04/11/18 04:14 Pappenheimer Bodies Not Reportable 04/11/18 04:14 Sickle Cells Not Reportable 04/11/18 04:14 Target Cells Not Reportable 04/11/18 04:14 Tear Drop Cells Not Reportable 04/11/18 04:14 Ovalocytes Not Reportable 04/11/18 04:14 Stomatocytes Rare 04/10/18 04:06 Helmet Cells Not Reportable 04/11/18 04:14 [place] Bodies Not Reportable 04/11/18 04:14 [place] Rings Not Reportable 04/11/18 04:14 Matthias Cells Not Reportable 04/11/18 04:14 Bite Cells Not Reportable 04/11/18 04:14 Crenated Cell Not Reportable 04/11/18 04:14 Elliptocytes Not Reportable 04/11/18 04:14 Acanthocytes (Spur) Not Reportable 04/11/18 04:14 Rouleaux Not Reportable 04/11/18 04:14 Hemoglobin C Crystals Not Reportable 04/11/18 04:14 Schistocytes Not Reportable 04/11/18 04:14 Malaria parasites Not Reportable 04/11/18 04:14 [place] Bodies Not Reportable 04/11/18 04:14 Hem Pathologist Commnt No 04/11/18 04:14 D-Dimer 933.08 ng/mlDDU (0-234) H 04/07/18 08:15 POC ABG pH 7.499 (7.35-7.45) H 04/14/18 09:45 POC ABG pCO2 30.1 (35-45) L 04/14/18 09:45 POC ABG pO2 104 (80-105) 04/14/18 09:45 POC ABG HCO3 23.5 04/14/18 09:45 POC ABG Total CO2 24 04/14/18 09:45 POC ABG O2 Sat 99 04/14/18 09:45 POC ABG Base Excess 0 04/14/18 09:45 VBG pH 7.231 (7.320-7.420) L 04/07/18 13:25 FiO2 28 % 04/14/18 09:45 Sodium 143 mmol/L (137-145) 04/12/18 04:14 Potassium 4.2 mmol/L (3.6-5.0) 04/12/18 04:14 Chloride 110.4 mmol/L (98-107) H 04/12/18 04:14 Carbon Dioxide 20 mmol/L (22-30) L 04/12/18 04:14 Anion Gap 17 mmol/L 04/12/18 04:14 BUN 25 mg/dL (9-20) H 04/12/18 04:14 Creatinine 1.0 mg/dL (0.8-1.5) 04/12/18 04:14 Estimated GFR > 60 ml/min 04/12/18 04:14 BUN/Creatinine Ratio 25 % 04/12/18 04:14 Glucose 164 mg/dL (75-100) H 04/12/18 04:14 POC Glucose 202 (70-105) H 04/14/18 18:02 Hemoglobin A1c 9.9 % (4-6) H 04/07/18 16:43 Lactic Acid 1.80 mmol/L (0.7-2.0) 04/07/18 16:43 Calcium 7.6 mg/dL (8.4-10.2) L 04/12/18 04:14 Iron 15 ug/dL (49-181) L 04/08/18 07:34 TIBC 106 mcg/dL (250-450) L 04/08/18 07:34 % Saturation 14.15 % 04/08/18 07:34 Transferrin 76 mg/dl (180-329) L 04/08/18 07:34 Total Bilirubin 1.40 mg/dL (0.1-1.2) H 04/11/18 04:14 AST 40 units/L (5-40) 04/11/18 04:14 ALT 45 units/L (7-56) 04/11/18 04:14 Alkaline Phosphatase 225 units/L (35-129) H 04/11/18 04:14 Total Creatine Kinase 83 units/L (55-170) 04/07/18 13:25 CK-MB (CK-2) 2.5 ng/mL (0.0-4.0) 04/07/18 13:25 CK-MB (CK-2) Rel Index 3.0 (0-4) 04/07/18 13:25 Troponin T 0.025 ng/mL (0.00-0.029) 04/07/18 13:25 C-Reactive Protein 13.00 mg/dL (0.00-1.30) H 04/11/18 12:22 Total Protein 5.9 g/dL (6.3-8.2) L 04/11/18 04:14 Albumin 1.9 g/dL (3.9-5) L 04/11/18 04:14 Albumin/Globulin Ratio 0.5 % 04/11/18 04:14 Triglycerides 174 mg/dL (2-149) H 04/13/18 08:13 Cholesterol 95 mg/dL (50-199) 04/13/18 08:13 LDL Cholesterol Direct 25 mg/dL (50-130) L 04/13/18 08:13 HDL Cholesterol 9 mg/dL (40-59) L 04/13/18 08:13 Cholesterol/HDL Ratio 10.55 % 04/13/18 08:13 Vitamin B12 1405 pg/mL (211-911) H 04/08/18 07:34 RBC Folic Acid >1000 ng/mL (>280) 04/08/18 07:34 Urine Color Yellow (Yellow) 04/07/18 08:52 Urine Turbidity Clear (Clear) 04/07/18 08:52 Urine pH 8.0 (5.0-7.0) H 04/07/18 08:52 Ur Specific [place] 1.009 (1.003-1.030) 04/07/18 08:52 Urine Protein 100 mg/dl mg/dL (Negative) 04/07/18 08:52 Urine Glucose (UA) Neg mg/dL (Negative) 04/07/18 08:52 Urine Ketones Neg mg/dL (Negative) 04/07/18 08:52 Urine Blood Neg (Negative) 04/07/18 08:52 Urine Nitrite Neg (Negative) 04/07/18 08:52 Urine Bilirubin Neg (Negative) 04/07/18 08:52 Urine Urobilinogen < 2.0 mg/dL (<2.0) 04/07/18 08:52 Ur Leukocyte Esterase Neg (Negative) 04/07/18 08:52 Urine WBC (Auto) 1.0 /HPF (0.0-6.0) 04/07/18 08:52 Urine RBC (Auto) 3.0 /HPF (0.0-6.0) 04/07/18 08:52 U Epithel Cells (Auto) 2.0 /HPF (0-13.0) 04/07/18 08:52 Urine Mucus Few /HPF 04/07/18 08:52 Urine Sperm 3+ /HPF ([employer]) 04/07/18 08:52 Vancomycin Trough 12.3 ug/mL (5.0-20.0) 04/12/18 11:20 Urine Opiates Screen Presumptive negative 04/07/18 08:52 Urine Methadone Screen Presumptive negative 04/07/18 08:52 Ur Barbiturates Screen Presumptive negative 04/07/18 08:52 Ur Phencyclidine Scrn Presumptive negative 04/07/18 08:52 Ur Amphetamines Screen Presumptive negative 04/07/18 08:52 U Benzodiazepines Scrn Presumptive negative 04/07/18 08:52 Urine Cocaine Screen Presumptive negative 04/07/18 08:52 U Marijuana (THC) Screen Presumptive negative 04/07/18 08:52 Drugs of Abuse Note Disclamer 04/07/18 08:52 Blood Type O POSITIVE 04/07/18 16:43 Antibody Screen Negative 04/07/18 16:43 Crossmatch See Detail 04/07/18 16:43
[2018-04-14] MEDS: VITAMIN C PO SCH (22:11)
[2018-04-15] MEDS: DAKIN'S FULL STRENGTH TP SCH ×2 (04:00→10:44)
[2018-04-15] MEDS: VANCOMYCIN 1,500 MG in NACL 0.9% 500 ML 500 ML IV SCH ×2 (04:38→19:05)
[2018-04-15] MEDS: ZOSYN/NS 4.5GM/100ML 4.5 GM/100 ML VIAL IV SCH ×3 (06:43→22:11)
[2018-04-15] MEDS: HumaLOG SUB-Q SCH ×3 (06:49→19:05)
[2018-04-15] MEDS: DUONEB *Not for PRN Use IH SCH ×3 (08:14→19:41)
[2018-04-15] MEDS: ZESTRIL PO SCH (10:27)
[2018-04-15] MEDS: VITAMIN C PO SCH ×2 (10:28→21:59)
[2018-04-15] MEDS: PROTONIX FEEDTUBE SCH (10:28)
[2018-04-15] MEDS: LOVENOX SUB-Q SCH (10:29)
[2018-04-15] MEDS: SENOKOT FEEDTUBE SCH ×2 (10:31→21:54)
[2018-04-15] MEDS: SODIUM CHLORIDE FLUSH SYRINGE 10 ML IV SCH ×2 (10:38→21:59)
[2018-04-15] MEDS: FEOSOL PO SCH ×2 (10:38→15:24)
[2018-04-15] MEDS: LANTUS SUB-Q SCH ×2 (10:38→21:59)
--- NOTE | 2018-04-15 12:10 | Progress Note ---
Assessment and Plan Imp: 1. Cellulitis 2. Aspiration pneumonia 3. Sepsis 4. Hypoglycemia initially 2/2 above 5. s/p CP arrest 6. Acute respiratory failure, hypoxia Rec: 1. Cont. current ABX; f/u cultures 2. Appreciate vascular surgery input 3. Extubated, doing well 4. Off pressors; stopped IVFs 5. DVT and GI PPx, TFs -> ST eval. pending 6. Resumed home ACEI for elevated BP 7. Can be transferred to floor [id number] Subjective Date of service: 04/15/18 Principal diagnosis: Acute respiratory failure Interval history: Extubated doing well. No SOB. On NC. No complaints. Active Medications Acetaminophen (Tylenol) 650 mg PO Q4H PRN PRN Reason: Pain MILD(1-3)/Fever >100.5/[place] Last Admin: 04/11/18 23:59 Dose: 650 mg Acetaminophen (Tylenol) 650 mg AR Q4H PRN PRN Reason: Pain, Mild (1-3) Last Admin: 04/07/18 17:25 Dose: 650 mg Albuterol (Proventil) 2.5 mg IH Q3HRT PRN PRN Reason: Wheezing Albuterol/Ipratropium (Duoneb *Not For Prn Use*) 1 ampul IH TIDRT [facility] Last Admin: 04/15/18 08:14 Dose: 1 ampul Lipase/Protease/Amylase (Pancreaze Dr 10,500 Unit) 1 each FEEDTUBE PRN PRN PRN Reason: For Clogged Feeding Tube Ascorbic Acid (Vitamin C) 500 mg PO BID [facility] Last Admin: 04/15/18 10:28 Dose: 500 mg Bisacodyl (Dulcolax) 10 mg PO QDAY PRN PRN Reason: Constipation Enoxaparin Sodium (Lovenox) 40 mg SUB-Q QDAY [facility] Last Admin: 04/15/18 10:29 Dose: 40 mg Ferrous Sulfate (Feosol) 325 mg PO TID [facility] Last Admin: 04/15/18 10:38 Dose: 325 mg Hydrophilic Ointment (Vaseline Lip Therapy) 1 applic TP Q2HR PRN PRN Reason: Dry Lips Last Admin: 04/08/18 18:47 Dose: 1 applic Piperacillin Sod/Tazobactam Sod (Zosyn/Ns 4.5gm/100ml) 4.5 gm in 100 mls @ 200 mls/hr IV Q8HR [facility]; Protocol Last Admin: 04/15/18 06:43 Dose: 200 mls/hr Vancomycin HCl 1,500 mg/ (Sodium Chloride) 530 mls @ 333.333 mls/hr IV Q12H [facility] Last Admin: 04/15/18 04:38 Dose: 333.333 mls/hr Insulin Glargine (Lantus) 15 units SUB-Q BID [facility] Last Admin: 04/15/18 10:38 Dose: 15 units Insulin Human Lispro (Humalog) 0 unit SUB-Q Q6HR [facility]; Protocol Last Admin: 04/15/18 06:49 Dose: 4 unit Lisinopril (Zestril) 10 mg PO QDAY [facility] Last Admin: 04/15/18 10:27 Dose: 10 mg Morphine Sulfate (Morphine) 2 mg IV Q4H PRN PRN Reason: Pain, Moderate (4-6) Last Admin: 04/13/18 22:55 Dose: 2 mg Multi-Ingred Cream/Lotion/Oil/Oint (Artificial Tears Ophth Oint) 1 applic OU Q4HR PRN PRN Reason: Dry Eye(s) Ondansetron HCl (Zofran) 4 mg IV Q8H PRN PRN Reason: Nausea And Vomiting Pantoprazole (Protonix) 40 mg FEEDTUBE DAILY [facility] Last Admin: 04/15/18 10:28 Dose: 40 mg Senna (Senokot) 17.6 mg FEEDTUBE Q12HR [facility] Last Admin: 04/15/18 10:31 Dose: 17.6 mg Simple Syrup (Simple Syrup) 15 ml FEEDTUBE PRN PRN PRN Reason: Hypoglycemia Simple Syrup (Simple Syrup) 30 ml FEEDTUBE PRN PRN PRN Reason: Hypoglycemia Sodium Bicarbonate (Sodium Bicarbonate) 325 mg FEEDTUBE PRN PRN PRN Reason: For Clogged Feeding Tube Sodium Chloride (Sodium Chloride Flush Syringe 10 Ml) 10 ml IV BID [facility] Last Admin: 04/15/18 10:38 Dose: 10 ml Sodium Chloride (Sodium Chloride Flush Syringe 10 Ml) 10 ml IV PRN PRN PRN Reason: LINE FLUSH Sodium Hypochlorite (Dakin's Full Strength) 1 applic TP Q12HR [facility] Last Admin: 04/15/18 10:44 Dose: 1 applicatio Objective Vital Signs - 12hr 04/15/18 04/15/18 04/15/18 01:00 02:00 03:00 Temperature Pulse Rate 90 94 H 87 Pulse Rate [ Anterior Bilateral Upper Lobe] Pulse Rate [ From Monitor] Respiratory 33 H 16 27 H Rate Respiratory Rate [Anterior Bilateral Upper Lobe] Blood Pressure 164/83 164/80 159/81 O2 Sat by Pulse 97 94 98 Oximetry 04/15/18 04/15/18 04/15/18 04:00 04:11 05:00 Temperature 98.8 F Pulse Rate 87 87 Pulse Rate [ Anterior Bilateral Upper Lobe] Pulse Rate [ 87 From Monitor] Respiratory 33 H 33 H 37 H Rate Respiratory Rate [Anterior Bilateral Upper Lobe] Blood Pressure 168/81 165/80 O2 Sat by Pulse 98 100 97 Oximetry 04/15/18 04/15/18 04/15/18 06:01 07:00 08:00 Temperature Pulse Rate 83 86 Pulse Rate [ Anterior Bilateral Upper Lobe] Pulse Rate [ 87 From Monitor] Respiratory 26 H 22 Rate Respiratory Rate [Anterior Bilateral Upper Lobe] Blood Pressure 165/83 165/84 O2 Sat by Pulse 98 98 100 Oximetry 04/15/18 04/15/18 04/15/18 08:01 08:15 08:25 Temperature Pulse Rate 84 Pulse Rate [ 83 89 Anterior Bilateral Upper Lobe] Pulse Rate [ From Monitor] Respiratory 30 H Rate Respiratory 19 20 Rate [Anterior Bilateral Upper Lobe] Blood Pressure 165/84 O2 Sat by Pulse 99 99 Oximetry 04/15/18 04/15/18 04/15/18 08:52 09:01 10:01 Temperature 98 F Pulse Rate 92 H 89 Pulse Rate [ Anterior Bilateral Upper Lobe] Pulse Rate [ From Monitor] Respiratory 28 H 11 L Rate Respiratory Rate [Anterior Bilateral Upper Lobe] Blood Pressure 159/76 152/71 O2 Sat by Pulse 97 96 Oximetry Constitutional: no acute distress, alert Eyes: non-icteric ENT: oropharynx moist Neck: supple Effort: normal Ascultation: Bilateral: clear Cardiovascular: regular rate and rhythm (no mrg) Gastrointestinal: normoactive bowel sounds, soft, non-tender, other (obese) Integumentary: other (foul smelling L foot wound, bandaged) Extremities: no cyanosis, edema (1+ bilateral LE edema, L > R) Neurologic: normal mental status, non-focal exam, pupils equal and round, CN II- XII normal Psychiatric: mood appropriate, affect normal CBC and BMP: 04/12/18 04:14 04/12/18 04:14 ABG, PT/INR, D-dimer: ABG POC ABG pH 7.499 (7.35-7.45) H 04/14/18 09:45 POC ABG pCO2 30.1 (35-45) L 04/14/18 09:45 POC ABG pO2 104 (80-105) 04/14/18 09:45 POC ABG HCO3 23.5 04/14/18 09:45 POC ABG Total CO2 24 04/14/18 09:45 POC ABG O2 Sat 99 04/14/18 09:45 PT/INR, D-dimer D-Dimer 933.08 ng/mlDDU (0-234) H 04/07/18 08:15 Abnormal lab findings: Abnormal Labs 04/07/18 04/07/18 04/07/18 08:11 08:15 08:15 WBC 23.9 H RBC 2.89 L Hgb 7.2 L Hct 22.4 L MCV 78 L MCH 25 L MCHC RDW 13.0 L Plt Count 453 H Lymph % (Auto) [place] % (Auto) [place] # Seg Neutrophils % Seg Neuts % (Manual) 84.0 H Lymphocytes % (Manual) 8.0 L Monocytes % (Manual) 8.0 H Seg Neutrophils # Seg Neutrophils # Man 20.1 H Lymphocytes # (Manual) Monocytes # (Manual) 1.9 H Eosinophils # (Manual) D-Dimer 933.08 H POC ABG pH POC ABG pCO2 POC ABG pO2 VBG pH Sodium Chloride Carbon Dioxide BUN Glucose POC Glucose 225 H Hemoglobin A1c Lactic Acid Calcium Iron TIBC Transferrin Total Bilirubin Alkaline Phosphatase Total Creatine Kinase C-Reactive Protein Total Protein Albumin Triglycerides LDL Cholesterol Direct HDL Cholesterol Vitamin B12 Urine pH Crossmatch 04/07/18 04/07/18 04/07/18 08:15 08:15 08:52 WBC RBC Hgb Hct MCV MCH MCHC RDW Plt Count Lymph % (Auto) [place] % (Auto) [place] # Seg Neutrophils % Seg Neuts % (Manual) Lymphocytes % (Manual) Monocytes % (Manual) Seg Neutrophils # Seg Neutrophils # Man Lymphocytes # (Manual) Monocytes # (Manual) Eosinophils # (Manual) D-Dimer POC ABG pH POC ABG pCO2 POC ABG pO2 VBG pH Sodium 127 L Chloride 90.7 L Carbon Dioxide 21 L BUN 21 H Glucose 191 H POC Glucose Hemoglobin A1c Lactic Acid 3.80 H* Calcium 8.2 L Iron TIBC Transferrin Total Bilirubin Alkaline Phosphatase 287 H Total Creatine Kinase 31 L C-Reactive Protein Total Protein Albumin 2.4 L Triglycerides LDL Cholesterol Direct HDL Cholesterol Vitamin B12 Urine pH 8.0 H Crossmatch 04/07/18 04/07/18 04/07/18 09:51 12:27 13:25 WBC RBC Hgb Hct MCV MCH MCHC RDW Plt Count Lymph % (Auto) [place] % (Auto) [place] # Seg Neutrophils % Seg Neuts % (Manual) Lymphocytes % (Manual) Monocytes % (Manual) Seg Neutrophils # Seg Neutrophils # Man Lymphocytes # (Manual) Monocytes # (Manual) Eosinophils # (Manual) D-Dimer POC ABG pH POC ABG pCO2 POC ABG pO2 VBG pH 7.231 L Sodium Chloride Carbon Dioxide BUN Glucose POC Glucose Hemoglobin A1c Lactic Acid 3.10 H* 4.50 H* Calcium Iron TIBC Transferrin Total Bilirubin Alkaline Phosphatase Total Creatine Kinase C-Reactive Protein Total Protein Albumin Triglycerides LDL Cholesterol Direct HDL Cholesterol Vitamin B12 Urine pH Crossmatch 04/07/18 04/07/18 04/07/18 15:24 16:35 16:43 WBC RBC Hgb Hct MCV MCH MCHC RDW Plt Count Lymph % (Auto) [place] % (Auto) [place] # Seg Neutrophils % Seg Neuts % (Manual) Lymphocytes % (Manual) Monocytes % (Manual) Seg Neutrophils # Seg Neutrophils # Man Lymphocytes # (Manual) Monocytes # (Manual) Eosinophils # (Manual) D-Dimer POC ABG pH POC ABG pCO2 POC ABG pO2 VBG pH Sodium Chloride Carbon Dioxide BUN Glucose POC Glucose 137 H Hemoglobin A1c 9.9 H Lactic Acid 2.20 H* Calcium Iron TIBC Transferrin Total Bilirubin Alkaline Phosphatase Total Creatine Kinase C-Reactive Protein Total Protein Albumin Triglycerides LDL Cholesterol Direct HDL Cholesterol Vitamin B12 Urine pH Crossmatch 04/07/18 04/07/18 04/08/18 16:43 16:46 06:15 WBC RBC Hgb Hct MCV MCH MCHC RDW Plt Count Lymph % (Auto) [place] % (Auto) [place] # Seg Neutrophils % Seg Neuts % (Manual) Lymphocytes % (Manual) Monocytes % (Manual) Seg Neutrophils # Seg Neutrophils # Man Lymphocytes # (Manual) Monocytes # (Manual) Eosinophils # (Manual) D-Dimer POC ABG pH 7.345 L POC ABG pCO2 28.0 L 33.8 L POC ABG pO2 76 L 138 H VBG pH Sodium Chloride Carbon Dioxide BUN Glucose POC Glucose Hemoglobin A1c Lactic Acid Calcium Iron TIBC Transferrin Total Bilirubin Alkaline Phosphatase Total Creatine Kinase C-Reactive Protein Total Protein Albumin Triglycerides LDL Cholesterol Direct HDL Cholesterol Vitamin B12 Urine pH Crossmatch See Detail 04/08/18 04/08/18 04/08/18 07:34 07:34 07:34 WBC 15.7 H RBC 6.30 H Hgb 15.6 H D Hct 49.2 H D MCV 78 L MCH 25 L MCHC RDW Plt Count Lymph % (Auto) [place] % (Auto) [place] # Seg Neutrophils % Seg Neuts % (Manual) Lymphocytes % (Manual) Monocytes % (Manual) Seg Neutrophils # Seg Neutrophils # Man Lymphocytes # (Manual) Monocytes # (Manual) Eosinophils # (Manual) D-Dimer POC ABG pH POC ABG pCO2 POC ABG pO2 VBG pH Sodium Chloride Carbon Dioxide BUN Glucose POC Glucose Hemoglobin A1c Lactic Acid Calcium Iron 15 L TIBC 106 L Transferrin 76 L Total Bilirubin Alkaline Phosphatase Total Creatine Kinase C-Reactive Protein Total Protein Albumin Triglycerides LDL Cholesterol Direct HDL Cholesterol Vitamin B12 1405 H Urine pH Crossmatch 04/08/18 04/08/18 04/08/18 07:34 09:54 12:43 WBC RBC Hgb Hct MCV MCH MCHC RDW Plt Count Lymph % (Auto) [place] % (Auto) [place] # Seg Neutrophils % Seg Neuts % (Manual) Lymphocytes % (Manual) Monocytes % (Manual) Seg Neutrophils # Seg Neutrophils # Man Lymphocytes # (Manual) Monocytes # (Manual) Eosinophils # (Manual) D-Dimer POC ABG pH POC ABG pCO2 POC ABG pO2 VBG pH Sodium 131 L Chloride Carbon Dioxide 20 L BUN 24 H Glucose 167 H POC Glucose 162 H 175 H Hemoglobin A1c Lactic Acid Calcium 7.5 L Iron TIBC Transferrin Total Bilirubin Alkaline Phosphatase Total Creatine Kinase C-Reactive Protein Total Protein Albumin Triglycerides LDL Cholesterol Direct HDL Cholesterol Vitamin B12 Urine pH Crossmatch 04/08/18 04/08/18 04/09/18 16:36 16:40 01:15 WBC 28.2 H RBC 2.67 L Hgb 7.3 L D Hct 21.0 L D MCV 79 L MCH 27 L MCHC 35 H RDW Plt Count Lymph % (Auto) [place] % (Auto) [place] # Seg Neutrophils % Seg Neuts % (Manual) 74.0 H Lymphocytes % (Manual) 3.0 L Monocytes % (Manual) Seg Neutrophils # Seg Neutrophils # Man 20.9 H Lymphocytes # (Manual) 0.8 L Monocytes # (Manual) 1.7 H Eosinophils # (Manual) D-Dimer POC ABG pH POC ABG pCO2 POC ABG pO2 VBG pH Sodium Chloride Carbon Dioxide BUN Glucose POC Glucose 150 H 171 H Hemoglobin A1c Lactic Acid Calcium Iron TIBC Transferrin Total Bilirubin Alkaline Phosphatase Total Creatine Kinase C-Reactive Protein Total Protein Albumin Triglycerides LDL Cholesterol Direct HDL Cholesterol Vitamin B12 Urine pH Crossmatch 04/09/18 04/09/18 04/09/18 05:13 05:42 05:42 WBC 23.2 H RBC 2.72 L Hgb 7.0 L Hct 21.6 L MCV 79 L MCH 26 L MCHC RDW Plt Count Lymph % (Auto) [place] % (Auto) [place] # Seg Neutrophils % Seg Neuts % (Manual) 87.5 H Lymphocytes % (Manual) 8.0 L Monocytes % (Manual) Seg Neutrophils # Seg Neutrophils # Man 20.3 H Lymphocytes # (Manual) Monocytes # (Manual) 0.9 H Eosinophils # (Manual) D-Dimer POC ABG pH POC ABG pCO2 34.4 L POC ABG pO2 VBG pH Sodium 134 L Chloride Carbon Dioxide 21 L BUN 24 H Glucose 192 H POC Glucose Hemoglobin A1c Lactic Acid Calcium 7.4 L Iron TIBC Transferrin Total Bilirubin Alkaline Phosphatase 211 H Total Creatine Kinase C-Reactive Protein Total Protein Albumin 2.1 L Triglycerides LDL Cholesterol Direct HDL Cholesterol Vitamin B12 Urine pH Crossmatch 04/09/18 04/09/18 04/10/18 12:52 18:43 00:13 WBC RBC Hgb Hct MCV MCH MCHC RDW Plt Count Lymph % (Auto) [place] % (Auto) [place] # Seg Neutrophils % Seg Neuts % (Manual) Lymphocytes % (Manual) Monocytes % (Manual) Seg Neutrophils # Seg Neutrophils # Man Lymphocytes # (Manual) Monocytes # (Manual) Eosinophils # (Manual) D-Dimer POC ABG pH POC ABG pCO2 POC ABG pO2 VBG pH Sodium Chloride Carbon Dioxide BUN Glucose POC Glucose 206 H 223 H 233 H Hemoglobin A1c Lactic Acid Calcium Iron TIBC Transferrin Total Bilirubin Alkaline Phosphatase Total Creatine Kinase C-Reactive Protein Total Protein Albumin Triglycerides LDL Cholesterol Direct HDL Cholesterol Vitamin B12 Urine pH Crossmatch 04/10/18 04/10/18 04/10/18 04:04 04:06 04:06 WBC 18.9 H RBC 3.27 L Hgb 8.4 L Hct 26.0 L MCV 80 L MCH 26 L MCHC RDW Plt Count Lymph % (Auto) [place] % (Auto) [place] # Seg Neutrophils % Seg Neuts % (Manual) 86.0 H Lymphocytes % (Manual) 2.0 L Monocytes % (Manual) Seg Neutrophils # Seg Neutrophils # Man 16.3 H Lymphocytes # (Manual) 0.4 L Monocytes # (Manual) Eosinophils # (Manual) 0.8 H D-Dimer POC ABG pH POC ABG pCO2 34.4 L POC ABG pO2 VBG pH Sodium 136 L Chloride Carbon Dioxide 20 L BUN 23 H Glucose 213 H POC Glucose Hemoglobin A1c Lactic Acid Calcium 7.6 L Iron TIBC Transferrin Total Bilirubin Alkaline Phosphatase Total Creatine Kinase C-Reactive Protein Total Protein Albumin Triglycerides LDL Cholesterol Direct HDL Cholesterol Vitamin B12 Urine pH Crossmatch 04/10/18 04/10/18 04/10/18 06:10 12:30 17:43 WBC RBC Hgb Hct MCV MCH MCHC RDW Plt Count Lymph % (Auto) [place] % (Auto) [place] # Seg Neutrophils % Seg Neuts % (Manual) Lymphocytes % (Manual) Monocytes % (Manual) Seg Neutrophils # Seg Neutrophils # Man Lymphocytes # (Manual) Monocytes # (Manual) Eosinophils # (Manual) D-Dimer POC ABG pH POC ABG pCO2 POC ABG pO2 VBG pH Sodium Chloride Carbon Dioxide BUN Glucose POC Glucose 246 H 266 H 246 H Hemoglobin A1c Lactic Acid Calcium Iron TIBC Transferrin Total Bilirubin Alkaline Phosphatase Total Creatine Kinase C-Reactive Protein Total Protein Albumin Triglycerides LDL Cholesterol Direct HDL Cholesterol Vitamin B12 Urine pH Crossmatch 04/10/18 04/11/18 04/11/18 23:50 04:14 04:14 WBC 14.9 H RBC 3.07 L Hgb 8.0 L Hct 24.6 L MCV 80 L MCH 26 L MCHC RDW Plt Count Lymph % (Auto) [place] % (Auto) [place] # Seg Neutrophils % Seg Neuts % (Manual) 79.0 H Lymphocytes % (Manual) 10.0 L Monocytes % (Manual) Seg Neutrophils # Seg Neutrophils # Man 11.8 H Lymphocytes # (Manual) Monocytes # (Manual) Eosinophils # (Manual) D-Dimer POC ABG pH POC ABG pCO2 POC ABG pO2 VBG pH Sodium Chloride 107.9 H Carbon Dioxide 20 L BUN 25 H Glucose 184 H POC Glucose 247 H Hemoglobin A1c Lactic Acid Calcium 7.3 L Iron TIBC Transferrin Total Bilirubin 1.40 H Alkaline Phosphatase 225 H Total Creatine Kinase C-Reactive Protein Total Protein 5.9 L Albumin 1.9 L Triglycerides LDL Cholesterol Direct HDL Cholesterol Vitamin B12 Urine pH Crossmatch 04/11/18 04/11/18 04/11/18 04:43 10:04 12:02 WBC RBC Hgb Hct MCV MCH MCHC RDW Plt Count Lymph % (Auto) [place] % (Auto) [place] # Seg Neutrophils % Seg Neuts % (Manual) Lymphocytes % (Manual) Monocytes % (Manual) Seg Neutrophils # Seg Neutrophils # Man Lymphocytes # (Manual) Monocytes # (Manual) Eosinophils # (Manual) D-Dimer POC ABG pH 7.479 H POC ABG pCO2 34.8 L POC ABG pO2 VBG pH Sodium Chloride Carbon Dioxide BUN Glucose POC Glucose 147 H 148 H Hemoglobin A1c Lactic Acid Calcium Iron TIBC Transferrin Total Bilirubin Alkaline Phosphatase Total Creatine Kinase C-Reactive Protein Total Protein Albumin Triglycerides LDL Cholesterol Direct HDL Cholesterol Vitamin B12 Urine pH Crossmatch 04/11/18 04/11/18 04/11/18 12:22 17:34 23:39 WBC RBC Hgb Hct MCV MCH MCHC RDW Plt Count Lymph % (Auto) [place] % (Auto) [place] # Seg Neutrophils % Seg Neuts % (Manual) Lymphocytes % (Manual) Monocytes % (Manual) Seg Neutrophils # Seg Neutrophils # Man Lymphocytes # (Manual) Monocytes # (Manual) Eosinophils # (Manual) D-Dimer POC ABG pH POC ABG pCO2 POC ABG pO2 VBG pH Sodium Chloride Carbon Dioxide BUN Glucose POC Glucose 118 H 192 H Hemoglobin A1c Lactic Acid Calcium Iron TIBC Transferrin Total Bilirubin Alkaline Phosphatase Total Creatine Kinase C-Reactive Protein 13.00 H Total Protein Albumin Triglycerides LDL Cholesterol Direct HDL Cholesterol Vitamin B12 Urine pH Crossmatch 04/12/18 04/12/18 04/12/18 04:14 04:14 04:56 WBC 17.2 H RBC 3.16 L Hgb 8.4 L Hct 25.4 L MCV 81 L MCH 27 L MCHC RDW Plt Count 453 H Lymph % (Auto) 9.1 L [place] % (Auto) 11.7 H [place] # 2.0 H Seg Neutrophils % 78.1 H Seg Neuts % (Manual) Lymphocytes % (Manual) Monocytes % (Manual) Seg Neutrophils # 13.4 H Seg Neutrophils # Man Lymphocytes # (Manual) Monocytes # (Manual) Eosinophils # (Manual) D-Dimer POC ABG pH 7.452 H POC ABG pCO2 28.6 L POC ABG pO2 VBG pH Sodium Chloride 110.4 H Carbon Dioxide 20 L BUN 25 H Glucose 164 H POC Glucose Hemoglobin A1c Lactic Acid Calcium 7.6 L Iron TIBC Transferrin Total Bilirubin Alkaline Phosphatase Total Creatine Kinase C-Reactive Protein Total Protein Albumin Triglycerides LDL Cholesterol Direct HDL Cholesterol Vitamin B12 Urine pH Crossmatch 04/12/18 04/12/18 04/12/18 09:20 15:01 18:19 WBC RBC Hgb Hct MCV MCH MCHC RDW Plt Count Lymph % (Auto) [place] % (Auto) [place] # Seg Neutrophils % Seg Neuts % (Manual) Lymphocytes % (Manual) Monocytes % (Manual) Seg Neutrophils # Seg Neutrophils # Man Lymphocytes # (Manual) Monocytes # (Manual) Eosinophils # (Manual) D-Dimer POC ABG pH POC ABG pCO2 POC ABG pO2 VBG pH Sodium Chloride Carbon Dioxide BUN Glucose POC Glucose 148 H 170 H 140 H Hemoglobin A1c Lactic Acid Calcium Iron TIBC Transferrin Total Bilirubin Alkaline Phosphatase Total Creatine Kinase C-Reactive Protein Total Protein Albumin Triglycerides LDL Cholesterol Direct HDL Cholesterol Vitamin B12 Urine pH Crossmatch 04/12/18 04/12/18 04/13/18 21:20 23:59 05:19 WBC RBC Hgb Hct MCV MCH MCHC RDW Plt Count Lymph % (Auto) [place] % (Auto) [place] # Seg Neutrophils % Seg Neuts % (Manual) Lymphocytes % (Manual) Monocytes % (Manual) Seg Neutrophils # Seg Neutrophils # Man Lymphocytes # (Manual) Monocytes # (Manual) Eosinophils # (Manual) D-Dimer POC ABG pH 7.458 H POC ABG pCO2 27.7 L POC ABG pO2 VBG pH Sodium Chloride Carbon Dioxide BUN Glucose POC Glucose 173 H 199 H Hemoglobin A1c Lactic Acid Calcium Iron TIBC Transferrin Total Bilirubin Alkaline Phosphatase Total Creatine Kinase C-Reactive Protein Total Protein Albumin Triglycerides LDL Cholesterol Direct HDL Cholesterol Vitamin B12 Urine pH Crossmatch 04/13/18 04/13/18 04/13/18 05:37 08:13 13:13 WBC RBC Hgb Hct MCV MCH MCHC RDW Plt Count Lymph % (Auto) [place] % (Auto) [place] # Seg Neutrophils % Seg Neuts % (Manual) Lymphocytes % (Manual) Monocytes % (Manual) Seg Neutrophils # Seg Neutrophils # Man Lymphocytes # (Manual) Monocytes # (Manual) Eosinophils # (Manual) D-Dimer POC ABG pH POC ABG pCO2 POC ABG pO2 VBG pH Sodium Chloride Carbon Dioxide BUN Glucose POC Glucose 242 H 233 H Hemoglobin A1c Lactic Acid Calcium Iron TIBC Transferrin Total Bilirubin Alkaline Phosphatase Total Creatine Kinase C-Reactive Protein Total Protein Albumin Triglycerides 174 H LDL Cholesterol Direct 25 L HDL Cholesterol 9 L Vitamin B12 Urine pH Crossmatch 04/13/18 04/13/18 04/14/18 17:15 21:33 00:02 WBC RBC Hgb Hct MCV MCH MCHC RDW Plt Count Lymph % (Auto) [place] % (Auto) [place] # Seg Neutrophils % Seg Neuts % (Manual) Lymphocytes % (Manual) Monocytes % (Manual) Seg Neutrophils # Seg Neutrophils # Man Lymphocytes # (Manual) Monocytes # (Manual) Eosinophils # (Manual) D-Dimer POC ABG pH POC ABG pCO2 POC ABG pO2 VBG pH Sodium Chloride Carbon Dioxide BUN Glucose POC Glucose 241 H 256 H 245 H Hemoglobin A1c Lactic Acid Calcium Iron TIBC Transferrin Total Bilirubin Alkaline Phosphatase Total Creatine Kinase C-Reactive Protein Total Protein Albumin Triglycerides LDL Cholesterol Direct HDL Cholesterol Vitamin B12 Urine pH Crossmatch 04/14/18 04/14/18 04/14/18 05:21 09:45 12:18 WBC RBC Hgb Hct MCV MCH MCHC RDW Plt Count Lymph % (Auto) [place] % (Auto) [place] # Seg Neutrophils % Seg Neuts % (Manual) Lymphocytes % (Manual) Monocytes % (Manual) Seg Neutrophils # Seg Neutrophils # Man Lymphocytes # (Manual) Monocytes # (Manual) Eosinophils # (Manual) D-Dimer POC ABG pH 7.499 H POC ABG pCO2 30.1 L POC ABG pO2 VBG pH Sodium Chloride Carbon Dioxide BUN Glucose POC Glucose 182 H 182 H Hemoglobin A1c Lactic Acid Calcium Iron TIBC Transferrin Total Bilirubin Alkaline Phosphatase Total Creatine Kinase C-Reactive Protein Total Protein Albumin Triglycerides LDL Cholesterol Direct HDL Cholesterol Vitamin B12 Urine pH Crossmatch 04/14/18 04/14/18 04/15/18 18:02 23:33 06:41 WBC RBC Hgb Hct MCV MCH MCHC RDW Plt Count Lymph % (Auto) [place] % (Auto) [place] # Seg Neutrophils % Seg Neuts % (Manual) Lymphocytes % (Manual) Monocytes % (Manual) Seg Neutrophils # Seg Neutrophils # Man Lymphocytes # (Manual) Monocytes # (Manual) Eosinophils # (Manual) D-Dimer POC ABG pH POC ABG pCO2 POC ABG pO2 VBG pH Sodium Chloride Carbon Dioxide BUN Glucose POC Glucose 202 H 228 H 253 H Hemoglobin A1c Lactic Acid Calcium Iron TIBC Transferrin Total Bilirubin Alkaline Phosphatase Total Creatine Kinase C-Reactive Protein Total Protein Albumin Triglycerides LDL Cholesterol Direct HDL Cholesterol Vitamin B12 Urine pH Crossmatch Chest x-ray: report reviewed, image reviewed
--- NOTE | 2018-04-15 12:54 | Progress Note ---
Assessment and Plan agree that best treatment is BKA- despite hurdles to obtain prosthesis post op. Pt agrees to this once stable Subjective Date of service: 04/15/18 Principal diagnosis: Acute respiratory failure Interval history: feeling better- foot ulcer inspected with family present. Objective - Exam Narrative Exam: large soft tissue defect in foot with underlying calcaneus osteo. 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 - Constitutional Vitals: Vital Signs - 12hr 04/15/18 04/15/18 04/15/18 01:00 02:00 03:00 Temperature Pulse Rate 90 94 H 87 Pulse Rate [ Anterior Bilateral Upper Lobe] Pulse Rate [ From Monitor] Respiratory 33 H 16 27 H Rate Respiratory Rate [Anterior Bilateral Upper Lobe] Blood Pressure 164/83 164/80 159/81 O2 Sat by Pulse 97 94 98 Oximetry 04/15/18 04/15/18 04/15/18 04:00 04:11 05:00 Temperature 98.8 F Pulse Rate 87 87 Pulse Rate [ Anterior Bilateral Upper Lobe] Pulse Rate [ 87 From Monitor] Respiratory 33 H 33 H 37 H Rate Respiratory Rate [Anterior Bilateral Upper Lobe] Blood Pressure 168/81 165/80 O2 Sat by Pulse 98 100 97 Oximetry 04/15/18 04/15/18 04/15/18 06:01 07:00 08:00 Temperature Pulse Rate 83 86 Pulse Rate [ Anterior Bilateral Upper Lobe] Pulse Rate [ 87 From Monitor] Respiratory 26 H 22 Rate Respiratory Rate [Anterior Bilateral Upper Lobe] Blood Pressure 165/83 165/84 O2 Sat by Pulse 98 98 100 Oximetry 04/15/18 04/15/18 04/15/18 08:01 08:15 08:25 Temperature Pulse Rate 84 Pulse Rate [ 83 89 Anterior Bilateral Upper Lobe] Pulse Rate [ From Monitor] Respiratory 30 H Rate Respiratory 19 20 Rate [Anterior Bilateral Upper Lobe] Blood Pressure 165/84 O2 Sat by Pulse 99 99 Oximetry 04/15/18 04/15/18 04/15/18 08:52 09:01 10:01 Temperature 98 F Pulse Rate 92 H 89 Pulse Rate [ Anterior Bilateral Upper Lobe] Pulse Rate [ From Monitor] Respiratory 28 H 11 L Rate Respiratory Rate [Anterior Bilateral Upper Lobe] Blood Pressure 159/76 152/71 O2 Sat by Pulse 97 96 Oximetry 04/15/18 04/15/18 11:01 12:01 Temperature Pulse Rate 90 87 Pulse Rate [ Anterior Bilateral Upper Lobe] Pulse Rate [ From Monitor] Respiratory 19 16 Rate Respiratory Rate [Anterior Bilateral Upper Lobe] Blood Pressure 157/77 151/72 O2 Sat by Pulse 99 97 Oximetry - Labs CBC & Chem 7: 04/12/18 04:14 04/12/18 04:14 Labs: Abnormal lab results 04/14/18 04/14/18 04/15/18 Range/Units 18:02 23:33 06:41 POC Glucose 202 H 228 H 253 H (70-105) 04/15/18 Range/Units 12:38 POC Glucose 250 H (70-105)
--- NOTE | 2018-04-15 17:03 | Progress Note ---
Assessment and Plan Assessment and plan: 57M who is diabetic, had not eaten in two days, c.o chest pain, family called EMS who found his glc to be <40, he received dextrose, on way to ER, he had vomiting, then syncope, and was pulseless, he received CPR and was intubated and required pressors. -Active issues include -resp failure on vent >96 hours -Left foot infection -Generalized weakness Acute hypoxic respiratory failure on MV >96 hours extubated on 04/14/18, improving Severe sepsis with shock probably secondary to pneumonia and LT foot cellulitis weaned off pressors on 04/11 - IV abx, ID consulted Bilateral pneumonia -On IV antibiotics metabolic encephalopathy -MR brain was negative, case dw neurology -anoxic encephalopathy excluded LT foot cellulitis/osteomyelitis -on iv antibiotics snd wound care -Status post I&D left lower extremity on 04/12/18, infection is down to the bone Questionable cardiac arrest -serial troponin levels normal -echo showed EF of 55-60% without regional wall motion abnormalities -cardiology on board Elevated D-dimer -CTA neg for PE DM2 with hyperglycemia -Lantus dose increased, cont SSI, adjust as needed -A1C:9.9 Hyponatremia -improving, will monitor Iron def anemia with acute loss, probably sec to sepsis -s/p blood tranf with 2u of PRBC -Hb:8.4, will monitor -stool for occult blood pending Transaminitis, probably sec to the sepsis -improved Prophylaxis -Protonix and Lovenox Nutrition: tube feeding Disposition: pt's condition remains critical, cont tx CCT 35 minutes History Interval history: Patient has been extubated, he feels well. Communicative. Denies chest pain denies shortness of breath denies abdominal pain, pain in left leg is well controlled Hospitalist Physical - Physical exam Narrative exam: General.: alert, pleasant HEENT: Moist mucous membranes, extraocular muscles intact, no lymphadenopathy Neck: supple Cardiac: S1-S2 heard Lungs: clear to auscultation bilaterally Abdomen: soft , nontender, nondistended, bowel sounds positive Extremities: Left leg redness, odor improved, clean dressing was not removed Skin: no rash or lesions Neurologic: R side weakness resolved Psych: pleasnt and cooperative - Constitutional Vitals: Temp Pulse Resp BP Pulse Ox 98 F 88 16 151/72 97 04/15/18 08:52 04/15/18 14:02 04/15/18 14:02 04/15/18 12:01 04/15/18 12:01 General appearance: Present: no acute distress, other (patient is intubated and sedated.) Results - Labs CBC & Chem 7: 04/12/18 04:14 04/12/18 04:14 Labs: Laboratory Last Values WBC 17.2 K/mm3 (4.5-11.0) H 04/12/18 04:14 RBC 3.16 M/mm3 (3.65-5.03) L 04/12/18 04:14 Hgb 8.4 gm/dl (11.8-15.2) L 04/12/18 04:14 Hct 25.4 % (35.5-45.6) L 04/12/18 04:14 MCV 81 fl (84-94) L 04/12/18 04:14 MCH 27 pg (28-32) L 04/12/18 04:14 MCHC 33 % (32-34) 04/12/18 04:14 RDW 14.6 % (13.2-15.2) 04/12/18 04:14 Plt Count 453 K/mm3 (140-440) H 04/12/18 04:14 Lymph % (Auto) 9.1 % (13.4-35.0) L 04/12/18 04:14 [place] % (Auto) 11.7 % (0.0-7.3) H 04/12/18 04:14 Eos % (Auto) 0.3 % (0.0-4.3) 04/12/18 04:14 Baso % (Auto) 0.8 % (0.0-1.8) 04/12/18 04:14 Lymph # 1.6 K/mm3 (1.2-5.4) 04/12/18 04:14 [place] # 2.0 K/mm3 (0.0-0.8) H 04/12/18 04:14 Eos # 0.0 K/mm3 (0.0-0.4) 04/12/18 04:14 Baso # 0.1 K/mm3 (0.0-0.1) 04/12/18 04:14 Add Manual Diff Complete 04/11/18 04:14 Total Counted 100 04/11/18 04:14 Seg Neutrophils % 78.1 % (40.0-70.0) H 04/12/18 04:14 Seg Neuts % (Manual) 79.0 % (40.0-70.0) H 04/11/18 04:14 Band Neutrophils % 4.0 % 04/11/18 04:14 Lymphocytes % (Manual) 10.0 % (13.4-35.0) L 04/11/18 04:14 Reactive Lymphs % (Man) 0 % 04/11/18 04:14 Monocytes % (Manual) 5.0 % (0.0-7.3) 04/11/18 04:14 Eosinophils % (Manual) 1.0 % (0.0-4.3) 04/11/18 04:14 Basophils % (Manual) 1.0 % (0.0-1.8) 04/11/18 04:14 Metamyelocytes % 0 % 04/11/18 04:14 Myelocytes % 0 % 04/11/18 04:14 Promyelocytes % 0 % 04/11/18 04:14 Blast Cells % 0 % 04/11/18 04:14 Nucleated RBC % Not Reportable 04/11/18 04:14 Seg Neutrophils # 13.4 K/mm3 (1.8-7.7) H 04/12/18 04:14 Seg Neutrophils # Man 11.8 K/mm3 (1.8-7.7) H 04/11/18 04:14 Band Neutrophils # 0.6 K/mm3 04/11/18 04:14 Lymphocytes # (Manual) 1.5 K/mm3 (1.2-5.4) 04/11/18 04:14 Abs React Lymphs (Man) 0.0 K/mm3 04/11/18 04:14 Monocytes # (Manual) 0.7 K/mm3 (0.0-0.8) 04/11/18 04:14 Eosinophils # (Manual) 0.1 K/mm3 (0.0-0.4) 04/11/18 04:14 Basophils # (Manual) 0.1 K/mm3 (0.0-0.1) 04/11/18 04:14 Metamyelocytes # 0.0 K/mm3 04/11/18 04:14 Myelocytes # 0.0 K/mm3 04/11/18 04:14 Promyelocytes # 0.0 K/mm3 04/11/18 04:14 Blast Cells # 0.0 K/mm3 04/11/18 04:14 WBC Morphology Not Reportable 04/11/18 04:14 Hypersegmented Neuts Not Reportable 04/11/18 04:14 Hyposegmented Neuts Not Reportable 04/11/18 04:14 Hypogranular Neuts Not Reportable 04/11/18 04:14 Smudge Cells Not Reportable 04/11/18 04:14 Toxic Granulation Not Reportable 04/11/18 04:14 Toxic Vacuolation Not Reportable 04/11/18 04:14 Dohle Bodies Not Reportable 04/11/18 04:14 Pelger-Huet Anomaly Not Reportable 04/11/18 04:14 Matt Rods Not Reportable 04/11/18 04:14 Platelet Estimate Consistent w auto 04/11/18 04:14 Clumped Platelets Not Reportable 04/11/18 04:14 Plt Clumps, EDTA Not Reportable 04/11/18 04:14 Large Platelets Not Reportable 04/11/18 04:14 Giant Platelets Not Reportable 04/11/18 04:14 Platelet Satelliting Not Reportable 04/11/18 04:14 Plt Morphology Comment Not Reportable 04/11/18 04:14 RBC Morphology Not Reportable 04/11/18 04:14 Dimorphic RBCs Not Reportable 04/11/18 04:14 Polychromasia Not Reportable 04/11/18 04:14 Hypochromasia 1+ 04/11/18 04:14 Poikilocytosis Not Reportable 04/11/18 04:14 Anisocytosis Not Reportable 04/11/18 04:14 Microcytosis Not Reportable 04/11/18 04:14 Macrocytosis Not Reportable 04/11/18 04:14 Spherocytes Not Reportable 04/11/18 04:14 Pappenheimer Bodies Not Reportable 04/11/18 04:14 Sickle Cells Not Reportable 04/11/18 04:14 Target Cells Not Reportable 04/11/18 04:14 Tear Drop Cells Not Reportable 04/11/18 04:14 Ovalocytes Not Reportable 04/11/18 04:14 Stomatocytes Rare 04/10/18 04:06 Helmet Cells Not Reportable 04/11/18 04:14 [place] Bodies Not Reportable 04/11/18 04:14 [place] Rings Not Reportable 04/11/18 04:14 [place] Cells Not Reportable 04/11/18 04:14 Bite Cells Not Reportable 04/11/18 04:14 Crenated Cell Not Reportable 04/11/18 04:14 Elliptocytes Not Reportable 04/11/18 04:14 Acanthocytes (Spur) Not Reportable 04/11/18 04:14 Rouleaux Not Reportable 04/11/18 04:14 Hemoglobin C Crystals Not Reportable 04/11/18 04:14 Schistocytes Not Reportable 04/11/18 04:14 Malaria parasites Not Reportable 04/11/18 04:14 [place] Bodies Not Reportable 04/11/18 04:14 Hem Pathologist Commnt No 04/11/18 04:14 D-Dimer 933.08 ng/mlDDU (0-234) H 04/07/18 08:15 POC ABG pH 7.499 (7.35-7.45) H 04/14/18 09:45 POC ABG pCO2 30.1 (35-45) L 04/14/18 09:45 POC ABG pO2 104 (80-105) 04/14/18 09:45 POC ABG HCO3 23.5 04/14/18 09:45 POC ABG Total CO2 24 04/14/18 09:45 POC ABG O2 Sat 99 04/14/18 09:45 POC ABG Base Excess 0 04/14/18 09:45 VBG pH 7.231 (7.320-7.420) L 04/07/18 13:25 FiO2 28 % 04/14/18 09:45 Sodium 143 mmol/L (137-145) 04/12/18 04:14 Potassium 4.2 mmol/L (3.6-5.0) 04/12/18 04:14 Chloride 110.4 mmol/L (98-107) H 04/12/18 04:14 Carbon Dioxide 20 mmol/L (22-30) L 04/12/18 04:14 Anion Gap 17 mmol/L 04/12/18 04:14 BUN 25 mg/dL (9-20) H 04/12/18 04:14 Creatinine 1.0 mg/dL (0.8-1.5) 04/12/18 04:14 Estimated GFR > 60 ml/min 04/12/18 04:14 BUN/Creatinine Ratio 25 % 04/12/18 04:14 Glucose 164 mg/dL (75-100) H 04/12/18 04:14 POC Glucose 250 (70-105) H 04/15/18 12:38 Hemoglobin A1c 9.9 % (4-6) H 04/07/18 16:43 Lactic Acid 1.80 mmol/L (0.7-2.0) 04/07/18 16:43 Calcium 7.6 mg/dL (8.4-10.2) L 04/12/18 04:14 Iron 15 ug/dL (49-181) L 04/08/18 07:34 TIBC 106 mcg/dL (250-450) L 04/08/18 07:34 % Saturation 14.15 % 04/08/18 07:34 Transferrin 76 mg/dl (180-329) L 04/08/18 07:34 Total Bilirubin 1.40 mg/dL (0.1-1.2) H 04/11/18 04:14 AST 40 units/L (5-40) 04/11/18 04:14 ALT 45 units/L (7-56) 04/11/18 04:14 Alkaline Phosphatase 225 units/L (35-129) H 04/11/18 04:14 Total Creatine Kinase 83 units/L (55-170) 04/07/18 13:25 CK-MB (CK-2) 2.5 ng/mL (0.0-4.0) 04/07/18 13:25 CK-MB (CK-2) Rel Index 3.0 (0-4) 04/07/18 13:25 Troponin T 0.025 ng/mL (0.00-0.029) 04/07/18 13:25 C-Reactive Protein 13.00 mg/dL (0.00-1.30) H 04/11/18 12:22 Total Protein 5.9 g/dL (6.3-8.2) L 04/11/18 04:14 Albumin 1.9 g/dL (3.9-5) L 04/11/18 04:14 Albumin/Globulin Ratio 0.5 % 04/11/18 04:14 Triglycerides 174 mg/dL (2-149) H 04/13/18 08:13 Cholesterol 95 mg/dL (50-199) 04/13/18 08:13 LDL Cholesterol Direct 25 mg/dL (50-130) L 04/13/18 08:13 HDL Cholesterol 9 mg/dL (40-59) L 04/13/18 08:13 Cholesterol/HDL Ratio 10.55 % 04/13/18 08:13 Vitamin B12 1405 pg/mL (211-911) H 04/08/18 07:34 RBC Folic Acid >1000 ng/mL (>280) 04/08/18 07:34 Urine Color Yellow (Yellow) 04/07/18 08:52 Urine Turbidity Clear (Clear) 04/07/18 08:52 Urine pH 8.0 (5.0-7.0) H 04/07/18 08:52 Ur Specific [place] 1.009 (1.003-1.030) 04/07/18 08:52 Urine Protein 100 mg/dl mg/dL (Negative) 04/07/18 08:52 Urine Glucose (UA) Neg mg/dL (Negative) 04/07/18 08:52 Urine Ketones Neg mg/dL (Negative) 04/07/18 08:52 Urine Blood Neg (Negative) 04/07/18 08:52 Urine Nitrite Neg (Negative) 04/07/18 08:52 Urine Bilirubin Neg (Negative) 04/07/18 08:52 Urine Urobilinogen < 2.0 mg/dL (<2.0) 04/07/18 08:52 Ur Leukocyte Esterase Neg (Negative) 04/07/18 08:52 Urine WBC (Auto) 1.0 /HPF (0.0-6.0) 04/07/18 08:52 Urine RBC (Auto) 3.0 /HPF (0.0-6.0) 04/07/18 08:52 U Epithel Cells (Auto) 2.0 /HPF (0-13.0) 04/07/18 08:52 Urine Mucus Few /HPF 04/07/18 08:52 Urine Sperm 3+ /HPF (CHIEF COUNSEL) 04/07/18 08:52 Vancomycin Trough 12.3 ug/mL (5.0-20.0) 04/12/18 11:20 Urine Opiates Screen Presumptive negative 04/07/18 08:52 Urine Methadone Screen Presumptive negative 04/07/18 08:52 Ur Barbiturates Screen Presumptive negative 04/07/18 08:52 Ur Phencyclidine Scrn Presumptive negative 04/07/18 08:52 Ur Amphetamines Screen Presumptive negative 04/07/18 08:52 U Benzodiazepines Scrn Presumptive negative 04/07/18 08:52 Urine Cocaine Screen Presumptive negative 04/07/18 08:52 U Marijuana (THC) Screen Presumptive negative 04/07/18 08:52 Drugs of Abuse Note Disclamer 04/07/18 08:52 Blood Type O POSITIVE 04/07/18 16:43 Antibody Screen Negative 04/07/18 16:43 Crossmatch See Detail 04/07/18 16:43
[2018-04-15] MEDS: FERROUS SULFATE PO SCH (22:16)
[2018-04-16] MEDS: DAKIN'S FULL STRENGTH TP SCH ×3 (01:00→23:05)
[2018-04-16] MEDS: HumaLOG SUB-Q SCH ×4 (01:34→17:08)
[2018-04-16] MEDS: ZOSYN/NS 4.5GM/100ML 4.5 GM/100 ML VIAL IV SCH ×3 (06:18→22:52)
[2018-04-16] MEDS: VANCOMYCIN 1,500 MG in NACL 0.9% 500 ML 500 ML IV SCH ×2 (06:21→23:02)
[2018-04-16] MEDS: DUONEB *Not for PRN Use IH SCH ×3 (08:51→20:56)
[2018-04-16] MEDS: ZESTRIL PO SCH (09:13)
[2018-04-16] MEDS: PROTONIX FEEDTUBE SCH (09:13)
[2018-04-16] MEDS: SENOKOT FEEDTUBE SCH ×2 (09:15→23:03)
[2018-04-16] MEDS: FERROUS SULFATE PO SCH ×3 (09:15→22:57)
[2018-04-16] MEDS: SODIUM CHLORIDE FLUSH SYRINGE 10 ML IV SCH ×2 (09:16→22:58)
[2018-04-16] MEDS: LANTUS SUB-Q SCH ×2 (09:17→23:03)
[2018-04-16] MEDS: LOVENOX SUB-Q SCH (10:00)
[2018-04-16] MEDS: VITAMIN C PO SCH ×2 (10:00→22:57)
--- NOTE | 2018-04-16 14:11 | Progress Note ---
Assessment and Plan Assessment and plan: 57M who is diabetic, had not eaten in two days, c.o chest pain, family called EMS who found his glc to be <40, he received dextrose, on way to ER, he had vomiting, then syncope, and was pulseless, he received CPR and was intubated and required pressors. -Active issues include -resp failure on vent >96 hours -Left foot infection -Generalized weakness Acute hypoxic respiratory failure on MV >96 hours extubated on 04/14/18, improving Severe sepsis with shock probably secondary to pneumonia and LT foot cellulitis weaned off pressors on 04/11 - IV abx, ID consulted Bilateral pneumonia -On IV antibiotics metabolic encephalopathy -MR brain was negative, case dw neurology -anoxic encephalopathy excluded LT foot cellulitis/osteomyelitis -on iv antibiotics snd wound care -Status post I&D left lower extremity on 04/12/18, infection is down to the bone Questionable cardiac arrest -serial troponin levels normal -echo showed EF of 55-60% without regional wall motion abnormalities -cardiology on board Elevated D-dimer -CTA neg for PE DM2 with hyperglycemia -Lantus dose increased, cont SSI, adjust as needed -A1C:9.9 Hyponatremia -improving, will monitor Iron def anemia with acute loss, probably sec to sepsis -s/p blood tranf with 2u of PRBC -Hb:8.4, will monitor -stool for occult blood pending Transaminitis, probably sec to the sepsis -improved Prophylaxis -Protonix and Lovenox Nutrition: tube feeding Disposition: pt's condition remains critical, cont tx CCT 35 minutes History Interval history: Patient has been extubated, he feels well. Communicative. Denies chest pain denies shortness of breath denies abdominal pain, pain in left leg is well controlled Hospitalist Physical - Physical exam Narrative exam: General.: alert, pleasant HEENT: Moist mucous membranes, extraocular muscles intact, no lymphadenopathy Neck: supple Cardiac: S1-S2 heard Lungs: clear to auscultation bilaterally Abdomen: soft , nontender, nondistended, bowel sounds positive Extremities: Left leg redness, odor improved, clean dressing was not removed Skin: no rash or lesions Neurologic: R side weakness resolved Psych: pleasnt and cooperative - Constitutional Vitals: Temp Pulse Resp BP Pulse Ox 98.5 F 85 13 154/76 99 04/16/18 12:00 04/16/18 13:00 04/16/18 13:00 04/16/18 13:00 04/16/18 13:00 General appearance: Present: no acute distress, other (patient is intubated and sedated.) Results - Labs CBC & Chem 7: 04/12/18 04:14 04/12/18 04:14 Labs: Laboratory Last Values WBC 17.2 K/mm3 (4.5-11.0) H 04/12/18 04:14 RBC 3.16 M/mm3 (3.65-5.03) L 04/12/18 04:14 Hgb 8.4 gm/dl (11.8-15.2) L 04/12/18 04:14 Hct 25.4 % (35.5-45.6) L 04/12/18 04:14 MCV 81 fl (84-94) L 04/12/18 04:14 MCH 27 pg (28-32) L 04/12/18 04:14 MCHC 33 % (32-34) 04/12/18 04:14 RDW 14.6 % (13.2-15.2) 04/12/18 04:14 Plt Count 453 K/mm3 (140-440) H 04/12/18 04:14 Lymph % (Auto) 9.1 % (13.4-35.0) L 04/12/18 04:14 [place] % (Auto) 11.7 % (0.0-7.3) H 04/12/18 04:14 Eos % (Auto) 0.3 % (0.0-4.3) 04/12/18 04:14 Baso % (Auto) 0.8 % (0.0-1.8) 04/12/18 04:14 Lymph # 1.6 K/mm3 (1.2-5.4) 04/12/18 04:14 [place] # 2.0 K/mm3 (0.0-0.8) H 04/12/18 04:14 Eos # 0.0 K/mm3 (0.0-0.4) 04/12/18 04:14 Baso # 0.1 K/mm3 (0.0-0.1) 04/12/18 04:14 Add Manual Diff Complete 04/11/18 04:14 Total Counted 100 04/11/18 04:14 Seg Neutrophils % 78.1 % (40.0-70.0) H 04/12/18 04:14 Seg Neuts % (Manual) 79.0 % (40.0-70.0) H 04/11/18 04:14 Band Neutrophils % 4.0 % 04/11/18 04:14 Lymphocytes % (Manual) 10.0 % (13.4-35.0) L 04/11/18 04:14 Reactive Lymphs % (Man) 0 % 04/11/18 04:14 Monocytes % (Manual) 5.0 % (0.0-7.3) 04/11/18 04:14 Eosinophils % (Manual) 1.0 % (0.0-4.3) 04/11/18 04:14 Basophils % (Manual) 1.0 % (0.0-1.8) 04/11/18 04:14 Metamyelocytes % 0 % 04/11/18 04:14 Myelocytes % 0 % 04/11/18 04:14 Promyelocytes % 0 % 04/11/18 04:14 Blast Cells % 0 % 04/11/18 04:14 Nucleated RBC % Not Reportable 04/11/18 04:14 Seg Neutrophils # 13.4 K/mm3 (1.8-7.7) H 04/12/18 04:14 Seg Neutrophils # Man 11.8 K/mm3 (1.8-7.7) H 04/11/18 04:14 Band Neutrophils # 0.6 K/mm3 04/11/18 04:14 Lymphocytes # (Manual) 1.5 K/mm3 (1.2-5.4) 04/11/18 04:14 Abs React Lymphs (Man) 0.0 K/mm3 04/11/18 04:14 Monocytes # (Manual) 0.7 K/mm3 (0.0-0.8) 04/11/18 04:14 Eosinophils # (Manual) 0.1 K/mm3 (0.0-0.4) 04/11/18 04:14 Basophils # (Manual) 0.1 K/mm3 (0.0-0.1) 04/11/18 04:14 Metamyelocytes # 0.0 K/mm3 04/11/18 04:14 Myelocytes # 0.0 K/mm3 04/11/18 04:14 Promyelocytes # 0.0 K/mm3 04/11/18 04:14 Blast Cells # 0.0 K/mm3 04/11/18 04:14 WBC Morphology Not Reportable 04/11/18 04:14 Hypersegmented Neuts Not Reportable 04/11/18 04:14 Hyposegmented Neuts Not Reportable 04/11/18 04:14 Hypogranular Neuts Not Reportable 04/11/18 04:14 Smudge Cells Not Reportable 04/11/18 04:14 Toxic Granulation Not Reportable 04/11/18 04:14 Toxic Vacuolation Not Reportable 04/11/18 04:14 Dohle Bodies Not Reportable 04/11/18 04:14 Pelger-Huet Anomaly Not Reportable 04/11/18 04:14 Matt Rods Not Reportable 04/11/18 04:14 Platelet Estimate Consistent w auto 04/11/18 04:14 Clumped Platelets Not Reportable 04/11/18 04:14 Plt Clumps, EDTA Not Reportable 04/11/18 04:14 Large Platelets Not Reportable 04/11/18 04:14 Giant Platelets Not Reportable 04/11/18 04:14 Platelet Satelliting Not Reportable 04/11/18 04:14 Plt Morphology Comment Not Reportable 04/11/18 04:14 RBC Morphology Not Reportable 04/11/18 04:14 Dimorphic RBCs Not Reportable 04/11/18 04:14 Polychromasia Not Reportable 04/11/18 04:14 Hypochromasia 1+ 04/11/18 04:14 Poikilocytosis Not Reportable 04/11/18 04:14 Anisocytosis Not Reportable 04/11/18 04:14 Microcytosis Not Reportable 04/11/18 04:14 Macrocytosis Not Reportable 04/11/18 04:14 Spherocytes Not Reportable 04/11/18 04:14 Pappenheimer Bodies Not Reportable 04/11/18 04:14 Sickle Cells Not Reportable 04/11/18 04:14 Target Cells Not Reportable 04/11/18 04:14 Tear Drop Cells Not Reportable 04/11/18 04:14 Ovalocytes Not Reportable 04/11/18 04:14 Stomatocytes Rare 04/10/18 04:06 Helmet Cells Not Reportable 04/11/18 04:14 [place] Bodies Not Reportable 04/11/18 04:14 [place] Rings Not Reportable 04/11/18 04:14 [place] Cells Not Reportable 04/11/18 04:14 Bite Cells Not Reportable 04/11/18 04:14 Crenated Cell Not Reportable 04/11/18 04:14 Elliptocytes Not Reportable 04/11/18 04:14 Acanthocytes (Spur) Not Reportable 04/11/18 04:14 Rouleaux Not Reportable 04/11/18 04:14 Hemoglobin C Crystals Not Reportable 04/11/18 04:14 Schistocytes Not Reportable 04/11/18 04:14 Malaria parasites Not Reportable 04/11/18 04:14 [place] Bodies Not Reportable 04/11/18 04:14 Hem Pathologist Commnt No 04/11/18 04:14 D-Dimer 933.08 ng/mlDDU (0-234) H 04/07/18 08:15 POC ABG pH 7.499 (7.35-7.45) H 04/14/18 09:45 POC ABG pCO2 30.1 (35-45) L 04/14/18 09:45 POC ABG pO2 104 (80-105) 04/14/18 09:45 POC ABG HCO3 23.5 04/14/18 09:45 POC ABG Total CO2 24 04/14/18 09:45 POC ABG O2 Sat 99 04/14/18 09:45 POC ABG Base Excess 0 04/14/18 09:45 VBG pH 7.231 (7.320-7.420) L 04/07/18 13:25 FiO2 28 % 04/14/18 09:45 Sodium 143 mmol/L (137-145) 04/12/18 04:14 Potassium 4.2 mmol/L (3.6-5.0) 04/12/18 04:14 Chloride 110.4 mmol/L (98-107) H 04/12/18 04:14 Carbon Dioxide 20 mmol/L (22-30) L 04/12/18 04:14 Anion Gap 17 mmol/L 04/12/18 04:14 BUN 25 mg/dL (9-20) H 04/12/18 04:14 Creatinine 1.0 mg/dL (0.8-1.5) 04/12/18 04:14 Estimated GFR > 60 ml/min 04/12/18 04:14 BUN/Creatinine Ratio 25 % 04/12/18 04:14 Glucose 164 mg/dL (75-100) H 04/12/18 04:14 POC Glucose 206 (70-105) H 04/16/18 11:52 Hemoglobin A1c 9.9 % (4-6) H 04/07/18 16:43 Lactic Acid 1.80 mmol/L (0.7-2.0) 04/07/18 16:43 Calcium 7.6 mg/dL (8.4-10.2) L 04/12/18 04:14 Iron 15 ug/dL (49-181) L 04/08/18 07:34 TIBC 106 mcg/dL (250-450) L 04/08/18 07:34 % Saturation 14.15 % 04/08/18 07:34 Transferrin 76 mg/dl (180-329) L 04/08/18 07:34 Total Bilirubin 1.40 mg/dL (0.1-1.2) H 04/11/18 04:14 AST 40 units/L (5-40) 04/11/18 04:14 ALT 45 units/L (7-56) 04/11/18 04:14 Alkaline Phosphatase 225 units/L (35-129) H 04/11/18 04:14 Total Creatine Kinase 83 units/L (55-170) 04/07/18 13:25 CK-MB (CK-2) 2.5 ng/mL (0.0-4.0) 04/07/18 13:25 CK-MB (CK-2) Rel Index 3.0 (0-4) 04/07/18 13:25 Troponin T 0.025 ng/mL (0.00-0.029) 04/07/18 13:25 C-Reactive Protein 13.00 mg/dL (0.00-1.30) H 04/11/18 12:22 Total Protein 5.9 g/dL (6.3-8.2) L 04/11/18 04:14 Albumin 1.9 g/dL (3.9-5) L 04/11/18 04:14 Albumin/Globulin Ratio 0.5 % 04/11/18 04:14 Triglycerides 174 mg/dL (2-149) H 04/13/18 08:13 Cholesterol 95 mg/dL (50-199) 04/13/18 08:13 LDL Cholesterol Direct 25 mg/dL (50-130) L 04/13/18 08:13 HDL Cholesterol 9 mg/dL (40-59) L 04/13/18 08:13 Cholesterol/HDL Ratio 10.55 % 04/13/18 08:13 Vitamin B12 1405 pg/mL (211-911) H 04/08/18 07:34 RBC Folic Acid >1000 ng/mL (>280) 04/08/18 07:34 Urine Color Yellow (Yellow) 04/07/18 08:52 Urine Turbidity Clear (Clear) 04/07/18 08:52 Urine pH 8.0 (5.0-7.0) H 04/07/18 08:52 Ur Specific [place] 1.009 (1.003-1.030) 04/07/18 08:52 Urine Protein 100 mg/dl mg/dL (Negative) 04/07/18 08:52 Urine Glucose (UA) Neg mg/dL (Negative) 04/07/18 08:52 Urine Ketones Neg mg/dL (Negative) 04/07/18 08:52 Urine Blood Neg (Negative) 04/07/18 08:52 Urine Nitrite Neg (Negative) 04/07/18 08:52 Urine Bilirubin Neg (Negative) 04/07/18 08:52 Urine Urobilinogen < 2.0 mg/dL (<2.0) 04/07/18 08:52 Ur Leukocyte Esterase Neg (Negative) 04/07/18 08:52 Urine WBC (Auto) 1.0 /HPF (0.0-6.0) 04/07/18 08:52 Urine RBC (Auto) 3.0 /HPF (0.0-6.0) 04/07/18 08:52 U Epithel Cells (Auto) 2.0 /HPF (0-13.0) 04/07/18 08:52 Urine Mucus Few /HPF 04/07/18 08:52 Urine Sperm 3+ /HPF ([employer]) 04/07/18 08:52 Vancomycin Trough 12.3 ug/mL (5.0-20.0) 04/12/18 11:20 Urine Opiates Screen Presumptive negative 04/07/18 08:52 Urine Methadone Screen Presumptive negative 04/07/18 08:52 Ur Barbiturates Screen Presumptive negative 04/07/18 08:52 Ur Phencyclidine Scrn Presumptive negative 04/07/18 08:52 Ur Amphetamines Screen Presumptive negative 04/07/18 08:52 U Benzodiazepines Scrn Presumptive negative 04/07/18 08:52 Urine Cocaine Screen Presumptive negative 04/07/18 08:52 U Marijuana (THC) Screen Presumptive negative 04/07/18 08:52 Drugs of Abuse Note Disclamer 04/07/18 08:52 Blood Type O POSITIVE 04/07/18 16:43 Antibody Screen Negative 04/07/18 16:43 Crossmatch See Detail 04/07/18 16:43
--- NOTE | 2018-04-16 16:29 | Progress Note ---
Assessment and Plan Imp: 1. Cellulitis 2. Aspiration pneumonia 3. Sepsis 4. Hypoglycemia initially 2/2 above 5. s/p CP arrest 6. Acute respiratory failure, hypoxia Rec: 1. Cont. current ABX; f/u cultures 2. Appreciate vascular surgery input 3. Extubated, doing well 4. Off pressors; stopped IVFs 5. DVT and GI PPx, TFs -> ST eval. pending 6. Resumed home ACEI for elevated BP 7. Can be transferred to floor [id number] Subjective Date of service: 04/16/18 Principal diagnosis: Acute respiratory failure Interval history: Extubated doing well. No SOB. On NC. No complaints. Active Medications Acetaminophen (Tylenol) 650 mg PO Q4H PRN PRN Reason: Pain MILD(1-3)/Fever >100.5/[place] Last Admin: 04/11/18 23:59 Dose: 650 mg Acetaminophen (Tylenol) 650 mg [place] Q4H PRN PRN Reason: Pain, Mild (1-3) Last Admin: 04/07/18 17:25 Dose: 650 mg Albuterol (Proventil) 2.5 mg IH Q3HRT PRN PRN Reason: Wheezing Albuterol/Ipratropium (Duoneb *Not For Prn Use*) 1 ampul IH TIDRT [facility] Last Admin: 04/16/18 14:22 Dose: 1 ampul Lipase/Protease/Amylase (Pancreaze Dr 10,500 Unit) 1 each FEEDTUBE PRN PRN PRN Reason: For Clogged Feeding Tube Ascorbic Acid (Vitamin C) 500 mg PO BID [facility] Last Admin: 04/16/18 10:00 Dose: 500 mg Bisacodyl (Dulcolax) 10 mg PO QDAY PRN PRN Reason: Constipation Enoxaparin Sodium (Lovenox) 40 mg SUB-Q QDAY [facility] Last Admin: 04/16/18 10:00 Dose: 40 mg Ferrous Sulfate (Ferrous Sulfate) 300 mg PO TID [facility] Last Admin: 04/16/18 14:32 Dose: 300 mg Hydrophilic Ointment (Vaseline Lip Therapy) 1 applic TP Q2HR PRN PRN Reason: Dry Lips Last Admin: 04/08/18 18:47 Dose: 1 applic Piperacillin Sod/Tazobactam Sod (Zosyn/Ns 4.5gm/100ml) 4.5 gm in 100 mls @ 200 mls/hr IV Q8HR [facility]; Protocol Last Admin: 04/16/18 14:32 Dose: 200 mls/hr Vancomycin HCl 1,500 mg/ (Sodium Chloride) 530 mls @ 333.333 mls/hr IV Q12H [facility] Last Admin: 04/16/18 06:21 Dose: 333.333 mls/hr Insulin Glargine (Lantus) 17 units SUB-Q BID [facility] Last Admin: 04/16/18 09:17 Dose: 17 units Insulin Human Lispro (Humalog) 0 unit SUB-Q Q6HR [facility]; Protocol Last Admin: 04/16/18 12:18 Dose: 3 unit Lisinopril (Zestril) 10 mg PO QDAY [facility] Last Admin: 04/16/18 09:13 Dose: 10 mg Morphine Sulfate (Morphine) 2 mg IV Q4H PRN PRN Reason: Pain, Moderate (4-6) Last Admin: 04/13/18 22:55 Dose: 2 mg Multi-Ingred Cream/Lotion/Oil/Oint (Artificial Tears Ophth Oint) 1 applic OU Q4HR PRN PRN Reason: Dry Eye(s) Ondansetron HCl (Zofran) 4 mg IV Q8H PRN PRN Reason: Nausea And Vomiting Pantoprazole (Protonix) 40 mg FEEDTUBE DAILY [facility] Last Admin: 04/16/18 09:13 Dose: 40 mg Senna (Senokot) 17.6 mg FEEDTUBE Q12HR [facility] Last Admin: 04/16/18 09:15 Dose: 17.6 mg Simple Syrup (Simple Syrup) 15 ml FEEDTUBE PRN PRN PRN Reason: Hypoglycemia Simple Syrup (Simple Syrup) 30 ml FEEDTUBE PRN PRN PRN Reason: Hypoglycemia Sodium Bicarbonate (Sodium Bicarbonate) 325 mg FEEDTUBE PRN PRN PRN Reason: For Clogged Feeding Tube Sodium Chloride (Sodium Chloride Flush Syringe 10 Ml) 10 ml IV BID [facility] Last Admin: 04/16/18 09:16 Dose: 10 ml Sodium Chloride (Sodium Chloride Flush Syringe 10 Ml) 10 ml IV PRN PRN PRN Reason: LINE FLUSH Sodium Hypochlorite (Dakin's Full Strength) 1 applic TP Q12HR [facility] Last Admin: 04/16/18 12:17 Dose: 1 applicatio Objective Vital Signs - 12hr 04/16/18 04/16/18 04/16/18 05:01 06:01 07:01 Temperature Pulse Rate 82 79 77 Pulse Rate [ Bilateral Bases ] Pulse Rate [ From Monitor] Respiratory 14 25 H 18 Rate Respiratory Rate [Bilateral Bases] Blood Pressure 147/77 153/76 147/71 O2 Sat by Pulse 97 97 98 Oximetry 04/16/18 04/16/18 04/16/18 08:00 08:01 08:50 Temperature 98.2 F Pulse Rate 79 Pulse Rate [ Bilateral Bases ] Pulse Rate [ 79 From Monitor] Respiratory 13 Rate Respiratory Rate [Bilateral Bases] Blood Pressure 141/71 O2 Sat by Pulse 99 96 99 Oximetry 04/16/18 04/16/18 04/16/18 08:51 08:59 09:01 Temperature Pulse Rate 84 Pulse Rate [ 79 83 Bilateral Bases ] Pulse Rate [ From Monitor] Respiratory 16 Rate Respiratory 26 H 25 H Rate [Bilateral Bases] Blood Pressure 136/82 O2 Sat by Pulse 99 Oximetry 04/16/18 04/16/18 04/16/18 10:00 11:01 12:00 Temperature 98.5 F Pulse Rate 87 85 Pulse Rate [ Bilateral Bases ] Pulse Rate [ 79 From Monitor] Respiratory 26 H 18 Rate Respiratory Rate [Bilateral Bases] Blood Pressure 150/72 145/71 O2 Sat by Pulse 96 92 99 Oximetry 04/16/18 04/16/18 04/16/18 12:01 13:00 14:22 Temperature Pulse Rate 82 85 Pulse Rate [ 85 Bilateral Bases ] Pulse Rate [ From Monitor] Respiratory 21 13 Rate Respiratory 22 Rate [Bilateral Bases] Blood Pressure 157/78 154/76 O2 Sat by Pulse 98 99 Oximetry 04/16/18 04/16/18 14:34 15:53 Temperature 98.4 F Pulse Rate Pulse Rate [ 90 Bilateral Bases ] Pulse Rate [ From Monitor] Respiratory Rate Respiratory 24 Rate [Bilateral Bases] Blood Pressure O2 Sat by Pulse Oximetry Constitutional: no acute distress, alert Eyes: non-icteric ENT: oropharynx moist Neck: supple Effort: normal Ascultation: Bilateral: clear Cardiovascular: regular rate and rhythm (no mrg) Gastrointestinal: normoactive bowel sounds, soft, non-tender, other (obese) Integumentary: other (foul smelling L foot wound, bandaged) Extremities: no cyanosis, edema (1+ bilateral LE edema, L > R) Neurologic: normal mental status, non-focal exam, pupils equal and round, CN II- XII normal Psychiatric: mood appropriate, affect normal CBC and BMP: 04/12/18 04:14 04/12/18 04:14 ABG, PT/INR, D-dimer: ABG POC ABG pH 7.499 (7.35-7.45) H 04/14/18 09:45 POC ABG pCO2 30.1 (35-45) L 04/14/18 09:45 POC ABG pO2 104 (80-105) 04/14/18 09:45 POC ABG HCO3 23.5 04/14/18 09:45 POC ABG Total CO2 24 04/14/18 09:45 POC ABG O2 Sat 99 04/14/18 09:45 PT/INR, D-dimer D-Dimer 933.08 ng/mlDDU (0-234) H 04/07/18 08:15 Abnormal lab findings: Abnormal Labs 04/07/18 04/07/18 04/07/18 08:11 08:15 08:15 WBC 23.9 H RBC 2.89 L Hgb 7.2 L Hct 22.4 L MCV 78 L MCH 25 L MCHC RDW 13.0 L Plt Count 453 H Lymph % (Auto) Iron % (Auto) Iron # Seg Neutrophils % Seg Neuts % (Manual) 84.0 H Lymphocytes % (Manual) 8.0 L Monocytes % (Manual) 8.0 H Seg Neutrophils # Seg Neutrophils # Man 20.1 H Lymphocytes # (Manual) Monocytes # (Manual) 1.9 H Eosinophils # (Manual) D-Dimer 933.08 H POC ABG pH POC ABG pCO2 POC ABG pO2 VBG pH Sodium Chloride Carbon Dioxide BUN Glucose POC Glucose 225 H Hemoglobin A1c Lactic Acid Calcium Iron TIBC Transferrin Total Bilirubin Alkaline Phosphatase Total Creatine Kinase C-Reactive Protein Total Protein Albumin Triglycerides LDL Cholesterol Direct HDL Cholesterol Vitamin B12 Urine pH Crossmatch 04/07/18 04/07/18 04/07/18 08:15 08:15 08:52 WBC RBC Hgb Hct MCV MCH MCHC RDW Plt Count Lymph % (Auto) Iron % (Auto) Iron # Seg Neutrophils % Seg Neuts % (Manual) Lymphocytes % (Manual) Monocytes % (Manual) Seg Neutrophils # Seg Neutrophils # Man Lymphocytes # (Manual) Monocytes # (Manual) Eosinophils # (Manual) D-Dimer POC ABG pH POC ABG pCO2 POC ABG pO2 VBG pH Sodium 127 L Chloride 90.7 L Carbon Dioxide 21 L BUN 21 H Glucose 191 H POC Glucose Hemoglobin A1c Lactic Acid 3.80 H* Calcium 8.2 L Iron TIBC Transferrin Total Bilirubin Alkaline Phosphatase 287 H Total Creatine Kinase 31 L C-Reactive Protein Total Protein Albumin 2.4 L Triglycerides LDL Cholesterol Direct HDL Cholesterol Vitamin B12 Urine pH 8.0 H Crossmatch 04/07/18 04/07/18 04/07/18 09:51 12:27 13:25 WBC RBC Hgb Hct MCV MCH MCHC RDW Plt Count Lymph % (Auto) Iron % (Auto) Iron # Seg Neutrophils % Seg Neuts % (Manual) Lymphocytes % (Manual) Monocytes % (Manual) Seg Neutrophils # Seg Neutrophils # Man Lymphocytes # (Manual) Monocytes # (Manual) Eosinophils # (Manual) D-Dimer POC ABG pH POC ABG pCO2 POC ABG pO2 VBG pH 7.231 L Sodium Chloride Carbon Dioxide BUN Glucose POC Glucose Hemoglobin A1c Lactic Acid 3.10 H* 4.50 H* Calcium Iron TIBC Transferrin Total Bilirubin Alkaline Phosphatase Total Creatine Kinase C-Reactive Protein Total Protein Albumin Triglycerides LDL Cholesterol Direct HDL Cholesterol Vitamin B12 Urine pH Crossmatch 04/07/18 04/07/18 04/07/18 15:24 16:35 16:43 WBC RBC Hgb Hct MCV MCH MCHC RDW Plt Count Lymph % (Auto) Iron % (Auto) Iron # Seg Neutrophils % Seg Neuts % (Manual) Lymphocytes % (Manual) Monocytes % (Manual) Seg Neutrophils # Seg Neutrophils # Man Lymphocytes # (Manual) Monocytes # (Manual) Eosinophils # (Manual) D-Dimer POC ABG pH POC ABG pCO2 POC ABG pO2 VBG pH Sodium Chloride Carbon Dioxide BUN Glucose POC Glucose 137 H Hemoglobin A1c 9.9 H Lactic Acid 2.20 H* Calcium Iron TIBC Transferrin Total Bilirubin Alkaline Phosphatase Total Creatine Kinase C-Reactive Protein Total Protein Albumin Triglycerides LDL Cholesterol Direct HDL Cholesterol Vitamin B12 Urine pH Crossmatch 04/07/18 04/07/18 04/08/18 16:43 16:46 06:15 WBC RBC Hgb Hct MCV MCH MCHC RDW Plt Count Lymph % (Auto) Iron % (Auto) Iron # Seg Neutrophils % Seg Neuts % (Manual) Lymphocytes % (Manual) Monocytes % (Manual) Seg Neutrophils # Seg Neutrophils # Man Lymphocytes # (Manual) Monocytes # (Manual) Eosinophils # (Manual) D-Dimer POC ABG pH 7.345 L POC ABG pCO2 28.0 L 33.8 L POC ABG pO2 76 L 138 H VBG pH Sodium Chloride Carbon Dioxide BUN Glucose POC Glucose Hemoglobin A1c Lactic Acid Calcium Iron TIBC Transferrin Total Bilirubin Alkaline Phosphatase Total Creatine Kinase C-Reactive Protein Total Protein Albumin Triglycerides LDL Cholesterol Direct HDL Cholesterol Vitamin B12 Urine pH Crossmatch See Detail 04/08/18 04/08/18 04/08/18 07:34 07:34 07:34 WBC 15.7 H RBC 6.30 H Hgb 15.6 H D Hct 49.2 H D MCV 78 L MCH 25 L MCHC RDW Plt Count Lymph % (Auto) Iron % (Auto) Iron # Seg Neutrophils % Seg Neuts % (Manual) Lymphocytes % (Manual) Monocytes % (Manual) Seg Neutrophils # Seg Neutrophils # Man Lymphocytes # (Manual) Monocytes # (Manual) Eosinophils # (Manual) D-Dimer POC ABG pH POC ABG pCO2 POC ABG pO2 VBG pH Sodium Chloride Carbon Dioxide BUN Glucose POC Glucose Hemoglobin A1c Lactic Acid Calcium Iron 15 L TIBC 106 L Transferrin 76 L Total Bilirubin Alkaline Phosphatase Total Creatine Kinase C-Reactive Protein Total Protein Albumin Triglycerides LDL Cholesterol Direct HDL Cholesterol Vitamin B12 1405 H Urine pH Crossmatch 04/08/18 04/08/18 04/08/18 07:34 09:54 12:43 WBC RBC Hgb Hct MCV MCH MCHC RDW Plt Count Lymph % (Auto) Iron % (Auto) Iron # Seg Neutrophils % Seg Neuts % (Manual) Lymphocytes % (Manual) Monocytes % (Manual) Seg Neutrophils # Seg Neutrophils # Man Lymphocytes # (Manual) Monocytes # (Manual) Eosinophils # (Manual) D-Dimer POC ABG pH POC ABG pCO2 POC ABG pO2 VBG pH Sodium 131 L Chloride Carbon Dioxide 20 L BUN 24 H Glucose 167 H POC Glucose 162 H 175 H Hemoglobin A1c Lactic Acid Calcium 7.5 L Iron TIBC Transferrin Total Bilirubin Alkaline Phosphatase Total Creatine Kinase C-Reactive Protein Total Protein Albumin Triglycerides LDL Cholesterol Direct HDL Cholesterol Vitamin B12 Urine pH Crossmatch 04/08/18 04/08/18 04/09/18 16:36 16:40 01:15 WBC 28.2 H RBC 2.67 L Hgb 7.3 L D Hct 21.0 L D MCV 79 L MCH 27 L MCHC 35 H RDW Plt Count Lymph % (Auto) Iron % (Auto) Iron # Seg Neutrophils % Seg Neuts % (Manual) 74.0 H Lymphocytes % (Manual) 3.0 L Monocytes % (Manual) Seg Neutrophils # Seg Neutrophils # Man 20.9 H Lymphocytes # (Manual) 0.8 L Monocytes # (Manual) 1.7 H Eosinophils # (Manual) D-Dimer POC ABG pH POC ABG pCO2 POC ABG pO2 VBG pH Sodium Chloride Carbon Dioxide BUN Glucose POC Glucose 150 H 171 H Hemoglobin A1c Lactic Acid Calcium Iron TIBC Transferrin Total Bilirubin Alkaline Phosphatase Total Creatine Kinase C-Reactive Protein Total Protein Albumin Triglycerides LDL Cholesterol Direct HDL Cholesterol Vitamin B12 Urine pH Crossmatch 04/09/18 04/09/18 04/09/18 05:13 05:42 05:42 WBC 23.2 H RBC 2.72 L Hgb 7.0 L Hct 21.6 L MCV 79 L MCH 26 L MCHC RDW Plt Count Lymph % (Auto) Iron % (Auto) Iron # Seg Neutrophils % Seg Neuts % (Manual) 87.5 H Lymphocytes % (Manual) 8.0 L Monocytes % (Manual) Seg Neutrophils # Seg Neutrophils # Man 20.3 H Lymphocytes # (Manual) Monocytes # (Manual) 0.9 H Eosinophils # (Manual) D-Dimer POC ABG pH POC ABG pCO2 34.4 L POC ABG pO2 VBG pH Sodium 134 L Chloride Carbon Dioxide 21 L BUN 24 H Glucose 192 H POC Glucose Hemoglobin A1c Lactic Acid Calcium 7.4 L Iron TIBC Transferrin Total Bilirubin Alkaline Phosphatase 211 H Total Creatine Kinase C-Reactive Protein Total Protein Albumin 2.1 L Triglycerides LDL Cholesterol Direct HDL Cholesterol Vitamin B12 Urine pH Crossmatch 04/09/18 04/09/18 04/10/18 12:52 18:43 00:13 WBC RBC Hgb Hct MCV MCH MCHC RDW Plt Count Lymph % (Auto) Iron % (Auto) Iron # Seg Neutrophils % Seg Neuts % (Manual) Lymphocytes % (Manual) Monocytes % (Manual) Seg Neutrophils # Seg Neutrophils # Man Lymphocytes # (Manual) Monocytes # (Manual) Eosinophils # (Manual) D-Dimer POC ABG pH POC ABG pCO2 POC ABG pO2 VBG pH Sodium Chloride Carbon Dioxide BUN Glucose POC Glucose 206 H 223 H 233 H Hemoglobin A1c Lactic Acid Calcium Iron TIBC Transferrin Total Bilirubin Alkaline Phosphatase Total Creatine Kinase C-Reactive Protein Total Protein Albumin Triglycerides LDL Cholesterol Direct HDL Cholesterol Vitamin B12 Urine pH Crossmatch 04/10/18 04/10/18 04/10/18 04:04 04:06 04:06 WBC 18.9 H RBC 3.27 L Hgb 8.4 L Hct 26.0 L MCV 80 L MCH 26 L MCHC RDW Plt Count Lymph % (Auto) Iron % (Auto) Iron # Seg Neutrophils % Seg Neuts % (Manual) 86.0 H Lymphocytes % (Manual) 2.0 L Monocytes % (Manual) Seg Neutrophils # Seg Neutrophils # Man 16.3 H Lymphocytes # (Manual) 0.4 L Monocytes # (Manual) Eosinophils # (Manual) 0.8 H D-Dimer POC ABG pH POC ABG pCO2 34.4 L POC ABG pO2 VBG pH Sodium 136 L Chloride Carbon Dioxide 20 L BUN 23 H Glucose 213 H POC Glucose Hemoglobin A1c Lactic Acid Calcium 7.6 L Iron TIBC Transferrin Total Bilirubin Alkaline Phosphatase Total Creatine Kinase C-Reactive Protein Total Protein Albumin Triglycerides LDL Cholesterol Direct HDL Cholesterol Vitamin B12 Urine pH Crossmatch 04/10/18 04/10/18 04/10/18 06:10 12:30 17:43 WBC RBC Hgb Hct MCV MCH MCHC RDW Plt Count Lymph % (Auto) Iron % (Auto) Iron # Seg Neutrophils % Seg Neuts % (Manual) Lymphocytes % (Manual) Monocytes % (Manual) Seg Neutrophils # Seg Neutrophils # Man Lymphocytes # (Manual) Monocytes # (Manual) Eosinophils # (Manual) D-Dimer POC ABG pH POC ABG pCO2 POC ABG pO2 VBG pH Sodium Chloride Carbon Dioxide BUN Glucose POC Glucose 246 H 266 H 246 H Hemoglobin A1c Lactic Acid Calcium Iron TIBC Transferrin Total Bilirubin Alkaline Phosphatase Total Creatine Kinase C-Reactive Protein Total Protein Albumin Triglycerides LDL Cholesterol Direct HDL Cholesterol Vitamin B12 Urine pH Crossmatch 04/10/18 04/11/18 04/11/18 23:50 04:14 04:14 WBC 14.9 H RBC 3.07 L Hgb 8.0 L Hct 24.6 L MCV 80 L MCH 26 L MCHC RDW Plt Count Lymph % (Auto) Iron % (Auto) Iron # Seg Neutrophils % Seg Neuts % (Manual) 79.0 H Lymphocytes % (Manual) 10.0 L Monocytes % (Manual) Seg Neutrophils # Seg Neutrophils # Man 11.8 H Lymphocytes # (Manual) Monocytes # (Manual) Eosinophils # (Manual) D-Dimer POC ABG pH POC ABG pCO2 POC ABG pO2 VBG pH Sodium Chloride 107.9 H Carbon Dioxide 20 L BUN 25 H Glucose 184 H POC Glucose 247 H Hemoglobin A1c Lactic Acid Calcium 7.3 L Iron TIBC Transferrin Total Bilirubin 1.40 H Alkaline Phosphatase 225 H Total Creatine Kinase C-Reactive Protein Total Protein 5.9 L Albumin 1.9 L Triglycerides LDL Cholesterol Direct HDL Cholesterol Vitamin B12 Urine pH Crossmatch 04/11/18 04/11/18 04/11/18 04:43 10:04 12:02 WBC RBC Hgb Hct MCV MCH MCHC RDW Plt Count Lymph % (Auto) Iron % (Auto) Iron # Seg Neutrophils % Seg Neuts % (Manual) Lymphocytes % (Manual) Monocytes % (Manual) Seg Neutrophils # Seg Neutrophils # Man Lymphocytes # (Manual) Monocytes # (Manual) Eosinophils # (Manual) D-Dimer POC ABG pH 7.479 H POC ABG pCO2 34.8 L POC ABG pO2 VBG pH Sodium Chloride Carbon Dioxide BUN Glucose POC Glucose 147 H 148 H Hemoglobin A1c Lactic Acid Calcium Iron TIBC Transferrin Total Bilirubin Alkaline Phosphatase Total Creatine Kinase C-Reactive Protein Total Protein Albumin Triglycerides LDL Cholesterol Direct HDL Cholesterol Vitamin B12 Urine pH Crossmatch 04/11/18 04/11/18 04/11/18 12:22 17:34 23:39 WBC RBC Hgb Hct MCV MCH MCHC RDW Plt Count Lymph % (Auto) Iron % (Auto) Iron # Seg Neutrophils % Seg Neuts % (Manual) Lymphocytes % (Manual) Monocytes % (Manual) Seg Neutrophils # Seg Neutrophils # Man Lymphocytes # (Manual) Monocytes # (Manual) Eosinophils # (Manual) D-Dimer POC ABG pH POC ABG pCO2 POC ABG pO2 VBG pH Sodium Chloride Carbon Dioxide BUN Glucose POC Glucose 118 H 192 H Hemoglobin A1c Lactic Acid Calcium Iron TIBC Transferrin Total Bilirubin Alkaline Phosphatase Total Creatine Kinase C-Reactive Protein 13.00 H Total Protein Albumin Triglycerides LDL Cholesterol Direct HDL Cholesterol Vitamin B12 Urine pH Crossmatch 04/12/18 04/12/18 04/12/18 04:14 04:14 04:56 WBC 17.2 H RBC 3.16 L Hgb 8.4 L Hct 25.4 L MCV 81 L MCH 27 L MCHC RDW Plt Count 453 H Lymph % (Auto) 9.1 L Iron % (Auto) 11.7 H Iron # 2.0 H Seg Neutrophils % 78.1 H Seg Neuts % (Manual) Lymphocytes % (Manual) Monocytes % (Manual) Seg Neutrophils # 13.4 H Seg Neutrophils # Man Lymphocytes # (Manual) Monocytes # (Manual) Eosinophils # (Manual) D-Dimer POC ABG pH 7.452 H POC ABG pCO2 28.6 L POC ABG pO2 VBG pH Sodium Chloride 110.4 H Carbon Dioxide 20 L BUN 25 H Glucose 164 H POC Glucose Hemoglobin A1c Lactic Acid Calcium 7.6 L Iron TIBC Transferrin Total Bilirubin Alkaline Phosphatase Total Creatine Kinase C-Reactive Protein Total Protein Albumin Triglycerides LDL Cholesterol Direct HDL Cholesterol Vitamin B12 Urine pH Crossmatch 04/12/18 04/12/18 04/12/18 09:20 15:01 18:19 WBC RBC Hgb Hct MCV MCH MCHC RDW Plt Count Lymph % (Auto) Iron % (Auto) Iron # Seg Neutrophils % Seg Neuts % (Manual) Lymphocytes % (Manual) Monocytes % (Manual) Seg Neutrophils # Seg Neutrophils # Man Lymphocytes # (Manual) Monocytes # (Manual) Eosinophils # (Manual) D-Dimer POC ABG pH POC ABG pCO2 POC ABG pO2 VBG pH Sodium Chloride Carbon Dioxide BUN Glucose POC Glucose 148 H 170 H 140 H Hemoglobin A1c Lactic Acid Calcium Iron TIBC Transferrin Total Bilirubin Alkaline Phosphatase Total Creatine Kinase C-Reactive Protein Total Protein Albumin Triglycerides LDL Cholesterol Direct HDL Cholesterol Vitamin B12 Urine pH Crossmatch 04/12/18 04/12/18 04/13/18 21:20 23:59 05:19 WBC RBC Hgb Hct MCV MCH MCHC RDW Plt Count Lymph % (Auto) Iron % (Auto) Iron # Seg Neutrophils % Seg Neuts % (Manual) Lymphocytes % (Manual) Monocytes % (Manual) Seg Neutrophils # Seg Neutrophils # Man Lymphocytes # (Manual) Monocytes # (Manual) Eosinophils # (Manual) D-Dimer POC ABG pH 7.458 H POC ABG pCO2 27.7 L POC ABG pO2 VBG pH Sodium Chloride Carbon Dioxide BUN Glucose POC Glucose 173 H 199 H Hemoglobin A1c Lactic Acid Calcium Iron TIBC Transferrin Total Bilirubin Alkaline Phosphatase Total Creatine Kinase C-Reactive Protein Total Protein Albumin Triglycerides LDL Cholesterol Direct HDL Cholesterol Vitamin B12 Urine pH Crossmatch 04/13/18 04/13/18 04/13/18 05:37 08:13 13:13 WBC RBC Hgb Hct MCV MCH MCHC RDW Plt Count Lymph % (Auto) Iron % (Auto) Iron # Seg Neutrophils % Seg Neuts % (Manual) Lymphocytes % (Manual) Monocytes % (Manual) Seg Neutrophils # Seg Neutrophils # Man Lymphocytes # (Manual) Monocytes # (Manual) Eosinophils # (Manual) D-Dimer POC ABG pH POC ABG pCO2 POC ABG pO2 VBG pH Sodium Chloride Carbon Dioxide BUN Glucose POC Glucose 242 H 233 H Hemoglobin A1c Lactic Acid Calcium Iron TIBC Transferrin Total Bilirubin Alkaline Phosphatase Total Creatine Kinase C-Reactive Protein Total Protein Albumin Triglycerides 174 H LDL Cholesterol Direct 25 L HDL Cholesterol 9 L Vitamin B12 Urine pH Crossmatch 04/13/18 04/13/18 04/14/18 17:15 21:33 00:02 WBC RBC Hgb Hct MCV MCH MCHC RDW Plt Count Lymph % (Auto) Iron % (Auto) Iron # Seg Neutrophils % Seg Neuts % (Manual) Lymphocytes % (Manual) Monocytes % (Manual) Seg Neutrophils # Seg Neutrophils # Man Lymphocytes # (Manual) Monocytes # (Manual) Eosinophils # (Manual) D-Dimer POC ABG pH POC ABG pCO2 POC ABG pO2 VBG pH Sodium Chloride Carbon Dioxide BUN Glucose POC Glucose 241 H 256 H 245 H Hemoglobin A1c Lactic Acid Calcium Iron TIBC Transferrin Total Bilirubin Alkaline Phosphatase Total Creatine Kinase C-Reactive Protein Total Protein Albumin Triglycerides LDL Cholesterol Direct HDL Cholesterol Vitamin B12 Urine pH Crossmatch 04/14/18 04/14/18 04/14/18 05:21 09:45 12:18 WBC RBC Hgb Hct MCV MCH MCHC RDW Plt Count Lymph % (Auto) Iron % (Auto) Iron # Seg Neutrophils % Seg Neuts % (Manual) Lymphocytes % (Manual) Monocytes % (Manual) Seg Neutrophils # Seg Neutrophils # Man Lymphocytes # (Manual) Monocytes # (Manual) Eosinophils # (Manual) D-Dimer POC ABG pH 7.499 H POC ABG pCO2 30.1 L POC ABG pO2 VBG pH Sodium Chloride Carbon Dioxide BUN Glucose POC Glucose 182 H 182 H Hemoglobin A1c Lactic Acid Calcium Iron TIBC Transferrin Total Bilirubin Alkaline Phosphatase Total Creatine Kinase C-Reactive Protein Total Protein Albumin Triglycerides LDL Cholesterol Direct HDL Cholesterol Vitamin B12 Urine pH Crossmatch 04/14/18 04/14/18 04/15/18 18:02 23:33 06:41 WBC RBC Hgb Hct MCV MCH MCHC RDW Plt Count Lymph % (Auto) Iron % (Auto) Iron # Seg Neutrophils % Seg Neuts % (Manual) Lymphocytes % (Manual) Monocytes % (Manual) Seg Neutrophils # Seg Neutrophils # Man Lymphocytes # (Manual) Monocytes # (Manual) Eosinophils # (Manual) D-Dimer POC ABG pH POC ABG pCO2 POC ABG pO2 VBG pH Sodium Chloride Carbon Dioxide BUN Glucose POC Glucose 202 H 228 H 253 H Hemoglobin A1c Lactic Acid Calcium Iron TIBC Transferrin Total Bilirubin Alkaline Phosphatase Total Creatine Kinase C-Reactive Protein Total Protein Albumin Triglycerides LDL Cholesterol Direct HDL Cholesterol Vitamin B12 Urine pH Crossmatch 04/15/18 04/15/18 04/16/18 12:38 18:07 00:53 WBC RBC Hgb Hct MCV MCH MCHC RDW Plt Count Lymph % (Auto) Iron % (Auto) Iron # Seg Neutrophils % Seg Neuts % (Manual) Lymphocytes % (Manual) Monocytes % (Manual) Seg Neutrophils # Seg Neutrophils # Man Lymphocytes # (Manual) Monocytes # (Manual) Eosinophils # (Manual) D-Dimer POC ABG pH POC ABG pCO2 POC ABG pO2 VBG pH Sodium Chloride Carbon Dioxide BUN Glucose POC Glucose 250 H 242 H 224 H Hemoglobin A1c Lactic Acid Calcium Iron TIBC Transferrin Total Bilirubin Alkaline Phosphatase Total Creatine Kinase C-Reactive Protein Total Protein Albumin Triglycerides LDL Cholesterol Direct HDL Cholesterol Vitamin B12 Urine pH Crossmatch 04/16/18 04/16/18 05:53 11:52 WBC RBC Hgb Hct MCV MCH MCHC RDW Plt Count Lymph % (Auto) Iron % (Auto) Iron # Seg Neutrophils % Seg Neuts % (Manual) Lymphocytes % (Manual) Monocytes % (Manual) Seg Neutrophils # Seg Neutrophils # Man Lymphocytes # (Manual) Monocytes # (Manual) Eosinophils # (Manual) D-Dimer POC ABG pH POC ABG pCO2 POC ABG pO2 VBG pH Sodium Chloride Carbon Dioxide BUN Glucose POC Glucose 207 H 206 H Hemoglobin A1c Lactic Acid Calcium Iron TIBC Transferrin Total Bilirubin Alkaline Phosphatase Total Creatine Kinase C-Reactive Protein Total Protein Albumin Triglycerides LDL Cholesterol Direct HDL Cholesterol Vitamin B12 Urine pH Crossmatch Chest x-ray: report reviewed, image reviewed
[2018-04-17] MEDS: HumaLOG SUB-Q SCH ×4 (02:13→17:36)
[2018-04-17] MEDS: ZOSYN/NS 4.5GM/100ML 4.5 GM/100 ML VIAL IV SCH ×3 (05:34→21:30)
[2018-04-17] MEDS: VANCOMYCIN 1,500 MG in NACL 0.9% 500 ML 500 ML IV SCH (05:48)
--- NOTE | 2018-04-17 07:25 | Progress Note ---
Assessment and Plan Assessment: 1) Sepsis with septic shock: resolved. Etiology most likely multifactorial - left foot gangrene +/- bilateral pneumonia. 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 -S/P OR debridement today -wound cx Enterococcus faecalis, Proteus, Providencia, Morganella -CRP=13 3) DM - uncontrolled came with hypoglycemia 4) HTN 5) Acute encephalopathy -CT head showed chronic lacunar infarct on the right nasal ganglia. 6) Cardiac arrest enroute s/p CPR 7) Acute respiratory failure 8) Presumed bilateral pneumonia -CTA of the chest show bilateral basilar opacities. -Tracheal asp 04/07 normal resp kate 9) AUGUSTO - resolved 10) PVD - art US monophasic flow at the left ankle. Plan: -Per Vascular consult- "No vascular intervention will change house attendant and agreed with BKA. He has excellent popliteal pulses and should be able to heal amputation from vascular stand point". -will alert Dr Johnson patient decsion -continue zosyn D10 (covers Eneterococcus and GNRs) Catie Montes NP [facility] M: [id number] O:[phone] Subjective Date of service: 04/17/18 Principal diagnosis: Acute respiratory failure Interval history: patient was laying in bed asleep. Easily arousable. at bedside, swedish speaking only. We had a conversation with interpretation. stated that her has agreed to have the amputation of left foot. Patient stated that he was feeling much better today. Microbiology: Blood cultures: 04/07 ngtd Urine cultures: 04/07 neg Respiratory cultures: TA 04/07 ngtd Left foot wound: 04/10 Enterococcus, Proteus and GNR Current Antimicrobials: Zosyn- 04/07 Previous Antimicrobial Vancomycin 04/07 Objective - Exam Narrative Exam: General appearance: alert Eyes: anicteric sclerae, moist conjunctivae; no lid-lag; PERRLA HENT: Atraumatic; oropharynx clear +ETT. Neck: Trachea midline; supple, no thyromegaly or lymphadenopathy Lungs: Extubaed, NC, Bilat Rhochi CV: RRR, Abdomen: Soft, non-tender; no masses or hepatosplenomegaly Extremities: left foot lateral wound with devitalized tissue and foul smelling drainage, marked foot and ankle edema. Brown leg edema Skin: Normal temperature, turgor and texture; no rash, ulcers or subcutaneous nodules Psych: Affect appropriate. Neuro: alert and oriented to place and time Lines: IJ TLC - Constitutional Vitals: Vital Signs Temp Pulse Resp BP Pulse Ox 97.4 F L 77 18 149/75 97 04/17/18 06:32 04/17/18 06:32 04/17/18 06:32 04/17/18 06:32 04/17/18 06:32 Temperature -Last 24 Hours Temperature 97.4 F Temperature 98.2 F Temperature 98.9 F Temperature 98.4 F Temperature 98.5 F Temperature 98.2 F - Labs CBC & Chem 7: 04/12/18 04:14 04/12/18 04:14 Labs: Abnormal lab results 04/07/18 04/16/18 04/16/18 Range/Units 16:43 11:52 16:53 POC Glucose 206 H 195 H (70-105) Crossmatch See Detail 04/17/18 Range/Units 00:50 POC Glucose 170 H (70-105) Crossmatch
[2018-04-17] MEDS: FERROUS SULFATE PO SCH ×3 (08:08→20:39)
[2018-04-17] MEDS: ZESTRIL PO SCH (09:58)
[2018-04-17] MEDS: PROTONIX FEEDTUBE SCH (09:59)
[2018-04-17] MEDS: VITAMIN C PO SCH ×2 (09:59→22:12)
[2018-04-17] MEDS: LANTUS SUB-Q SCH ×2 (09:59→21:39)
[2018-04-17] MEDS: SENOKOT FEEDTUBE SCH ×2 (09:59→21:31)
[2018-04-17] MEDS: DAKIN'S FULL STRENGTH TP SCH ×2 (10:00→21:32)
[2018-04-17] MEDS: LOVENOX SUB-Q SCH (10:06)
[2018-04-17] MEDS: DUONEB *Not for PRN Use IH SCH ×3 (10:15→19:17)
--- NOTE | 2018-04-17 12:56 | Consultation ---
History of Present Illness Consult date: 04/17/18 Consult reason: chest pain History of present illness: This is a 57 year old male with a history of diabetes and PVD with left lower extremity ulcers who was brought to this hospital 04/07 with hypoglycemia. Reported glucose of 40 on EMS arrival. On presentation to the emergency department, patient went unresponsive requiring ACLS. Records reports pulseless electrical activity. There were no reports of ventricular tachycardia or ventricular fibrillation. His presenting ECG shows sinus tachycardia, no acute ischemic changes. He has since transition from CCU to the medical floor. History is unobtainable due to language barrier. Translation by family member reports there is no prior cardiac history. The patient does not have any chest pain, shortness of breath or palpitations. Stable sinus rhythm on telemetry. An echocardiogram this presentation reports a normal left ventricular systolic function, ejection fraction 55-60%. Past History Social history: lives with family Medications and Allergies Allergies Allergy/AdvReac Type Severity Reaction Status Date / Time No Known Allergies Allergy Unverified 04/07/18 08:27 Home Medications Medication Instructions Recorded Confirmed Last Taken Type Ascorbic Acid [Vitamin C with Matilde 500 mg PO BID 04/07/18 04/07/18 Unknown History Hips] Ferrous Sulfate [Iron] 325 mg PO TID 04/07/18 04/13/18 Unknown History Lisinopril [Zestril] 5 mg PO QDAY 04/07/18 04/07/18 Unknown History glipiZIDE [Glipizide] 5 mg PO BID 04/07/18 04/07/18 Unknown History metFORMIN [Glucophage] 500 mg PO BID 04/07/18 04/07/18 Unknown History Active Meds: Active Medications Acetaminophen (Tylenol) 650 mg PO Q4H PRN PRN Reason: Pain MILD(1-3)/Fever >100.5/[place] Last Admin: 04/11/18 23:59 Dose: 650 mg Acetaminophen (Tylenol) 650 mg [place] Q4H PRN PRN Reason: Pain, Mild (1-3) Last Admin: 04/07/18 17:25 Dose: 650 mg Albuterol (Proventil) 2.5 mg IH Q3HRT PRN PRN Reason: Wheezing Albuterol/Ipratropium (Duoneb *Not For Prn Use*) 1 ampul IH TIDRT [facility] Last Admin: 04/17/18 10:15 Dose: 1 ampul Lipase/Protease/Amylase (Pancreaze Dr 10,500 Unit) 1 each FEEDTUBE PRN PRN PRN Reason: For Clogged Feeding Tube Ascorbic Acid (Vitamin C) 500 mg PO BID [facility] Last Admin: 04/17/18 09:59 Dose: 500 mg Bisacodyl (Dulcolax) 10 mg PO QDAY PRN PRN Reason: Constipation Enoxaparin Sodium (Lovenox) 40 mg SUB-Q QDAY [facility] Last Admin: 04/17/18 10:06 Dose: 40 mg Ferrous Sulfate (Ferrous Sulfate) 300 mg PO TID [facility] Last Admin: 04/17/18 08:08 Dose: 300 mg Hydrophilic Ointment (Vaseline Lip Therapy) 1 applic TP Q2HR PRN PRN Reason: Dry Lips Last Admin: 04/08/18 18:47 Dose: 1 applic Piperacillin Sod/Tazobactam Sod (Zosyn/Ns 4.5gm/100ml) 4.5 gm in 100 mls @ 200 mls/hr IV Q8HR [facility]; Protocol Last Admin: 04/17/18 05:34 Dose: 200 mls/hr Insulin Glargine (Lantus) 17 units SUB-Q BID [facility] Last Admin: 04/17/18 09:59 Dose: 17 units Insulin Human Lispro (Humalog) 0 unit SUB-Q Q6HR [facility]; Protocol Last Admin: 04/17/18 08:15 Dose: Not Given Lisinopril (Zestril) 10 mg PO QDAY [facility] Last Admin: 04/17/18 09:58 Dose: 10 mg Morphine Sulfate (Morphine) 2 mg IV Q4H PRN PRN Reason: Pain, Moderate (4-6) Last Admin: 04/13/18 22:55 Dose: 2 mg Multi-Ingred Cream/Lotion/Oil/Oint (Artificial Tears Ophth Oint) 1 applic OU Q4HR PRN PRN Reason: Dry Eye(s) Ondansetron HCl (Zofran) 4 mg IV Q8H PRN PRN Reason: Nausea And Vomiting Pantoprazole (Protonix) 40 mg FEEDTUBE DAILY [facility] Last Admin: 04/17/18 09:59 Dose: 40 mg Senna (Senokot) 17.6 mg FEEDTUBE Q12HR [facility] Last Admin: 04/17/18 09:59 Dose: 17.6 mg Simple Syrup (Simple Syrup) 15 ml FEEDTUBE PRN PRN PRN Reason: Hypoglycemia Simple Syrup (Simple Syrup) 30 ml FEEDTUBE PRN PRN PRN Reason: Hypoglycemia Sodium Bicarbonate (Sodium Bicarbonate) 325 mg FEEDTUBE PRN PRN PRN Reason: For Clogged Feeding Tube Sodium Chloride (Sodium Chloride Flush Syringe 10 Ml) 10 ml IV BID [facility] Last Admin: 04/16/18 22:58 Dose: 10 ml Sodium Chloride (Sodium Chloride Flush Syringe 10 Ml) 10 ml IV PRN PRN PRN Reason: LINE FLUSH Sodium Hypochlorite (Dakin's Full Strength) 1 applic TP Q12HR [facility] Last Admin: 04/17/18 10:00 Dose: 1 1000units Physical Examination Vital Signs Pulse Ox 43 L 04/07/18 08:12 General appearance: no acute distress HEENT: Positive: PERRL Cardiac: Positive: Reg Rate and Rhythm Results 04/12/18 04:14 04/12/18 04:14
[2018-04-17] MEDS ORDERED: SODIUM BICARBONATE FEEDTUBE PRN (16:16)
[2018-04-17] MEDS ORDERED: PANCREAZE DR 10,500 UNIT FEEDTUBE PRN (16:16)
[2018-04-17] MEDS ORDERED: SIMPLE SYRUP FEEDTUBE PRN ×2 (16:16)
--- NOTE | 2018-04-17 16:57 | Progress Note ---
Assessment and Plan Wean FiO2 to off as tolerated Follow up cards recs Subjective Date of service: 04/17/18 Principal diagnosis: Acute respiratory failure Interval history: Stable on floor. Family at bedside. Does not speak [place]. has chest pain that is reproducible, likely from CPR. Objective Vital Signs - 12hr 04/17/18 04/17/18 04/17/18 06:32 09:58 10:00 Temperature 97.4 F L Pulse Rate 77 89 Pulse Rate [ Anterior Bilateral Upper Lobe] Respiratory 18 Rate Respiratory Rate [Anterior Bilateral Upper Lobe] Blood Pressure 149/75 150/76 O2 Sat by Pulse 97 Oximetry 04/17/18 04/17/18 04/17/18 10:15 10:20 10:27 Temperature Pulse Rate Pulse Rate [ 80 80 Anterior Bilateral Upper Lobe] Respiratory Rate Respiratory 18 18 Rate [Anterior Bilateral Upper Lobe] Blood Pressure O2 Sat by Pulse 99 Oximetry 04/17/18 04/17/18 04/17/18 11:23 13:40 13:52 Temperature 97.8 F Pulse Rate 89 Pulse Rate [ 83 83 Anterior Bilateral Upper Lobe] Respiratory 18 Rate Respiratory 20 18 Rate [Anterior Bilateral Upper Lobe] Blood Pressure 149/77 O2 Sat by Pulse 98 Oximetry Constitutional: no acute distress, alert Eyes: non-icteric ENT: oropharynx moist Neck: supple Effort: normal Ascultation: Bilateral: clear, other (coarse BS bilaterally) Cardiovascular: regular rate and rhythm (no mrg) Gastrointestinal: normoactive bowel sounds, soft, non-tender, other (obese) Integumentary: other (foul smelling L foot wound, bandaged) Extremities: no cyanosis, edema (1+ bilateral LE edema, L > R) Neurologic: normal mental status, non-focal exam, pupils equal and round, CN II- XII normal Psychiatric: mood appropriate, affect normal CBC and BMP: 04/12/18 04:14 04/12/18 04:14 ABG, PT/INR, D-dimer: ABG POC ABG pH 7.499 (7.35-7.45) H 04/14/18 09:45 POC ABG pCO2 30.1 (35-45) L 04/14/18 09:45 POC ABG pO2 104 (80-105) 04/14/18 09:45 POC ABG HCO3 23.5 04/14/18 09:45 POC ABG Total CO2 24 04/14/18 09:45 POC ABG O2 Sat 99 04/14/18 09:45 PT/INR, D-dimer D-Dimer 933.08 ng/mlDDU (0-234) H 04/07/18 08:15 Abnormal lab findings: Abnormal Labs 04/07/18 04/07/18 04/07/18 08:11 08:15 08:15 WBC 23.9 H RBC 2.89 L Hgb 7.2 L Hct 22.4 L MCV 78 L MCH 25 L MCHC RDW 13.0 L Plt Count 453 H Lymph % (Auto) [place] % (Auto) [place] # Seg Neutrophils % Seg Neuts % (Manual) 84.0 H Lymphocytes % (Manual) 8.0 L Monocytes % (Manual) 8.0 H Seg Neutrophils # Seg Neutrophils # Man 20.1 H Lymphocytes # (Manual) Monocytes # (Manual) 1.9 H Eosinophils # (Manual) D-Dimer 933.08 H POC ABG pH POC ABG pCO2 POC ABG pO2 VBG pH Sodium Chloride Carbon Dioxide BUN Glucose POC Glucose 225 H Hemoglobin A1c Lactic Acid Calcium Iron TIBC Transferrin Total Bilirubin Alkaline Phosphatase Total Creatine Kinase C-Reactive Protein Total Protein Albumin Triglycerides LDL Cholesterol Direct HDL Cholesterol Vitamin B12 Urine pH Crossmatch 04/07/18 04/07/18 04/07/18 08:15 08:15 08:52 WBC RBC Hgb Hct MCV MCH MCHC RDW Plt Count Lymph % (Auto) [place] % (Auto) [place] # Seg Neutrophils % Seg Neuts % (Manual) Lymphocytes % (Manual) Monocytes % (Manual) Seg Neutrophils # Seg Neutrophils # Man Lymphocytes # (Manual) Monocytes # (Manual) Eosinophils # (Manual) D-Dimer POC ABG pH POC ABG pCO2 POC ABG pO2 VBG pH Sodium 127 L Chloride 90.7 L Carbon Dioxide 21 L BUN 21 H Glucose 191 H POC Glucose Hemoglobin A1c Lactic Acid 3.80 H* Calcium 8.2 L Iron TIBC Transferrin Total Bilirubin Alkaline Phosphatase 287 H Total Creatine Kinase 31 L C-Reactive Protein Total Protein Albumin 2.4 L Triglycerides LDL Cholesterol Direct HDL Cholesterol Vitamin B12 Urine pH 8.0 H Crossmatch 04/07/18 04/07/18 04/07/18 09:51 12:27 13:25 WBC RBC Hgb Hct MCV MCH MCHC RDW Plt Count Lymph % (Auto) [place] % (Auto) [place] # Seg Neutrophils % Seg Neuts % (Manual) Lymphocytes % (Manual) Monocytes % (Manual) Seg Neutrophils # Seg Neutrophils # Man Lymphocytes # (Manual) Monocytes # (Manual) Eosinophils # (Manual) D-Dimer POC ABG pH POC ABG pCO2 POC ABG pO2 VBG pH 7.231 L Sodium Chloride Carbon Dioxide BUN Glucose POC Glucose Hemoglobin A1c Lactic Acid 3.10 H* 4.50 H* Calcium Iron TIBC Transferrin Total Bilirubin Alkaline Phosphatase Total Creatine Kinase C-Reactive Protein Total Protein Albumin Triglycerides LDL Cholesterol Direct HDL Cholesterol Vitamin B12 Urine pH Crossmatch 04/07/18 04/07/18 04/07/18 15:24 16:35 16:43 WBC RBC Hgb Hct MCV MCH MCHC RDW Plt Count Lymph % (Auto) [place] % (Auto) [place] # Seg Neutrophils % Seg Neuts % (Manual) Lymphocytes % (Manual) Monocytes % (Manual) Seg Neutrophils # Seg Neutrophils # Man Lymphocytes # (Manual) Monocytes # (Manual) Eosinophils # (Manual) D-Dimer POC ABG pH POC ABG pCO2 POC ABG pO2 VBG pH Sodium Chloride Carbon Dioxide BUN Glucose POC Glucose 137 H Hemoglobin A1c 9.9 H Lactic Acid 2.20 H* Calcium Iron TIBC Transferrin Total Bilirubin Alkaline Phosphatase Total Creatine Kinase C-Reactive Protein Total Protein Albumin Triglycerides LDL Cholesterol Direct HDL Cholesterol Vitamin B12 Urine pH Crossmatch 04/07/18 04/07/18 04/08/18 16:43 16:46 06:15 WBC RBC Hgb Hct MCV MCH MCHC RDW Plt Count Lymph % (Auto) [place] % (Auto) [place] # Seg Neutrophils % Seg Neuts % (Manual) Lymphocytes % (Manual) Monocytes % (Manual) Seg Neutrophils # Seg Neutrophils # Man Lymphocytes # (Manual) Monocytes # (Manual) Eosinophils # (Manual) D-Dimer POC ABG pH 7.345 L POC ABG pCO2 28.0 L 33.8 L POC ABG pO2 76 L 138 H VBG pH Sodium Chloride Carbon Dioxide BUN Glucose POC Glucose Hemoglobin A1c Lactic Acid Calcium Iron TIBC Transferrin Total Bilirubin Alkaline Phosphatase Total Creatine Kinase C-Reactive Protein Total Protein Albumin Triglycerides LDL Cholesterol Direct HDL Cholesterol Vitamin B12 Urine pH Crossmatch See Detail 04/08/18 04/08/18 04/08/18 07:34 07:34 07:34 WBC 15.7 H RBC 6.30 H Hgb 15.6 H D Hct 49.2 H D MCV 78 L MCH 25 L MCHC RDW Plt Count Lymph % (Auto) [place] % (Auto) [place] # Seg Neutrophils % Seg Neuts % (Manual) Lymphocytes % (Manual) Monocytes % (Manual) Seg Neutrophils # Seg Neutrophils # Man Lymphocytes # (Manual) Monocytes # (Manual) Eosinophils # (Manual) D-Dimer POC ABG pH POC ABG pCO2 POC ABG pO2 VBG pH Sodium Chloride Carbon Dioxide BUN Glucose POC Glucose Hemoglobin A1c Lactic Acid Calcium Iron 15 L TIBC 106 L Transferrin 76 L Total Bilirubin Alkaline Phosphatase Total Creatine Kinase C-Reactive Protein Total Protein Albumin Triglycerides LDL Cholesterol Direct HDL Cholesterol Vitamin B12 1405 H Urine pH Crossmatch 04/08/18 04/08/18 04/08/18 07:34 09:54 12:43 WBC RBC Hgb Hct MCV MCH MCHC RDW Plt Count Lymph % (Auto) [place] % (Auto) [place] # Seg Neutrophils % Seg Neuts % (Manual) Lymphocytes % (Manual) Monocytes % (Manual) Seg Neutrophils # Seg Neutrophils # Man Lymphocytes # (Manual) Monocytes # (Manual) Eosinophils # (Manual) D-Dimer POC ABG pH POC ABG pCO2 POC ABG pO2 VBG pH Sodium 131 L Chloride Carbon Dioxide 20 L BUN 24 H Glucose 167 H POC Glucose 162 H 175 H Hemoglobin A1c Lactic Acid Calcium 7.5 L Iron TIBC Transferrin Total Bilirubin Alkaline Phosphatase Total Creatine Kinase C-Reactive Protein Total Protein Albumin Triglycerides LDL Cholesterol Direct HDL Cholesterol Vitamin B12 Urine pH Crossmatch 04/08/18 04/08/18 04/09/18 16:36 16:40 01:15 WBC 28.2 H RBC 2.67 L Hgb 7.3 L D Hct 21.0 L D MCV 79 L MCH 27 L MCHC 35 H RDW Plt Count Lymph % (Auto) [place] % (Auto) [place] # Seg Neutrophils % Seg Neuts % (Manual) 74.0 H Lymphocytes % (Manual) 3.0 L Monocytes % (Manual) Seg Neutrophils # Seg Neutrophils # Man 20.9 H Lymphocytes # (Manual) 0.8 L Monocytes # (Manual) 1.7 H Eosinophils # (Manual) D-Dimer POC ABG pH POC ABG pCO2 POC ABG pO2 VBG pH Sodium Chloride Carbon Dioxide BUN Glucose POC Glucose 150 H 171 H Hemoglobin A1c Lactic Acid Calcium Iron TIBC Transferrin Total Bilirubin Alkaline Phosphatase Total Creatine Kinase C-Reactive Protein Total Protein Albumin Triglycerides LDL Cholesterol Direct HDL Cholesterol Vitamin B12 Urine pH Crossmatch 04/09/18 04/09/18 04/09/18 05:13 05:42 05:42 WBC 23.2 H RBC 2.72 L Hgb 7.0 L Hct 21.6 L MCV 79 L MCH 26 L MCHC RDW Plt Count Lymph % (Auto) [place] % (Auto) [place] # Seg Neutrophils % Seg Neuts % (Manual) 87.5 H Lymphocytes % (Manual) 8.0 L Monocytes % (Manual) Seg Neutrophils # Seg Neutrophils # Man 20.3 H Lymphocytes # (Manual) Monocytes # (Manual) 0.9 H Eosinophils # (Manual) D-Dimer POC ABG pH POC ABG pCO2 34.4 L POC ABG pO2 VBG pH Sodium 134 L Chloride Carbon Dioxide 21 L BUN 24 H Glucose 192 H POC Glucose Hemoglobin A1c Lactic Acid Calcium 7.4 L Iron TIBC Transferrin Total Bilirubin Alkaline Phosphatase 211 H Total Creatine Kinase C-Reactive Protein Total Protein Albumin 2.1 L Triglycerides LDL Cholesterol Direct HDL Cholesterol Vitamin B12 Urine pH Crossmatch 04/09/18 04/09/18 04/10/18 12:52 18:43 00:13 WBC RBC Hgb Hct MCV MCH MCHC RDW Plt Count Lymph % (Auto) [place] % (Auto) [place] # Seg Neutrophils % Seg Neuts % (Manual) Lymphocytes % (Manual) Monocytes % (Manual) Seg Neutrophils # Seg Neutrophils # Man Lymphocytes # (Manual) Monocytes # (Manual) Eosinophils # (Manual) D-Dimer POC ABG pH POC ABG pCO2 POC ABG pO2 VBG pH Sodium Chloride Carbon Dioxide BUN Glucose POC Glucose 206 H 223 H 233 H Hemoglobin A1c Lactic Acid Calcium Iron TIBC Transferrin Total Bilirubin Alkaline Phosphatase Total Creatine Kinase C-Reactive Protein Total Protein Albumin Triglycerides LDL Cholesterol Direct HDL Cholesterol Vitamin B12 Urine pH Crossmatch 04/10/18 04/10/18 04/10/18 04:04 04:06 04:06 WBC 18.9 H RBC 3.27 L Hgb 8.4 L Hct 26.0 L MCV 80 L MCH 26 L MCHC RDW Plt Count Lymph % (Auto) [place] % (Auto) [place] # Seg Neutrophils % Seg Neuts % (Manual) 86.0 H Lymphocytes % (Manual) 2.0 L Monocytes % (Manual) Seg Neutrophils # Seg Neutrophils # Man 16.3 H Lymphocytes # (Manual) 0.4 L Monocytes # (Manual) Eosinophils # (Manual) 0.8 H D-Dimer POC ABG pH POC ABG pCO2 34.4 L POC ABG pO2 VBG pH Sodium 136 L Chloride Carbon Dioxide 20 L BUN 23 H Glucose 213 H POC Glucose Hemoglobin A1c Lactic Acid Calcium 7.6 L Iron TIBC Transferrin Total Bilirubin Alkaline Phosphatase Total Creatine Kinase C-Reactive Protein Total Protein Albumin Triglycerides LDL Cholesterol Direct HDL Cholesterol Vitamin B12 Urine pH Crossmatch 04/10/18 04/10/18 04/10/18 06:10 12:30 17:43 WBC RBC Hgb Hct MCV MCH MCHC RDW Plt Count Lymph % (Auto) [place] % (Auto) [place] # Seg Neutrophils % Seg Neuts % (Manual) Lymphocytes % (Manual) Monocytes % (Manual) Seg Neutrophils # Seg Neutrophils # Man Lymphocytes # (Manual) Monocytes # (Manual) Eosinophils # (Manual) D-Dimer POC ABG pH POC ABG pCO2 POC ABG pO2 VBG pH Sodium Chloride Carbon Dioxide BUN Glucose POC Glucose 246 H 266 H 246 H Hemoglobin A1c Lactic Acid Calcium Iron TIBC Transferrin Total Bilirubin Alkaline Phosphatase Total Creatine Kinase C-Reactive Protein Total Protein Albumin Triglycerides LDL Cholesterol Direct HDL Cholesterol Vitamin B12 Urine pH Crossmatch 04/10/18 04/11/18 04/11/18 23:50 04:14 04:14 WBC 14.9 H RBC 3.07 L Hgb 8.0 L Hct 24.6 L MCV 80 L MCH 26 L MCHC RDW Plt Count Lymph % (Auto) [place] % (Auto) [place] # Seg Neutrophils % Seg Neuts % (Manual) 79.0 H Lymphocytes % (Manual) 10.0 L Monocytes % (Manual) Seg Neutrophils # Seg Neutrophils # Man 11.8 H Lymphocytes # (Manual) Monocytes # (Manual) Eosinophils # (Manual) D-Dimer POC ABG pH POC ABG pCO2 POC ABG pO2 VBG pH Sodium Chloride 107.9 H Carbon Dioxide 20 L BUN 25 H Glucose 184 H POC Glucose 247 H Hemoglobin A1c Lactic Acid Calcium 7.3 L Iron TIBC Transferrin Total Bilirubin 1.40 H Alkaline Phosphatase 225 H Total Creatine Kinase C-Reactive Protein Total Protein 5.9 L Albumin 1.9 L Triglycerides LDL Cholesterol Direct HDL Cholesterol Vitamin B12 Urine pH Crossmatch 04/11/18 04/11/18 04/11/18 04:43 10:04 12:02 WBC RBC Hgb Hct MCV MCH MCHC RDW Plt Count Lymph % (Auto) [place] % (Auto) [place] # Seg Neutrophils % Seg Neuts % (Manual) Lymphocytes % (Manual) Monocytes % (Manual) Seg Neutrophils # Seg Neutrophils # Man Lymphocytes # (Manual) Monocytes # (Manual) Eosinophils # (Manual) D-Dimer POC ABG pH 7.479 H POC ABG pCO2 34.8 L POC ABG pO2 VBG pH Sodium Chloride Carbon Dioxide BUN Glucose POC Glucose 147 H 148 H Hemoglobin A1c Lactic Acid Calcium Iron TIBC Transferrin Total Bilirubin Alkaline Phosphatase Total Creatine Kinase C-Reactive Protein Total Protein Albumin Triglycerides LDL Cholesterol Direct HDL Cholesterol Vitamin B12 Urine pH Crossmatch 04/11/18 04/11/18 04/11/18 12:22 17:34 23:39 WBC RBC Hgb Hct MCV MCH MCHC RDW Plt Count Lymph % (Auto) [place] % (Auto) [place] # Seg Neutrophils % Seg Neuts % (Manual) Lymphocytes % (Manual) Monocytes % (Manual) Seg Neutrophils # Seg Neutrophils # Man Lymphocytes # (Manual) Monocytes # (Manual) Eosinophils # (Manual) D-Dimer POC ABG pH POC ABG pCO2 POC ABG pO2 VBG pH Sodium Chloride Carbon Dioxide BUN Glucose POC Glucose 118 H 192 H Hemoglobin A1c Lactic Acid Calcium Iron TIBC Transferrin Total Bilirubin Alkaline Phosphatase Total Creatine Kinase C-Reactive Protein 13.00 H Total Protein Albumin Triglycerides LDL Cholesterol Direct HDL Cholesterol Vitamin B12 Urine pH Crossmatch 04/12/18 04/12/18 04/12/18 04:14 04:14 04:56 WBC 17.2 H RBC 3.16 L Hgb 8.4 L Hct 25.4 L MCV 81 L MCH 27 L MCHC RDW Plt Count 453 H Lymph % (Auto) 9.1 L [place] % (Auto) 11.7 H [place] # 2.0 H Seg Neutrophils % 78.1 H Seg Neuts % (Manual) Lymphocytes % (Manual) Monocytes % (Manual) Seg Neutrophils # 13.4 H Seg Neutrophils # Man Lymphocytes # (Manual) Monocytes # (Manual) Eosinophils # (Manual) D-Dimer POC ABG pH 7.452 H POC ABG pCO2 28.6 L POC ABG pO2 VBG pH Sodium Chloride 110.4 H Carbon Dioxide 20 L BUN 25 H Glucose 164 H POC Glucose Hemoglobin A1c Lactic Acid Calcium 7.6 L Iron TIBC Transferrin Total Bilirubin Alkaline Phosphatase Total Creatine Kinase C-Reactive Protein Total Protein Albumin Triglycerides LDL Cholesterol Direct HDL Cholesterol Vitamin B12 Urine pH Crossmatch 04/12/18 04/12/18 04/12/18 09:20 15:01 18:19 WBC RBC Hgb Hct MCV MCH MCHC RDW Plt Count Lymph % (Auto) [place] % (Auto) [place] # Seg Neutrophils % Seg Neuts % (Manual) Lymphocytes % (Manual) Monocytes % (Manual) Seg Neutrophils # Seg Neutrophils # Man Lymphocytes # (Manual) Monocytes # (Manual) Eosinophils # (Manual) D-Dimer POC ABG pH POC ABG pCO2 POC ABG pO2 VBG pH Sodium Chloride Carbon Dioxide BUN Glucose POC Glucose 148 H 170 H 140 H Hemoglobin A1c Lactic Acid Calcium Iron TIBC Transferrin Total Bilirubin Alkaline Phosphatase Total Creatine Kinase C-Reactive Protein Total Protein Albumin Triglycerides LDL Cholesterol Direct HDL Cholesterol Vitamin B12 Urine pH Crossmatch 04/12/18 04/12/18 04/13/18 21:20 23:59 05:19 WBC RBC Hgb Hct MCV MCH MCHC RDW Plt Count Lymph % (Auto) [place] % (Auto) [place] # Seg Neutrophils % Seg Neuts % (Manual) Lymphocytes % (Manual) Monocytes % (Manual) Seg Neutrophils # Seg Neutrophils # Man Lymphocytes # (Manual) Monocytes # (Manual) Eosinophils # (Manual) D-Dimer POC ABG pH 7.458 H POC ABG pCO2 27.7 L POC ABG pO2 VBG pH Sodium Chloride Carbon Dioxide BUN Glucose POC Glucose 173 H 199 H Hemoglobin A1c Lactic Acid Calcium Iron TIBC Transferrin Total Bilirubin Alkaline Phosphatase Total Creatine Kinase C-Reactive Protein Total Protein Albumin Triglycerides LDL Cholesterol Direct HDL Cholesterol Vitamin B12 Urine pH Crossmatch 04/13/18 04/13/18 04/13/18 05:37 08:13 13:13 WBC RBC Hgb Hct MCV MCH MCHC RDW Plt Count Lymph % (Auto) [place] % (Auto) [place] # Seg Neutrophils % Seg Neuts % (Manual) Lymphocytes % (Manual) Monocytes % (Manual) Seg Neutrophils # Seg Neutrophils # Man Lymphocytes # (Manual) Monocytes # (Manual) Eosinophils # (Manual) D-Dimer POC ABG pH POC ABG pCO2 POC ABG pO2 VBG pH Sodium Chloride Carbon Dioxide BUN Glucose POC Glucose 242 H 233 H Hemoglobin A1c Lactic Acid Calcium Iron TIBC Transferrin Total Bilirubin Alkaline Phosphatase Total Creatine Kinase C-Reactive Protein Total Protein Albumin Triglycerides 174 H LDL Cholesterol Direct 25 L HDL Cholesterol 9 L Vitamin B12 Urine pH Crossmatch 04/13/18 04/13/18 04/14/18 17:15 21:33 00:02 WBC RBC Hgb Hct MCV MCH MCHC RDW Plt Count Lymph % (Auto) [place] % (Auto) [place] # Seg Neutrophils % Seg Neuts % (Manual) Lymphocytes % (Manual) Monocytes % (Manual) Seg Neutrophils # Seg Neutrophils # Man Lymphocytes # (Manual) Monocytes # (Manual) Eosinophils # (Manual) D-Dimer POC ABG pH POC ABG pCO2 POC ABG pO2 VBG pH Sodium Chloride Carbon Dioxide BUN Glucose POC Glucose 241 H 256 H 245 H Hemoglobin A1c Lactic Acid Calcium Iron TIBC Transferrin Total Bilirubin Alkaline Phosphatase Total Creatine Kinase C-Reactive Protein Total Protein Albumin Triglycerides LDL Cholesterol Direct HDL Cholesterol Vitamin B12 Urine pH Crossmatch 04/14/18 04/14/18 04/14/18 05:21 09:45 12:18 WBC RBC Hgb Hct MCV MCH MCHC RDW Plt Count Lymph % (Auto) [place] % (Auto) [place] # Seg Neutrophils % Seg Neuts % (Manual) Lymphocytes % (Manual) Monocytes % (Manual) Seg Neutrophils # Seg Neutrophils # Man Lymphocytes # (Manual) Monocytes # (Manual) Eosinophils # (Manual) D-Dimer POC ABG pH 7.499 H POC ABG pCO2 30.1 L POC ABG pO2 VBG pH Sodium Chloride Carbon Dioxide BUN Glucose POC Glucose 182 H 182 H Hemoglobin A1c Lactic Acid Calcium Iron TIBC Transferrin Total Bilirubin Alkaline Phosphatase Total Creatine Kinase C-Reactive Protein Total Protein Albumin Triglycerides LDL Cholesterol Direct HDL Cholesterol Vitamin B12 Urine pH Crossmatch 04/14/18 04/14/18 04/15/18 18:02 23:33 06:41 WBC RBC Hgb Hct MCV MCH MCHC RDW Plt Count Lymph % (Auto) [place] % (Auto) [place] # Seg Neutrophils % Seg Neuts % (Manual) Lymphocytes % (Manual) Monocytes % (Manual) Seg Neutrophils # Seg Neutrophils # Man Lymphocytes # (Manual) Monocytes # (Manual) Eosinophils # (Manual) D-Dimer POC ABG pH POC ABG pCO2 POC ABG pO2 VBG pH Sodium Chloride Carbon Dioxide BUN Glucose POC Glucose 202 H 228 H 253 H Hemoglobin A1c Lactic Acid Calcium Iron TIBC Transferrin Total Bilirubin Alkaline Phosphatase Total Creatine Kinase C-Reactive Protein Total Protein Albumin Triglycerides LDL Cholesterol Direct HDL Cholesterol Vitamin B12 Urine pH Crossmatch 04/15/18 04/15/18 04/16/18 12:38 18:07 00:53 WBC RBC Hgb Hct MCV MCH MCHC RDW Plt Count Lymph % (Auto) [place] % (Auto) [place] # Seg Neutrophils % Seg Neuts % (Manual) Lymphocytes % (Manual) Monocytes % (Manual) Seg Neutrophils # Seg Neutrophils # Man Lymphocytes # (Manual) Monocytes # (Manual) Eosinophils # (Manual) D-Dimer POC ABG pH POC ABG pCO2 POC ABG pO2 VBG pH Sodium Chloride Carbon Dioxide BUN Glucose POC Glucose 250 H 242 H 224 H Hemoglobin A1c Lactic Acid Calcium Iron TIBC Transferrin Total Bilirubin Alkaline Phosphatase Total Creatine Kinase C-Reactive Protein Total Protein Albumin Triglycerides LDL Cholesterol Direct HDL Cholesterol Vitamin B12 Urine pH Crossmatch 04/16/18 04/16/18 04/16/18 05:53 11:52 16:53 WBC RBC Hgb Hct MCV MCH MCHC RDW Plt Count Lymph % (Auto) [place] % (Auto) [place] # Seg Neutrophils % Seg Neuts % (Manual) Lymphocytes % (Manual) Monocytes % (Manual) Seg Neutrophils # Seg Neutrophils # Man Lymphocytes # (Manual) Monocytes # (Manual) Eosinophils # (Manual) D-Dimer POC ABG pH POC ABG pCO2 POC ABG pO2 VBG pH Sodium Chloride Carbon Dioxide BUN Glucose POC Glucose 207 H 206 H 195 H Hemoglobin A1c Lactic Acid Calcium Iron TIBC Transferrin Total Bilirubin Alkaline Phosphatase Total Creatine Kinase C-Reactive Protein Total Protein Albumin Triglycerides LDL Cholesterol Direct HDL Cholesterol Vitamin B12 Urine pH Crossmatch 04/17/18 04/17/18 04/17/18 00:50 11:05 16:11 WBC RBC Hgb Hct MCV MCH MCHC RDW Plt Count Lymph % (Auto) [place] % (Auto) [place] # Seg Neutrophils % Seg Neuts % (Manual) Lymphocytes % (Manual) Monocytes % (Manual) Seg Neutrophils # Seg Neutrophils # Man Lymphocytes # (Manual) Monocytes # (Manual) Eosinophils # (Manual) D-Dimer POC ABG pH POC ABG pCO2 POC ABG pO2 VBG pH Sodium Chloride Carbon Dioxide BUN Glucose POC Glucose 170 H 136 H 159 H Hemoglobin A1c Lactic Acid Calcium Iron TIBC Transferrin Total Bilirubin Alkaline Phosphatase Total Creatine Kinase C-Reactive Protein Total Protein Albumin Triglycerides LDL Cholesterol Direct HDL Cholesterol Vitamin B12 Urine pH Crossmatch
[2018-04-17] MEDS: SODIUM CHLORIDE FLUSH SYRINGE 10 ML IV SCH ×2 (17:38→21:30)
[2018-04-18] MEDS: HumaLOG SUB-Q SCH ×4 (00:10→18:25)
[2018-04-18] MEDS: ZOSYN/NS 4.5GM/100ML 4.5 GM/100 ML VIAL IV SCH ×3 (05:40→21:36)
--- NOTE | 2018-04-18 07:07 | Progress Note ---
Assessment and Plan Assessment and plan: 57M who is diabetic, had not eaten in two days, c.o chest pain, family called EMS who found his glc to be <40, he received dextrose, on way to ER, he had vomiting, then syncope, and was pulseless, he received CPR and was intubated and required pressors. LT foot cellulitis/osteomyelitis -on iv antibiotics and wound care -planned for BKA tomorrow -Status post I&D left lower extremity on 04/12/18, infection is down to the bone Acute hypoxic respiratory failure on MV >96 hours extubated on 04/14/18, improving Severe sepsis with shock probably secondary to pneumonia and LT foot cellulitis weaned off pressors on 04/11 - IV abx, ID consulted Bilateral pneumonia -On IV antibiotics metabolic encephalopathy -MR brain was negative, case dw neurology -anoxic encephalopathy excluded Questionable cardiac arrest -serial troponin levels normal -echo showed EF of 55-60% without regional wall motion abnormalities -cardiology on board Elevated D-dimer -CTA neg for PE DM2 with hyperglycemia -Lantus dose increased, cont SSI, adjust as needed -A1C:9.9 Hyponatremia -improving, will monitor Iron def anemia with acute loss, probably sec to sepsis -s/p blood tranf with 2u of PRBC -Hb:8.4, will monitor -stool for occult blood pending Transaminitis, probably sec to the sepsis -improved Prophylaxis -Protonix and Lovenox History Interval history: he feels well. Communicative. Denies chest pain denies shortness of breath denies abdominal pain, pain in left leg is well controlled Hospitalist Physical - Physical exam Narrative exam: General.: alert, pleasant HEENT: Moist mucous membranes, extraocular muscles intact, no lymphadenopathy Neck: supple Cardiac: S1-S2 heard Lungs: clear to auscultation bilaterally Abdomen: soft , nontender, nondistended, bowel sounds positive Extremities: Left leg redness, odor improved, clean dressing was not removed Skin: no rash or lesions Neurologic: R side weakness resolved Psych: pleasnt and cooperative - Constitutional Vitals: Temp Pulse Resp BP Pulse Ox 97.7 F 75 18 159/80 97 04/18/18 05:26 04/18/18 05:26 04/18/18 05:26 04/18/18 05:26 04/18/18 05:26 General appearance: Present: no acute distress Results - Labs CBC & Chem 7: 04/12/18 04:14 04/12/18 04:14 Labs: Laboratory Last Values WBC 17.2 K/mm3 (4.5-11.0) H 04/12/18 04:14 RBC 3.16 M/mm3 (3.65-5.03) L 04/12/18 04:14 Hgb 8.4 gm/dl (11.8-15.2) L 04/12/18 04:14 Hct 25.4 % (35.5-45.6) L 04/12/18 04:14 MCV 81 fl (84-94) L 04/12/18 04:14 MCH 27 pg (28-32) L 04/12/18 04:14 MCHC 33 % (32-34) 04/12/18 04:14 RDW 14.6 % (13.2-15.2) 04/12/18 04:14 Plt Count 453 K/mm3 (140-440) H 04/12/18 04:14 Lymph % (Auto) 9.1 % (13.4-35.0) L 04/12/18 04:14 [place] % (Auto) 11.7 % (0.0-7.3) H 04/12/18 04:14 Eos % (Auto) 0.3 % (0.0-4.3) 04/12/18 04:14 Baso % (Auto) 0.8 % (0.0-1.8) 04/12/18 04:14 Lymph # 1.6 K/mm3 (1.2-5.4) 04/12/18 04:14 [place] # 2.0 K/mm3 (0.0-0.8) H 04/12/18 04:14 Eos # 0.0 K/mm3 (0.0-0.4) 04/12/18 04:14 Baso # 0.1 K/mm3 (0.0-0.1) 04/12/18 04:14 Add Manual Diff Complete 04/11/18 04:14 Total Counted 100 04/11/18 04:14 Seg Neutrophils % 78.1 % (40.0-70.0) H 04/12/18 04:14 Seg Neuts % (Manual) 79.0 % (40.0-70.0) H 04/11/18 04:14 Band Neutrophils % 4.0 % 04/11/18 04:14 Lymphocytes % (Manual) 10.0 % (13.4-35.0) L 04/11/18 04:14 Reactive Lymphs % (Man) 0 % 04/11/18 04:14 Monocytes % (Manual) 5.0 % (0.0-7.3) 04/11/18 04:14 Eosinophils % (Manual) 1.0 % (0.0-4.3) 04/11/18 04:14 Basophils % (Manual) 1.0 % (0.0-1.8) 04/11/18 04:14 Metamyelocytes % 0 % 04/11/18 04:14 Myelocytes % 0 % 04/11/18 04:14 Promyelocytes % 0 % 04/11/18 04:14 Blast Cells % 0 % 04/11/18 04:14 Nucleated RBC % Not Reportable 04/11/18 04:14 Seg Neutrophils # 13.4 K/mm3 (1.8-7.7) H 04/12/18 04:14 Seg Neutrophils # Man 11.8 K/mm3 (1.8-7.7) H 04/11/18 04:14 Band Neutrophils # 0.6 K/mm3 04/11/18 04:14 Lymphocytes # (Manual) 1.5 K/mm3 (1.2-5.4) 04/11/18 04:14 Abs React Lymphs (Man) 0.0 K/mm3 04/11/18 04:14 Monocytes # (Manual) 0.7 K/mm3 (0.0-0.8) 04/11/18 04:14 Eosinophils # (Manual) 0.1 K/mm3 (0.0-0.4) 04/11/18 04:14 Basophils # (Manual) 0.1 K/mm3 (0.0-0.1) 04/11/18 04:14 Metamyelocytes # 0.0 K/mm3 04/11/18 04:14 Myelocytes # 0.0 K/mm3 04/11/18 04:14 Promyelocytes # 0.0 K/mm3 04/11/18 04:14 Blast Cells # 0.0 K/mm3 04/11/18 04:14 WBC Morphology Not Reportable 04/11/18 04:14 Hypersegmented Neuts Not Reportable 04/11/18 04:14 Hyposegmented Neuts Not Reportable 04/11/18 04:14 Hypogranular Neuts Not Reportable 04/11/18 04:14 Smudge Cells Not Reportable 04/11/18 04:14 Toxic Granulation Not Reportable 04/11/18 04:14 Toxic Vacuolation Not Reportable 04/11/18 04:14 Dohle Bodies Not Reportable 04/11/18 04:14 Pelger-Huet Anomaly Not Reportable 04/11/18 04:14 Matt Rods Not Reportable 04/11/18 04:14 Platelet Estimate Consistent w auto 04/11/18 04:14 Clumped Platelets Not Reportable 04/11/18 04:14 Plt Clumps, EDTA Not Reportable 04/11/18 04:14 Large Platelets Not Reportable 04/11/18 04:14 Giant Platelets Not Reportable 04/11/18 04:14 Platelet Satelliting Not Reportable 04/11/18 04:14 Plt Morphology Comment Not Reportable 04/11/18 04:14 RBC Morphology Not Reportable 04/11/18 04:14 Dimorphic RBCs Not Reportable 04/11/18 04:14 Polychromasia Not Reportable 04/11/18 04:14 Hypochromasia 1+ 04/11/18 04:14 Poikilocytosis Not Reportable 04/11/18 04:14 Anisocytosis Not Reportable 04/11/18 04:14 Microcytosis Not Reportable 04/11/18 04:14 Macrocytosis Not Reportable 04/11/18 04:14 Spherocytes Not Reportable 04/11/18 04:14 Pappenheimer Bodies Not Reportable 04/11/18 04:14 Sickle Cells Not Reportable 04/11/18 04:14 Target Cells Not Reportable 04/11/18 04:14 Tear Drop Cells Not Reportable 04/11/18 04:14 Ovalocytes Not Reportable 04/11/18 04:14 Stomatocytes Rare 04/10/18 04:06 Helmet Cells Not Reportable 04/11/18 04:14 [place] Bodies Not Reportable 04/11/18 04:14 [place] Rings Not Reportable 04/11/18 04:14 Matthias Cells Not Reportable 04/11/18 04:14 Bite Cells Not Reportable 04/11/18 04:14 Crenated Cell Not Reportable 04/11/18 04:14 Elliptocytes Not Reportable 04/11/18 04:14 Acanthocytes (Spur) Not Reportable 04/11/18 04:14 Rouleaux Not Reportable 04/11/18 04:14 Hemoglobin C Crystals Not Reportable 04/11/18 04:14 Schistocytes Not Reportable 04/11/18 04:14 Malaria parasites Not Reportable 04/11/18 04:14 [place] Bodies Not Reportable 04/11/18 04:14 Hem Pathologist Commnt No 04/11/18 04:14 D-Dimer 933.08 ng/mlDDU (0-234) H 04/07/18 08:15 POC ABG pH 7.499 (7.35-7.45) H 04/14/18 09:45 POC ABG pCO2 30.1 (35-45) L 04/14/18 09:45 POC ABG pO2 104 (80-105) 04/14/18 09:45 POC ABG HCO3 23.5 04/14/18 09:45 POC ABG Total CO2 24 04/14/18 09:45 POC ABG O2 Sat 99 04/14/18 09:45 POC ABG Base Excess 0 04/14/18 09:45 VBG pH 7.231 (7.320-7.420) L 04/07/18 13:25 FiO2 28 % 04/14/18 09:45 Sodium 143 mmol/L (137-145) 04/12/18 04:14 Potassium 4.2 mmol/L (3.6-5.0) 04/12/18 04:14 Chloride 110.4 mmol/L (98-107) H 04/12/18 04:14 Carbon Dioxide 20 mmol/L (22-30) L 04/12/18 04:14 Anion Gap 17 mmol/L 04/12/18 04:14 BUN 25 mg/dL (9-20) H 04/12/18 04:14 Creatinine 1.0 mg/dL (0.8-1.5) 04/12/18 04:14 Estimated GFR > 60 ml/min 04/12/18 04:14 BUN/Creatinine Ratio 25 % 04/12/18 04:14 Glucose 164 mg/dL (75-100) H 04/12/18 04:14 POC Glucose 62 (70-105) L 04/18/18 05:31 Hemoglobin A1c 9.9 % (4-6) H 04/07/18 16:43 Lactic Acid 1.80 mmol/L (0.7-2.0) 04/07/18 16:43 Calcium 7.6 mg/dL (8.4-10.2) L 04/12/18 04:14 Iron 15 ug/dL (49-181) L 04/08/18 07:34 TIBC 106 mcg/dL (250-450) L 04/08/18 07:34 % Saturation 14.15 % 04/08/18 07:34 Transferrin 76 mg/dl (180-329) L 04/08/18 07:34 Total Bilirubin 1.40 mg/dL (0.1-1.2) H 04/11/18 04:14 AST 40 units/L (5-40) 04/11/18 04:14 ALT 45 units/L (7-56) 04/11/18 04:14 Alkaline Phosphatase 225 units/L (35-129) H 04/11/18 04:14 Total Creatine Kinase 83 units/L (55-170) 04/07/18 13:25 CK-MB (CK-2) 2.5 ng/mL (0.0-4.0) 04/07/18 13:25 CK-MB (CK-2) Rel Index 3.0 (0-4) 04/07/18 13:25 Troponin T 0.025 ng/mL (0.00-0.029) 04/07/18 13:25 C-Reactive Protein 13.00 mg/dL (0.00-1.30) H 04/11/18 12:22 Total Protein 5.9 g/dL (6.3-8.2) L 04/11/18 04:14 Albumin 1.9 g/dL (3.9-5) L 04/11/18 04:14 Albumin/Globulin Ratio 0.5 % 04/11/18 04:14 Triglycerides 174 mg/dL (2-149) H 04/13/18 08:13 Cholesterol 95 mg/dL (50-199) 04/13/18 08:13 LDL Cholesterol Direct 25 mg/dL (50-130) L 04/13/18 08:13 HDL Cholesterol 9 mg/dL (40-59) L 04/13/18 08:13 Cholesterol/HDL Ratio 10.55 % 04/13/18 08:13 Vitamin B12 1405 pg/mL (211-911) H 04/08/18 07:34 RBC Folic Acid >1000 ng/mL (>280) 04/08/18 07:34 Urine Color Yellow (Yellow) 04/07/18 08:52 Urine Turbidity Clear (Clear) 04/07/18 08:52 Urine pH 8.0 (5.0-7.0) H 04/07/18 08:52 Ur Specific [place] 1.009 (1.003-1.030) 04/07/18 08:52 Urine Protein 100 mg/dl mg/dL (Negative) 04/07/18 08:52 Urine Glucose (UA) Neg mg/dL (Negative) 04/07/18 08:52 Urine Ketones Neg mg/dL (Negative) 04/07/18 08:52 Urine Blood Neg (Negative) 04/07/18 08:52 Urine Nitrite Neg (Negative) 04/07/18 08:52 Urine Bilirubin Neg (Negative) 04/07/18 08:52 Urine Urobilinogen < 2.0 mg/dL (<2.0) 04/07/18 08:52 Ur Leukocyte Esterase Neg (Negative) 04/07/18 08:52 Urine WBC (Auto) 1.0 /HPF (0.0-6.0) 04/07/18 08:52 Urine RBC (Auto) 3.0 /HPF (0.0-6.0) 04/07/18 08:52 U Epithel Cells (Auto) 2.0 /HPF (0-13.0) 04/07/18 08:52 Urine Mucus Few /HPF 04/07/18 08:52 Urine Sperm 3+ /HPF (RAIL DIRECTOR) 04/07/18 08:52 Vancomycin Trough 12.3 ug/mL (5.0-20.0) 04/12/18 11:20 Urine Opiates Screen Presumptive negative 04/07/18 08:52 Urine Methadone Screen Presumptive negative 04/07/18 08:52 Ur Barbiturates Screen Presumptive negative 04/07/18 08:52 Ur Phencyclidine Scrn Presumptive negative 04/07/18 08:52 Ur Amphetamines Screen Presumptive negative 04/07/18 08:52 U Benzodiazepines Scrn Presumptive negative 04/07/18 08:52 Urine Cocaine Screen Presumptive negative 04/07/18 08:52 U Marijuana (THC) Screen Presumptive negative 04/07/18 08:52 Drugs of Abuse Note Disclamer 04/07/18 08:52 Blood Type O POSITIVE 04/07/18 16:43 Antibody Screen Negative 04/07/18 16:43 Crossmatch See Detail 04/07/18 16:43
[2018-04-18] MEDS: FERROUS SULFATE PO SCH ×3 (08:00→20:28)
[2018-04-18] MEDS: LANTUS SUB-Q SCH ×2 (08:00→21:38)
[2018-04-18] MEDS ORDERED: D50W (25GM) Syringe IV ONE ×3 (08:00→16:06)
[2018-04-18] MEDS: DUONEB *Not for PRN Use IH SCH ×3 (09:18→19:42)
[2018-04-18] MEDS: SENOKOT FEEDTUBE SCH ×2 (10:00→21:37)
--- NOTE | 2018-04-18 10:03 | Progress Note ---
Assessment and Plan Assessment: 1) Sepsis with septic shock: resolved. Etiology most likely multifactorial - left foot gangrene +/- bilateral pneumonia. 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 -S/P OR debridement today -wound cx Enterococcus faecalis, Proteus, Providencia, Morganella -CRP=13 3) DM - uncontrolled came with hypoglycemia 4) HTN 5) Acute encephalopathy- resolved -CT head showed chronic lacunar infarct on the right nasal ganglia. 6) Cardiac arrest enroute s/p CPR 7) Acute respiratory failure 8) Presumed bilateral pneumonia -CTA of the chest show bilateral basilar opacities. -Tracheal asp 04/07 normal resp kate 9) [place] - resolved 10) PVD - art US monophasic flow at the left ankle. Plan: -NPO this morning - Scheduled for BKA this afternoon -continue zosyn D11 (covers Eneterococcus and GNRs) -after today d/c zosyn, no needs for systemic abx after surgery We are signing off [facility] M: [phone] O:[phone] Subjective Date of service: 04/18/18 Principal diagnosis: Acute respiratory failure Interval history: Patient was sitting up in bed. Bulgarian speaking only, called interpretation. Patient's at bedside, stated that patient has been told not to eat today, possible surgery. Patient stated that he was feeling good today. Microbiology: Blood cultures: 04/07 ngtd Urine cultures: 04/07 neg Respiratory cultures: TA 04/07 ngtd Left foot wound: 04/10- Proteus Providencia Diptheroids Left Foot Surgical: 04/10 - Entercciccus Morganella Proteus Current Antimicrobials: Zosyn- 04/07 Previous Antimicrobial Vancomycin 04/07 Objective - Exam Narrative Exam: General appearance: alert Eyes: anicteric sclerae, moist conjunctivae; no lid-lag; PERRLA HENT: Atraumatic; oropharynx clear +ETT. Neck: Trachea midline; supple, no thyromegaly or lymphadenopathy Lungs: Extubaed, NC, Bilat Rhochi CV: RRR, Abdomen: Soft, non-tender; no masses or hepatosplenomegaly Extremities: left foot lateral wound with devitalized tissue and foul smelling drainage, marked foot and ankle edema. Brown leg edema Skin: Normal temperature, turgor and texture; no rash, ulcers or subcutaneous nodules Psych: Affect appropriate. Neuro: alert and oriented to place and time Lines: IJ TLC - Constitutional Vitals: Vital Signs Temp Pulse Resp BP Pulse Ox 97.7 F 71 18 159/80 97 04/18/18 05:26 04/18/18 09:25 04/18/18 09:25 04/18/18 05:26 04/18/18 05:26 Temperature -Last 24 Hours Temperature 97.7 F Temperature 98.3 F Temperature 97.8 F Temperature 97.8 F - Labs CBC & Chem 7: 04/18/18 13:45 04/18/18 13:45 Labs: Abnormal lab results 04/17/18 04/17/18 04/18/18 Range/Units 11:05 16:11 05:31 POC Glucose 136 H 159 H 62 L (70-105) 04/18/18 Range/Units 08:03 POC Glucose 69 L (70-105)
--- NOTE | 2018-04-18 10:12 | Progress Note ---
<NEHAMITCHEL - Last Filed: 04/18/18 10:15> Assessment and Plan Hypoglycemia Sepsis Diabetes Left diabetic foot ulcer Anemia PVD Normal LVEF by echocardiogram this presentation. Conservative cardiac management. Subjective Date of service: 04/18/18 Principal diagnosis: Acute respiratory failure Interval history: Patient is non-Japanese speaking. No distress noted. Objective Vital Signs Temp Pulse Pulse Pulse Resp Resp Resp 04/18/18 09:25 71 71 18 18 04/18/18 09:17 72 72 18 18 04/18/18 05:26 97.7 F 75 18 04/17/18 23:28 98.3 F 79 18 04/17/18 22:00 04/17/18 20:01 85 20 04/17/18 19:19 04/17/18 19:18 84 20 04/17/18 17:00 97.8 F 86 18 04/17/18 13:52 83 18 04/17/18 13:40 83 20 04/17/18 11:23 97.8 F 89 18 04/17/18 10:27 80 18 04/17/18 10:20 04/17/18 10:15 80 18 BP Pulse Ox 04/18/18 09:25 04/18/18 09:17 04/18/18 05:26 159/80 97 04/17/18 23:28 127/66 99 04/17/18 22:00 99 04/17/18 20:01 04/17/18 19:19 96 04/17/18 19:18 04/17/18 17:00 149/75 97 04/17/18 13:52 04/17/18 13:40 04/17/18 11:23 149/77 98 04/17/18 10:27 04/17/18 10:20 99 04/17/18 10:15 - Physical Examination General: No Apparent Distress HEENT: Positive: PERRL Cardiac: Positive: Reg Rate and Rhythm Lungs: Positive: Decreased Breath Sounds Neuro: Positive: Grossly Intact <KATINA LEOS - Last Filed: 04/18/18 17:27> Assessment and Plan Patient has no active cardiac issues, scheduled for left below knee amputation today. On account of his multiple cardiac risk factors and comorbidities, he is at moderate cardiac risk for noncardiac surgery. Objective Vital Signs Temp Pulse Pulse Pulse Resp Resp Resp 04/18/18 16:45 97.4 F L 83 12 04/18/18 16:31 85 11 L 04/18/18 16:30 12 04/18/18 16:15 82 12 04/18/18 16:10 84 12 04/18/18 16:05 84 14 04/18/18 16:04 14 04/18/18 16:00 83 14 04/18/18 15:55 85 13 04/18/18 15:50 97.5 F L 85 16 04/18/18 12:35 98.1 F 81 18 04/18/18 10:30 18 04/18/18 10:00 04/18/18 09:25 71 71 18 18 04/18/18 09:17 72 72 18 18 04/18/18 05:26 97.7 F 75 18 04/17/18 23:28 98.3 F 79 18 04/17/18 22:00 04/17/18 20:01 85 20 04/17/18 19:19 04/17/18 19:18 84 20 BP Pulse Ox 04/18/18 16:45 142/73 96 04/18/18 16:31 143/81 94 04/18/18 16:30 04/18/18 16:15 148/76 96 04/18/18 16:10 148/77 95 04/18/18 16:05 140/72 94 04/18/18 16:04 04/18/18 16:00 152/80 95 04/18/18 15:55 150/80 94 04/18/18 15:50 141/79 95 04/18/18 12:35 147/87 100 04/18/18 10:30 04/18/18 10:00 98 04/18/18 09:25 04/18/18 09:17 04/18/18 05:26 159/80 97 04/17/18 23:28 127/66 99 04/17/18 22:00 99 04/17/18 20:01 04/17/18 19:19 96 04/17/18 19:18 - Labs and Meds CBC 04/18/18 Range/Units 13:45 WBC 8.9 (4.5-11.0) K/mm3 RBC 3.15 L (3.65-5.03) M/mm3 Hgb 8.3 L (11.8-15.2) gm/dl Hct 25.2 L (35.5-45.6) % Plt Count 513 H (140-440) K/mm3 Lymph # 2.0 (1.2-5.4) K/mm3 [place] # 0.8 (0.0-0.8) K/mm3 Eos # 0.2 (0.0-0.4) K/mm3 Baso # 0.1 (0.0-0.1) K/mm3 Comprehensive Metabolic Panel 04/18/18 Range/Units 13:45 Sodium 141 (137-145) mmol/L Potassium 3.5 L (3.6-5.0) mmol/L Chloride 101.4 (98-107) mmol/L Carbon Dioxide 27 (22-30) mmol/L BUN 15 (9-20) mg/dL Creatinine 0.5 L (0.8-1.5) mg/dL Glucose 128 H (75-100) mg/dL Calcium 8.3 L (8.4-10.2) mg/dL
[2018-04-18] MEDS: DAKIN'S FULL STRENGTH TP SCH ×2 (10:20→21:39)
--- NOTE | 2018-04-18 13:06 | Anesthesia Consultation ---
Anesthesia Consult and Med Hx Date of service: 04/18/18 - Airway Anesthetic Teeth Evaluation: Poor ROM Head & Neck: Adequate Mental/Hyoid Distance: Adequate Mallampati Class: Class II Intubation Access Assessment: Good - Pulmonary Exam CTA: Yes - Cardiac Exam Cardiac Exam: RRR - Pre-Operative Health Status ASA Pre-Surgery Classification: ASA3 Proposed Anesthetic Plan: General - Pulmonary Hx Pneumonia: Yes (Aspiration Pneumonia) - Cardiovascular System Hx Hypertension: Yes Hx Cardia Arrhythmia: Yes (s/p Cardiac Arrest ) - Endocrine Hx Non-Insulin Dependent Diabetes: Yes - Hematic Hx Anemia: Yes (blood transfusions)
[2018-04-18] MEDS: LACTATED RINGERS 1,000 ML IV SCH (13:30)
[2018-04-18] MEDS ORDERED: XYLOCAINE MPF 2% ONE (13:59)
[2018-04-18] MEDS ORDERED: PEPCID PO NR (14:00)
[2018-04-18] MEDS ORDERED: SUBLIMAZE ONE (14:00)
[2018-04-18] MEDS ORDERED: PEPCID IV NR (14:00)
[2018-04-18] MEDS ORDERED: VERSED IV NR (14:00)
[2018-04-18] MEDS ORDERED: DIPRIVAN 10 MG/ML IV ONE (14:00)
[2018-04-18 14:17] LABS: Basophils # (Auto) 0.1 K/mm3 (0.0-0.1); Eosinophils # (Auto) 0.2 K/mm3 (0.0-0.4); Hematocrit 25.2 % (35.5-45.6); Hemoglobin 8.3 gm/dl (11.8-15.2); Lymphocytes % (Auto) 22.2 % (13.4-35.0); Mean Corpuscular HGB Conc 33 % (32-34); Mean Corpuscular Hemoglobin 26 pg (28-32); Mean Corpuscular Volume 80 fl (84-94); Monocytes # (Auto) 0.8 K/mm3 (0.0-0.8); Monocytes % (Auto) 9.2 % (0.0-7.3); Platelet Count 513 K/mm3 (140-440); Red Blood Count 3.15 M/mm3 (3.65-5.03); Red Cell Distribution Width 15.7 % (13.2-15.2)
[2018-04-18 14:28] LABS: BUN/Creatinine Ratio 30; Blood Urea Nitrogen 15 mg/dL (9-20); Calcium 8.3 mg/dL (8.4-10.2); Hemolysis Index 58
[2018-04-18] MEDS ORDERED: POTASSIUM CHLORIDE FEEDTUBE ONE ×2 (14:35→18:30)
--- NOTE | 2018-04-18 14:43 | Progress Note ---
Assessment and Plan Assessment and plan: Patient is a 57 yo man who speaks Kittitian and little Georgian (he uses his sister in law [facility] as his personal checkman) with a history of DM2, who pw hypoglycemia from not eating due to lack of appetite. He c/o chest pains, so family called EMS who found his blood glucose to be <40, he received dextrose, on way to ER, he vomited, followed by LOC and he became pulseless. He received CPR and was intubated and required pressors. LT foot cellulitis/osteomyelitis -on iv antibiotics and wound care -planned for BKA today -Status post I&D left lower extremity on 04/12/18, infection is down to the bone Acute hypoxic respiratory failure on MV >96 hours extubated on 04/14/18, improving Severe sepsis with shock probably secondary to pneumonia and LT foot cellulitis weaned off pressors on 04/11 - IV abx, ID consulted Bilateral pneumonia -On IV antibiotics metabolic encephalopathy -MR brain was negative, case dw neurology -anoxic encephalopathy excluded Questionable cardiac arrest -serial troponin levels normal -echo showed EF of 55-60% without regional wall motion abnormalities -cardiology on board Elevated D-dimer -CTA neg for PE DM2 with hyperglycemia -A1C:9.9 Hyponatremia -improving, will monitor Iron def anemia with acute loss, probably sec to sepsis -s/p blood tranf with 2u of PRBC -Hb:8.4, will monitor -stool for occult blood pending Transaminitis, probably sec to the sepsis -improved Prophylaxis -Protonix and Lovenox Hypoglycemic this morning, give dextrose hold Lantus History Interval history: Patient was seen and examined. Follow-up on current diagnosis. Overnight uneventful. Patient denies any chest pain, shortness breath, nausea/vomiting or severe headaches. Imaging, nursing note, chart, labs and old chart reviewed. Discussed with patient. Hospitalist Physical - Physical exam Narrative exam: GEN: WDWN, NAD, Awake, Alert, Orientated HEENT: NCAT, EOMI, PERRL, OP with NGT in place NECK: supple, no adenopathy, no thyromegaly, no JVD, right iJ TLC in place CVS/HEART: RRR, normal S1S2, pulses present bilaterally CHEST/LUNGS: CTA B, Symmetrical chest expansion, good air entry bilaterally GI/Abdomen: soft, NTND, good bowel sounds, no guarding or rebound /Bladder: no suprapubic tenderness, no CVA or paraspinal tenderness EXT/Skin: left toes dusky MSK: FROM x 4 Neuro: CN 2-12 grossly intact, no new focal deficits, poor propecition left foot Psych: calm - Constitutional Vitals: Temp Pulse Resp BP Pulse Ox 98.1 F 81 18 147/87 100 04/18/18 12:35 04/18/18 12:35 04/18/18 12:35 04/18/18 12:35 04/18/18 12:35 General appearance: Present: no acute distress Results - Labs CBC & Chem 7: 04/18/18 13:45 04/18/18 13:45 Labs: Laboratory Last Values WBC 8.9 K/mm3 (4.5-11.0) 04/18/18 13:45 RBC 3.15 M/mm3 (3.65-5.03) L 04/18/18 13:45 Hgb 8.3 gm/dl (11.8-15.2) L 04/18/18 13:45 Hct 25.2 % (35.5-45.6) L 04/18/18 13:45 MCV 80 fl (84-94) L 04/18/18 13:45 MCH 26 pg (28-32) L 04/18/18 13:45 MCHC 33 % (32-34) 04/18/18 13:45 RDW 15.7 % (13.2-15.2) H 04/18/18 13:45 Plt Count 513 K/mm3 (140-440) H 04/18/18 13:45 Lymph % (Auto) 22.2 % (13.4-35.0) 04/18/18 13:45 [place] % (Auto) 9.2 % (0.0-7.3) H 04/18/18 13:45 Eos % (Auto) 2.0 % (0.0-4.3) 04/18/18 13:45 Baso % (Auto) 1.0 % (0.0-1.8) 04/18/18 13:45 Lymph # 2.0 K/mm3 (1.2-5.4) 04/18/18 13:45 [place] # 0.8 K/mm3 (0.0-0.8) 04/18/18 13:45 Eos # 0.2 K/mm3 (0.0-0.4) 04/18/18 13:45 Baso # 0.1 K/mm3 (0.0-0.1) 04/18/18 13:45 Add Manual Diff Complete 04/11/18 04:14 Total Counted 100 04/11/18 04:14 Seg Neutrophils % 65.6 % (40.0-70.0) 04/18/18 13:45 Seg Neuts % (Manual) 79.0 % (40.0-70.0) H 04/11/18 04:14 Band Neutrophils % 4.0 % 04/11/18 04:14 Lymphocytes % (Manual) 10.0 % (13.4-35.0) L 04/11/18 04:14 Reactive Lymphs % (Man) 0 % 04/11/18 04:14 Monocytes % (Manual) 5.0 % (0.0-7.3) 04/11/18 04:14 Eosinophils % (Manual) 1.0 % (0.0-4.3) 04/11/18 04:14 Basophils % (Manual) 1.0 % (0.0-1.8) 04/11/18 04:14 Metamyelocytes % 0 % 04/11/18 04:14 Myelocytes % 0 % 04/11/18 04:14 Promyelocytes % 0 % 04/11/18 04:14 Blast Cells % 0 % 04/11/18 04:14 Nucleated RBC % Not Reportable 04/11/18 04:14 Seg Neutrophils # 5.8 K/mm3 (1.8-7.7) 04/18/18 13:45 Seg Neutrophils # Man 11.8 K/mm3 (1.8-7.7) H 04/11/18 04:14 Band Neutrophils # 0.6 K/mm3 04/11/18 04:14 Lymphocytes # (Manual) 1.5 K/mm3 (1.2-5.4) 04/11/18 04:14 Abs React Lymphs (Man) 0.0 K/mm3 04/11/18 04:14 Monocytes # (Manual) 0.7 K/mm3 (0.0-0.8) 04/11/18 04:14 Eosinophils # (Manual) 0.1 K/mm3 (0.0-0.4) 04/11/18 04:14 Basophils # (Manual) 0.1 K/mm3 (0.0-0.1) 04/11/18 04:14 Metamyelocytes # 0.0 K/mm3 04/11/18 04:14 Myelocytes # 0.0 K/mm3 04/11/18 04:14 Promyelocytes # 0.0 K/mm3 04/11/18 04:14 Blast Cells # 0.0 K/mm3 04/11/18 04:14 WBC Morphology Not Reportable 04/11/18 04:14 Hypersegmented Neuts Not Reportable 04/11/18 04:14 Hyposegmented Neuts Not Reportable 04/11/18 04:14 Hypogranular Neuts Not Reportable 04/11/18 04:14 Smudge Cells Not Reportable 04/11/18 04:14 Toxic Granulation Not Reportable 04/11/18 04:14 Toxic Vacuolation Not Reportable 04/11/18 04:14 Dohle Bodies Not Reportable 04/11/18 04:14 Pelger-Huet Anomaly Not Reportable 04/11/18 04:14 Matt Rods Not Reportable 04/11/18 04:14 Platelet Estimate Consistent w auto 04/11/18 04:14 Clumped Platelets Not Reportable 04/11/18 04:14 Plt Clumps, EDTA Not Reportable 04/11/18 04:14 Large Platelets Not Reportable 04/11/18 04:14 Giant Platelets Not Reportable 04/11/18 04:14 Platelet Satelliting Not Reportable 04/11/18 04:14 Plt Morphology Comment Not Reportable 04/11/18 04:14 RBC Morphology Not Reportable 04/11/18 04:14 Dimorphic RBCs Not Reportable 04/11/18 04:14 Polychromasia Not Reportable 04/11/18 04:14 Hypochromasia 1+ 04/11/18 04:14 Poikilocytosis Not Reportable 04/11/18 04:14 Anisocytosis Not Reportable 04/11/18 04:14 Microcytosis Not Reportable 04/11/18 04:14 Macrocytosis Not Reportable 04/11/18 04:14 Spherocytes Not Reportable 04/11/18 04:14 Pappenheimer Bodies Not Reportable 04/11/18 04:14 Sickle Cells Not Reportable 04/11/18 04:14 Target Cells Not Reportable 04/11/18 04:14 Tear Drop Cells Not Reportable 04/11/18 04:14 Ovalocytes Not Reportable 04/11/18 04:14 Stomatocytes Rare 04/10/18 04:06 Helmet Cells Not Reportable 04/11/18 04:14 [place] Bodies Not Reportable 04/11/18 04:14 [place] Rings Not Reportable 04/11/18 04:14 [place] Cells Not Reportable 04/11/18 04:14 Bite Cells Not Reportable 04/11/18 04:14 Crenated Cell Not Reportable 04/11/18 04:14 Elliptocytes Not Reportable 04/11/18 04:14 Acanthocytes (Spur) Not Reportable 04/11/18 04:14 Rouleaux Not Reportable 04/11/18 04:14 Hemoglobin C Crystals Not Reportable 04/11/18 04:14 Schistocytes Not Reportable 04/11/18 04:14 Malaria parasites Not Reportable 04/11/18 04:14 [place] Bodies Not Reportable 04/11/18 04:14 Hem Pathologist Commnt No 04/11/18 04:14 D-Dimer 933.08 ng/mlDDU (0-234) H 04/07/18 08:15 POC ABG pH 7.499 (7.35-7.45) H 04/14/18 09:45 POC ABG pCO2 30.1 (35-45) L 04/14/18 09:45 POC ABG pO2 104 (80-105) 04/14/18 09:45 POC ABG HCO3 23.5 04/14/18 09:45 POC ABG Total CO2 24 04/14/18 09:45 POC ABG O2 Sat 99 04/14/18 09:45 POC ABG Base Excess 0 04/14/18 09:45 VBG pH 7.231 (7.320-7.420) L 04/07/18 13:25 FiO2 28 % 04/14/18 09:45 Sodium 141 mmol/L (137-145) 04/18/18 13:45 Potassium 3.5 mmol/L (3.6-5.0) L 04/18/18 13:45 Chloride 101.4 mmol/L (98-107) 04/18/18 13:45 Carbon Dioxide 27 mmol/L (22-30) 04/18/18 13:45 Anion Gap 16 mmol/L 04/18/18 13:45 BUN 15 mg/dL (9-20) 04/18/18 13:45 Creatinine 0.5 mg/dL (0.8-1.5) L 04/18/18 13:45 Estimated GFR > 60 ml/min 04/18/18 13:45 BUN/Creatinine Ratio 30 % 04/18/18 13:45 Glucose 128 mg/dL (75-100) H 04/18/18 13:45 POC Glucose 98 (70-105) 04/18/18 11:13 Hemoglobin A1c 9.9 % (4-6) H 04/07/18 16:43 Lactic Acid 1.80 mmol/L (0.7-2.0) 04/07/18 16:43 Calcium 8.3 mg/dL (8.4-10.2) L 04/18/18 13:45 Iron 15 ug/dL (49-181) L 04/08/18 07:34 TIBC 106 mcg/dL (250-450) L 04/08/18 07:34 % Saturation 14.15 % 04/08/18 07:34 Transferrin 76 mg/dl (180-329) L 04/08/18 07:34 Total Bilirubin 1.40 mg/dL (0.1-1.2) H 04/11/18 04:14 AST 40 units/L (5-40) 04/11/18 04:14 ALT 45 units/L (7-56) 04/11/18 04:14 Alkaline Phosphatase 225 units/L (35-129) H 04/11/18 04:14 Total Creatine Kinase 83 units/L (55-170) 04/07/18 13:25 CK-MB (CK-2) 2.5 ng/mL (0.0-4.0) 04/07/18 13:25 CK-MB (CK-2) Rel Index 3.0 (0-4) 04/07/18 13:25 Troponin T 0.025 ng/mL (0.00-0.029) 04/07/18 13:25 C-Reactive Protein 13.00 mg/dL (0.00-1.30) H 04/11/18 12:22 Total Protein 5.9 g/dL (6.3-8.2) L 04/11/18 04:14 Albumin 1.9 g/dL (3.9-5) L 04/11/18 04:14 Albumin/Globulin Ratio 0.5 % 04/11/18 04:14 Triglycerides 174 mg/dL (2-149) H 04/13/18 08:13 Cholesterol 95 mg/dL (50-199) 04/13/18 08:13 LDL Cholesterol Direct 25 mg/dL (50-130) L 04/13/18 08:13 HDL Cholesterol 9 mg/dL (40-59) L 04/13/18 08:13 Cholesterol/HDL Ratio 10.55 % 04/13/18 08:13 Vitamin B12 1405 pg/mL (211-911) H 04/08/18 07:34 RBC Folic Acid >1000 ng/mL (>280) 04/08/18 07:34 Urine Color Yellow (Yellow) 04/07/18 08:52 Urine Turbidity Clear (Clear) 04/07/18 08:52 Urine pH 8.0 (5.0-7.0) H 04/07/18 08:52 Ur Specific [place] 1.009 (1.003-1.030) 04/07/18 08:52 Urine Protein 100 mg/dl mg/dL (Negative) 04/07/18 08:52 Urine Glucose (UA) Neg mg/dL (Negative) 04/07/18 08:52 Urine Ketones Neg mg/dL (Negative) 04/07/18 08:52 Urine Blood Neg (Negative) 04/07/18 08:52 Urine Nitrite Neg (Negative) 04/07/18 08:52 Urine Bilirubin Neg (Negative) 04/07/18 08:52 Urine Urobilinogen < 2.0 mg/dL (<2.0) 04/07/18 08:52 Ur Leukocyte Esterase Neg (Negative) 04/07/18 08:52 Urine WBC (Auto) 1.0 /HPF (0.0-6.0) 04/07/18 08:52 Urine RBC (Auto) 3.0 /HPF (0.0-6.0) 04/07/18 08:52 U Epithel Cells (Auto) 2.0 /HPF (0-13.0) 04/07/18 08:52 Urine Mucus Few /HPF 04/07/18 08:52 Urine Sperm 3+ /HPF (STABLE CLEANER) 04/07/18 08:52 Vancomycin Trough 12.3 ug/mL (5.0-20.0) 04/12/18 11:20 Urine Opiates Screen Presumptive negative 04/07/18 08:52 Urine Methadone Screen Presumptive negative 04/07/18 08:52 Ur Barbiturates Screen Presumptive negative 04/07/18 08:52 Ur Phencyclidine Scrn Presumptive negative 04/07/18 08:52 Ur Amphetamines Screen Presumptive negative 04/07/18 08:52 U Benzodiazepines Scrn Presumptive negative 04/07/18 08:52 Urine Cocaine Screen Presumptive negative 04/07/18 08:52 U Marijuana (THC) Screen Presumptive negative 04/07/18 08:52 Drugs of Abuse Note Disclamer 04/07/18 08:52 Blood Type O POSITIVE 04/18/18 13:45 Antibody Screen Negative 04/07/18 16:43 Crossmatch See Detail 04/07/18 16:43
[2018-04-18] MEDS ORDERED: DILAUDID ONE ×2 (15:29→16:06)
[2018-04-18] MEDS ORDERED: NACL 0.9% IR ONE (15:30)
--- NOTE | 2018-04-18 15:34 | Post Operative Note ---
Pre-op diagnosis: Diabetic left heel ulcer with osteomyelitis Post-op diagnosis: same Procedure: Left BKA Anesthesia: other (LMA) Surgeon: OLGA CHUA Estimated blood loss: other (200 ml) Pathology: list (Left leg and foot) Specimen disposition: to lab Condition: stable Disposition: PACU
[2018-04-18] MEDS: DILAUDID IV PRN ×2 (16:04→16:15)
[2018-04-18] MEDS: ZESTRIL PO SCH (19:03)
[2018-04-18] MEDS: PROTONIX FEEDTUBE SCH (19:04)
[2018-04-18] MEDS: MORPHINE IV PRN (19:05)
[2018-04-18] MEDS: SODIUM CHLORIDE FLUSH SYRINGE 10 ML IV SCH ×2 (19:07→22:40)
[2018-04-18] MEDS: LOVENOX SUB-Q SCH (19:19)
[2018-04-18] MEDS: VITAMIN C PO SCH (21:37)
[2018-04-19] MEDS: HumaLOG SUB-Q SCH ×4 (00:25→19:52)
[2018-04-19] MEDS: LACTATED RINGERS 1,000 ML IV SCH ×2 (00:41→12:57)
[2018-04-19] MEDS: MORPHINE IV PRN ×5 (00:41→21:43)
[2018-04-19] MEDS: ZOSYN/NS 4.5GM/100ML 4.5 GM/100 ML VIAL IV SCH ×3 (05:19→21:26)
[2018-04-19 05:33] LABS: Hematocrit 24.3 % (35.5-45.6); Hemoglobin 7.8 gm/dl (11.8-15.2); Mean Corpuscular HGB Conc 32 % (32-34); Mean Corpuscular Hemoglobin 26 pg (28-32); Mean Corpuscular Volume 81 fl (84-94); Platelet Count 502 K/mm3 (140-440); Red Cell Distribution Width 15.7 % (13.2-15.2)
[2018-04-19 05:50] LABS: BUN/Creatinine Ratio 27; Blood Urea Nitrogen 16 mg/dL (9-20); Calcium 8.3 mg/dL (8.4-10.2); Hemolysis Index 2
[2018-04-19] MEDS: DUONEB *Not for PRN Use IH SCH ×3 (07:43→20:19)
--- NOTE | 2018-04-19 08:38 | Progress Note ---
Assessment and Plan Assessment and plan: Patient is a 57 yo man who speaks Ethiopian and little Liberian (he uses his sister in law Sarahy as his personal four horse hitch driver) with a history of DM2, who pw hypoglycemia from not eating due to lack of appetite. He c/o chest pains, so family called EMS who found his blood glucose to be <40, he received dextrose, on way to ER, he vomited, followed by LOC and he became pulseless. He received CPR and was intubated and required vasopressors. LT foot cellulitis/osteomyelitis s/p Left BKA on 04/18/18 -on iv antibiotics and wound care -Status post I&D left lower extremity on 04/12/18, infection is down to the bone Acute hypoxic respiratory failure on MV >96 hours, resolved extubated on 04/14/18, improving Severe sepsis with shock probably secondary to pneumonia and LT foot cellulitis , resolved weaned off pressors on 04/11 - IV abx, ID consulted Bilateral pneumonia -On IV antibiotics Acute metabolic encephalopathy, resolved -MR brain was negative, case dw neurology -anoxic encephalopathy excluded Cardiopulmonary arrest, prior to arrival -serial troponin levels normal -echo showed EF of 55-60% without regional wall motion abnormalities -cardiology on board Elevated D-dimer -CTA neg for PE DM2 with hyperglycemia, uncontrolled -counseling and education -A1C:9.9 Hyponatremia -improving, will monitor Iron def anemia with acute loss, probably sec to sepsis -s/p blood tranf with 2u of PRBC -Hb:8.4, will monitor -stool for occult blood pending Transaminitis, probably sec to the sepsis -improved Prophylaxis -Protonix and Lovenox Hypoglycemic resolved, on Tube feeding with NGT re-consult speech therapy hold Lantus Disposition: speech re-evaluation, once ngt remove and check O2 saturation to determine if O2 is needed. If he passes speech evaluation today and O2 weaned off today then possible discharge tomorrow. History Interval history: Patient was seen and examined. Follow-up on current diagnosis of sepsis. Overnight uneventful. Patient denies any chest pain, shortness breath, nausea/ vomiting or severe headaches. Imaging, nursing note, chart, labs and old chart reviewed. Discussed with patient. Hospitalist Physical - Physical exam Narrative exam: GEN: WDWN, NAD, Awake, Alert, Orientated HEENT: NCAT, EOMI, PERRL, OP with NGT in place NECK: supple, no adenopathy, no thyromegaly, no JVD, right iJ TLC in place CVS/HEART: RRR, normal S1S2, pulses present bilaterally CHEST/LUNGS: CTA B, Symmetrical chest expansion, good air entry bilaterally GI/Abdomen: soft, NTND, good bowel sounds, no guarding or rebound /Bladder: no suprapubic tenderness, no CVA or paraspinal tenderness EXT/Skin: left toes dusky MSK: FROM x 4 Neuro: CN 2-12 grossly intact, no new focal deficits, poor propecition left foot Psych: calm - Constitutional Vitals: Temp Pulse Resp BP Pulse Ox 98.1 F 95 H 20 124/64 95 04/19/18 06:32 04/19/18 07:52 04/19/18 07:52 04/19/18 06:32 04/19/18 07:45 General appearance: Present: no acute distress Results - Labs CBC & Chem 7: 04/19/18 04:30 04/19/18 04:30 Labs: Laboratory Last Values WBC 11.9 K/mm3 (4.5-11.0) H 04/19/18 04:30 RBC 3.00 M/mm3 (3.65-5.03) L 04/19/18 04:30 Hgb 7.8 gm/dl (11.8-15.2) L 04/19/18 04:30 Hct 24.3 % (35.5-45.6) L 04/19/18 04:30 MCV 81 fl (84-94) L 04/19/18 04:30 MCH 26 pg (28-32) L 04/19/18 04:30 MCHC 32 % (32-34) 04/19/18 04:30 RDW 15.7 % (13.2-15.2) H 04/19/18 04:30 Plt Count 502 K/mm3 (140-440) H 04/19/18 04:30 Lymph % (Auto) 22.2 % (13.4-35.0) 04/18/18 13:45 [place] % (Auto) 9.2 % (0.0-7.3) H 04/18/18 13:45 Eos % (Auto) 2.0 % (0.0-4.3) 04/18/18 13:45 Baso % (Auto) 1.0 % (0.0-1.8) 04/18/18 13:45 Lymph # 2.0 K/mm3 (1.2-5.4) 04/18/18 13:45 [place] # 0.8 K/mm3 (0.0-0.8) 04/18/18 13:45 Eos # 0.2 K/mm3 (0.0-0.4) 04/18/18 13:45 Baso # 0.1 K/mm3 (0.0-0.1) 04/18/18 13:45 Add Manual Diff Complete 04/11/18 04:14 Total Counted 100 04/11/18 04:14 Seg Neutrophils % 65.6 % (40.0-70.0) 04/18/18 13:45 Seg Neuts % (Manual) 79.0 % (40.0-70.0) H 04/11/18 04:14 Band Neutrophils % 4.0 % 04/11/18 04:14 Lymphocytes % (Manual) 10.0 % (13.4-35.0) L 04/11/18 04:14 Reactive Lymphs % (Man) 0 % 04/11/18 04:14 Monocytes % (Manual) 5.0 % (0.0-7.3) 04/11/18 04:14 Eosinophils % (Manual) 1.0 % (0.0-4.3) 04/11/18 04:14 Basophils % (Manual) 1.0 % (0.0-1.8) 04/11/18 04:14 Metamyelocytes % 0 % 04/11/18 04:14 Myelocytes % 0 % 04/11/18 04:14 Promyelocytes % 0 % 04/11/18 04:14 Blast Cells % 0 % 04/11/18 04:14 Nucleated RBC % Not Reportable 04/11/18 04:14 Seg Neutrophils # 5.8 K/mm3 (1.8-7.7) 04/18/18 13:45 Seg Neutrophils # Man 11.8 K/mm3 (1.8-7.7) H 04/11/18 04:14 Band Neutrophils # 0.6 K/mm3 04/11/18 04:14 Lymphocytes # (Manual) 1.5 K/mm3 (1.2-5.4) 04/11/18 04:14 Abs React Lymphs (Man) 0.0 K/mm3 04/11/18 04:14 Monocytes # (Manual) 0.7 K/mm3 (0.0-0.8) 04/11/18 04:14 Eosinophils # (Manual) 0.1 K/mm3 (0.0-0.4) 04/11/18 04:14 Basophils # (Manual) 0.1 K/mm3 (0.0-0.1) 04/11/18 04:14 Metamyelocytes # 0.0 K/mm3 04/11/18 04:14 Myelocytes # 0.0 K/mm3 04/11/18 04:14 Promyelocytes # 0.0 K/mm3 04/11/18 04:14 Blast Cells # 0.0 K/mm3 04/11/18 04:14 WBC Morphology Not Reportable 04/11/18 04:14 Hypersegmented Neuts Not Reportable 04/11/18 04:14 Hyposegmented Neuts Not Reportable 04/11/18 04:14 Hypogranular Neuts Not Reportable 04/11/18 04:14 Smudge Cells Not Reportable 04/11/18 04:14 Toxic Granulation Not Reportable 04/11/18 04:14 Toxic Vacuolation Not Reportable 04/11/18 04:14 Dohle Bodies Not Reportable 04/11/18 04:14 Pelger-Huet Anomaly Not Reportable 04/11/18 04:14 Matt Rods Not Reportable 04/11/18 04:14 Platelet Estimate Consistent w auto 04/11/18 04:14 Clumped Platelets Not Reportable 04/11/18 04:14 Plt Clumps, EDTA Not Reportable 04/11/18 04:14 Large Platelets Not Reportable 04/11/18 04:14 Giant Platelets Not Reportable 04/11/18 04:14 Platelet Satelliting Not Reportable 04/11/18 04:14 Plt Morphology Comment Not Reportable 04/11/18 04:14 RBC Morphology Not Reportable 04/11/18 04:14 Dimorphic RBCs Not Reportable 04/11/18 04:14 Polychromasia Not Reportable 04/11/18 04:14 Hypochromasia 1+ 04/11/18 04:14 Poikilocytosis Not Reportable 04/11/18 04:14 Anisocytosis Not Reportable 04/11/18 04:14 Microcytosis Not Reportable 04/11/18 04:14 Macrocytosis Not Reportable 04/11/18 04:14 Spherocytes Not Reportable 04/11/18 04:14 Pappenheimer Bodies Not Reportable 04/11/18 04:14 Sickle Cells Not Reportable 04/11/18 04:14 Target Cells Not Reportable 04/11/18 04:14 Tear Drop Cells Not Reportable 04/11/18 04:14 Ovalocytes Not Reportable 04/11/18 04:14 Stomatocytes Rare 04/10/18 04:06 Helmet Cells Not Reportable 04/11/18 04:14 Davis-[place] Bodies Not Reportable 04/11/18 04:14 [place] Rings Not Reportable 04/11/18 04:14 Matthias Cells Not Reportable 04/11/18 04:14 Bite Cells Not Reportable 04/11/18 04:14 Crenated Cell Not Reportable 04/11/18 04:14 Elliptocytes Not Reportable 04/11/18 04:14 Acanthocytes (Spur) Not Reportable 04/11/18 04:14 Rouleaux Not Reportable 04/11/18 04:14 Hemoglobin C Crystals Not Reportable 04/11/18 04:14 Schistocytes Not Reportable 04/11/18 04:14 Malaria parasites Not Reportable 04/11/18 04:14 [place] Bodies Not Reportable 04/11/18 04:14 Hem Pathologist Commnt No 04/11/18 04:14 D-Dimer 933.08 ng/mlDDU (0-234) H 04/07/18 08:15 POC ABG pH 7.499 (7.35-7.45) H 04/14/18 09:45 POC ABG pCO2 30.1 (35-45) L 04/14/18 09:45 POC ABG pO2 104 (80-105) 04/14/18 09:45 POC ABG HCO3 23.5 04/14/18 09:45 POC ABG Total CO2 24 04/14/18 09:45 POC ABG O2 Sat 99 04/14/18 09:45 POC ABG Base Excess 0 04/14/18 09:45 VBG pH 7.231 (7.320-7.420) L 04/07/18 13:25 FiO2 28 % 04/14/18 09:45 Sodium 136 mmol/L (137-145) L 04/19/18 04:30 Potassium 4.0 mmol/L (3.6-5.0) 04/19/18 04:30 Chloride 101.3 mmol/L (98-107) 04/19/18 04:30 Carbon Dioxide 27 mmol/L (22-30) 04/19/18 04:30 Anion Gap 12 mmol/L 04/19/18 04:30 BUN 16 mg/dL (9-20) 04/19/18 04:30 Creatinine 0.6 mg/dL (0.8-1.5) L 04/19/18 04:30 Estimated GFR > 60 ml/min 04/19/18 04:30 BUN/Creatinine Ratio 27 % 04/19/18 04:30 Glucose 112 mg/dL (75-100) H 04/19/18 04:30 POC Glucose 102 (70-105) 04/19/18 06:17 Hemoglobin A1c 9.9 % (4-6) H 04/07/18 16:43 Lactic Acid 1.80 mmol/L (0.7-2.0) 04/07/18 16:43 Calcium 8.3 mg/dL (8.4-10.2) L 04/19/18 04:30 Magnesium 1.80 mg/dL (1.7-2.3) 04/19/18 04:30 Iron 15 ug/dL (49-181) L 04/08/18 07:34 TIBC 106 mcg/dL (250-450) L 04/08/18 07:34 % Saturation 14.15 % 04/08/18 07:34 Transferrin 76 mg/dl (180-329) L 04/08/18 07:34 Total Bilirubin 1.40 mg/dL (0.1-1.2) H 04/11/18 04:14 AST 40 units/L (5-40) 04/11/18 04:14 ALT 45 units/L (7-56) 04/11/18 04:14 Alkaline Phosphatase 225 units/L (35-129) H 04/11/18 04:14 Total Creatine Kinase 83 units/L (55-170) 04/07/18 13:25 CK-MB (CK-2) 2.5 ng/mL (0.0-4.0) 04/07/18 13:25 CK-MB (CK-2) Rel Index 3.0 (0-4) 04/07/18 13:25 Troponin T 0.025 ng/mL (0.00-0.029) 04/07/18 13:25 C-Reactive Protein 13.00 mg/dL (0.00-1.30) H 04/11/18 12:22 Total Protein 5.9 g/dL (6.3-8.2) L 04/11/18 04:14 Albumin 1.9 g/dL (3.9-5) L 04/11/18 04:14 Albumin/Globulin Ratio 0.5 % 04/11/18 04:14 Triglycerides 174 mg/dL (2-149) H 04/13/18 08:13 Cholesterol 95 mg/dL (50-199) 04/13/18 08:13 LDL Cholesterol Direct 25 mg/dL (50-130) L 04/13/18 08:13 HDL Cholesterol 9 mg/dL (40-59) L 04/13/18 08:13 Cholesterol/HDL Ratio 10.55 % 04/13/18 08:13 Vitamin B12 1405 pg/mL (211-911) H 04/08/18 07:34 RBC Folic Acid >1000 ng/mL (>280) 04/08/18 07:34 Urine Color Yellow (Yellow) 04/07/18 08:52 Urine Turbidity Clear (Clear) 04/07/18 08:52 Urine pH 8.0 (5.0-7.0) H 04/07/18 08:52 Ur Specific [place] 1.009 (1.003-1.030) 04/07/18 08:52 Urine Protein 100 mg/dl mg/dL (Negative) 04/07/18 08:52 Urine Glucose (UA) Neg mg/dL (Negative) 04/07/18 08:52 Urine Ketones Neg mg/dL (Negative) 04/07/18 08:52 Urine Blood Neg (Negative) 04/07/18 08:52 Urine Nitrite Neg (Negative) 04/07/18 08:52 Urine Bilirubin Neg (Negative) 04/07/18 08:52 Urine Urobilinogen < 2.0 mg/dL (<2.0) 04/07/18 08:52 Ur Leukocyte Esterase Neg (Negative) 04/07/18 08:52 Urine WBC (Auto) 1.0 /HPF (0.0-6.0) 04/07/18 08:52 Urine RBC (Auto) 3.0 /HPF (0.0-6.0) 04/07/18 08:52 U Epithel Cells (Auto) 2.0 /HPF (0-13.0) 04/07/18 08:52 Urine Mucus Few /HPF 04/07/18 08:52 Urine Sperm 3+ /HPF (BOARDMARKER) 04/07/18 08:52 Vancomycin Trough 12.3 ug/mL (5.0-20.0) 04/12/18 11:20 Urine Opiates Screen Presumptive negative 04/07/18 08:52 Urine Methadone Screen Presumptive negative 04/07/18 08:52 Ur Barbiturates Screen Presumptive negative 04/07/18 08:52 Ur Phencyclidine Scrn Presumptive negative 04/07/18 08:52 Ur Amphetamines Screen Presumptive negative 04/07/18 08:52 U Benzodiazepines Scrn Presumptive negative 04/07/18 08:52 Urine Cocaine Screen Presumptive negative 04/07/18 08:52 U Marijuana (THC) Screen Presumptive negative 04/07/18 08:52 Drugs of Abuse Note Disclamer 04/07/18 08:52 Blood Type O POSITIVE 04/18/18 13:45 Antibody Screen Negative 04/18/18 13:45 Crossmatch See Detail 04/07/18 16:43
[2018-04-19] MEDS: SODIUM CHLORIDE FLUSH SYRINGE 10 ML IV SCH ×2 (09:35→21:29)
--- NOTE | 2018-04-19 10:01 | Progress Note ---
Assessment and Plan Hypoglycemia Sepsis Diabetes Anemia PVD s/p left BKA Normal LVEF by echocardiogram this presentation. Conservative cardiac management. Subjective Date of service: 04/19/18 Principal diagnosis: Acute respiratory failure Interval history: Patient is status post left BKA. He is resting in bed and appears comfortable. Objective Vital Signs Temp Pulse Pulse Pulse Resp Resp Resp 04/19/18 07:52 95 H 95 H 20 20 04/19/18 07:45 95 H 95 H 20 20 04/19/18 06:32 98.1 F 99 H 17 04/19/18 05:50 16 04/19/18 05:20 17 04/19/18 01:11 18 04/19/18 00:41 18 04/18/18 23:12 97.6 F 92 H 18 04/18/18 22:00 17 04/18/18 19:52 85 18 04/18/18 19:42 81 18 04/18/18 19:35 17 04/18/18 19:06 04/18/18 19:05 20 04/18/18 19:03 81 04/18/18 17:12 97.7 F 85 14 04/18/18 16:45 97.4 F L 83 12 04/18/18 16:31 85 11 L 04/18/18 16:30 12 04/18/18 16:15 82 12 04/18/18 16:10 84 12 04/18/18 16:05 84 14 04/18/18 16:04 14 04/18/18 16:00 83 14 04/18/18 15:55 85 13 04/18/18 15:50 97.5 F L 85 16 04/18/18 12:35 98.1 F 81 18 04/18/18 10:30 18 BP Pulse Ox 04/19/18 07:52 04/19/18 07:45 95 04/19/18 06:32 124/64 94 04/19/18 05:50 04/19/18 05:20 04/19/18 01:11 04/19/18 00:41 04/18/18 23:12 132/71 96 04/18/18 22:00 04/18/18 19:52 04/18/18 19:42 97 04/18/18 19:35 04/18/18 19:06 117/68 04/18/18 19:05 04/18/18 19:03 117/68 04/18/18 17:12 143/76 96 04/18/18 16:45 142/73 96 04/18/18 16:31 143/81 94 04/18/18 16:30 04/18/18 16:15 148/76 96 04/18/18 16:10 148/77 95 04/18/18 16:05 140/72 94 04/18/18 16:04 04/18/18 16:00 152/80 95 04/18/18 15:55 150/80 94 04/18/18 15:50 141/79 95 04/18/18 12:35 147/87 100 04/18/18 10:30 - Physical Examination General: No Apparent Distress HEENT: Positive: PERRL Cardiac: Positive: Reg Rate and Rhythm Neuro: Positive: Grossly Intact - Labs and Meds CBC 04/18/18 04/19/18 Range/Units 13:45 04:30 WBC 8.9 11.9 H (4.5-11.0) K/mm3 RBC 3.15 L 3.00 L (3.65-5.03) M/mm3 Hgb 8.3 L 7.8 L (11.8-15.2) gm/dl Hct 25.2 L 24.3 L (35.5-45.6) % Plt Count 513 H 502 H (140-440) K/mm3 Lymph # 2.0 (1.2-5.4) K/mm3 Ray # 0.8 (0.0-0.8) K/mm3 Eos # 0.2 (0.0-0.4) K/mm3 Baso # 0.1 (0.0-0.1) K/mm3 Comprehensive Metabolic Panel 04/18/18 04/19/18 Range/Units 13:45 04:30 Sodium 141 136 L (137-145) mmol/L Potassium 3.5 L 4.0 (3.6-5.0) mmol/L Chloride 101.4 101.3 (98-107) mmol/L Carbon Dioxide 27 27 (22-30) mmol/L BUN 15 16 (9-20) mg/dL Creatinine 0.5 L 0.6 L (0.8-1.5) mg/dL Glucose 128 H 112 H (75-100) mg/dL Calcium 8.3 L 8.3 L (8.4-10.2) mg/dL - Imaging and Cardiology EKG: report reviewed (Sinus Tachycardia 117/min)
--- NOTE | 2018-04-19 12:10 | Progress Note ---
Assessment and Plan - Patient Problems (1) Foot infection Current Visit: Yes Status: Acute Plan to address problem: 1) Pt can be discharged from my perspective. 2) Keep incision dry for 48 hours 3) Ambulate with crutches 4) F/u in my office in 2 weeks 5) Narcotic of choice for pain 6) Instructions 1-4 were given to the pt via an rail track layer. Subjective Date of service: 04/19/18 Patient Reports: Positive: no new complaints Objective Vital Signs - 12hr 04/19/18 04/19/18 04/19/18 00:41 01:11 05:20 Temperature Pulse Rate Pulse Rate [ Anterior Bilateral Upper Lobe] Pulse Rate [ Anterior Bilateral] Respiratory 18 18 17 Rate Respiratory Rate [Anterior Bilateral Upper Lobe] Respiratory Rate [Anterior Bilateral] Blood Pressure O2 Sat by Pulse Oximetry 04/19/18 04/19/18 04/19/18 05:50 06:32 07:45 Temperature 98.1 F Pulse Rate 99 H Pulse Rate [ 95 H Anterior Bilateral Upper Lobe] Pulse Rate [ 95 H Anterior Bilateral] Respiratory 16 17 Rate Respiratory 20 Rate [Anterior Bilateral Upper Lobe] Respiratory 20 Rate [Anterior Bilateral] Blood Pressure 124/64 O2 Sat by Pulse 94 95 Oximetry 04/19/18 07:52 Temperature Pulse Rate Pulse Rate [ 95 H Anterior Bilateral Upper Lobe] Pulse Rate [ 95 H Anterior Bilateral] Respiratory Rate Respiratory 20 Rate [Anterior Bilateral Upper Lobe] Respiratory 20 Rate [Anterior Bilateral] Blood Pressure O2 Sat by Pulse Oximetry - Musculoskeletal other (Left BKA dressing is dry.) - Labs 04/19/18 04:30 04/19/18 04:30 Diabetes panel 04/18/18 04/19/18 Range/Units 13:45 04:30 Sodium 141 136 L (137-145) mmol/L Potassium 3.5 L 4.0 (3.6-5.0) mmol/L Chloride 101.4 101.3 (98-107) mmol/L Carbon Dioxide 27 27 (22-30) mmol/L BUN 15 16 (9-20) mg/dL Creatinine 0.5 L 0.6 L (0.8-1.5) mg/dL Glucose 128 H 112 H (75-100) mg/dL Calcium 8.3 L 8.3 L (8.4-10.2) mg/dL Calcium panel 04/18/18 04/19/18 Range/Units 13:45 04:30 Calcium 8.3 L 8.3 L (8.4-10.2) mg/dL Pituitary panel 04/18/18 04/19/18 Range/Units 13:45 04:30 Sodium 141 136 L (137-145) mmol/L Potassium 3.5 L 4.0 (3.6-5.0) mmol/L Chloride 101.4 101.3 (98-107) mmol/L Carbon Dioxide 27 27 (22-30) mmol/L BUN 15 16 (9-20) mg/dL Creatinine 0.5 L 0.6 L (0.8-1.5) mg/dL Glucose 128 H 112 H (75-100) mg/dL Calcium 8.3 L 8.3 L (8.4-10.2) mg/dL Adrenal panel 04/18/18 04/19/18 Range/Units 13:45 04:30 Sodium 141 136 L (137-145) mmol/L Potassium 3.5 L 4.0 (3.6-5.0) mmol/L Chloride 101.4 101.3 (98-107) mmol/L Carbon Dioxide 27 27 (22-30) mmol/L BUN 15 16 (9-20) mg/dL Creatinine 0.5 L 0.6 L (0.8-1.5) mg/dL Glucose 128 H 112 H (75-100) mg/dL Calcium 8.3 L 8.3 L (8.4-10.2) mg/dL
[2018-04-19] MEDS: ZESTRIL PO SCH (12:23)
[2018-04-19] MEDS: VITAMIN C PO SCH ×2 (12:24→21:27)
[2018-04-19] MEDS: FERROUS SULFATE PO SCH ×3 (12:24→21:27)
[2018-04-19] MEDS: LOVENOX SUB-Q SCH (12:25)
[2018-04-19] MEDS: PROTONIX FEEDTUBE SCH (12:25)
[2018-04-19] MEDS: SENOKOT FEEDTUBE SCH ×2 (15:59→21:27)
[2018-04-19] MEDS: DAKIN'S FULL STRENGTH TP SCH ×2 (17:20→21:30)
[2018-04-19] MEDS ORDERED: TRIPLE ANTIBIOTIC TP ONE (18:06)
[2018-04-19] MEDS: LANTUS SUB-Q SCH (21:45)
[2018-04-20] MEDS: HumaLOG SUB-Q SCH ×4 (00:42→18:16)
[2018-04-20] MEDS: LACTATED RINGERS 1,000 ML IV SCH ×2 (02:07→18:15)
[2018-04-20 05:18] LABS: Hematocrit 20.8 % (35.5-45.6); Hemoglobin 6.9 gm/dl (11.8-15.2); Mean Corpuscular HGB Conc 33 % (32-34); Mean Corpuscular Hemoglobin 27 pg (28-32); Mean Corpuscular Volume 80 fl (84-94); Platelet Count 463 K/mm3 (140-440); Red Blood Count 2.59 M/mm3 (3.65-5.03)
[2018-04-20 05:34] LABS: BUN/Creatinine Ratio 21; Blood Urea Nitrogen 15 mg/dL (9-20); Hemolysis Index 0
[2018-04-20] MEDS: ZOSYN/NS 4.5GM/100ML 4.5 GM/100 ML VIAL IV SCH ×2 (05:48→15:05)
[2018-04-20] MEDS: DUONEB *Not for PRN Use IH SCH ×3 (07:50→21:24)
[2018-04-20] MEDS: MORPHINE IV PRN (09:42)
[2018-04-20] MEDS: FERROUS SULFATE PO SCH ×2 (09:43→15:06)
[2018-04-20] MEDS: DAKIN'S FULL STRENGTH TP SCH ×2 (11:05→22:00)
[2018-04-20] MEDS: PROTONIX FEEDTUBE SCH (11:06)
[2018-04-20] MEDS: LOVENOX SUB-Q SCH (11:06)
[2018-04-20] MEDS: SENOKOT FEEDTUBE SCH (11:07)
[2018-04-20] MEDS: ZESTRIL PO SCH (11:08)
[2018-04-20] MEDS: VITAMIN C PO SCH ×2 (11:09→21:30)
[2018-04-20] MEDS: SODIUM CHLORIDE FLUSH SYRINGE 10 ML IV SCH ×2 (11:09→21:30)
--- NOTE | 2018-04-20 12:32 | Progress Note ---
Assessment and Plan Assessment and plan: Patient is a 57 yo man who speaks [place] and little [place] (he uses his sister in law Sarahy as his personal american sign language interpreter) with a history of DM2, who pw hypoglycemia from not eating due to lack of appetite. He c/o chest pains, so family called EMS who found his blood glucose to be <40, he received dextrose, on way to ER, he vomited, followed by LOC and he became pulseless. He received CPR and was intubated and required vasopressors. LT foot cellulitis/osteomyelitis s/p Left BKA on 04/18/18 -on iv antibiotics and wound care -Status post I&D left lower extremity on 04/12/18, infection is down to the bone Acute hypoxic respiratory failure on MV >96 hours, resolving, still needing o2 extubated on 04/14/18, improving Severe sepsis with shock probably secondary to pneumonia and LT foot cellulitis , resolved weaned off pressors on 04/11 - IV abx, ID consulted Bilateral pneumonia -still on IV zosyn Acute metabolic encephalopathy, resolved -MR brain was negative, case dw neurology -anoxic encephalopathy excluded Cardiopulmonary arrest, resolved, most likely due to hypoxia -serial troponin levels normal -echo showed EF of 55-60% without regional wall motion abnormalities -cardiology on board Elevated D-dimer -CTA neg for PE DM2 with hyperglycemia, uncontrolled -counseling and education -A1C:9.9 Hyponatremia -improving, will monitor Iron def anemia with acute loss, probably sec to sepsis -s/p blood tranf with 2u of PRBC -Hb:8.4, will monitor -stool for occult blood pending Transaminitis, probably sec to the sepsis -improved Prophylaxis -Protonix and Lovenox Hypoglycemic resolved, on Tube feeding with NGT re-consult speech therapy hold Lantus He is tolerating diet, still on O2, he was 87% on room air. Will d/c once O2 setup. d/w Dr. Johnson at bedside. History Interval history: Patient was seen and examined. Follow-up on current diagnosis of sepsis. Overnight uneventful. Patient denies any chest pain, shortness breath, nausea/ vomiting or severe headaches. Imaging, nursing note, chart, labs and old chart reviewed. Discussed with patient. Hospitalist Physical - Physical exam Narrative exam: GEN: WDWN, NAD, Awake, Alert, Orientated HEENT: NCAT, EOMI, PERRL, OP with NGT removed NECK: supple, no adenopathy, no thyromegaly, no JVD, right iJ TLC in place, removed CVS/HEART: RRR, normal S1S2, pulses present bilaterally CHEST/LUNGS: CTA B, Symmetrical chest expansion, good air entry bilaterally GI/Abdomen: soft, NTND, good bowel sounds, no guarding or rebound /Bladder: no suprapubic tenderness, no CVA or paraspinal tenderness EXT/Skin: left bka stump with david c/d/i MSK: FROM x 4 Neuro: CN 2-12 grossly intact, no new focal deficits, Psych: calm - Constitutional Vitals: Temp Pulse Resp BP Pulse Ox 99.2 F 89 18 139/67 96 04/20/18 06:24 04/20/18 11:08 04/20/18 08:10 04/20/18 11:08 04/20/18 08:33 General appearance: Present: no acute distress Results - Labs CBC & Chem 7: 04/20/18 04:17 04/20/18 04:17 Labs: Laboratory Last Values WBC 8.9 K/mm3 (4.5-11.0) 04/20/18 04:17 RBC 2.59 M/mm3 (3.65-5.03) L 04/20/18 04:17 Hgb 6.9 gm/dl (11.8-15.2) L 04/20/18 04:17 Hct 20.8 % (35.5-45.6) L 04/20/18 04:17 MCV 80 fl (84-94) L 04/20/18 04:17 MCH 27 pg (28-32) L 04/20/18 04:17 MCHC 33 % (32-34) 04/20/18 04:17 RDW 16.0 % (13.2-15.2) H 04/20/18 04:17 Plt Count 463 K/mm3 (140-440) H 04/20/18 04:17 Lymph % (Auto) 22.2 % (13.4-35.0) 04/18/18 13:45 [place] % (Auto) 9.2 % (0.0-7.3) H 04/18/18 13:45 Eos % (Auto) 2.0 % (0.0-4.3) 04/18/18 13:45 Baso % (Auto) 1.0 % (0.0-1.8) 04/18/18 13:45 Lymph # 2.0 K/mm3 (1.2-5.4) 04/18/18 13:45 [place] # 0.8 K/mm3 (0.0-0.8) 04/18/18 13:45 Eos # 0.2 K/mm3 (0.0-0.4) 04/18/18 13:45 Baso # 0.1 K/mm3 (0.0-0.1) 04/18/18 13:45 Add Manual Diff Complete 04/11/18 04:14 Total Counted 100 04/11/18 04:14 Seg Neutrophils % 65.6 % (40.0-70.0) 04/18/18 13:45 Seg Neuts % (Manual) 79.0 % (40.0-70.0) H 04/11/18 04:14 Band Neutrophils % 4.0 % 04/11/18 04:14 Lymphocytes % (Manual) 10.0 % (13.4-35.0) L 04/11/18 04:14 Reactive Lymphs % (Man) 0 % 04/11/18 04:14 Monocytes % (Manual) 5.0 % (0.0-7.3) 04/11/18 04:14 Eosinophils % (Manual) 1.0 % (0.0-4.3) 04/11/18 04:14 Basophils % (Manual) 1.0 % (0.0-1.8) 04/11/18 04:14 Metamyelocytes % 0 % 04/11/18 04:14 Myelocytes % 0 % 04/11/18 04:14 Promyelocytes % 0 % 04/11/18 04:14 Blast Cells % 0 % 04/11/18 04:14 Nucleated RBC % Not Reportable 04/11/18 04:14 Seg Neutrophils # 5.8 K/mm3 (1.8-7.7) 04/18/18 13:45 Seg Neutrophils # Man 11.8 K/mm3 (1.8-7.7) H 04/11/18 04:14 Band Neutrophils # 0.6 K/mm3 04/11/18 04:14 Lymphocytes # (Manual) 1.5 K/mm3 (1.2-5.4) 04/11/18 04:14 Abs React Lymphs (Man) 0.0 K/mm3 04/11/18 04:14 Monocytes # (Manual) 0.7 K/mm3 (0.0-0.8) 04/11/18 04:14 Eosinophils # (Manual) 0.1 K/mm3 (0.0-0.4) 04/11/18 04:14 Basophils # (Manual) 0.1 K/mm3 (0.0-0.1) 04/11/18 04:14 Metamyelocytes # 0.0 K/mm3 04/11/18 04:14 Myelocytes # 0.0 K/mm3 04/11/18 04:14 Promyelocytes # 0.0 K/mm3 04/11/18 04:14 Blast Cells # 0.0 K/mm3 04/11/18 04:14 WBC Morphology Not Reportable 04/11/18 04:14 Hypersegmented Neuts Not Reportable 04/11/18 04:14 Hyposegmented Neuts Not Reportable 04/11/18 04:14 Hypogranular Neuts Not Reportable 04/11/18 04:14 Smudge Cells Not Reportable 04/11/18 04:14 Toxic Granulation Not Reportable 04/11/18 04:14 Toxic Vacuolation Not Reportable 04/11/18 04:14 Dohle Bodies Not Reportable 04/11/18 04:14 Pelger-Huet Anomaly Not Reportable 04/11/18 04:14 Matt Rods Not Reportable 04/11/18 04:14 Platelet Estimate Consistent w auto 04/11/18 04:14 Clumped Platelets Not Reportable 04/11/18 04:14 Plt Clumps, EDTA Not Reportable 04/11/18 04:14 Large Platelets Not Reportable 04/11/18 04:14 Giant Platelets Not Reportable 04/11/18 04:14 Platelet Satelliting Not Reportable 04/11/18 04:14 Plt Morphology Comment Not Reportable 04/11/18 04:14 RBC Morphology Not Reportable 04/11/18 04:14 Dimorphic RBCs Not Reportable 04/11/18 04:14 Polychromasia Not Reportable 04/11/18 04:14 Hypochromasia 1+ 04/11/18 04:14 Poikilocytosis Not Reportable 04/11/18 04:14 Anisocytosis Not Reportable 04/11/18 04:14 Microcytosis Not Reportable 04/11/18 04:14 Macrocytosis Not Reportable 04/11/18 04:14 Spherocytes Not Reportable 04/11/18 04:14 Pappenheimer Bodies Not Reportable 04/11/18 04:14 Sickle Cells Not Reportable 04/11/18 04:14 Target Cells Not Reportable 04/11/18 04:14 Tear Drop Cells Not Reportable 04/11/18 04:14 Ovalocytes Not Reportable 04/11/18 04:14 Stomatocytes Rare 04/10/18 04:06 Helmet Cells Not Reportable 04/11/18 04:14 [place] Bodies Not Reportable 04/11/18 04:14 [place] Rings Not Reportable 04/11/18 04:14 Matthias Cells Not Reportable 04/11/18 04:14 Bite Cells Not Reportable 04/11/18 04:14 Crenated Cell Not Reportable 04/11/18 04:14 Elliptocytes Not Reportable 04/11/18 04:14 Acanthocytes (Spur) Not Reportable 04/11/18 04:14 Rouleaux Not Reportable 04/11/18 04:14 Hemoglobin C Crystals Not Reportable 04/11/18 04:14 Schistocytes Not Reportable 04/11/18 04:14 Malaria parasites Not Reportable 04/11/18 04:14 [place] Bodies Not Reportable 04/11/18 04:14 Hem Pathologist Commnt No 04/11/18 04:14 D-Dimer 933.08 ng/mlDDU (0-234) H 04/07/18 08:15 POC ABG pH 7.499 (7.35-7.45) H 04/14/18 09:45 POC ABG pCO2 30.1 (35-45) L 04/14/18 09:45 POC ABG pO2 104 (80-105) 04/14/18 09:45 POC ABG HCO3 23.5 04/14/18 09:45 POC ABG Total CO2 24 04/14/18 09:45 POC ABG O2 Sat 99 04/14/18 09:45 POC ABG Base Excess 0 04/14/18 09:45 VBG pH 7.231 (7.320-7.420) L 04/07/18 13:25 FiO2 28 % 04/14/18 09:45 Sodium 138 mmol/L (137-145) 04/20/18 04:17 Potassium 3.9 mmol/L (3.6-5.0) 04/20/18 04:17 Chloride 99.4 mmol/L (98-107) 04/20/18 04:17 Carbon Dioxide 30 mmol/L (22-30) 04/20/18 04:17 Anion Gap 13 mmol/L 04/20/18 04:17 BUN 15 mg/dL (9-20) 04/20/18 04:17 Creatinine 0.7 mg/dL (0.8-1.5) L 04/20/18 04:17 Estimated GFR > 60 ml/min 04/20/18 04:17 BUN/Creatinine Ratio 21 % 04/20/18 04:17 Glucose 131 mg/dL (75-100) H 04/20/18 04:17 POC Glucose 131 (70-105) H 04/20/18 05:17 Hemoglobin A1c 9.9 % (4-6) H 04/07/18 16:43 Lactic Acid 1.80 mmol/L (0.7-2.0) 04/07/18 16:43 Calcium 8.0 mg/dL (8.4-10.2) L 04/20/18 04:17 Magnesium 1.90 mg/dL (1.7-2.3) 04/20/18 04:17 Iron 15 ug/dL (49-181) L 04/08/18 07:34 TIBC 106 mcg/dL (250-450) L 04/08/18 07:34 % Saturation 14.15 % 04/08/18 07:34 Transferrin 76 mg/dl (180-329) L 04/08/18 07:34 Total Bilirubin 1.40 mg/dL (0.1-1.2) H 04/11/18 04:14 AST 40 units/L (5-40) 04/11/18 04:14 ALT 45 units/L (7-56) 04/11/18 04:14 Alkaline Phosphatase 225 units/L (35-129) H 04/11/18 04:14 Total Creatine Kinase 83 units/L (55-170) 04/07/18 13:25 CK-MB (CK-2) 2.5 ng/mL (0.0-4.0) 04/07/18 13:25 CK-MB (CK-2) Rel Index 3.0 (0-4) 04/07/18 13:25 Troponin T 0.025 ng/mL (0.00-0.029) 04/07/18 13:25 C-Reactive Protein 13.00 mg/dL (0.00-1.30) H 04/11/18 12:22 Total Protein 5.9 g/dL (6.3-8.2) L 04/11/18 04:14 Albumin 1.9 g/dL (3.9-5) L 04/11/18 04:14 Albumin/Globulin Ratio 0.5 % 04/11/18 04:14 Triglycerides 174 mg/dL (2-149) H 04/13/18 08:13 Cholesterol 95 mg/dL (50-199) 04/13/18 08:13 LDL Cholesterol Direct 25 mg/dL (50-130) L 04/13/18 08:13 HDL Cholesterol 9 mg/dL (40-59) L 04/13/18 08:13 Cholesterol/HDL Ratio 10.55 % 04/13/18 08:13 Vitamin B12 1405 pg/mL (211-911) H 04/08/18 07:34 RBC Folic Acid >1000 ng/mL (>280) 04/08/18 07:34 Urine Color Yellow (Yellow) 04/07/18 08:52 Urine Turbidity Clear (Clear) 04/07/18 08:52 Urine pH 8.0 (5.0-7.0) H 04/07/18 08:52 Ur Specific [place] 1.009 (1.003-1.030) 04/07/18 08:52 Urine Protein 100 mg/dl mg/dL (Negative) 04/07/18 08:52 Urine Glucose (UA) Neg mg/dL (Negative) 04/07/18 08:52 Urine Ketones Neg mg/dL (Negative) 04/07/18 08:52 Urine Blood Neg (Negative) 04/07/18 08:52 Urine Nitrite Neg (Negative) 04/07/18 08:52 Urine Bilirubin Neg (Negative) 04/07/18 08:52 Urine Urobilinogen < 2.0 mg/dL (<2.0) 04/07/18 08:52 Ur Leukocyte Esterase Neg (Negative) 04/07/18 08:52 Urine WBC (Auto) 1.0 /HPF (0.0-6.0) 04/07/18 08:52 Urine RBC (Auto) 3.0 /HPF (0.0-6.0) 04/07/18 08:52 U Epithel Cells (Auto) 2.0 /HPF (0-13.0) 04/07/18 08:52 Urine Mucus Few /HPF 04/07/18 08:52 Urine Sperm 3+ /HPF (WASHING [employer] SCREENING PLANT SUPERVISOR) 04/07/18 08:52 Vancomycin Trough 12.3 ug/mL (5.0-20.0) 04/12/18 11:20 Urine Opiates Screen Presumptive negative 04/07/18 08:52 Urine Methadone Screen Presumptive negative 04/07/18 08:52 Ur Barbiturates Screen Presumptive negative 04/07/18 08:52 Ur Phencyclidine Scrn Presumptive negative 04/07/18 08:52 Ur Amphetamines Screen Presumptive negative 04/07/18 08:52 U Benzodiazepines Scrn Presumptive negative 04/07/18 08:52 Urine Cocaine Screen Presumptive negative 04/07/18 08:52 U Marijuana (THC) Screen Presumptive negative 04/07/18 08:52 Drugs of Abuse Note Disclamer 04/07/18 08:52 Blood Type O POSITIVE 04/18/18 13:45 Antibody Screen Negative 04/18/18 13:45 Crossmatch See Detail 04/07/18 16:43
--- NOTE | 2018-04-20 12:41 | Discharge Summary ---
Providers - Providers Date of Admission: 04/07/18 16:08 Date of discharge: 04/24/18 Attending physician: KEVIN DIETRICH 04/08/18 06:03 Consult to Dietitian/Nutrition [CONS] Routine Physician Instructions: Reason For Exam: Reason for Consult: Write/Manage Tube Feeding 04/08/18 06:06 Consult to Physician [CONS] Routine Comment: Dr. Valdes is aware- L[facility] Consulting Provider: LING FLYNN Physician Instructions: Reason For Exam: Sepsis 04/08/18 15:59 Consult to Dietitian/Nutrition [CONS] Routine Physician Instructions: Assess nutrtn needs, initiate, modify, manage TF Reason For Exam: Reason for Consult: Write/Manage Tube Feeding Reason for Consult: Write/Manage Tube Feeding 04/09/18 12:20 Consult to Wound/ET Nurse [CONS] Urgent Reason For Exam: wound eval 04/10/18 12:24 Consult to Physician [CONS] Routine Comment: physician notified Consulting Provider: RUPAL VALDES Physician Instructions: Reason For Exam: severe sepsis with shock 04/11/18 12:47 Consult to Physician [CONS] Urgent Comment: LEFT NECROTIC FOOT Consulting Provider: OLGA FUCHS Physician Instructions: PLEASE SEE PATIENT Reason For Exam: EVAL FOR POSSIBLE DEBRIDEMENT 04/12/18 09:21 Consult to Physician [CONS] Routine Comment: Consulting Provider: MARCIO JUAREZ Physician Instructions: Reason For Exam: anoxic encephalopathy 04/14/18 12:08 Speech Therapy Evaluation and Treat [CONS] Routine Reason For Exam: swallowing 04/14/18 13:38 Consult to Physician [CONS] Routine Comment: per Dr. fuchs's request Consulting Provider: GIULIANO LION Physician Instructions: Reason For Exam: PAD, diabetic foot ulcer 04/19/18 08:33 Speech Therapy Evaluation and Treat [CONS] Stat Reason For Exam: re-evaluation Primary care physician: SCHOOL GUIDANCE COUNSELOR Hospitalization Condition: Stable Hospital course: Patient is a 57 yo man who speaks [place]vian and little [place]ian (he mostly uses his sister in law Sarahy as his personal monorail operator) with a history of DM2, who pw hypoglycemia from not eating due to lack of appetite. He c/o chest pains , so family called EMS who found his blood glucose to be <40, he received dextrose, on way to ER, he vomited, followed by LOC and he became pulseless. He received CPR and was intubated on arrival on 04/07/18. He was subsequently extubated on 04/14/18. He did require Vasopressor bp support on admission, and weaned off 04/11/18. LT foot cellulitis/osteomyelitis s/p Left BKA on 04/18/[address] Olga Fuchs -s/p antibiotics, ended 04/20/18 -wound care -Status post I&D left lower extremity on 04/12/18, infection is down to the bone Acute hypoxic respiratory failure on MV >96 hours, resolving, still needing o2 extubated on 04/14/18, improving trying to wean Severe sepsis with shock probably secondary to pneumonia and LT foot cellulitis , resolved weaned off pressors on 04/11 - IV abx, ID consulted Bilateral pneumonia off IV zosyn per ID Acute metabolic encephalopathy, resolved -MR brain was negative, case dw neurology -anoxic encephalopathy excluded Cardiopulmonary arrest, resolved, most likely due to hypoxia -serial troponin levels normal -echo showed EF of 55-60% without regional wall motion abnormalities -cardiology on board Elevated D-dimer -CTA neg for PE DM2 with hyperglycemia, uncontrolled -counseling and education -A1C:9.9 Hyponatremia -improving, will monitor Iron def anemia with acute blood loss, probably sec to sepsis, worsen by surgery -s/p blood tranf with 3u of PRBC -stool for occult blood, never done on the Apr, re-ordered and it was negative Transaminitis, probably sec to the sepsis -improved Prophylaxis -Protonix and Lovenox Hypoglycemic resolved, on Tube feeding with NGT re-consult speech therapy hold Renita Disposition: d/c home Disposition: TO HOME OR SELFCARE Time spent for discharge: 33 minutes Core Measure Documentation - Palliative Care Palliative Care/ Comfort Measures: Not Applicable - Core Measures Any of the following diagnoses?: none - VTE Discharge Requirements Deep Vein Thrombosis/Pulmonary Embolism Present on Admission: No Has pt received <5 days of overlap therapy or INR<2.0: No Anticoagulant overlap therapy prescribed at discharge: No Contraindication No Overlap Therapy order at DC: Not Indicated Exam - Physical Exam Narrative exam: GEN: WDWN, NAD, Awake, Alert, Orientated HEENT: NCAT, EOMI, PERRL, OP with NGT removed NECK: supple, no adenopathy, no thyromegaly, no JVD, right iJ TLC in place, removed CVS/HEART: RRR, normal S1S2, pulses present bilaterally CHEST/LUNGS: CTA B, Symmetrical chest expansion, good air entry bilaterally GI/Abdomen: soft, NTND, good bowel sounds, no guarding or rebound /Bladder: no suprapubic tenderness, no CVA or paraspinal tenderness EXT/Skin: left bka stump with david c/d/i MSK: FROM x 3 Neuro: CN 2-12 grossly intact, no new focal deficits, Psych: calm - Constitutional Vitals: Temp Pulse Resp BP Pulse Ox 99.2 F 89 18 139/67 96 04/20/18 06:24 04/20/18 11:08 04/20/18 08:10 04/20/18 11:08 04/20/18 08:33 Plan Activity: up only with assistance, fall precautions, other (no strenous activity unless cleared by pcp) Diet: diabetic Wound: per your surgeon's advice Special Instructions: record blood sugar diary (three times a day: morning, noon and night) Durable Medical Equipment Needed Upon Discharge: Oxygen Follow up with: PRIMARY CARE, [Primary Care Provider] - 3-5 Days OLGA FUCHS MD [Staff Physician] - 7 Days LING FLYNN MD [Staff Physician] - 7 Days Prescriptions: ALBUTEROL Inhaler(NF) [VENTOLIN Inhaler(NF)] 2 puff IH Q4H PRN #1 unit PRN Reason: Shortness Of Breath glipiZIDE [Glipizide] 5 mg PO BID #60 tablet Lisinopril [Prinivil] 10 mg PO DAILY #30 tablet metFORMIN [Glucophage] 500 mg PO BID #60 tablet
[2018-04-20] MEDS: FEOSOL PO SCH (21:30)
[2018-04-20] MEDS: SENOKOT PO SCH (21:30)
[2018-04-20] MEDS: LANTUS SUB-Q SCH (23:00)
[2018-04-21] MEDS: TYLENOL PO PRN (00:21)
[2018-04-21] MEDS: HumaLOG SUB-Q SCH ×4 (00:22→18:59)
[2018-04-21] MEDS: LACTATED RINGERS 1,000 ML IV SCH ×2 (07:01→14:51)
[2018-04-21] MEDS: DUONEB *Not for PRN Use IH SCH ×3 (09:05→19:10)
[2018-04-21] MEDS: PROTONIX FEEDTUBE SCH (10:00)
[2018-04-21] MEDS: LOVENOX SUB-Q SCH (10:00)
--- NOTE | 2018-04-21 10:25 | Progress Note ---
Assessment and Plan Assessment and plan: Patient is a 57 yo man who speaks Indonesian and little Chilean (he mostly uses his sister in law Sarahy as his personal critical care specialist) with a history of DM2, who pw hypoglycemia from not eating due to lack of appetite. He c/o chest pains , so family called EMS who found his blood glucose to be <40, he received dextrose, on way to ER, he vomited, followed by LOC and he became pulseless. He received CPR and was intubated on arrival on 04/07/18. He was subsequently extubated on 04/14/18. He did require Vasopressor bp support on admission, and weaned off 04/11/18. LT foot cellulitis/osteomyelitis s/p Left BKA on 04/18/[address] Sage Johnson -s/p antibiotics, ended 04/20/18 -wound care -Status post I&D left lower extremity on 04/12/18, infection is down to the bone Acute hypoxic respiratory failure on MV >96 hours, resolving, still needing o2 extubated on 04/14/18, improving trying to wean Severe sepsis with shock probably secondary to pneumonia and LT foot cellulitis , resolved weaned off pressors on 04/11 - IV abx, ID consulted Bilateral pneumonia off IV zosyn per ID Acute metabolic encephalopathy, resolved -MR brain was negative, case dw neurology -anoxic encephalopathy excluded Cardiopulmonary arrest, resolved, most likely due to hypoxia -serial troponin levels normal -echo showed EF of 55-60% without regional wall motion abnormalities -cardiology on board Elevated D-dimer -CTA neg for PE DM2 with hyperglycemia, uncontrolled -counseling and education -A1C:9.9 Hyponatremia -improving, will monitor Iron def anemia with acute loss, probably sec to sepsis -s/p blood tranf with 2u of PRBC -Hb:8.4, will monitor -stool for occult blood, never done on the Apr, will re-order Transaminitis, probably sec to the sepsis -improved Prophylaxis -Protonix and Lovenox Hypoglycemic resolved, on Tube feeding with NGT re-consult speech therapy hold Lantus He is tolerating diet, still on O2, he was 87% on room air. Will d/c once O2 setup. Disposition: continue inpatient care, overall he has a low grade temp of 100.2F off iv zosyn, and hbg 6.9. Will hold discharge get blood cultures, and repeat h/ h and get FOBT. If patient doesn't have temp of 100.4 or greater and h/h is stable then he can possibly be discharged tomorrow. Blood cultures can be follow up with Dr. Johnson or Dr. Miller. History Interval history: Patient was seen and examined. Follow-up on current diagnosis of sepsis. Overnight uneventful. Patient denies any chest pain, shortness breath, nausea/ vomiting or severe headaches. Imaging, nursing note, chart, labs and old chart reviewed. Discussed with patient. Marketing Assistant Manager Line used via our [employer] system. Hospitalist Physical - Physical exam Narrative exam: GEN: WDWN, NAD, Awake, Alert, Orientated HEENT: NCAT, EOMI, PERRL, OP with NGT removed NECK: supple, no adenopathy, no thyromegaly, no JVD, right iJ TLC in place, removed CVS/HEART: RRR, normal S1S2, pulses present bilaterally CHEST/LUNGS: CTA B, Symmetrical chest expansion, good air entry bilaterally GI/Abdomen: soft, NTND, good bowel sounds, no guarding or rebound /Bladder: no suprapubic tenderness, no CVA or paraspinal tenderness EXT/Skin: left bka stump with david c/d/i MSK: FROM x 3 Neuro: CN 2-12 grossly intact, no new focal deficits, Psych: calm - Constitutional Vitals: Temp Pulse Resp BP Pulse Ox 97.7 F 76 20 140/73 98 04/21/18 06:37 04/21/18 06:37 04/21/18 06:37 04/21/18 06:37 04/21/18 06:37 General appearance: Present: no acute distress Results - Labs CBC & Chem 7: 04/20/18 04:17 04/20/18 04:17 Labs: Laboratory Last Values WBC 8.9 K/mm3 (4.5-11.0) 04/20/18 04:17 RBC 2.59 M/mm3 (3.65-5.03) L 04/20/18 04:17 Hgb 6.9 gm/dl (11.8-15.2) L 04/20/18 04:17 Hct 20.8 % (35.5-45.6) L 04/20/18 04:17 MCV 80 fl (84-94) L 04/20/18 04:17 MCH 27 pg (28-32) L 04/20/18 04:17 MCHC 33 % (32-34) 04/20/18 04:17 RDW 16.0 % (13.2-15.2) H 04/20/18 04:17 Plt Count 463 K/mm3 (140-440) H 04/20/18 04:17 Lymph % (Auto) 22.2 % (13.4-35.0) 04/18/18 13:45 [place] % (Auto) 9.2 % (0.0-7.3) H 04/18/18 13:45 Eos % (Auto) 2.0 % (0.0-4.3) 04/18/18 13:45 Baso % (Auto) 1.0 % (0.0-1.8) 04/18/18 13:45 Lymph # 2.0 K/mm3 (1.2-5.4) 04/18/18 13:45 [place] # 0.8 K/mm3 (0.0-0.8) 04/18/18 13:45 Eos # 0.2 K/mm3 (0.0-0.4) 04/18/18 13:45 Baso # 0.1 K/mm3 (0.0-0.1) 04/18/18 13:45 Add Manual Diff Complete 04/11/18 04:14 Total Counted 100 04/11/18 04:14 Seg Neutrophils % 65.6 % (40.0-70.0) 04/18/18 13:45 Seg Neuts % (Manual) 79.0 % (40.0-70.0) H 04/11/18 04:14 Band Neutrophils % 4.0 % 04/11/18 04:14 Lymphocytes % (Manual) 10.0 % (13.4-35.0) L 04/11/18 04:14 Reactive Lymphs % (Man) 0 % 04/11/18 04:14 Monocytes % (Manual) 5.0 % (0.0-7.3) 04/11/18 04:14 Eosinophils % (Manual) 1.0 % (0.0-4.3) 04/11/18 04:14 Basophils % (Manual) 1.0 % (0.0-1.8) 04/11/18 04:14 Metamyelocytes % 0 % 04/11/18 04:14 Myelocytes % 0 % 04/11/18 04:14 Promyelocytes % 0 % 04/11/18 04:14 Blast Cells % 0 % 04/11/18 04:14 Nucleated RBC % Not Reportable 04/11/18 04:14 Seg Neutrophils # 5.8 K/mm3 (1.8-7.7) 04/18/18 13:45 Seg Neutrophils # Man 11.8 K/mm3 (1.8-7.7) H 04/11/18 04:14 Band Neutrophils # 0.6 K/mm3 04/11/18 04:14 Lymphocytes # (Manual) 1.5 K/mm3 (1.2-5.4) 04/11/18 04:14 Abs React Lymphs (Man) 0.0 K/mm3 04/11/18 04:14 Monocytes # (Manual) 0.7 K/mm3 (0.0-0.8) 04/11/18 04:14 Eosinophils # (Manual) 0.1 K/mm3 (0.0-0.4) 04/11/18 04:14 Basophils # (Manual) 0.1 K/mm3 (0.0-0.1) 04/11/18 04:14 Metamyelocytes # 0.0 K/mm3 04/11/18 04:14 Myelocytes # 0.0 K/mm3 04/11/18 04:14 Promyelocytes # 0.0 K/mm3 04/11/18 04:14 Blast Cells # 0.0 K/mm3 04/11/18 04:14 WBC Morphology Not Reportable 04/11/18 04:14 Hypersegmented Neuts Not Reportable 04/11/18 04:14 Hyposegmented Neuts Not Reportable 04/11/18 04:14 Hypogranular Neuts Not Reportable 04/11/18 04:14 Smudge Cells Not Reportable 04/11/18 04:14 Toxic Granulation Not Reportable 04/11/18 04:14 Toxic Vacuolation Not Reportable 04/11/18 04:14 Dohle Bodies Not Reportable 04/11/18 04:14 Pelger-Huet Anomaly Not Reportable 04/11/18 04:14 Matt Rods Not Reportable 04/11/18 04:14 Platelet Estimate Consistent w auto 04/11/18 04:14 Clumped Platelets Not Reportable 04/11/18 04:14 Plt Clumps, EDTA Not Reportable 04/11/18 04:14 Large Platelets Not Reportable 04/11/18 04:14 Giant Platelets Not Reportable 04/11/18 04:14 Platelet Satelliting Not Reportable 04/11/18 04:14 Plt Morphology Comment Not Reportable 04/11/18 04:14 RBC Morphology Not Reportable 04/11/18 04:14 Dimorphic RBCs Not Reportable 04/11/18 04:14 Polychromasia Not Reportable 04/11/18 04:14 Hypochromasia 1+ 04/11/18 04:14 Poikilocytosis Not Reportable 04/11/18 04:14 Anisocytosis Not Reportable 04/11/18 04:14 Microcytosis Not Reportable 04/11/18 04:14 Macrocytosis Not Reportable 04/11/18 04:14 Spherocytes Not Reportable 04/11/18 04:14 Pappenheimer Bodies Not Reportable 04/11/18 04:14 Sickle Cells Not Reportable 04/11/18 04:14 Target Cells Not Reportable 04/11/18 04:14 Tear Drop Cells Not Reportable 04/11/18 04:14 Ovalocytes Not Reportable 04/11/18 04:14 Stomatocytes Rare 04/10/18 04:06 Helmet Cells Not Reportable 04/11/18 04:14 Davis-Nathalie Bodies Not Reportable 04/11/18 04:14 [place] Rings Not Reportable 04/11/18 04:14 [place] Cells Not Reportable 04/11/18 04:14 Bite Cells Not Reportable 04/11/18 04:14 Crenated Cell Not Reportable 04/11/18 04:14 Elliptocytes Not Reportable 04/11/18 04:14 Acanthocytes (Spur) Not Reportable 04/11/18 04:14 Rouleaux Not Reportable 04/11/18 04:14 Hemoglobin C Crystals Not Reportable 04/11/18 04:14 Schistocytes Not Reportable 04/11/18 04:14 Malaria parasites Not Reportable 04/11/18 04:14 [place] Bodies Not Reportable 04/11/18 04:14 Hem Pathologist Commnt No 04/11/18 04:14 D-Dimer 933.08 ng/mlDDU (0-234) H 04/07/18 08:15 POC ABG pH 7.499 (7.35-7.45) H 04/14/18 09:45 POC ABG pCO2 30.1 (35-45) L 04/14/18 09:45 POC ABG pO2 104 (80-105) 04/14/18 09:45 POC ABG HCO3 23.5 04/14/18 09:45 POC ABG Total CO2 24 04/14/18 09:45 POC ABG O2 Sat 99 04/14/18 09:45 POC ABG Base Excess 0 04/14/18 09:45 VBG pH 7.231 (7.320-7.420) L 04/07/18 13:25 FiO2 28 % 04/14/18 09:45 Sodium 138 mmol/L (137-145) 04/20/18 04:17 Potassium 3.9 mmol/L (3.6-5.0) 04/20/18 04:17 Chloride 99.4 mmol/L (98-107) 04/20/18 04:17 Carbon Dioxide 30 mmol/L (22-30) 04/20/18 04:17 Anion Gap 13 mmol/L 04/20/18 04:17 BUN 15 mg/dL (9-20) 04/20/18 04:17 Creatinine 0.7 mg/dL (0.8-1.5) L 04/20/18 04:17 Estimated GFR > 60 ml/min 04/20/18 04:17 BUN/Creatinine Ratio 21 % 04/20/18 04:17 Glucose 131 mg/dL (75-100) H 04/20/18 04:17 POC Glucose 141 (70-105) H 04/21/18 06:40 Hemoglobin A1c 9.9 % (4-6) H 04/07/18 16:43 Lactic Acid 1.80 mmol/L (0.7-2.0) 04/07/18 16:43 Calcium 8.0 mg/dL (8.4-10.2) L 04/20/18 04:17 Magnesium 1.90 mg/dL (1.7-2.3) 04/20/18 04:17 Iron 15 ug/dL (49-181) L 04/08/18 07:34 TIBC 106 mcg/dL (250-450) L 04/08/18 07:34 % Saturation 14.15 % 04/08/18 07:34 Transferrin 76 mg/dl (180-329) L 04/08/18 07:34 Total Bilirubin 1.40 mg/dL (0.1-1.2) H 04/11/18 04:14 AST 40 units/L (5-40) 04/11/18 04:14 ALT 45 units/L (7-56) 04/11/18 04:14 Alkaline Phosphatase 225 units/L (35-129) H 04/11/18 04:14 Total Creatine Kinase 83 units/L (55-170) 04/07/18 13:25 CK-MB (CK-2) 2.5 ng/mL (0.0-4.0) 04/07/18 13:25 CK-MB (CK-2) Rel Index 3.0 (0-4) 04/07/18 13:25 Troponin T 0.025 ng/mL (0.00-0.029) 04/07/18 13:25 C-Reactive Protein 13.00 mg/dL (0.00-1.30) H 04/11/18 12:22 Total Protein 5.9 g/dL (6.3-8.2) L 04/11/18 04:14 Albumin 1.9 g/dL (3.9-5) L 04/11/18 04:14 Albumin/Globulin Ratio 0.5 % 04/11/18 04:14 Triglycerides 174 mg/dL (2-149) H 04/13/18 08:13 Cholesterol 95 mg/dL (50-199) 04/13/18 08:13 LDL Cholesterol Direct 25 mg/dL (50-130) L 04/13/18 08:13 HDL Cholesterol 9 mg/dL (40-59) L 04/13/18 08:13 Cholesterol/HDL Ratio 10.55 % 04/13/18 08:13 Vitamin B12 1405 pg/mL (211-911) H 04/08/18 07:34 RBC Folic Acid >1000 ng/mL (>280) 04/08/18 07:34 Urine Color Yellow (Yellow) 04/07/18 08:52 Urine Turbidity Clear (Clear) 04/07/18 08:52 Urine pH 8.0 (5.0-7.0) H 04/07/18 08:52 Ur Specific [place] 1.009 (1.003-1.030) 04/07/18 08:52 Urine Protein 100 mg/dl mg/dL (Negative) 04/07/18 08:52 Urine Glucose (UA) Neg mg/dL (Negative) 04/07/18 08:52 Urine Ketones Neg mg/dL (Negative) 04/07/18 08:52 Urine Blood Neg (Negative) 04/07/18 08:52 Urine Nitrite Neg (Negative) 04/07/18 08:52 Urine Bilirubin Neg (Negative) 04/07/18 08:52 Urine Urobilinogen < 2.0 mg/dL (<2.0) 04/07/18 08:52 Ur Leukocyte Esterase Neg (Negative) 04/07/18 08:52 Urine WBC (Auto) 1.0 /HPF (0.0-6.0) 04/07/18 08:52 Urine RBC (Auto) 3.0 /HPF (0.0-6.0) 04/07/18 08:52 U Epithel Cells (Auto) 2.0 /HPF (0-13.0) 04/07/18 08:52 Urine Mucus Few /HPF 04/07/18 08:52 Urine Sperm 3+ /HPF (PEDODONTIST) 04/07/18 08:52 Vancomycin Trough 12.3 ug/mL (5.0-20.0) 04/12/18 11:20 Urine Opiates Screen Presumptive negative 04/07/18 08:52 Urine Methadone Screen Presumptive negative 04/07/18 08:52 Ur Barbiturates Screen Presumptive negative 04/07/18 08:52 Ur Phencyclidine Scrn Presumptive negative 04/07/18 08:52 Ur Amphetamines Screen Presumptive negative 04/07/18 08:52 U Benzodiazepines Scrn Presumptive negative 04/07/18 08:52 Urine Cocaine Screen Presumptive negative 04/07/18 08:52 U Marijuana (THC) Screen Presumptive negative 04/07/18 08:52 Drugs of Abuse Note Disclamer 04/07/18 08:52 Blood Type O POSITIVE 04/18/18 13:45 Antibody Screen Negative 04/18/18 13:45 Crossmatch See Detail 04/07/18 16:43
[2018-04-21 10:28] LABS: Hematocrit 21.9 % (35.5-45.6); Hemoglobin 7.4 gm/dl (11.8-15.2); Mean Corpuscular HGB Conc 34 % (32-34); Mean Corpuscular Hemoglobin 27 pg (28-32); Mean Corpuscular Volume 80 fl (84-94); Platelet Count 579 K/mm3 (140-440); Red Blood Count 2.75 M/mm3 (3.65-5.03); Red Cell Distribution Width 16.1 % (13.2-15.2)
[2018-04-21] MEDS: ZESTRIL PO SCH (14:47)
[2018-04-21] MEDS: DAKIN'S FULL STRENGTH TP SCH (14:49)
[2018-04-21] MEDS: SODIUM CHLORIDE FLUSH SYRINGE 10 ML IV SCH ×2 (14:50→22:30)
[2018-04-21] MEDS: FEOSOL PO SCH ×3 (14:50→21:00)
[2018-04-21] MEDS: VITAMIN C PO SCH ×2 (14:50→21:58)
[2018-04-21] MEDS: MORPHINE IV PRN (21:57)
[2018-04-21] MEDS: SENOKOT PO SCH (21:58)
[2018-04-21] MEDS: LANTUS SUB-Q SCH (23:00)
[2018-04-22] MEDS: HumaLOG SUB-Q SCH ×4 (00:53→18:03)
[2018-04-22] MEDS: LACTATED RINGERS 1,000 ML IV SCH (05:10)
[2018-04-22 06:07] LABS: Hematocrit 21.2 % (35.5-45.6); Mean Corpuscular HGB Conc 33 % (32-34); Mean Corpuscular Hemoglobin 26 pg (28-32); Mean Corpuscular Volume 79 fl (84-94); Platelet Count 557 K/mm3 (140-440); Red Blood Count 2.67 M/mm3 (3.65-5.03); Red Cell Distribution Width 15.7 % (13.2-15.2)
[2018-04-22 06:29] LABS: BUN/Creatinine Ratio 10; Blood Urea Nitrogen 6 mg/dL (9-20); Calcium 8.4 mg/dL (8.4-10.2); Hemolysis Index 0
[2018-04-22] MEDS: FEOSOL PO SCH ×3 (08:00→21:55)
[2018-04-22] MEDS: DUONEB *Not for PRN Use IH SCH ×3 (08:36→20:46)
[2018-04-22] MEDS: ZESTRIL PO SCH (09:37)
[2018-04-22] MEDS: VITAMIN C PO SCH ×2 (09:38→21:55)
[2018-04-22] MEDS: LOVENOX SUB-Q SCH (09:38)
[2018-04-22] MEDS: SODIUM CHLORIDE FLUSH SYRINGE 10 ML IV SCH ×2 (09:39→21:56)
[2018-04-22] MEDS: PROTONIX FEEDTUBE SCH (09:39)
--- NOTE | 2018-04-22 11:56 | Progress Note ---
Assessment and Plan Assessment and plan: Patient is a 57 yo man who speaks Peruvian and little Cypriot (he mostly uses his sister in law Sarahy as his personal project construction manager) with a history of DM2, who pw hypoglycemia from not eating due to lack of appetite. He c/o chest pains , so family called EMS who found his blood glucose to be <40, he received dextrose, on way to ER, he vomited, followed by LOC and he became pulseless. He received CPR and was intubated on arrival on 04/07/18. He was subsequently extubated on 04/14/18. He did require Vasopressor bp support on admission, and weaned off 04/11/18. LT foot cellulitis/osteomyelitis s/p Left BKA on 04/18/[address] Sage Johnson -s/p antibiotics, ended 04/20/18 -wound care -Status post I&D left lower extremity on 04/12/18, infection is down to the bone Acute hypoxic respiratory failure on MV >96 hours, resolving, still needing o2 extubated on 04/14/18, improving trying to wean Severe sepsis with shock probably secondary to pneumonia and LT foot cellulitis , resolved weaned off pressors on 04/11 - IV abx, ID consulted Bilateral pneumonia off IV zosyn per ID Acute metabolic encephalopathy, resolved -MR brain was negative, case dw neurology -anoxic encephalopathy excluded Cardiopulmonary arrest, resolved, most likely due to hypoxia -serial troponin levels normal -echo showed EF of 55-60% without regional wall motion abnormalities -cardiology on board Elevated D-dimer -CTA neg for PE DM2 with hyperglycemia, uncontrolled -counseling and education -A1C:9.9 Hyponatremia -improving, will monitor Iron def anemia with acute loss, probably sec to sepsis -s/p blood tranf with 2u of PRBC -Hb:8.4, will monitor -stool for occult blood, never done on the Apr, will re-order Transaminitis, probably sec to the sepsis -improved Prophylaxis -Protonix and Lovenox Hypoglycemic resolved, on Tube feeding with NGT re-consult speech therapy hold Lantus He is tolerating diet, still on O2, he was 87% on room air. Will d/c once O2 setup. Disposition: continue inpatient care, Discharge held up because #1 no FOBT collected and it has been ordered twice. I d/w nurse Carisa to collect and #2, patient still on o2 without documentation of need, I have asked the nurse to check Pulse xo and document. History Interval history: Patient was seen and examined. Follow-up on current diagnosis of sepsis. Overnight uneventful. Patient denies any chest pain, shortness breath, nausea/ vomiting or severe headaches. Imaging, nursing note, chart, labs and old chart reviewed. Discussed with patient. Surveillance Operator Line used via our [employer] system. Patient says he had bowel movement today. He is still on O2 via [facility]a [place]. Hospitalist Physical - Physical exam Narrative exam: GEN: WDWN, NAD, Awake, Alert, Orientated HEENT: NCAT, EOMI, PERRL, OP with NGT removed NECK: supple, no adenopathy, no thyromegaly, no JVD, right iJ TLC in place, removed CVS/HEART: RRR, normal S1S2, pulses present bilaterally CHEST/LUNGS: CTA B, Symmetrical chest expansion, good air entry bilaterally GI/Abdomen: soft, NTND, good bowel sounds, no guarding or rebound /Bladder: no suprapubic tenderness, no CVA or paraspinal tenderness EXT/Skin: left bka stump with david c/d/i MSK: FROM x 3 Neuro: CN 2-12 grossly intact, no new focal deficits, Psych: calm - Constitutional Vitals: Temp Pulse Resp BP Pulse Ox 98.4 F 94 H 18 164/87 98 04/22/18 06:34 04/22/18 08:46 04/22/18 08:46 04/22/18 06:34 04/22/18 06:34 General appearance: Present: no acute distress Results - Labs CBC & Chem 7: 04/22/18 04:48 04/22/18 04:48 Labs: Laboratory Last Values WBC 5.9 K/mm3 (4.5-11.0) 04/22/18 04:48 RBC 2.67 M/mm3 (3.65-5.03) L 04/22/18 04:48 Hgb 7.0 gm/dl (11.8-15.2) L 04/22/18 04:48 Hct 21.2 % (35.5-45.6) L 04/22/18 04:48 MCV 79 fl (84-94) L 04/22/18 04:48 MCH 26 pg (28-32) L 04/22/18 04:48 MCHC 33 % (32-34) 04/22/18 04:48 RDW 15.7 % (13.2-15.2) H 04/22/18 04:48 Plt Count 557 K/mm3 (140-440) H 04/22/18 04:48 Lymph % (Auto) 22.2 % (13.4-35.0) 04/18/18 13:45 [place] % (Auto) 9.2 % (0.0-7.3) H 04/18/18 13:45 Eos % (Auto) 2.0 % (0.0-4.3) 04/18/18 13:45 Baso % (Auto) 1.0 % (0.0-1.8) 04/18/18 13:45 Lymph # 2.0 K/mm3 (1.2-5.4) 04/18/18 13:45 [place] # 0.8 K/mm3 (0.0-0.8) 04/18/18 13:45 Eos # 0.2 K/mm3 (0.0-0.4) 04/18/18 13:45 Baso # 0.1 K/mm3 (0.0-0.1) 04/18/18 13:45 Add Manual Diff Complete 04/11/18 04:14 Total Counted 100 04/11/18 04:14 Seg Neutrophils % 65.6 % (40.0-70.0) 04/18/18 13:45 Seg Neuts % (Manual) 79.0 % (40.0-70.0) H 04/11/18 04:14 Band Neutrophils % 4.0 % 04/11/18 04:14 Lymphocytes % (Manual) 10.0 % (13.4-35.0) L 04/11/18 04:14 Reactive Lymphs % (Man) 0 % 04/11/18 04:14 Monocytes % (Manual) 5.0 % (0.0-7.3) 04/11/18 04:14 Eosinophils % (Manual) 1.0 % (0.0-4.3) 04/11/18 04:14 Basophils % (Manual) 1.0 % (0.0-1.8) 04/11/18 04:14 Metamyelocytes % 0 % 04/11/18 04:14 Myelocytes % 0 % 04/11/18 04:14 Promyelocytes % 0 % 04/11/18 04:14 Blast Cells % 0 % 04/11/18 04:14 Nucleated RBC % Not Reportable 04/11/18 04:14 Seg Neutrophils # 5.8 K/mm3 (1.8-7.7) 04/18/18 13:45 Seg Neutrophils # Man 11.8 K/mm3 (1.8-7.7) H 04/11/18 04:14 Band Neutrophils # 0.6 K/mm3 04/11/18 04:14 Lymphocytes # (Manual) 1.5 K/mm3 (1.2-5.4) 04/11/18 04:14 Abs React Lymphs (Man) 0.0 K/mm3 04/11/18 04:14 Monocytes # (Manual) 0.7 K/mm3 (0.0-0.8) 04/11/18 04:14 Eosinophils # (Manual) 0.1 K/mm3 (0.0-0.4) 04/11/18 04:14 Basophils # (Manual) 0.1 K/mm3 (0.0-0.1) 04/11/18 04:14 Metamyelocytes # 0.0 K/mm3 04/11/18 04:14 Myelocytes # 0.0 K/mm3 04/11/18 04:14 Promyelocytes # 0.0 K/mm3 04/11/18 04:14 Blast Cells # 0.0 K/mm3 04/11/18 04:14 WBC Morphology Not Reportable 04/11/18 04:14 Hypersegmented Neuts Not Reportable 04/11/18 04:14 Hyposegmented Neuts Not Reportable 04/11/18 04:14 Hypogranular Neuts Not Reportable 04/11/18 04:14 Smudge Cells Not Reportable 04/11/18 04:14 Toxic Granulation Not Reportable 04/11/18 04:14 Toxic Vacuolation Not Reportable 04/11/18 04:14 Dohle Bodies Not Reportable 04/11/18 04:14 Pelger-Huet Anomaly Not Reportable 04/11/18 04:14 Matt Rods Not Reportable 04/11/18 04:14 Platelet Estimate Consistent w auto 04/11/18 04:14 Clumped Platelets Not Reportable 04/11/18 04:14 Plt Clumps, EDTA Not Reportable 04/11/18 04:14 Large Platelets Not Reportable 04/11/18 04:14 Giant Platelets Not Reportable 04/11/18 04:14 Platelet Satelliting Not Reportable 04/11/18 04:14 Plt Morphology Comment Not Reportable 04/11/18 04:14 RBC Morphology Not Reportable 04/11/18 04:14 Dimorphic RBCs Not Reportable 04/11/18 04:14 Polychromasia Not Reportable 04/11/18 04:14 Hypochromasia 1+ 04/11/18 04:14 Poikilocytosis Not Reportable 04/11/18 04:14 Anisocytosis Not Reportable 04/11/18 04:14 Microcytosis Not Reportable 04/11/18 04:14 Macrocytosis Not Reportable 04/11/18 04:14 Spherocytes Not Reportable 04/11/18 04:14 Pappenheimer Bodies Not Reportable 04/11/18 04:14 Sickle Cells Not Reportable 04/11/18 04:14 Target Cells Not Reportable 04/11/18 04:14 Tear Drop Cells Not Reportable 04/11/18 04:14 Ovalocytes Not Reportable 04/11/18 04:14 Stomatocytes Rare 04/10/18 04:06 Helmet Cells Not Reportable 04/11/18 04:14 Davis-Anza Bodies Not Reportable 04/11/18 04:14 [place] Rings Not Reportable 04/11/18 04:14 [place] Cells Not Reportable 04/11/18 04:14 Bite Cells Not Reportable 04/11/18 04:14 Crenated Cell Not Reportable 04/11/18 04:14 Elliptocytes Not Reportable 04/11/18 04:14 Acanthocytes (Spur) Not Reportable 04/11/18 04:14 Rouleaux Not Reportable 04/11/18 04:14 Hemoglobin C Crystals Not Reportable 04/11/18 04:14 Schistocytes Not Reportable 04/11/18 04:14 Malaria parasites Not Reportable 04/11/18 04:14 [place] Bodies Not Reportable 04/11/18 04:14 Hem Pathologist Commnt No 04/11/18 04:14 D-Dimer 933.08 ng/mlDDU (0-234) H 04/07/18 08:15 POC ABG pH 7.499 (7.35-7.45) H 04/14/18 09:45 POC ABG pCO2 30.1 (35-45) L 04/14/18 09:45 POC ABG pO2 104 (80-105) 04/14/18 09:45 POC ABG HCO3 23.5 04/14/18 09:45 POC ABG Total CO2 24 04/14/18 09:45 POC ABG O2 Sat 99 04/14/18 09:45 POC ABG Base Excess 0 04/14/18 09:45 VBG pH 7.231 (7.320-7.420) L 04/07/18 13:25 FiO2 28 % 04/14/18 09:45 Sodium 134 mmol/L (137-145) L 04/22/18 04:48 Potassium 3.8 mmol/L (3.6-5.0) 04/22/18 04:48 Chloride 95.4 mmol/L (98-107) L 04/22/18 04:48 Carbon Dioxide 29 mmol/L (22-30) 04/22/18 04:48 Anion Gap 13 mmol/L 04/22/18 04:48 BUN 6 mg/dL (9-20) L 04/22/18 04:48 Creatinine 0.6 mg/dL (0.8-1.5) L 04/22/18 04:48 Estimated GFR > 60 ml/min 04/22/18 04:48 BUN/Creatinine Ratio 10 % 04/22/18 04:48 Glucose 155 mg/dL (75-100) H 04/22/18 04:48 POC Glucose 151 (70-105) H 04/22/18 07:39 Hemoglobin A1c 9.9 % (4-6) H 04/07/18 16:43 Lactic Acid 1.80 mmol/L (0.7-2.0) 04/07/18 16:43 Calcium 8.4 mg/dL (8.4-10.2) 04/22/18 04:48 Magnesium 1.90 mg/dL (1.7-2.3) 04/20/18 04:17 Iron 15 ug/dL (49-181) L 04/08/18 07:34 TIBC 106 mcg/dL (250-450) L 04/08/18 07:34 % Saturation 14.15 % 04/08/18 07:34 Transferrin 76 mg/dl (180-329) L 04/08/18 07:34 Total Bilirubin 1.40 mg/dL (0.1-1.2) H 04/11/18 04:14 AST 40 units/L (5-40) 04/11/18 04:14 ALT 45 units/L (7-56) 04/11/18 04:14 Alkaline Phosphatase 225 units/L (35-129) H 04/11/18 04:14 Total Creatine Kinase 83 units/L (55-170) 04/07/18 13:25 CK-MB (CK-2) 2.5 ng/mL (0.0-4.0) 04/07/18 13:25 CK-MB (CK-2) Rel Index 3.0 (0-4) 04/07/18 13:25 Troponin T 0.025 ng/mL (0.00-0.029) 04/07/18 13:25 C-Reactive Protein 13.00 mg/dL (0.00-1.30) H 04/11/18 12:22 Total Protein 5.9 g/dL (6.3-8.2) L 04/11/18 04:14 Albumin 1.9 g/dL (3.9-5) L 04/11/18 04:14 Albumin/Globulin Ratio 0.5 % 04/11/18 04:14 Triglycerides 174 mg/dL (2-149) H 04/13/18 08:13 Cholesterol 95 mg/dL (50-199) 04/13/18 08:13 LDL Cholesterol Direct 25 mg/dL (50-130) L 04/13/18 08:13 HDL Cholesterol 9 mg/dL (40-59) L 04/13/18 08:13 Cholesterol/HDL Ratio 10.55 % 04/13/18 08:13 Vitamin B12 1405 pg/mL (211-911) H 04/08/18 07:34 RBC Folic Acid >1000 ng/mL (>280) 04/08/18 07:34 Urine Color Yellow (Yellow) 04/07/18 08:52 Urine Turbidity Clear (Clear) 04/07/18 08:52 Urine pH 8.0 (5.0-7.0) H 04/07/18 08:52 Ur Specific [place] 1.009 (1.003-1.030) 04/07/18 08:52 Urine Protein 100 mg/dl mg/dL (Negative) 04/07/18 08:52 Urine Glucose (UA) Neg mg/dL (Negative) 04/07/18 08:52 Urine Ketones Neg mg/dL (Negative) 04/07/18 08:52 Urine Blood Neg (Negative) 04/07/18 08:52 Urine Nitrite Neg (Negative) 04/07/18 08:52 Urine Bilirubin Neg (Negative) 04/07/18 08:52 Urine Urobilinogen < 2.0 mg/dL (<2.0) 04/07/18 08:52 Ur Leukocyte Esterase Neg (Negative) 04/07/18 08:52 Urine WBC (Auto) 1.0 /HPF (0.0-6.0) 04/07/18 08:52 Urine RBC (Auto) 3.0 /HPF (0.0-6.0) 04/07/18 08:52 U Epithel Cells (Auto) 2.0 /HPF (0-13.0) 04/07/18 08:52 Urine Mucus Few /HPF 04/07/18 08:52 Urine Sperm 3+ /HPF ([employer]) 04/07/18 08:52 Vancomycin Trough 12.3 ug/mL (5.0-20.0) 04/12/18 11:20 Urine Opiates Screen Presumptive negative 04/07/18 08:52 Urine Methadone Screen Presumptive negative 04/07/18 08:52 Ur Barbiturates Screen Presumptive negative 04/07/18 08:52 Ur Phencyclidine Scrn Presumptive negative 04/07/18 08:52 Ur Amphetamines Screen Presumptive negative 04/07/18 08:52 U Benzodiazepines Scrn Presumptive negative 04/07/18 08:52 Urine Cocaine Screen Presumptive negative 04/07/18 08:52 U Marijuana (THC) Screen Presumptive negative 04/07/18 08:52 Drugs of Abuse Note Disclamer 04/07/18 08:52 Blood Type O POSITIVE 04/18/18 13:45 Antibody Screen Negative 04/18/18 13:45 Crossmatch See Detail 04/07/18 16:43
[2018-04-22] MEDS: SENOKOT PO SCH (21:55)
[2018-04-22] MEDS: MORPHINE IV PRN (22:20)
[2018-04-23] MEDS: LANTUS SUB-Q SCH ×2 (01:26→23:02)
[2018-04-23 05:28] LABS: Hematocrit 20.9 % (35.5-45.6); Mean Corpuscular HGB Conc 33 % (32-34); Mean Corpuscular Hemoglobin 27 pg (28-32); Mean Corpuscular Volume 79 fl (84-94); Platelet Count 621 K/mm3 (140-440); Red Blood Count 2.64 M/mm3 (3.65-5.03); Red Cell Distribution Width 16.4 % (13.2-15.2)
[2018-04-23 05:43] LABS: BUN/Creatinine Ratio 10; Blood Urea Nitrogen 6 mg/dL (9-20); Calcium 8.2 mg/dL (8.4-10.2); Hemolysis Index 2
[2018-04-23] MEDS: HumaLOG SUB-Q SCH ×4 (06:00→17:06)
[2018-04-23] MEDS: DUONEB *Not for PRN Use IH SCH ×3 (08:42→19:54)
[2018-04-23] MEDS: VITAMIN C PO SCH ×2 (09:55→22:48)
[2018-04-23] MEDS: FEOSOL PO SCH ×3 (09:55→22:48)
[2018-04-23] MEDS: ZESTRIL PO SCH (09:56)
[2018-04-23] MEDS: PROTONIX FEEDTUBE SCH (09:56)
[2018-04-23] MEDS: LOVENOX SUB-Q SCH (09:56)
[2018-04-23] MEDS: SODIUM CHLORIDE FLUSH SYRINGE 10 ML IV SCH ×2 (09:56→22:51)
--- NOTE | 2018-04-23 11:27 | Progress Note ---
Assessment and Plan Assessment and plan: Patient is a 57 yo man who speaks [place] and little [place] (he mostly uses his sister in law Sarahy as his personal paraprofessional interpreter) with a history of DM2, who pw hypoglycemia from not eating due to lack of appetite. He c/o chest pains , so family called EMS who found his blood glucose to be <40, he received dextrose, on way to ER, he vomited, followed by LOC and he became pulseless. He received CPR and was intubated on arrival on 04/07/18. He was subsequently extubated on 04/14/18. He did require Vasopressor bp support on admission, and weaned off 04/11/18. LT foot cellulitis/osteomyelitis s/p Left BKA on 04/18/[address] Sage Johnson -s/p antibiotics, ended 04/20/18 -wound care -Status post I&D left lower extremity on 04/12/18, infection is down to the bone Acute hypoxic respiratory failure on MV >96 hours, resolving, still needing o2 extubated on 04/14/18, improving trying to wean Severe sepsis with shock probably secondary to pneumonia and LT foot cellulitis , resolved weaned off pressors on 04/11 - IV abx, ID consulted Bilateral pneumonia off IV zosyn per ID Acute metabolic encephalopathy, resolved -MR brain was negative, case dw neurology -anoxic encephalopathy excluded Cardiopulmonary arrest, resolved, most likely due to hypoxia -serial troponin levels normal -echo showed EF of 55-60% without regional wall motion abnormalities -cardiology on board Elevated D-dimer -CTA neg for PE DM2 with hyperglycemia, uncontrolled -counseling and education -A1C:9.9 Hyponatremia -improving, will monitor Iron def anemia with acute blood loss, probably sec to sepsis, worsen by surgery -s/p blood tranf with 2u of PRBC -stool for occult blood, never done on the Apr, will re-ordered and it is negative -hgb 7.0 now, will give 1 units Transaminitis, probably sec to the sepsis -improved Prophylaxis -Protonix and Lovenox Hypoglycemic resolved, on Tube feeding with NGT re-consult speech therapy hold Lantus O2 weaned off FOBT negative Hgb only 7.0, will give 1 unit of prbc Disposition: continue inpatient care, if h/h stable will d/c tomorrow. History Interval history: Patient was seen and examined. Follow-up on current diagnosis of sepsis. Overnight uneventful. Patient denies any chest pain, shortness breath, nausea/ vomiting or severe headaches. Imaging, nursing note, chart, labs and old chart reviewed. Discussed with patient. Manager Cash Line used via our [employer] system. Patient says he had bowel movement today. He is off O2 via nasa [place]ula. Hospitalist Physical - Physical exam Narrative exam: GEN: WDWN, NAD, Awake, Alert, Orientated HEENT: NCAT, EOMI, PERRL, OP with NGT removed NECK: supple, no adenopathy, no thyromegaly, no JVD, right iJ TLC in place, removed CVS/HEART: RRR, normal S1S2, pulses present bilaterally CHEST/LUNGS: CTA B, Symmetrical chest expansion, good air entry bilaterally GI/Abdomen: soft, NTND, good bowel sounds, no guarding or rebound /Bladder: no suprapubic tenderness, no CVA or paraspinal tenderness EXT/Skin: left bka stump with david c/d/i MSK: FROM x 3 Neuro: CN 2-12 grossly intact, no new focal deficits, Psych: calm - Constitutional Vitals: Temp Pulse Resp BP Pulse Ox 97.5 F L 93 H 18 131/68 95 04/23/18 04:27 04/23/18 09:01 04/23/18 09:01 04/23/18 04:27 04/23/18 08:44 General appearance: Present: no acute distress Results - Labs CBC & Chem 7: 04/23/18 04:31 04/23/18 04:31 Labs: Laboratory Last Values WBC 6.0 K/mm3 (4.5-11.0) 04/23/18 04:31 RBC 2.64 M/mm3 (3.65-5.03) L 04/23/18 04:31 Hgb 7.0 gm/dl (11.8-15.2) L 04/23/18 04:31 Hct 20.9 % (35.5-45.6) L 04/23/18 04:31 MCV 79 fl (84-94) L 04/23/18 04:31 MCH 27 pg (28-32) L 04/23/18 04:31 MCHC 33 % (32-34) 04/23/18 04:31 RDW 16.4 % (13.2-15.2) H 04/23/18 04:31 Plt Count 621 K/mm3 (140-440) H 04/23/18 04:31 Lymph % (Auto) 22.2 % (13.4-35.0) 04/18/18 13:45 [place] % (Auto) 9.2 % (0.0-7.3) H 04/18/18 13:45 Eos % (Auto) 2.0 % (0.0-4.3) 04/18/18 13:45 Baso % (Auto) 1.0 % (0.0-1.8) 04/18/18 13:45 Lymph # 2.0 K/mm3 (1.2-5.4) 04/18/18 13:45 Douglas # 0.8 K/mm3 (0.0-0.8) 04/18/18 13:45 Eos # 0.2 K/mm3 (0.0-0.4) 04/18/18 13:45 Baso # 0.1 K/mm3 (0.0-0.1) 04/18/18 13:45 Add Manual Diff Complete 04/11/18 04:14 Total Counted 100 04/11/18 04:14 Seg Neutrophils % 65.6 % (40.0-70.0) 04/18/18 13:45 Seg Neuts % (Manual) 79.0 % (40.0-70.0) H 04/11/18 04:14 Band Neutrophils % 4.0 % 04/11/18 04:14 Lymphocytes % (Manual) 10.0 % (13.4-35.0) L 04/11/18 04:14 Reactive Lymphs % (Man) 0 % 04/11/18 04:14 Monocytes % (Manual) 5.0 % (0.0-7.3) 04/11/18 04:14 Eosinophils % (Manual) 1.0 % (0.0-4.3) 04/11/18 04:14 Basophils % (Manual) 1.0 % (0.0-1.8) 04/11/18 04:14 Metamyelocytes % 0 % 04/11/18 04:14 Myelocytes % 0 % 04/11/18 04:14 Promyelocytes % 0 % 04/11/18 04:14 Blast Cells % 0 % 04/11/18 04:14 Nucleated RBC % Not Reportable 04/11/18 04:14 Seg Neutrophils # 5.8 K/mm3 (1.8-7.7) 04/18/18 13:45 Seg Neutrophils # Man 11.8 K/mm3 (1.8-7.7) H 04/11/18 04:14 Band Neutrophils # 0.6 K/mm3 04/11/18 04:14 Lymphocytes # (Manual) 1.5 K/mm3 (1.2-5.4) 04/11/18 04:14 Abs React Lymphs (Man) 0.0 K/mm3 04/11/18 04:14 Monocytes # (Manual) 0.7 K/mm3 (0.0-0.8) 04/11/18 04:14 Eosinophils # (Manual) 0.1 K/mm3 (0.0-0.4) 04/11/18 04:14 Basophils # (Manual) 0.1 K/mm3 (0.0-0.1) 04/11/18 04:14 Metamyelocytes # 0.0 K/mm3 04/11/18 04:14 Myelocytes # 0.0 K/mm3 04/11/18 04:14 Promyelocytes # 0.0 K/mm3 04/11/18 04:14 Blast Cells # 0.0 K/mm3 04/11/18 04:14 WBC Morphology Not Reportable 04/11/18 04:14 Hypersegmented Neuts Not Reportable 04/11/18 04:14 Hyposegmented Neuts Not Reportable 04/11/18 04:14 Hypogranular Neuts Not Reportable 04/11/18 04:14 Smudge Cells Not Reportable 04/11/18 04:14 Toxic Granulation Not Reportable 04/11/18 04:14 Toxic Vacuolation Not Reportable 04/11/18 04:14 Dohle Bodies Not Reportable 04/11/18 04:14 Pelger-Huet Anomaly Not Reportable 04/11/18 04:14 Matt Rods Not Reportable 04/11/18 04:14 Platelet Estimate Consistent w auto 04/11/18 04:14 Clumped Platelets Not Reportable 04/11/18 04:14 Plt Clumps, EDTA Not Reportable 04/11/18 04:14 Large Platelets Not Reportable 04/11/18 04:14 Giant Platelets Not Reportable 04/11/18 04:14 Platelet Satelliting Not Reportable 04/11/18 04:14 Plt Morphology Comment Not Reportable 04/11/18 04:14 RBC Morphology Not Reportable 04/11/18 04:14 Dimorphic RBCs Not Reportable 04/11/18 04:14 Polychromasia Not Reportable 04/11/18 04:14 Hypochromasia 1+ 04/11/18 04:14 Poikilocytosis Not Reportable 04/11/18 04:14 Anisocytosis Not Reportable 04/11/18 04:14 Microcytosis Not Reportable 04/11/18 04:14 Macrocytosis Not Reportable 04/11/18 04:14 Spherocytes Not Reportable 04/11/18 04:14 Pappenheimer Bodies Not Reportable 04/11/18 04:14 Sickle Cells Not Reportable 04/11/18 04:14 Target Cells Not Reportable 04/11/18 04:14 Tear Drop Cells Not Reportable 04/11/18 04:14 Ovalocytes Not Reportable 04/11/18 04:14 Stomatocytes Rare 04/10/18 04:06 Helmet Cells Not Reportable 04/11/18 04:14 [place] Bodies Not Reportable 04/11/18 04:14 Lissie Rings Not Reportable 04/11/18 04:14 Matthias Cells Not Reportable 04/11/18 04:14 Bite Cells Not Reportable 04/11/18 04:14 Crenated Cell Not Reportable 04/11/18 04:14 Elliptocytes Not Reportable 04/11/18 04:14 Acanthocytes (Spur) Not Reportable 04/11/18 04:14 Rouleaux Not Reportable 04/11/18 04:14 Hemoglobin C Crystals Not Reportable 04/11/18 04:14 Schistocytes Not Reportable 04/11/18 04:14 Malaria parasites Not Reportable 04/11/18 04:14 [place] Bodies Not Reportable 04/11/18 04:14 Hem Pathologist Commnt No 04/11/18 04:14 D-Dimer 933.08 ng/mlDDU (0-234) H 04/07/18 08:15 POC ABG pH 7.499 (7.35-7.45) H 04/14/18 09:45 POC ABG pCO2 30.1 (35-45) L 04/14/18 09:45 POC ABG pO2 104 (80-105) 04/14/18 09:45 POC ABG HCO3 23.5 04/14/18 09:45 POC ABG Total CO2 24 04/14/18 09:45 POC ABG O2 Sat 99 04/14/18 09:45 POC ABG Base Excess 0 04/14/18 09:45 VBG pH 7.231 (7.320-7.420) L 04/07/18 13:25 FiO2 28 % 04/14/18 09:45 Sodium 136 mmol/L (137-145) L 04/23/18 04:31 Potassium 3.8 mmol/L (3.6-5.0) 04/23/18 04:31 Chloride 99.1 mmol/L (98-107) 04/23/18 04:31 Carbon Dioxide 29 mmol/L (22-30) 04/23/18 04:31 Anion Gap 12 mmol/L 04/23/18 04:31 BUN 6 mg/dL (9-20) L 04/23/18 04:31 Creatinine 0.6 mg/dL (0.8-1.5) L 04/23/18 04:31 Estimated GFR > 60 ml/min 04/23/18 04:31 BUN/Creatinine Ratio 10 % 04/23/18 04:31 Glucose 111 mg/dL (75-100) H 04/23/18 04:31 POC Glucose 92 (70-105) 04/23/18 07:30 Hemoglobin A1c 9.9 % (4-6) H 04/07/18 16:43 Lactic Acid 1.80 mmol/L (0.7-2.0) 04/07/18 16:43 Calcium 8.2 mg/dL (8.4-10.2) L 04/23/18 04:31 Magnesium 1.90 mg/dL (1.7-2.3) 04/20/18 04:17 Iron 15 ug/dL (49-181) L 04/08/18 07:34 TIBC 106 mcg/dL (250-450) L 04/08/18 07:34 % Saturation 14.15 % 04/08/18 07:34 Transferrin 76 mg/dl (180-329) L 04/08/18 07:34 Total Bilirubin 1.40 mg/dL (0.1-1.2) H 04/11/18 04:14 AST 40 units/L (5-40) 04/11/18 04:14 ALT 45 units/L (7-56) 04/11/18 04:14 Alkaline Phosphatase 225 units/L (35-129) H 04/11/18 04:14 Total Creatine Kinase 83 units/L (55-170) 04/07/18 13:25 CK-MB (CK-2) 2.5 ng/mL (0.0-4.0) 04/07/18 13:25 CK-MB (CK-2) Rel Index 3.0 (0-4) 04/07/18 13:25 Troponin T 0.025 ng/mL (0.00-0.029) 04/07/18 13:25 C-Reactive Protein 13.00 mg/dL (0.00-1.30) H 04/11/18 12:22 Total Protein 5.9 g/dL (6.3-8.2) L 04/11/18 04:14 Albumin 1.9 g/dL (3.9-5) L 04/11/18 04:14 Albumin/Globulin Ratio 0.5 % 04/11/18 04:14 Triglycerides 174 mg/dL (2-149) H 04/13/18 08:13 Cholesterol 95 mg/dL (50-199) 04/13/18 08:13 LDL Cholesterol Direct 25 mg/dL (50-130) L 04/13/18 08:13 HDL Cholesterol 9 mg/dL (40-59) L 04/13/18 08:13 Cholesterol/HDL Ratio 10.55 % 04/13/18 08:13 Vitamin B12 1405 pg/mL (211-911) H 04/08/18 07:34 RBC Folic Acid >1000 ng/mL (>280) 04/08/18 07:34 Urine Color Yellow (Yellow) 04/07/18 08:52 Urine Turbidity Clear (Clear) 04/07/18 08:52 Urine pH 8.0 (5.0-7.0) H 04/07/18 08:52 Ur Specific [place] 1.009 (1.003-1.030) 04/07/18 08:52 Urine Protein 100 mg/dl mg/dL (Negative) 04/07/18 08:52 Urine Glucose (UA) Neg mg/dL (Negative) 04/07/18 08:52 Urine Ketones Neg mg/dL (Negative) 04/07/18 08:52 Urine Blood Neg (Negative) 04/07/18 08:52 Urine Nitrite Neg (Negative) 04/07/18 08:52 Urine Bilirubin Neg (Negative) 04/07/18 08:52 Urine Urobilinogen < 2.0 mg/dL (<2.0) 04/07/18 08:52 Ur Leukocyte Esterase Neg (Negative) 04/07/18 08:52 Urine WBC (Auto) 1.0 /HPF (0.0-6.0) 04/07/18 08:52 Urine RBC (Auto) 3.0 /HPF (0.0-6.0) 04/07/18 08:52 U Epithel Cells (Auto) 2.0 /HPF (0-13.0) 04/07/18 08:52 Urine Mucus Few /HPF 04/07/18 08:52 Urine Sperm 3+ /HPF (WELFARE INVESTIGATOR) 04/07/18 08:52 Vancomycin Trough 12.3 ug/mL (5.0-20.0) 04/12/18 11:20 Urine Opiates Screen Presumptive negative 04/07/18 08:52 Urine Methadone Screen Presumptive negative 04/07/18 08:52 Ur Barbiturates Screen Presumptive negative 04/07/18 08:52 Ur Phencyclidine Scrn Presumptive negative 04/07/18 08:52 Ur Amphetamines Screen Presumptive negative 04/07/18 08:52 U Benzodiazepines Scrn Presumptive negative 04/07/18 08:52 Urine Cocaine Screen Presumptive negative 04/07/18 08:52 U Marijuana (THC) Screen Presumptive negative 04/07/18 08:52 Drugs of Abuse Note Disclamer 04/07/18 08:52 Blood Type O POSITIVE 04/18/18 13:45 Antibody Screen Negative 04/18/18 13:45 Crossmatch See Detail 04/07/18 16:43
[2018-04-23] MEDS ORDERED: NACL 0.9% 500 ML 500 ML IV ONE (12:00)
[2018-04-23] MEDS ORDERED: NACL 0.9% 500 ML 500 ML IV NR (16:00)
[2018-04-23] MEDS: SENOKOT PO SCH (22:48)
[2018-04-23] MEDS: MORPHINE IV PRN (22:56)
[2018-04-24] MEDS: HumaLOG SUB-Q SCH
[2018-04-24 06:16] VITALS: BP 159/77
[2018-04-24] MEDS: DUONEB *Not for PRN Use IH SCH ×2 (07:26→13:23)
[2018-04-24 08:20] LABS: Hematocrit 26.7 % (35.5-45.6); Mean Corpuscular HGB Conc 34 % (32-34); Mean Corpuscular Hemoglobin 27 pg (28-32); Mean Corpuscular Volume 80 fl (84-94); Platelet Count 661 K/mm3 (140-440); Red Blood Count 3.33 M/mm3 (3.65-5.03); Red Cell Distribution Width 15.9 % (13.2-15.2)
[2018-04-24] MEDS ORDERED: PROTONIX PO SCH (10:00)
[2018-04-24] MEDS: VITAMIN C PO SCH (10:13)
[2018-04-24] MEDS: FEOSOL PO SCH (10:13)
[2018-04-24] MEDS: SODIUM CHLORIDE FLUSH SYRINGE 10 ML IV SCH (10:14)
[2018-04-24] MEDS: ZESTRIL PO SCH (10:14)
[2018-04-24] MEDS: LOVENOX SUB-Q SCH (10:15)
--- NOTE | 2018-04-25 10:52 | Vascular Lab Report ---
Left Lower Extremity Venous Duplex Study: Reason for Exam: Pain and swelling of the left lower extremity. Comments on the Right: A limited duplex study was done of the proximal veins of the right lower extremity. All veins visualized are freely compressible without evidence of internal echogenicity. Flow is spontaneous and phasic throughout. No evidence of acute or chronic thrombus is seen in any of the vessels visualized. Comments on the Left: All veins visualized are freely compressible without evidence of internal echogenicity. Flow is spontaneous and phasic throughout. No evidence of acute or chronic thrombus is seen in any of the vessels visualized. Left inguinal adenopathy is noted. Impression: No evidence of acute or chronic deep venous thrombosis in the left lower extremity. Left inguinal adenopathy is noted.
== END 2018-04-24 19:26 | disposition home health service (06) | DRG 853 ==
LOC: ED 08:14 → CC1 16:08 → 3A 04-16 16:48
PROVIDERS: ADMIT Internal Medicine; ATTEND Internal Medicine
PROC: 5A1955Z Respiratory Ventilation, Greater than 96 Consecutive Hours (ICD-10-PCS; principal; 2018-04-07)
PROC: 0BH17EZ Insertion of Endotracheal Airway into Trachea, Via Natural or Artificial Opening (ICD-10-PCS; 2018-04-07)
PROC: 02HV33Z Insertion of Infusion Device into Superior Vena Cava, Percutaneous Approach (ICD-10-PCS; 2018-04-07)
PROC: B548ZZA Ultrasonography of Superior Vena Cava, Guidance (ICD-10-PCS; 2018-04-07)
PROC: 4A033R1 Measurement of Arterial Saturation, Peripheral, Percutaneous Approach (ICD-10-PCS; 2018-04-07)
PROC: 0DH67UZ Insertion of Feeding Device into Stomach, Via Natural or Artificial Opening (ICD-10-PCS; 2018-04-08)
PROC: 30233N1 Transfusion of Nonautologous Red Blood Cells into Peripheral Vein, Percutaneous Approach (ICD-10-PCS; 2018-04-08)
PROC: 0JBR0ZZ Excision of Left Foot Subcutaneous Tissue and Fascia, Open Approach (ICD-10-PCS; 2018-04-12)
PROC: 0Y6J0Z3 Detachment at Left Lower Leg, Low, Open Approach (ICD-10-PCS; 2018-04-18)
DX: A41.9 Sepsis, unspecified organism (principal); I46.9 Cardiac arrest, cause unspecified; J96.01 Acute respiratory failure with hypoxia; J69.0 Pneumonitis due to inhalation of food and vomit; R65.21 Severe sepsis with septic shock; G93.41 Metabolic encephalopathy; E87.1 Hypo-osmolality and hyponatremia; E11.52 Type 2 diabetes mellitus with diabetic peripheral angiopathy with gangrene; I96 Gangrene, not elsewhere classified; N17.9 Acute kidney failure, unspecified; G93.1 Anoxic brain damage, not elsewhere classified; L03.116 Cellulitis of left lower limb; D62 Acute posthemorrhagic anemia; L02.612 Cutaneous abscess of left foot; M86.8X7 Other osteomyelitis, ankle and foot; D50.9 Iron deficiency anemia, unspecified; R74.0 Nonspecific elevation of levels of transaminase and lactic acid dehydrogenase [LDH]; E11.69 Type 2 diabetes mellitus with other specified complication; E11.649 Type 2 diabetes mellitus with hypoglycemia without coma; E11.621 Type 2 diabetes mellitus with foot ulcer; L97.529 Non-pressure chronic ulcer of other part of left foot with unspecified severity; I10 Essential (primary) hypertension; Z79.899 Other long term (current) drug therapy; Z79.84 Long term (current) use of oral hypoglycemic drugs; Z83.3 Family history of diabetes mellitus; Z71.89 Other specified counseling
CPT/HCPCS: 36415; 36600; 51702; 70450; 70551; 71045; 71275; 74018; 80048; 80053; 80061; 80202; 80307; 81001; 82140; 82270; 82550; 82553; 82607; 82747; 82803; 82805; 82962; 83036; 83550; 83735; 84484; 85007; 85025; 85027; 85379; 86140; 86850; 86900; 86901; 86920; 87040; 87070; 87075; 87076; 87086; 87116; 87186; 87205; 88304; 88305; 88307; 88311; 93005; 93010; 93306; 93925; 94002; 94003; 94640; 94760; 99291; 99292; A6250; A9577; C9113; J0171; J1170; J1650; J1815; J2060; J2250; J2270; J2543; J2704; J3010; J3370; J7030; J7040; J7050; J7120; P9016; Q9967